=== PATIENT | male | born 1930 | race Caucasian/White ===

== ENCOUNTER → 2016-07-18 01:52 | Emergency (ER) | payer MEDICARE, BC ==
[~2016-07-18 01:52] MED LIST: Acetaminophen TAB* 325 MG PO ONE
[2016-07-18 02:01] VITALS: BP 165/89
--- NOTE | 2016-07-18 03:51 | ED ---
George Vera Rebecca, scribed for Yong Alcaraz MD on 07/18/16 at 0203 . HPI Chest Pain - HPI Summary HPI Summary: Pt is an 86 y/o M BIBA c/o L rib pain s/p rolling out of bed. Pt hit his left side on a bucket, resulting in L rib pain. Pain began immediately after impact, is discrete to the left lateral chest without radiaiton. Pain characterized as dull/aching, was mild at onset, is now completely resolved. Sx aggravated by deep breaths, alleviated by nothing. Denies any othe sx or pain, including abd pain. [employer] pt took 324 mg ASA. Is on Coumadin for A fib. Confirms rolling out of bed is not an irregular event. - History of Current Complaint Chief Complaint: EDChestWallPain Time Seen by Provider: 07/18/16 01:54 Hx Obtained From: Patient Onset/Duration: Traumatic - Rolled out of bed Time of Onset: 00:00 Timing: Constant Initial Severity: Mild Current Severity: None Pain Intensity: 0 Pain Scale Used: 0-10 Numeric Chest Pain Location: Left Lateral Chest Pain Radiates: No Character: Dull/Aching Aggravating Factor(s): Deep Breaths Alleviating Factor(s): Nothing Associated Signs and Symptoms: Positive: Negative - Additional Pertinent History Primary Care Physician: [id number] - Allergy/Home Medications Allergies/Adverse Reactions: Allergies Allergy/AdvReac Type Severity Reaction Status Date / Time No Known Allergies Allergy Verified 11/09/15 05:27 PMH/Surg Hx/FS Hx/Imm Hx Endocrine/Hematology History: Reports: Hx Diabetes Cardiovascular History: Reports: Hx Atrial Fibrillation, Hx Congestive Heart Failure, Hx Hypertension, Hx Pacemaker/ICD, Other Cardiovascular Problems/ Disorders - PACEMAKER Denies: Hx Peripheral Vascular Disease History: Reports: Other Problems/Disorders - CKD Musculoskeletal History: Denies: Hx Arthritis, Hx Osteoporosis Sensory History: Reports: Hx Contacts or Glasses Opthamlomology History: Reports: Hx Contacts or Glasses Neurological History: Denies: Hx Headaches, Hx Seizures, Hx Transient Ischemic Attacks (TIA) Psychiatric History: Denies: Hx Anxiety, Hx Depression - Surgical History Surgery Procedure, Year, and Place: PACEMAKER Infectious Disease History: No Infectious Disease History: Denies: Traveled Outside the [place] in Last 30 Days - Family History Known Family History: Positive: Cardiac Disease - Social History Alcohol Use: None Substance Use Type: Reports: None Hx Tobacco Use: No Smoking Status (MU): Former Smoker Review of Systems Negative: Abdominal Pain Positive: Arthralgia - Pain in the left lateral rib region All Other Systems Reviewed And Are Negative: Yes Physical Exam Triage Information Reviewed: Yes Vital Signs On Initial Exam: Initial Vitals Temp Pulse Resp BP Pulse Ox 100 F 106 16 165/89 92 07/18/16 01:59 07/18/16 01:59 07/18/16 01:59 07/18/16 01:59 07/18/16 01:59 Vital Signs Reviewed: Yes Appearance: Positive: Well-Appearing, No Pain Distress Skin: Positive: Warm, Skin Color Reflects Adequate Perfusion, Dry, Other - No ecchymosis Eyes: Positive: EOMI, RUDY Neck: Positive: Supple, Nontender Respiratory/Lung Sounds: Positive: Clear to Auscultation, Breath Sounds Present Cardiovascular: Positive: RRR Abdomen Description: Positive: Nontender, Soft Musculoskeletal: Positive: Strength/ROM Intact, Other - Tenderness over the left lateral lower ribs with no ecchymosis Neurological: Positive: Normal, Sensory/Motor Intact, Alert, Oriented to Person Place, Time Psychiatric: Positive: Affect/Mood Appropriate AVPU Assessment: Alert Diagnostics - Vital Signs Vital Signs Temp Pulse Resp BP Pulse Ox 07/18/16 01:59 100 F 106 16 165/89 92 - Laboratory Lab Statement: Any lab studies that have been ordered have been reviewed, and results considered in the medical decision making process. - Radiology Ribs XR Xray Interpretation: Positive (See Comments) - Fx of the left 9th rib, nondisplaced. No PTX Radiology Interpretation Completed By: ED Physician CXR Xray Interpretation: Positive (See Comments) - Fx of the left 9th rib, nondisplaced. No PTX Radiology Interpretation Completed By: ED Physician Re-Evaluation - Re-Evaluation First Eval Re-Evaluation Time: 03:46 Change: Improved Comment: Discussed XR results with pt. He is feeling significantly better. Chest Pain Course/Dx - Course Assessment/Plan: ON X-RAY, IT APPEARS THAT LEFT 9TH RIB IS FRACTURED WITHOUT DISPLACEMENT. RESULTS DISCUSSED WITH PATIENT. HOME WITH INCENTIVE SPIROMETER. F/ U WITH PMD. DISCHARGE HOME STABLE. - Diagnoses Provider Diagnoses: Rib fracture Discharge - Discharge Plan Condition: Stable Disposition: HOME Patient Education Materials: Rib Fracture (ED) Referrals: Hayder Sherman MD [Primary Care Provider] - Additional Instructions: FOLLOW UP WITH YOUR DOCTOR. USE THE INCENTIVE SPIROMETER 4 OR MORE TIMES A DAY TO DECREASE THE RISK OF A RESPIRATORY INFECTION. RETURN TO THE EMERGENCY DEPARTMENT FOR ANY WORSENING OF YOUR CONDITION; PAIN, SHORTNESS OF BREATH, YOU FEEL ILL OR QUESTIONS OR CONCERNS. The documentation as recorded by the George woo Rebecca accurately reflects the service I personally performed and the decisions made by me, Yong Alcaraz MD.
--- NOTE | 2016-07-18 07:56 | RAD ---
INDICATION: Left lateral rib pain after a fall COMPARISON: Chest x-ray dated February 24, 2016 TECHNIQUE: PA and lateral views of the chest and 3 views of the left ribs were obtained. FINDINGS: In the left upper chest cardiac pacemaker with 2 leads overlying the heart. The heart and mediastinum are normal in size and contour. The lungs are grossly clear. There is no evidence of large pleural effusion. No displaced rib fractures are seen. There is no radiographic evidence of free air beneath the diaphragm IMPRESSION: NO RADIOGRAPHIC EVIDENCE OF ACUTE CARDIOPULMONARY DISEASE OR DISPLACED RIB FRACTURES.
== END | disposition home or self-care (01) ==
LOC: ED 01:52
DX: S22.32XA Fracture of one rib, left side, initial encounter for closed fracture (principal); R07.81 Pleurodynia; Z87.891 Personal history of nicotine dependence; X58.XXXA Exposure to other specified factors, initial encounter; Y93.9 Activity, unspecified; Y92.9 Unspecified place or not applicable; Y99.9 Unspecified external cause status
CPT/HCPCS: 71020; 99282; A9270-GY

== ENCOUNTER 2016-08-07 10:15 | Emergency (ER) | payer MEDICARE, BC ==
[2016-08-07 11:18] LABS: Hematocrit 30 % (42-52); Hemoglobin 9.4 g/dl (14.0-18.0); Mean Corpuscular HGB Conc 32 g/dl (31-36); Mean Corpuscular Hemoglobin 28 pg (27-31); Mean Corpuscular Volume 87 fL (80-94); Mean Platelet Volume 7 um3 (7.4-10.4); Red Cell Distribution Width 18 % (10.5-15); White Blood Count 5.3 10^3/ul (3.5-10.8)
--- NOTE | 2016-08-07 11:27 | RAD ---
INDICATION: Cough. COMPARISON: Comparison is made with a prior study from July 18, 2016. TECHNIQUE: A portable view of the chest was obtained. FINDINGS: The heart is within normal limits in size. There is a dual-chamber transvenous pacemaker present. The lungs are slightly hyperinflated and clear. No pleural effusion is seen. IMPRESSION: NO EVIDENCE FOR ACUTE DISEASE.
[2016-08-07 11:34] LABS: Albumin 3.3 g/dL (3.2-5.2); BUN/Creatinine Ratio 18.1 (8-20); C Reactive Protein 27.81 mg/L (< 5.00); Calcium 9.3 mg/dL (8.6-10.3); EGFR African American 31.1 (>60); EGFR Non-African American 24.2 (>60); Globulin 3.4 g/dL (2-4); Magnesium 1.6 mg/dL (1.9-2.7); Potassium 3.8 mmol/L (3.5-5.0); Total Bilirubin 0.7 mg/dL (0.2-1.0); Total Protein 6.7 g/dL (6.4-8.9)
[2016-08-07 11:41] LABS: Troponin I 0.04 ng/mL (<0.04)
[2016-08-07 11:59] LABS: TSH (Thyroid Stimulating Horm) 2.72 mcIU/mL (0.34-5.60)
[2016-08-07 12:03] VITALS: BP 132/68
--- NOTE | 2016-08-07 14:48 | ED ---
I, Rubén,Annemarie, scribed for Lee Forman MD on 08/07/16 at 1043 . Complex/Multi-Sys Presentation - HPI Summary HPI Summary: This 86 y/o male presents to ED for general weakness since this morning. Pt attempted to ambulate to bathroom to urinate, but was unable to move out of bed. Pt is wheelchair dependent at home. He denies any dysuria, n/v, fever, chills, blurred vision, focal weakness, or change in speech, but reports mild cough last night. PMHx includes afib, CHF, DM, CHF. He is currently on blood thinner. Normal appetite per pt. Primary care involves Dr. Sherman. Pt is remote former smoker and nondrinker. - History Of Current Complaint Chief Complaint: EDGeneral Time Seen by Provider: 08/07/16 10:32 Hx Obtained From: Patient, Medical Records Onset/Duration: Sudden Onset, Still Present Timing: Constant Severity Currently: Moderate Severity Initially: Moderate Associated Signs And Symptoms: Positive: Weakness - generalized. Negative: Nausea, Vomiting, Dysuria, Fever - Allergies/Home Medications Allergies/Adverse Reactions: Allergies Allergy/AdvReac Type Severity Reaction Status Date / Time No Known Allergies Allergy Verified 11/09/15 05:27 PMH/Surg Hx/FS Hx/Imm Hx Endocrine/Hematology History: Reports: Hx Diabetes Cardiovascular History: Reports: Hx Atrial Fibrillation, Hx Congestive Heart Failure, Hx Hypertension, Hx Pacemaker/ICD, Other Cardiovascular Problems/ Disorders - PACEMAKER Denies: Hx Peripheral Vascular Disease History: Reports: Other Problems/Disorders - CKD Musculoskeletal History: Denies: Hx Arthritis, Hx Osteoporosis Sensory History: Reports: Hx Contacts or Glasses Opthamlomology History: Reports: Hx Contacts or Glasses Neurological History: Denies: Hx Headaches, Hx Seizures, Hx Transient Ischemic Attacks (TIA) Psychiatric History: Denies: Hx Anxiety, Hx Depression - Surgical History Surgery Procedure, Year, and Place: PACEMAKER Infectious Disease History: No Infectious Disease History: Denies: Traveled Outside the [place] in Last 30 Days - Family History Known Family History: Positive: Cardiac Disease - Social History Alcohol Use: None Substance Use Type: Reports: None Hx Tobacco Use: No Smoking Status (MU): Former Smoker Review of Systems Negative: Fever, Chills Negative: Blurred Vision Positive: Cough Negative: Vomiting, Nausea Negative: dysuria Positive: Weakness - generalized. Negative: Headache, Slurred Speech Negative: Anxious, Depressed All Other Systems Reviewed And Are Negative: Yes Physical Exam - Summary Physical Exam Summary: The patient is well-nourished in no acute distress and in no acute pain. The skin is warm and dry and skin color reflects adequate perfusion. Decreased skin turgor. HEENT: The head is normocephalic and atraumatic. The pupils are equal and reactive. The conjunctivae are clear and without drainage. Nares are patent and without drainage. The external ears are intact. The ear canals are patent and without drainage. The tympanic membranes are intact. Neck is supple with full range of motion and non-tender. There are no carotid bruits. There is no neck vein distension. Respiratory: Chest is non-tender. Lungs are noted with bibasilar rales and wheezing. Cardiovascular: Hear is regular rate and rhythm. There is no murmur or rub auscultated. There is no peripheral edema and pulses are symmetrical and equal. 3 seconds cap refills Abdomen: The abdomen is soft and non-tender. There are normal bowel sounds heard in all four quadrants and there is no organomegaly palpated. Musculoskeletal: There is no back pain noted. Extremities are non-tender with full range of motion. There is good capillary refill. There is no peripheral edema or calf tenderness elicited. Neurological: Patient is alert and oriented to person, place and time. The patient has symmetrical motor strength in all four extremities. Cranial nerves II-III are grossly intact. Deep tendon reflexes are symmetrical and equal in all four extremities. Psychiatric: The patient has an appropriate affect and does not exhibit any anxiety or depression. Triage Information Reviewed: Yes Vital Signs On Initial Exam: Initial Vitals Temp Pulse Resp BP Pulse Ox 97.4 F 74 20 132/67 93 08/07/16 10:19 08/07/16 10:19 08/07/16 10:19 08/07/16 10:19 08/07/16 10:19 Vital Signs Reviewed: Yes Diagnostics - Vital Signs Vital Signs Temp Pulse Resp BP Pulse Ox 08/07/16 10:19 97.4 F 74 20 132/67 93 - Laboratory Lab Results: Lab Results 08/07/16 08/07/16 08/07/16 Range/Units 11:05 11:05 11:05 WBC 5.3 (3.5-10.8) 10^3/ul RBC 3.40 L (4.0-5.4) 10^6/ul Hgb 9.4 L (14.0-18.0) g/dl Hct 30 L (42-52) % MCV 87 (80-94) fL MCH 28 (27-31) pg MCHC 32 (31-36) g/dl RDW 18 H (10.5-15) % Plt Count 216 (150-450) 10^3/ul MPV 7 L (7.4-10.4) um3 Neut % (Auto) 75.9 (38-83) % Lymph % (Auto) 10.4 L (25-47) % Norman % (Auto) 9.0 (1-9) % Eos % (Auto) 4.2 (0-6) % Baso % (Auto) 0.5 (0-2) % Absolute Neuts (auto) 4.0 (1.5-7.7) 10^3/ul Absolute Lymphs (auto) 0.6 L (1.0-4.8) 10^3/ul Absolute Monos (auto) 0.5 (0-0.8) 10^3/ul Absolute Eos (auto) 0.2 (0-0.6) 10^3/ul Absolute Basos (auto) 0 (0-0.2) 10^3/ul Absolute Nucleated RBC 0 10^3/ul Nucleated RBC % 0 INR (Anticoag Therapy) (0.89-1.11) APTT (26.0-36.3) seconds Sodium 141 (133-145) mmol/L Potassium 3.8 (3.5-5.0) mmol/L Chloride 102 (101-111) mmol/L Carbon Dioxide 30 (22-32) mmol/L Anion Gap 9 (2-11) mmol/L BUN 46 H (6-24) mg/dL Creatinine 2.54 H (0.67-1.17) mg/dL Est GFR ( Amer) 31.1 (>60) Est GFR (Non-Af Amer) 24.2 (>60) BUN/Creatinine Ratio 18.1 (8-20) Glucose 166 H (70-100) mg/dL Lactic Acid 0.9 (0.5-2.0) mmol/L Calcium 9.3 (8.6-10.3) mg/dL Magnesium 1.6 L (1.9-2.7) mg/dL Total Bilirubin 0.70 (0.2-1.0) mg/dL AST 11 L (13-39) U/L ALT 9 (7-52) U/L Alkaline Phosphatase 80 (34-104) U/L Troponin I 0.04 H* (<0.04) ng/mL C-Reactive Protein 27.81 H (< 5.00) mg/L B-Natriuretic Peptide ( - 100) pg/mL Total Protein 6.7 (6.4-8.9) g/dL Albumin 3.3 (3.2-5.2) g/dL Globulin 3.4 (2-4) g/dL Albumin/Globulin Ratio 1.0 (1-3) TSH 2.72 (0.34-5.60) mcIU/mL 08/07/16 08/07/16 Range/Units 11:05 11:05 WBC (3.5-10.8) 10^3/ul RBC (4.0-5.4) 10^6/ul Hgb (14.0-18.0) g/dl Hct (42-52) % MCV (80-94) fL MCH (27-31) pg MCHC (31-36) g/dl RDW (10.5-15) % Plt Count (150-450) 10^3/ul MPV (7.4-10.4) um3 Neut % (Auto) (38-83) % Lymph % (Auto) (25-47) % Norman % (Auto) (1-9) % Eos % (Auto) (0-6) % Baso % (Auto) (0-2) % Absolute Neuts (auto) (1.5-7.7) 10^3/ul Absolute Lymphs (auto) (1.0-4.8) 10^3/ul Absolute Monos (auto) (0-0.8) 10^3/ul Absolute Eos (auto) (0-0.6) 10^3/ul Absolute Basos (auto) (0-0.2) 10^3/ul Absolute Nucleated RBC 10^3/ul Nucleated RBC % INR (Anticoag Therapy) 3.14 H (0.89-1.11) APTT 49.4 H (26.0-36.3) seconds Sodium (133-145) mmol/L Potassium (3.5-5.0) mmol/L Chloride (101-111) mmol/L Carbon Dioxide (22-32) mmol/L Anion Gap (2-11) mmol/L BUN (6-24) mg/dL Creatinine (0.67-1.17) mg/dL Est GFR ( Amer) (>60) Est GFR (Non-Af Amer) (>60) BUN/Creatinine Ratio (8-20) Glucose (70-100) mg/dL Lactic Acid (0.5-2.0) mmol/L Calcium (8.6-10.3) mg/dL Magnesium (1.9-2.7) mg/dL Total Bilirubin (0.2-1.0) mg/dL AST (13-39) U/L ALT (7-52) U/L Alkaline Phosphatase (34-104) U/L Troponin I (<0.04) ng/mL C-Reactive Protein (< 5.00) mg/L B-Natriuretic Peptide 665 H ( - 100) pg/mL Total Protein (6.4-8.9) g/dL Albumin (3.2-5.2) g/dL Globulin (2-4) g/dL Albumin/Globulin Ratio (1-3) TSH (0.34-5.60) mcIU/mL Result Diagrams: 08/07/16 11:05 08/07/16 11:05 Lab Statement: Any lab studies that have been ordered have been reviewed, and results considered in the medical decision making process. - Radiology CXR Xray Interpretation: No Acute Changes - IMPRESSION: NO EVIDENCE FOR ACUTE DISEASE. Radiology Interpretation Completed By: Radiologist - EKG 1041 Cardiac Rate: Other Rate - paced EKG Rhythm: Atrial Fibrillation Ectopy: PVCs - Occasional Complex Multi-Symp Course/Dx Assessment/Plan: This 86 y/o male presents to ED for general weakness since this morning. He denies any dysuria, n/v, fever, chills, blurred vision, focal weakness, or change in speech, but reports mild cough last night. Labs were reviewed. CXR shows no acute cardiopulmonary disease. EKG shows AFib with paced rate and occasional PVCs. Upon reevaluation, the patient states that he feels better. The patient will be discharged home and follow-up with his PCP. - Diagnoses Differential Diagnoses/HQI/PQRI: Metabolic Abnormality, Sepsis, Urinary Tract Infection, Other - myocardial infarct, anemia, pneumonia, chf, myocardial infarct, renal insufficiency, knee pain Provider Diagnoses: Weakness Discharge - Discharge Plan Condition: Stable Disposition: HOME Patient Education Materials: Weakness (ED) Referrals: Hayder Sherman MD [Primary Care Provider] - 2 Days Additional Instructions: Please follow-up with your primary care physician in two days. The documentation as recorded by the Rubén woo Soohyun accurately reflects the service I personally performed and the decisions made by me, Lee Forman MD.
== END 2016-08-07 14:51 | disposition home or self-care (01) ==
LOC: ED 10:15
DX: R53.1 Weakness (principal); Z86.79 Personal history of other diseases of the circulatory system; R05 Cough; Z87.891 Personal history of nicotine dependence
CPT/HCPCS: 36415; 71010; 80053; 83605; 83735; 83880; 84443; 84484; 85025; 85610; 85730; 86140; 87040; 93005; 99283

== ENCOUNTER 2016-10-19 07:53 | Observation (INO) | payer MEDICARE, BC ==
[2016-10-19 08:39] LABS: Hematocrit 26 % (42-52); Hemoglobin 8.4 g/dl (14.0-18.0); Mean Corpuscular HGB Conc 32 g/dl (31-36); Mean Corpuscular Hemoglobin 30 pg (27-31); Mean Corpuscular Volume 94 fL (80-94); Mean Platelet Volume 7 um3 (7.4-10.4); Red Blood Count 2.79 10^6/ul (4.0-5.4); Red Cell Distribution Width 22 % (10.5-15)
[2016-10-19 08:40] LABS: Comments Flag Yes
[2016-10-19 08:41] LABS: Add Diff/Slide Review? Slide Review Added
[2016-10-19 08:56] LABS: Albumin 3.6 g/dL (3.2-5.2); BUN/Creatinine Ratio 16.8 (8-20); C Reactive Protein 5.28 mg/L (< 5.00); Calcium 8.9 mg/dL (8.6-10.3); EGFR African American 34.6 (>60); EGFR Non-African American 26.9 (>60); Globulin 2.8 g/dL (2-4); Total Bilirubin 0.8 mg/dL (0.2-1.0); Total Protein 6.4 g/dL (6.4-8.9)
[2016-10-19 09:00] LABS: Urine Bacteria Absent (Absent); Urine Bilirubin Negative (Negative); Urine Glucose Negative (Negative); Urine Nitrite Negative (Negative)
--- NOTE | 2016-10-19 09:04 | RAD ---
INDICATION: Short of breath COMPARISON: August 07, 2016 TECHNIQUE: PA and lateral dual-energy views were obtained. FINDINGS: Bones/Soft Tissues: There are no acute bony findings. There is left-sided cardiac pacemaker Cardiomediastinal: The cardiomediastinal silhouette is normal. Lungs: There are no focal consolidative changes. There is a mild increase interstitial markings suggesting mild interstitial edema Pleura: There are tiny bilateral pleural effusions. There is scant fluid in the minor fissure. Other: None IMPRESSION: MILD INTERSTITIAL EDEMA.
[2016-10-19] MEDS ORDERED: Furosemide IV* 10 MG/ML 2 ML VIAL (20 MG) IV SLOW PU ONE ×2 (10:01→13:41)
[2016-10-19 10:18] LABS: PCO2 Arterial 36 mmHg (35-45)
[2016-10-19 11:10] LABS: Troponin I 0.04 ng/mL (<0.04)
--- NOTE | 2016-10-19 12:25 | ED ---
Janes Vera Billy, scribed for Eric Andrea MD on 10/19/16 at 0814 . Shortness of Breath - HPI Summary HPI Summary: Patient is an 86 year-old male with a history of CHF coming to [facility] for evaluation of four days of shortness of breath. He says that his shortness of breath is unchanged with any exertion (ie, pushing his wheelchair). he also states that he took one dose of Lasix this morning which did not improve his symptoms. However, it is improved with upright position and worse at night, in recumbent positions. He also reports trace swelling in the bilateral lower extremities. He denies any cough, fever, or chest pain. - History of Current Complaint Chief Complaint: EDShortnessOfBreath Time Seen by Provider: 10/19/16 08:09 Hx Obtained From: Patient Onset/Duration: Gradual Onset, Lasting Days, Still Present Timing: Constant Current Severity: Moderate Dyspnea At: Rest Aggrevating Factors: Recumbent Position Alleviating Factors: Upright Position Associated Signs & Symptoms: Edema - Allergy/Home Medications Allergies/Adverse Reactions: Allergies Allergy/AdvReac Type Severity Reaction Status Date / Time No Known Allergies Allergy Verified 11/09/15 05:27 Home Medications: Home Medications Furosemide TAB* [Lasix TAB*] 40 mg PO DAILY 10/19/16 [History Confirmed 10/19/16 ] glipiZIDE TAB.XL* [Glucotrol XL*] 10 mg PO BID 10/19/16 [History Confirmed 10/19] PMH/Surg Hx/FS Hx/Imm Hx Endocrine/Hematology History: Reports: Hx Diabetes Cardiovascular History: Reports: Hx Atrial Fibrillation, Hx Congestive Heart Failure, Hx Hypertension, Hx Pacemaker/ICD, Other Cardiovascular Problems/ Disorders - PACEMAKER Denies: Hx Peripheral Vascular Disease History: Reports: Other Problems/Disorders - CKD Musculoskeletal History: Denies: Hx Arthritis, Hx Osteoporosis Sensory History: Reports: Hx Contacts or Glasses Opthamlomology History: Reports: Hx Contacts or Glasses Neurological History: Denies: Hx Headaches, Hx Seizures, Hx Transient Ischemic Attacks (TIA) Psychiatric History: Denies: Hx Anxiety, Hx Depression - Surgical History Surgery Procedure, Year, and Place: PACEMAKER Infectious Disease History: No Infectious Disease History: Denies: Traveled Outside the [place] in Last 30 Days - Family History Known Family History: Positive: Cardiac Disease - Social History Alcohol Use: None Substance Use Type: Reports: None Hx Tobacco Use: No Smoking Status (MU): Former Smoker Review of Systems Negative: Fever Negative: Chest Pain Positive: Shortness Of Breath. Negative: Cough Positive: Edema All Other Systems Reviewed And Are Negative: Yes Physical Exam - Summary Physical Exam Summary: VITAL SIGNS: Reviewed. GENERAL: Patient is an elderly, fragile male who is lying comfortable in the stretcher. Patient is not in any acute respiratory distress. He is speaking in full sentences. HEAD AND FACE: Normocephalic EYES: PERRLA, EOMI x 2. EARS: Hearing grossly intact. MOUTH: Oropharynx within normal limits. NECK: Supple, trachea is midline, no adenopathy, no JVD, no carotid bruit. CHEST: Symmetric, no tenderness at palpation LUNGS: There are decreased breath sounds bilaterally. Positive crackles in the left lower lung. No wheezing. There are intercostal muscle retractions visualized. CVS: Regular rate and rhythm, S1 and S2 present, no murmurs or gallops appreciated. ABDOMEN: Soft, non-tender. It is mildly distended at baseline. Bowel sounds are normal. No abdominal abnormal pulsations. EXTREMITIES: Full ROM in all major joints, no cyanosis or clubbing. There is 1 + edema in the bilateral lower extremities. NEURO: Alert and oriented x 3. No acute neurological deficits. Speech is normal and follows commands. SKIN: Dry and warm Triage Information Reviewed: Yes Vital Signs On Initial Exam: Initial Vitals Temp Pulse Resp BP Pulse Ox 98.6 F 73 16 156/82 93 10/19/16 08:04 10/19/16 08:04 10/19/16 08:04 10/19/16 08:04 10/19/16 08:04 Vital Signs Reviewed: Yes Diagnostics - Vital Signs Vital Signs Temp Pulse Resp BP Pulse Ox 10/19/16 08:04 98.6 F 73 16 156/82 93 - Laboratory Lab Results: Lab Results 10/19/16 10/19/16 10/19/16 Range/Units 07:44 08:30 08:30 WBC 3.0 L (3.5-10.8) 10^3/ul RBC 2.79 L (4.0-5.4) 10^6/ul Hgb 8.4 L (14.0-18.0) g/dl Hct 26 L (42-52) % MCV 94 (80-94) fL MCH 30 (27-31) pg MCHC 32 (31-36) g/dl RDW 22 H (10.5-15) % Plt Count 139 L (150-450) 10^3/ul MPV 7 L (7.4-10.4) um3 Neut % (Auto) 69.5 (38-83) % Lymph % (Auto) 16.0 L (25-47) % Gage % (Auto) 11.4 H (1-9) % Eos % (Auto) 2.1 (0-6) % Baso % (Auto) 1.0 (0-2) % Absolute Neuts (auto) 2.1 (1.5-7.7) 10^3/ul Absolute Lymphs (auto) 0.5 L (1.0-4.8) 10^3/ul Absolute Monos (auto) 0.3 (0-0.8) 10^3/ul Absolute Eos (auto) 0.1 (0-0.6) 10^3/ul Absolute Basos (auto) 0 (0-0.2) 10^3/ul Absolute Nucleated RBC 0 10^3/ul Nucleated RBC % 0.1 INR (Anticoag Therapy) (0.89-1.11) APTT (26.0-36.3) seconds ABG pH (7.35-7.45) ABG pCO2 (35-45) mmHg ABG pO2 (80-100) mmHg ABG HCO3 (19-31) mmol/L ABG O2 Saturation (95-98) % ABG Base Excess (-2.0-2.0) Sodium 144 (133-145) mmol/L Potassium 4.0 (3.5-5.0) mmol/L Chloride 110 (101-111) mmol/L Carbon Dioxide 28 (22-32) mmol/L Anion Gap 6 (2-11) mmol/L BUN 39 H (6-24) mg/dL Creatinine 2.32 H (0.67-1.17) mg/dL Est GFR ( Amer) 34.6 (>60) Est GFR (Non-Af Amer) 26.9 (>60) BUN/Creatinine Ratio 16.8 (8-20) Glucose 162 H (70-100) mg/dL Lactic Acid (0.5-2.0) mmol/L Calcium 8.9 (8.6-10.3) mg/dL Total Bilirubin 0.80 (0.2-1.0) mg/dL AST 13 (13-39) U/L ALT 10 (7-52) U/L Alkaline Phosphatase 79 (34-104) U/L Total Creatine Kinase 64 (10-223) U/L CK-MB (CK-2) 3.5 (0.6-6.3) ng/mL Troponin I 0.04 H* (<0.04) ng/mL C-Reactive Protein 5.28 H (< 5.00) mg/L B-Natriuretic Peptide ( - 100) pg/mL Total Protein 6.4 (6.4-8.9) g/dL Albumin 3.6 (3.2-5.2) g/dL Globulin 2.8 (2-4) g/dL Albumin/Globulin Ratio 1.3 (1-3) Urine Color Urine Appearance Urine pH (5-9) Ur Specific [place] (1.010-1.030) Urine Protein (Negative) Urine Ketones (Negative) Urine Blood (Negative) Urine Nitrate (Negative) Urine Bilirubin (Negative) Urine Urobilinogen (Negative) Ur Leukocyte Esterase (Negative) Urine WBC (Auto) (Absent) Urine RBC (Auto) (Absent) Urine Bacteria (Absent) Hyaline Casts (Absent) Urine Glucose (Negative) Influenza A (Rapid) Negative (Negative) Influenza B (Rapid) Negative (Negative) 10/19/16 10/19/16 10/19/16 Range/Units 08:30 08:30 08:30 WBC (3.5-10.8) 10^3/ul RBC (4.0-5.4) 10^6/ul Hgb (14.0-18.0) g/dl Hct (42-52) % MCV (80-94) fL MCH (27-31) pg MCHC (31-36) g/dl RDW (10.5-15) % Plt Count (150-450) 10^3/ul MPV (7.4-10.4) um3 Neut % (Auto) (38-83) % Lymph % (Auto) (25-47) % Gage % (Auto) (1-9) % Eos % (Auto) (0-6) % Baso % (Auto) (0-2) % Absolute Neuts (auto) (1.5-7.7) 10^3/ul Absolute Lymphs (auto) (1.0-4.8) 10^3/ul Absolute Monos (auto) (0-0.8) 10^3/ul Absolute Eos (auto) (0-0.6) 10^3/ul Absolute Basos (auto) (0-0.2) 10^3/ul Absolute Nucleated RBC 10^3/ul Nucleated RBC % INR (Anticoag Therapy) 1.95 H (0.89-1.11) APTT 39.5 H (26.0-36.3) seconds ABG pH (7.35-7.45) ABG pCO2 (35-45) mmHg ABG pO2 (80-100) mmHg ABG HCO3 (19-31) mmol/L ABG O2 Saturation (95-98) % ABG Base Excess (-2.0-2.0) Sodium (133-145) mmol/L Potassium (3.5-5.0) mmol/L Chloride (101-111) mmol/L Carbon Dioxide (22-32) mmol/L Anion Gap (2-11) mmol/L BUN (6-24) mg/dL Creatinine (0.67-1.17) mg/dL Est GFR ( Amer) (>60) Est GFR (Non-Af Amer) (>60) BUN/Creatinine Ratio (8-20) Glucose (70-100) mg/dL Lactic Acid 0.8 (0.5-2.0) mmol/L Calcium (8.6-10.3) mg/dL Total Bilirubin (0.2-1.0) mg/dL AST (13-39) U/L ALT (7-52) U/L Alkaline Phosphatase (34-104) U/L Total Creatine Kinase (10-223) U/L CK-MB (CK-2) (0.6-6.3) ng/mL Troponin I (<0.04) ng/mL C-Reactive Protein (< 5.00) mg/L B-Natriuretic Peptide 822 H ( - 100) pg/mL Total Protein (6.4-8.9) g/dL Albumin (3.2-5.2) g/dL Globulin (2-4) g/dL Albumin/Globulin Ratio (1-3) Urine Color Urine Appearance Urine pH (5-9) Ur Specific [place] (1.010-1.030) Urine Protein (Negative) Urine Ketones (Negative) Urine Blood (Negative) Urine Nitrate (Negative) Urine Bilirubin (Negative) Urine Urobilinogen (Negative) Ur Leukocyte Esterase (Negative) Urine WBC (Auto) (Absent) Urine RBC (Auto) (Absent) Urine Bacteria (Absent) Hyaline Casts (Absent) Urine Glucose (Negative) Influenza A (Rapid) (Negative) Influenza B (Rapid) (Negative) 10/19/16 10/19/16 Range/Units 08:47 10:05 WBC (3.5-10.8) 10^3/ul RBC (4.0-5.4) 10^6/ul Hgb (14.0-18.0) g/dl Hct (42-52) % MCV (80-94) fL MCH (27-31) pg MCHC (31-36) g/dl RDW (10.5-15) % Plt Count (150-450) 10^3/ul MPV (7.4-10.4) um3 Neut % (Auto) (38-83) % Lymph % (Auto) (25-47) % Gage % (Auto) (1-9) % Eos % (Auto) (0-6) % Baso % (Auto) (0-2) % Absolute Neuts (auto) (1.5-7.7) 10^3/ul Absolute Lymphs (auto) (1.0-4.8) 10^3/ul Absolute Monos (auto) (0-0.8) 10^3/ul Absolute Eos (auto) (0-0.6) 10^3/ul Absolute Basos (auto) (0-0.2) 10^3/ul Absolute Nucleated RBC 10^3/ul Nucleated RBC % INR (Anticoag Therapy) (0.89-1.11) APTT (26.0-36.3) seconds ABG pH 7.46 H (7.35-7.45) ABG pCO2 36 (35-45) mmHg ABG pO2 60 L (80-100) mmHg ABG HCO3 26.2 (19-31) mmol/L ABG O2 Saturation 92.1 L (95-98) % ABG Base Excess 1.7 (-2.0-2.0) Sodium (133-145) mmol/L Potassium (3.5-5.0) mmol/L Chloride (101-111) mmol/L Carbon Dioxide (22-32) mmol/L Anion Gap (2-11) mmol/L BUN (6-24) mg/dL Creatinine (0.67-1.17) mg/dL Est GFR ( Amer) (>60) Est GFR (Non-Af Amer) (>60) BUN/Creatinine Ratio (8-20) Glucose (70-100) mg/dL Lactic Acid (0.5-2.0) mmol/L Calcium (8.6-10.3) mg/dL Total Bilirubin (0.2-1.0) mg/dL AST (13-39) U/L ALT (7-52) U/L Alkaline Phosphatase (34-104) U/L Total Creatine Kinase (10-223) U/L CK-MB (CK-2) (0.6-6.3) ng/mL Troponin I (<0.04) ng/mL C-Reactive Protein (< 5.00) mg/L B-Natriuretic Peptide ( - 100) pg/mL Total Protein (6.4-8.9) g/dL Albumin (3.2-5.2) g/dL Globulin (2-4) g/dL Albumin/Globulin Ratio (1-3) Urine Color Yellow Urine Appearance Clear Urine pH 5.0 (5-9) Ur Specific [place] 1.012 (1.010-1.030) Urine Protein 2+(100 mg/dl) H (Negative) Urine Ketones Negative (Negative) Urine Blood 1+ H (Negative) Urine Nitrate Negative (Negative) Urine Bilirubin Negative (Negative) Urine Urobilinogen Negative (Negative) Ur Leukocyte Esterase Negative (Negative) Urine WBC (Auto) Absent (Absent) Urine RBC (Auto) Trace(0-2/hpf) (Absent) Urine Bacteria Absent (Absent) Hyaline Casts Present H (Absent) Urine Glucose Negative (Negative) Influenza A (Rapid) (Negative) Influenza B (Rapid) (Negative) Result Diagrams: 10/19/16 08:30 10/19/16 08:30 Lab Statement: Any lab studies that have been ordered have been reviewed, and results considered in the medical decision making process. - Radiology CXR Radiology Interpretation Completed By: Radiologist - MILD INTERSTITIAL EDEMA. - EKG 0916 EKG Interpretation: Ventricular paced 66 bpm EKG Comparison: No Significant Change - No changes from previous EKG on 08/07/16 Course/Dx - Course Assessment/Plan: Patient is an 86 year-old male with a history of CHF coming to [facility] for evaluation of four days of shortness of breath. He says that his shortness of breath is unchanged with any exertion (ie, pushing his wheelchair) . he also states that he took one dose of Lasix this morning which did not improve his symptoms. However, it is improved with upright position and worse at night, in recumbent positions. He also reports trace swelling in the bilateral lower extremities. He denies any cough, fever, or chest pain. Test results show WBC of 3.0, H&H of 8.4/26 without bandemia, INR is 1.95 and APTT is 3.95. ABG shows pH of 7.46, pCO2 36, pO2 60, and O2 sat of 92.1. BUN is 39, creatinine of 2.32 consistent with chronic renal failure. CRP is 5.2 and BNP is 822 which is consistent with CHF exacerbation. UA is negative for UTI. Influenza A and B are negative. CXR shows mild interstitial edema, again consistent with acute exacerbation of CHF. In the ED course, patient was treated with Lasix 20mg IV for CHF exacerbation. The troponin is negative, therefore I do not suspecit acute coronary syndrome. The patient has a chronic anemia, and H&H is similar to baseline. There is no history of GI bleeds. The patient declined a rectal examination. At this point, I discussed my physical exam findings with Dr. Cabrales who accepted the patient for admission. - Diagnoses Differential Diagnosis/HQI/PQRI: Positive: CHF, [place], Pneumonia, Pulmonary Edema, Unstable Angina Provider Diagnoses: CHF exacerbation, Chronic anemia, Chronic renal failure, Troponin level elevated - Physician Notifications Discussed Care of Patient With: Dr. Cabrales (hospitalist) @ 1015: accepts admission. Discharge - Discharge Plan Condition: Stable Disposition: ADMITTED TO [facility] The documentation as recorded by the scribe, Marrero,Gil accurately reflects the service I personally performed and the decisions made by me, Eric Andrea MD.
[2016-10-19] MEDS ORDERED: Ondansetron INJ* 2 MG/ML VIAL IV PRN (13:41)
[2016-10-19] MEDS ORDERED: Acetaminophen TAB* 325 MG PO PRN (13:41)
[2016-10-19] MEDS ORDERED: Dextrose 50% Syringe 50 ML* 25 GM/50 ML SYRINGE IV PUSH PRN (13:47)
[2016-10-19 16:43] LABS: Hematocrit 25 % (42-52); Hemoglobin 8.2 g/dl (14.0-18.0)
[2016-10-19 16:44] LABS: Comments Flag Yes
[2016-10-19] MEDS ORDERED: Warfarin TAB(*) 2.5 MG PO SCH (17:00)
[2016-10-19] MEDS: Insulin LISPRO* 1 UNITS UNIT SUBCUT SCH (17:37)
[2016-10-19] MEDS ORDERED: Metoprolol Tartrate TAB* 100 MG TAB PO SCH (18:00)
[2016-10-19] MEDS ORDERED: Potassium Chlor TAB* 10 MEQ TAB.ER PO SCH (18:00)
[2016-10-19] MEDS: Gabapentin CAP(*) 100 MG PO SCH ×2 (20:27→20:29)
[2016-10-19] MEDS ORDERED: Doxazosin TAB* 2 MG PO SCH (21:00)
--- NOTE | 2016-10-19 22:21 | HP ---
HISTORY AND PHYSICAL: DATE OF ADMISSION: 10/19/16 PRIMARY CARE PROVIDER: Dr. Sherman. ATTENDING PHYSICIAN WHILE IN THE HOSPITAL: Aniya Rios MD* (report dictated by Jah Perry NP). CHIEF COMPLAINT: Shortness of breath. HISTORY OF PRESENT ILLNESS: Mr. Davison is an 86-year-old male patient who has a pretty sensitive medical history. He has a history of diabetes, atrial fibrillation, and CHF. His last known EF was 40% to 45%, hypertension, CKD stage 3 and question of history of an [place] in the past which he denies, but it has been reported in previous records. The patient comes in today, he states he has been feeling progressively more short of breath over the last 4 days. He states he really noticed last night that he woke up in the middle of the night, could not catch of his breath. He states he was panting, he felt very short of breath. When he sat up, he felt better and went back to bed, but he still again this morning felt short of breath. He was concerned and decided to come to the ER. He states he has had this before when he has had fluid on his lungs in his own words. He states this has been going on off and on throughout the last 4 days. He has noticed that his ankles are more swollen than his baseline. He states he thinks he has gained about 10 pounds in the last month or so. He states he has been taking his medications as prescribed. He states he has been taking his Lasix which has not helped his symptoms. He also states that to his knowledge he has not been sick recently. He denies any fevers, chills, cough, chest pain. He states that his diet has been the same with the exception that he may be drinking more water than what he normally does, and he does state that again he has gained about 10 pounds. He came into the ER today, was ultimately evaluated. His BNP was elevated. He had a mildly elevated troponin. Chest x-ray was concerning for some CHF. Hospitalist service was asked to evaluate for admission. PAST MEDICAL HISTORY: Significant for: 1. Diabetes. 2. Atrial fibrillation. 3. CHF, last EF was 40% to 45%. 4. Hypertension. 5. CKD stage 3. 6. Question of an [place]. PAST SURGICAL HISTORY: 1. He has had a pacemaker placement. 2. Appendectomy. HOME MEDICATIONS: The home meds according to the list that we obtained include: 1. Glipizide 10 mg p.o. b.i.d. 2. Amlodipine 5 mg daily. 3. Warfarin 2.5 mg per Monday, Monday, Monday, Monday, Monday, Monday. 4. Spironolactone 25 mg daily. 5. Zocor 20 mg daily. 6. Potassium chloride 10 mEq daily. 7. Lopressor 100 mg p.o. b.i.d. 8. Neurontin 200 mg p.o. b.i.d. 9. Cardura 4 mg at bedtime. 10. Lasix 40 mg daily. 11. B12, 1000 mcg p.o. daily. 12. Vitamin D 1000 units daily. 13. Allopurinol 100 mg daily. ALLERGIES TO MEDICATIONS: No known drug allergies. FAMILY HISTORY: His mother's history is unknown. Father had a history of COPD. SOCIAL HISTORY: He is a former smoker, he quit about 60 years ago. He does not drink alcohol. He is . Surrogate decision makers are his and son. He does reside in [place]. REVIEW OF SYSTEMS: There is no documented fever. He does admit to having a 10- pound weight change. He denies having any double vision. No ear discharge. He denies having any rhinorrhea. No sore throat. No thyroid enlargement. He denies having any chest pain. He does admit to having some orthopnea and nocturnal dyspnea. He denies having any abdominal pain. No nausea. No vomiting. No dysuria. No frequency. No seizure. No loss of consciousness, no pruritus and no skin ulcerations. Review of 14 systems completed, all others negative. PHYSICAL EXAMINATION GENERAL: At this time, Mr. Davison is an 86-year-old male patient. He is sitting in the hospital bed, does not appear to be in any acute distress. He is awake and he is alert. He states he has been urinating quite a bit from the recent IV Lasix given in the ED. VITAL SIGNS: Blood pressure 146/75, pulse 69, respirations 20, O2 sat was 93%, his temperature was 98.7. HEENT: Head is atraumatic, and normocephalic. Eyes: EOMs are intact. Sclerae anicteric and not pale. NECK: Supple. Throat: Oral mucosa appears to be moist. No oropharyngeal erythema. HEART: Sounds S1, S2. Irregularly irregular rate. No murmurs, rubs or gallops. LUNGS: He had some fine crackles in the lower bases. ABDOMEN: Soft, flat and nontender. His bowel sounds were present. EXTREMITIES: He has +2 pedal edema. He is able to move all 4 extremities with 5/5 strength. NEUROLOGIC: The patient is awake. He is alert. He is oriented x3. His tongue is midline. His roping machine tender were equal. He had no gross focal deficits. SKIN: Intact. LABORATORY DATA: Labs today revealed WBC of 3.0, RBC 2.79, hemoglobin 8.4, hematocrit 26. His baseline hemoglobin appears to be right around 9. His platelets are 139. His INR 1.95. PTT 39.5. Blood gas revealed a pH of 7.46, pCO2 of 36, pO2 of 60, bicarb 26. Chemistry reveals sodium 144, potassium 4.0, chloride 110, bicarb 28, BUN 39, creatinine 2.32 which is near his baseline, glucose 152, lactic 0.8, calcium 8.9, total bilirubin 0.8, AST 13, ALT 10, alk phos 79. His CK was 64, CK-MB 3.5. His troponin was 0.04, is right near his baseline. His CRP was 5.28. His BNP was 822, up from the previous values, but not his highest. The albumin was 3.6. Urine obtained, it showed 2+ protein, 1 + blood. Serology was negative for flu. He did have a chest x-ray. Under my review, I did not appreciate any infiltrates or effusion. He did have some mild interstitial edema. Radiology was in agreement. Impression: Mild interstitial edema. EKG showed a paced rhythm, rate of 66, appears to be underlying atrial fibrillation with base complexes. It was reviewed with his previous EKG, it was similar. His last echo was in February 2016, which revealed an EF of 40% to 45 %. Old medical records were reviewed. ASSESSMENT AND PLAN: Mr. Davison is an 86-year-old male patient coming into the ER today with complaints of shortness of breath along with nocturnal dyspnea and orthopnea and increasing weight and pedal edema. We were asked to evaluate for admission. He will be admitted under observation status for: 1. Congestive heart failure exacerbation. Again, the etiology is unclear as to why this occurred, it could just be from dietary indiscretion. He states he has been drinking more fluids than his baseline. I will plan at this point to go ahead and give him some IV Lasix, he got 20 in the ED and I will give him another 20 mg now. He states he is improving. He feels a little bit better. I would like to continue this. We will give him IV diuretics as needed. We will reevaluate him tomorrow. He may be able to go on p.o. We will just need to follow his BNP, as we did give him 40 IV Lasix and he did take his p.o. Lasix this morning and we will continue to follow, place him on telemetry. His troponin was mildly elevated, it is probably related to the fact from demand ischemia secondary to congestive heart failure. We will just trend these. He is not having any chest pain. I will repeat the EKG in the morning. 2. Atrial fibrillation. His rate is controlled. His INR is 1.95. We will repeat this in the morning and give him his Coumadin tonight. 3. Hypertension. Continue medications as described. 4. Chronic kidney disease. We will follow his creatinine, it appears to be at his baseline. 5. Anemia. Again his H and H is slightly lower than the baseline, normally is around 9. I am going to repeat this later today. I do not think he is actively bleeding. There has been no reports of tarry or black stools per the patient. We will continue to monitor. 6. Code Status: He does have a Do Not Resuscitate in the folder that was brought over from [place]. 7. DVT prophylaxis. Again his INR is 1.95. I am not going to order heparin at this point. 8. Fluids, electrolytes and nutrition. He can have a heart healthy diet and will also get daily weights. TIME SPENT: Time spent on the admission was approximately 60 minutes, greater than half the time was spent [id number] with the patient obtaining my history and physical, the other half time is spent going over the plan of care with the patient and implementing plan of care. I did discuss the plan of care with my attending, Dr. Rios, she is in agreement. JAH PERRY NP CC: Dr. Sherman* [id number]/[facility] #: [id number] ALLEN
[2016-10-20 05:10] LABS: Hematocrit 24 % (42-52); Hemoglobin 7.6 g/dl (14.0-18.0); Mean Corpuscular HGB Conc 32 g/dl (31-36); Mean Corpuscular Hemoglobin 30 pg (27-31); Mean Corpuscular Volume 94 fL (80-94); Mean Platelet Volume 8 um3 (7.4-10.4); Red Blood Count 2.51 10^6/ul (4.0-5.4); Red Cell Distribution Width 22 % (10.5-15)
[2016-10-20 05:12] LABS: Comments Flag Yes
[2016-10-20 05:15] LABS: BUN/Creatinine Ratio 19.1 (8-20); Calcium 8.7 mg/dL (8.6-10.3); EGFR African American 34.9 (>60); EGFR Non-African American 27.2 (>60); Potassium 3.3 mmol/L (3.5-5.0)
[2016-10-20] MEDS: Gabapentin CAP(*) 100 MG PO SCH (07:35)
[2016-10-20] MEDS: Insulin LISPRO* 1 UNITS UNIT SUBCUT SCH ×2 (07:37→11:23)
[2016-10-20] MEDS ORDERED: Spironolactone TAB* 25 MG PO SCH (09:00)
[2016-10-20] MEDS ORDERED: amLODIPine TAB* 5 MG PO SCH (09:00)
[2016-10-20] MEDS ORDERED: Metoprolol Tartrate TAB* 100 MG TAB PO SCH (09:00)
[2016-10-20] MEDS ORDERED: Atorvastatin* 10 MG TAB PO SCH (09:00)
[2016-10-20 11:34] VITALS: BP 131/62
[2016-10-20 11:37] LABS: Ferritin 18.2 ng/mL (24-336)
[2016-10-20 11:40] LABS: Folate 15.35 ng/mL (>3.99)
--- NOTE | 2016-10-21 02:33 | DS ---
DATE OF ADMISSION: 10/19/16 DATE OF DISCHARGE: 10/20/16 PRIMARY CARE PROVIDER: Dr. Sherman. DISCHARGING PROVIDER: SYMONE Zuniga SUPERVISING PHYSICIAN: Dr. Gilberto Bolton.* (DICTATED BY SYMONE ZUNIGA) PRIMARY DISCHARGE DIAGNOSIS: Congestive heart failure exacerbation. SECONDARY DISCHARGE DIAGNOSES: 1. Iron deficiency anemia with heme-negative stool. 2. Chronic kidney disease, stage 4. 3. Atrial fibrillation, anticoagulated with Coumadin. 4. Hypertension. 5. Uoc-lvohtrw-mrmnwgbzb diabetes. 6. Coronary artery disease. DISCHARGE MEDICATIONS: 1. Allopurinol 100 mg p.o. daily. 2. Vitamin D 1000 units p.o. daily. 3. Vitamin B12 1000 mcg p.o. daily. 4. Doxazosin 4 mg p.o. at bedtime. 5. Ferrous sulfate 325 mg p.o. daily. 6. Lasix 40 mg p.o. daily. 7. Gabapentin 200 mg p.o. b.i.d. 8. Metoprolol tartrate 100 mg p.o. twice daily. 9. Potassium chloride 10 mEq. p.o. daily. 10. Simvastatin 20 mg p.o. daily. 11. Spironolactone 25 mg p.o. daily. 12. Coumadin 2.5 mg p.o. daily. 13. Amlodipine 5 mg p.o. daily. 14. Glipizide 10 mg p.o. twice daily. MEDICATION CHANGES: Start ferrous sulfate. HOSPITAL IMAGIN. Chest x-ray shows some mild interstitial edema. 2. EKG shows primarily paced rhythm. HOSPITAL COURSE: This is an 86-year-old gentleman with history of chronic systolic heart failure. Last EF measured between 40% and 45% as well as non- insulin- dependent diabetes, atrial fibrillation, hypertension, coronary artery disease, and chronic kidney disease who presented with complaints of shortness of breath. The patient's symptoms had been progressive over the last several days prior to admission. He noted some lower extremity edema and a weight gain of about 10 pounds he believed over the last several weeks. Initial chest x- ray showed some mild interstitial edema. Labs are significant for anemia, which appeared to be near his baseline. His INR was within therapeutic limits and his chemistry panel showed chronic kidney disease with a GFR of 26, creatinine of 2.3, which is near his baseline. Initial troponin was mildly elevated at 0.04 and BNP was elevated at 822. The patient was subsequently admitted for CHF exacerbation and diuresed with IV Lasix. The patient reports that he diureses significant amount overnight and his complaints of dyspnea had since resolved. At baseline, he is in his wheelchair the majority of the time, but able to ambulate short distances with a walker which he was able to do it at the time of discharge without complaints of shortness of breath. Also of note, the patient's hemoglobin at the time of admission was 8.4 g/dL. His baseline seems to be between 8 and 9. The following morning, hemoglobin was rechecked at 7.6 g/dL. The patient denied any melena. Rectal exam was performed, which showed soft brown stool, which was negative for heme. Iron studies, B12, and folate were completed. The patient did appear to be iron deficient with an iron of 32, normal total iron binding capacity, low saturations at 9%, and a low ferritin at 18. DISPOSITION: The patient is being discharged to home. I recommend resuming his home medications including his typical dose of furosemide with close followup with his primary care provider. He is instructed to monitor his weight daily and to notify his primary care provider with any changes of greater than 3 pounds in a day or 5 pounds in a week. I also recommend starting iron supplementation and repeating his CBC in approximately 1 week. SYMONE ZUNIGA CC: Dr. Sherman [id number]/[facility] #: [id number] [facility] CENTERJanae
== END 2016-10-20 13:15 | disposition home or self-care (01) ==
LOC: ED 07:53 → MEDTELE 10:17
PROVIDERS: ADMIT Internal Medicine; ATTEND Hospitalist
DX: I13.0 Hypertensive heart and chronic kidney disease with heart failure and stage 1 through stage 4 chronic kidney disease, or unspecified chronic kidney disease (principal); N18.4 Chronic kidney disease, stage 4 (severe); I50.9 Heart failure, unspecified; D50.9 Iron deficiency anemia, unspecified; E11.9 Type 2 diabetes mellitus without complications; I25.10 Atherosclerotic heart disease of native coronary artery without angina pectoris; I48.91 Unspecified atrial fibrillation; R74.8 Abnormal levels of other serum enzymes; Z95.0 Presence of cardiac pacemaker; Z79.01 Long term (current) use of anticoagulants; Z79.899 Other long term (current) drug therapy; Z79.4 Long term (current) use of insulin; Z87.891 Personal history of nicotine dependence
CPT/HCPCS: 36415; 36600; 71020; 80048; 80053; 81003; 81015; 82272; 82550; 82553; 82607; 82728; 82746; 82803; 83540; 83550; 83605; 83880; 84484; 85014; 85018; 85025; 85610; 85730; 86140; 87040; 87502; 87641; 93005; 94760; 96374; 96376; 99284; A9270-GY; G0378; J1940

== ENCOUNTER 2016-11-12 06:49 | Observation (INO) | payer MEDICARE, BC ==
[2016-11-12 07:10] LABS: Hematocrit 30 % (42-52); Hemoglobin 9.6 g/dl (14.0-18.0); Mean Corpuscular HGB Conc 32 g/dl (31-36); Mean Corpuscular Hemoglobin 32 pg (27-31); Mean Corpuscular Volume 99 fL (80-94); Mean Platelet Volume 8 um3 (7.4-10.4); Red Blood Count 3.04 10^6/ul (4.0-5.4); Red Cell Distribution Width 20 % (10.5-15)
[2016-11-12 07:20] LABS: Comments Flag Yes
[2016-11-12 07:21] LABS: White Blood Count 3.3 10^3/ul (3.5-10.8)
[2016-11-12 07:27] LABS: Albumin 3.6 g/dL (3.2-5.2); BUN/Creatinine Ratio 18.5 (8-20); EGFR African American 35.5 (>60); EGFR Non-African American 27.6 (>60); Globulin 2.8 g/dL (2-4); Potassium 3.7 mmol/L (3.5-5.0); Total Bilirubin 0.9 mg/dL (0.2-1.0); Total Protein 6.4 g/dL (6.4-8.9)
[2016-11-12 07:41] LABS: Troponin I 0.04 ng/mL (<0.04)
[2016-11-12] MEDS ORDERED: Aspirin Low Dose CHEW TAB* 81 MG PO ONE (08:00)
[2016-11-12] MEDS ORDERED: Furosemide IV* 10 MG/ML 10 ML VIAL (100 MG) IV ONE (08:01)
[2016-11-12 08:59] LABS: C Reactive Protein 9.33 mg/L (< 5.00)
--- NOTE | 2016-11-12 09:53 | ED ---
Darling Vera SooYoung, scribed for Lee Forman MD on 11/12/16 at 0719 . Shortness of Breath - HPI Summary HPI Summary: An 86 y/o M YAMILET presents to ED with c/o SOB, dyspnea onset midnight. He was unable to sleep last night, was sitting upright in a chair. Associated sx: rhinorrhea, bilateral pedal edema. Denies CP, cough, urination changes. Pt takes a water pill. PMHx: afib, enlarged heart, HTN, DM. Neg [place] and COPD. Pt sees Dr. Mcqueen. Former smoker, drinker. - History of Current Complaint Chief Complaint: EDShortnessOfBreath Hx Obtained From: Patient Onset/Duration: Lasting Hours - onset midnight, Still Present Timing: Constant Current Severity: Moderate Dyspnea At: Rest Associated Signs & Symptoms: Edema - Allergy/Home Medications Allergies/Adverse Reactions: Allergies Allergy/AdvReac Type Severity Reaction Status Date / Time No Known Allergies Allergy Verified 11/09/15 05:27 PMH/Surg Hx/FS Hx/Imm Hx Previously Healthy: No Endocrine/Hematology History: Reports: Hx Diabetes Cardiovascular History: Reports: Hx Atrial Fibrillation, Hx Congestive Heart Failure, Hx Hypertension, Hx Pacemaker/ICD, Other Cardiovascular Problems/ Disorders - PACEMAKER Denies: Hx Peripheral Vascular Disease History: Reports: Other Problems/Disorders - CKD Musculoskeletal History: Denies: Hx Arthritis, Hx Osteoporosis Sensory History: Reports: Hx Contacts or Glasses Denies: Hx Hearing Aid Opthamlomology History: Reports: Hx Contacts or Glasses Neurological History: Denies: Hx Headaches, Hx Seizures, Hx Transient Ischemic Attacks (TIA) Psychiatric History: Denies: Hx Anxiety, Hx Depression - Surgical History Surgery Procedure, Year, and Place: PACEMAKER Infectious Disease History: Denies: Traveled Outside the [place] in Last 30 Days - Family History Known Family History: Positive: Cardiac Disease Negative: Hypertension, Diabetes - Social History Occupation: Retired Lives: With Family Alcohol Use: None Hx Substance Use: No Substance Use Type: Reports: None Hx Tobacco Use: No Smoking Status (MU): Former Smoker Review of Systems Positive: Nasal Discharge - rhinorrhea Negative: Chest Pain Positive: Shortness Of Breath. Negative: Cough Gastrointestinal: Negative Positive: Edema - bilat LE All Other Systems Reviewed And Are Negative: Yes Physical Exam - Summary Physical Exam Summary: The patient is well-nourished in no acute distress and in no acute pain. The skin is warm and dry, DECREASED SKIN TURGOR. NO CYANOSIS. HEENT: The head is normocephalic and atraumatic. The pupils are equal and reactive. The conjunctivae are clear and without drainage. Throat is without erythema and exudate. The external ears are intact. The ear canals are patent and without drainage. The tympanic membranes are intact. RHINORRHEA. ORAL MUCOSA DRY. Neck is supple with full range of motion and non-tender. NO NECK VEIN DISTENSION, NO CAROTID BRUITS. Respiratory: Chest is non-tender. DECREASED BREATH SOUNDS IN THE BASES. MILD RALES. Cardiovascular: IRREGULAR, NO MURMUR. PITTING EDEMA TO KNEES. Abdomen: The abdomen is soft and non-tender. No organomegaly palpated. Musculoskeletal: There is no back pain noted. Extremities are non-tender with full range of motion. CAP REFILL 2 SECS. PITTING EDEMA TO KNEES. Neurological: Patient is alert and oriented to person, place and time. The patient has symmetrical motor strength in all four extremities. Cranial nerves are grossly intact. Deep tendon reflexes are symmetrical and equal in all four extremities. Psychiatric: The patient has an appropriate affect and does not exhibit any anxiety or depression. Triage Information Reviewed: Yes Vital Signs On Initial Exam: Initial Vitals Temp Pulse Resp BP Pulse Ox 98.4 F 82 26 154/86 96 11/12/16 06:51 11/12/16 06:51 11/12/16 06:51 11/12/16 06:51 11/12/16 06:51 Vital Signs Reviewed: Yes Diagnostics - Vital Signs Vital Signs Temp Pulse Resp BP Pulse Ox 11/12/16 06:51 98.4 F 82 26 154/86 96 - Laboratory Lab Results: Lab Results 11/12/16 11/12/16 11/12/16 Range/Units 06:50 06:50 06:50 WBC 3.3 L (3.5-10.8) 10^3/ul RBC 3.04 L (4.0-5.4) 10^6/ul Hgb 9.6 L (14.0-18.0) g/dl Hct 30 L (42-52) % MCV 99 H (80-94) fL MCH 32 H (27-31) pg MCHC 32 (31-36) g/dl RDW 20 H (10.5-15) % Plt Count 121 L (150-450) 10^3/ul MPV 8 (7.4-10.4) um3 Neut % (Auto) 72.0 (38-83) % Lymph % (Auto) 15.8 L (25-47) % Garden % (Auto) 9.0 (1-9) % Eos % (Auto) 2.0 (0-6) % Baso % (Auto) 1.2 (0-2) % Absolute Neuts (auto) 2.3 (1.5-7.7) 10^3/ul Absolute Lymphs (auto) 0.5 L (1.0-4.8) 10^3/ul Absolute Monos (auto) 0.3 (0-0.8) 10^3/ul Absolute Eos (auto) 0.1 (0-0.6) 10^3/ul Absolute Basos (auto) 0 (0-0.2) 10^3/ul Absolute Nucleated RBC 0.01 10^3/ul Nucleated RBC % 0.2 INR (Anticoag Therapy) (0.89-1.11) APTT (26.0-36.3) seconds Sodium 144 (133-145) mmol/L Potassium 3.7 (3.5-5.0) mmol/L Chloride 110 (101-111) mmol/L Carbon Dioxide 26 (22-32) mmol/L Anion Gap 8 (2-11) mmol/L BUN 42 H (6-24) mg/dL Creatinine 2.27 H (0.67-1.17) mg/dL Est GFR ( Amer) 35.5 (>60) Est GFR (Non-Af Amer) 27.6 (>60) BUN/Creatinine Ratio 18.5 (8-20) Glucose 175 H (70-100) mg/dL Lactic Acid 0.7 (0.5-2.0) mmol/L Calcium 9.0 (8.6-10.3) mg/dL Total Bilirubin 0.90 (0.2-1.0) mg/dL AST 11 L (13-39) U/L ALT 15 (7-52) U/L Alkaline Phosphatase 79 (34-104) U/L Troponin I 0.04 H* (<0.04) ng/mL C-Reactive Protein 9.33 H (< 5.00) mg/L B-Natriuretic Peptide ( - 100) pg/mL Total Protein 6.4 (6.4-8.9) g/dL Albumin 3.6 (3.2-5.2) g/dL Globulin 2.8 (2-4) g/dL Albumin/Globulin Ratio 1.3 (1-3) 11/12/16 11/12/16 Range/Units 07:04 07:04 WBC (3.5-10.8) 10^3/ul RBC (4.0-5.4) 10^6/ul Hgb (14.0-18.0) g/dl Hct (42-52) % MCV (80-94) fL MCH (27-31) pg MCHC (31-36) g/dl RDW (10.5-15) % Plt Count (150-450) 10^3/ul MPV (7.4-10.4) um3 Neut % (Auto) (38-83) % Lymph % (Auto) (25-47) % Garden % (Auto) (1-9) % Eos % (Auto) (0-6) % Baso % (Auto) (0-2) % Absolute Neuts (auto) (1.5-7.7) 10^3/ul Absolute Lymphs (auto) (1.0-4.8) 10^3/ul Absolute Monos (auto) (0-0.8) 10^3/ul Absolute Eos (auto) (0-0.6) 10^3/ul Absolute Basos (auto) (0-0.2) 10^3/ul Absolute Nucleated RBC 10^3/ul Nucleated RBC % INR (Anticoag Therapy) 2.04 H (0.89-1.11) APTT 40.6 H (26.0-36.3) seconds Sodium (133-145) mmol/L Potassium (3.5-5.0) mmol/L Chloride (101-111) mmol/L Carbon Dioxide (22-32) mmol/L Anion Gap (2-11) mmol/L BUN (6-24) mg/dL Creatinine (0.67-1.17) mg/dL Est GFR ( Amer) (>60) Est GFR (Non-Af Amer) (>60) BUN/Creatinine Ratio (8-20) Glucose (70-100) mg/dL Lactic Acid (0.5-2.0) mmol/L Calcium (8.6-10.3) mg/dL Total Bilirubin (0.2-1.0) mg/dL AST (13-39) U/L ALT (7-52) U/L Alkaline Phosphatase (34-104) U/L Troponin I (<0.04) ng/mL C-Reactive Protein (< 5.00) mg/L B-Natriuretic Peptide 922 H ( - 100) pg/mL Total Protein (6.4-8.9) g/dL Albumin (3.2-5.2) g/dL Globulin (2-4) g/dL Albumin/Globulin Ratio (1-3) Result Diagrams: 11/12/16 06:50 11/12/16 06:50 Lab Statement: Any lab studies that have been ordered have been reviewed, and results considered in the medical decision making process. - Radiology CXR Xray Interpretation: No Acute Changes - IMPRESSION: Increased vascular congestion consistent with CHF. Radiology Interpretation Completed By: ED Physician - EKG 1 EKG Rhythm: Atrial Fibrillation ST Segment: Non-Specific Ectopy: PVCs EKG Interpretation: Pacer spikes may be present. Course/Dx - Course Course Of Treatment: Pt is an 86 y/o M BIBA presenting with SOB, dyspnea, bilat LE edema, rhinorrhea onset midnight. Denies CP, cough, urination changes. Recent hospitalization less than 30 days ago wth dx: CHF. PMHx: afib, enlarged heart, HTN, DM. Neg PMHx: [place], COPD. Pt given aspirin, Lasix in ED. 1st trop at 0650: 0.04. Ejection fraction is 40-45%. C-reactive: 9.55. INR: 2.04. APTT: 40.6. - Diagnoses Differential Diagnosis/HQI/PQRI: Positive: Bronchitis, CHF, [place], Pneumonia, Pulmonary Edema Provider Diagnoses: Acute dyspnea, CHF (congestive heart failure) - Physician Notifications Discussed Care of Patient With: Dr. Almanzar, hospitalist: will see pt in ED. Time Discussed With Above Provider: 08:51 Instructed by Provider To: MD Will See In ED - Critical Care Time Critical Care Time: 30-74 min Discharge - Discharge Plan Condition: Stable Disposition: ADMITTED TO [facility] Referrals: Hayder Sherman MD [Primary Care Provider] - The documentation as recorded by the Darling woo SooYoung accurately reflects the service I personally performed and the decisions made by me, Lee Forman MD.
--- NOTE | 2016-11-12 10:03 | RAD ---
Indication: Shortness of breath began last night. History of CHF. Comparison: October 19, 2016 Technique: Sitting AP and lateral chest views. Report: RIGHT atrial and RIGHT ventricular level pacemaker leads without change. Unchanged cardiomegaly. Prominent ill-defined central pulmonary vasculature and mild prominence of the interstitial markings with visible thickened peripheral interlobular septa. Small pleural effusions. Negative for pneumothorax. IMPRESSION: Mild pulmonary vascular congestion and interstitial edema.
[2016-11-12] MEDS ORDERED: Dextrose 50% Syringe 50 ML* 25 GM/50 ML SYRINGE IV PUSH PRN (11:45)
--- NOTE | 2016-11-12 14:19 | HP ---
HOSPITAL MEDICINE HISTORY AND PHYSICAL: DATE OF ADMISSION: 11/12/16 PRIMARY CARE PHYSICIAN: Hayder Sherman MD ATTENDING PHYSICIAN: Zeyad Almanzar MD *(dictation provided by Lisa De NP ) CHIEF COMPLAINT: Shortness of breath. HISTORY OF PRESENT ILLNESS: Mr. Davison is an 86-year-old male with a past medical history of type 2 diabetes; atrial fibrillation; systolic CHF with last known ejection fraction of 40% to 45%; hypertension; and CKD, stage 3, who presents to the hospital today with complaint of shortness of breath. Mr. Davison states that he had been feeling well since his discharge from our hospital on 10/20/16, at which time he was treated for congestive heart failure exacerbation. He did not follow up with his primary care physician as he missed the appointment. He states he has been eating his normal foods while at [place] and taking his medications regularly. He does not feel that he has had any dietary indiscretions. He was feeling well yesterday and felt well when he went to bed; however, at midnight, he woke suddenly feeling very short of breath. He reports breathing rapidly and shallowly and feeling unable to catch his breath. He pulled the cord for nursing staff to come check on him and they encouraged him to come to the emergency room for evaluation. He also reports some lower extremity edema in his feet, which he seems to indicate is worse than usual, although this is not entirely clear. He denies chest pain, cough, nausea, abdominal pain, or any other new complaint. Mr. Davison states that he does not weigh himself regularly, but is interested in learning more about doing that as part of CHF management. In the emergency room, Mr. Davison had essentially unremarkable labs consistent with history of anemia and CKD, stage 3. His troponin was elevated to 0.04, but this is consistent with all previous troponins checked in the past couple of years. His CRP was only 9.33. His BNP is elevated at 922, this is the highest number reading we have seen for him. Chest x-ray was consistent with pulmonary edema. The patient was given Lasix x1 intravenously in the ED. PAST MEDICAL HISTORY: 1. Von-msczfje-hetcneuuw type 2 diabetes. 2. Atrial fibrillation, on Coumadin. 3. CHF with last known ejection fraction in February 2016 of 40% to 45%. 4. Hypertension. 5. CKD, stage 3. 6. History of [place]. 7. History of pacemaker placement. 8. History of appendectomy. MEDICATIONS: 1. Cholecalciferol 1000 units p.o. daily. 2. Ferrous sulfate 325 mg p.o. daily. 3. Furosemide 40 mg p.o. daily. 4. Potassium chloride 10 mEq p.o. q.p.m. 5. Allopurinol 100 mg p.o. daily. 6. Cyanocobalamin 1000 mcg p.o. daily. 7. Doxazosin 4 mg p.o. at bedtime. 8. Gabapentin 200 mg p.o. b.i.d. 9. Metoprolol tartrate 100 mg p.o. b.i.d. 10. Simvastatin 20 mg p.o. daily. 11. Spironolactone 25 mg p.o. daily. 12. Warfarin 2.5 mg p.o. daily. 13. Amlodipine 5 mg p.o. daily. 14. Glipizide 10 mg p.o. b.i.d. ALLERGIES: No known drug allergies. FAMILY HISTORY: Mother's history is unknown. Father had a history of COPD. SOCIAL HISTORY: The patient is a former smoker, he quit 60 years ago. No report of alcohol or drug use. He lives with his who has dementia. His surrogate decision maker is his son, Miguel Angel, he resides at [place]. REVIEW OF SYSTEMS: A 14-point review of systems was completed with Mr. Davison and all those not mentioned above were negative. PHYSICAL EXAMINATION GENERAL: Mr. Davison is sitting in the bed. He is in no acute distress. He is calm and cooperative with my examination. VITAL SIGNS: Temperature 98.0, pulse rate 67, respiratory rate 22, O2 saturation 99% on room air, and blood pressure 147/71. LUNGS: Clear to auscultation bilaterally. The patient is breathing very rapidly, but is able to speak easily in complete sentences. There is no accessory muscle use and good aeration. HEART: S1, S2. No murmur, rub, or gallop and regular. ABDOMEN: Soft, nontender. Bowel sounds present x4. EXTREMITIES: No cyanosis or edema. NEURO: He is alert. He is oriented x3. He moves all extremities equally. There is no facial asymmetry or focal weakness. Extraocular movements are intact. SKIN: Intact. DIAGNOSTIC STUDIES/LAB DATA: Sodium 144, potassium 3.7, chloride 110, serum bicarbonate 26, BUN 42, creatinine 2.27, glucose 175, and lactic acid 0.7. Troponin 0.04. CRP 9.33. BNP 922. WBC 3.3, hemoglobin 9.6, hematocrit 30, and platelet count 121. Chest x-ray shows concern for mild interstitial edema. EKG, atrial fibrillation with no evidence of ischemia. ASSESSMENT: Mr. Davison is an 86-year-old male with a past medical history of non- insulin-dependent diabetes; atrial fibrillation, on Coumadin; and diastolic congestive heart failure with an ejection fraction of 40% to 45%, who presents to the hospital with a plan for observation in the hospital for the followin. Shortness of breath: The patient's symptoms are consistent with congestive heart failure. He has had 2 previous admissions for the same concern and responded well to Lasix. He is feeling better after Lasix x1 in the emergency room. Plan to continue to monitor through the day and add additional Lasix intravenously as needed. Also plan to monitor I's and O's and daily weights. I have talked to the patient about using daily weights to help guide the treatment of his congestive heart failure. The patient is interested in doing so, but states he does not have a good reliable scale at home. Recommend that we ensure that he has a working scale and perhaps services from [facility] or other agencies that can help to manage his congestive heart failure and prevent future readmissions. I see no other etiology for his shortness of breath. His atrial fibrillation is rate controlled. He has no evidence of infection. Plan to check a transthoracic echocardiogram as this is the patient's third admission for congestive heart failure with no clear reason for his acute decompensation. 2. Atrial fibrillation: Rate controlled. Continue Coumadin with therapeutic INR. Continue metoprolol. 3. Type 2 diabetes: Hold glipizide and continue with lispro sliding scale insulin with consistent carbohydrate diet. 4. Hypertension: Continue amlodipine and metoprolol. 5. Anemia, iron deficiency: Chronic, stable. Continue ferrous sulfate. 6. DVT prophylaxis: With warfarin. 7. Code status: DNR. TIME SPENT: Approximately 60 minutes was spent in the admission of this patient , more than half of the time was spent with the patient at the bedside reviewing the events leading up to this hospitalization, performing the physical examination, and reviewing my plan of care. LISA DE NP CC: Dr. Sherman* [id number]/[facility] #: [id number] [facility]
[2016-11-12] MEDS ORDERED: Warfarin TAB(*) 2.5 MG PO SCH (17:00)
[2016-11-12] MEDS: Insulin LISPRO* 1 UNITS UNIT SUBCUT SCH (17:26)
[2016-11-12] MEDS ORDERED: Metoprolol Tartrate TAB* 50 mg PO SCH (18:00)
[2016-11-12] MEDS: Gabapentin CAP(*) 100 MG PO SCH (20:19)
[2016-11-12] MEDS ORDERED: Doxazosin TAB* 2 MG PO SCH (21:00)
[2016-11-12] MEDS ORDERED: glipiZIDE TAB.XL* 5 MG PO SCH (21:00)
[2016-11-13 08:09] LABS: BUN/Creatinine Ratio 19.2 (8-20); Calcium 8.7 mg/dL (8.6-10.3); EGFR African American 39.2 (>60); EGFR Non-African American 30.5 (>60); Potassium 3.3 mmol/L (3.5-5.0)
[2016-11-13] MEDS: Gabapentin CAP(*) 100 MG PO SCH (08:38)
[2016-11-13] MEDS: Insulin LISPRO* 1 UNITS UNIT SUBCUT SCH ×2 (08:40→12:49)
[2016-11-13] MEDS ORDERED: Warfarin TAB(*) 2.5 MG PO SCH (09:00)
[2016-11-13] MEDS ORDERED: Allopurinol TAB* 100 MG PO SCH (09:00)
[2016-11-13] MEDS ORDERED: Ferrous Sulfate TAB* 325 MG PO SCH (09:00)
[2016-11-13] MEDS ORDERED: Atorvastatin* 10 MG TAB PO SCH (09:00)
[2016-11-13] MEDS ORDERED: Cyanocobalamin TAB* 500 MCG PO SCH (09:00)
[2016-11-13] MEDS ORDERED: amLODIPine TAB* 5 MG PO SCH (09:00)
[2016-11-13] MEDS ORDERED: Metoprolol Tartrate TAB* 50 mg PO SCH (09:00)
[2016-11-13] MEDS ORDERED: Spironolactone TAB* 25 MG PO SCH (09:00)
--- NOTE | 2016-11-13 12:17 | DCNOTE ---
Subjective Date of Service: 11/13/16 Interval History: Less SOB today. No new c/o. He often has SOB in bed at night. Objective Active Medications: Allopurinol (Zyloprim Tab*) 100 mg PO DAILY [facility] Last Admin: 11/13/16 08:40 Dose: 100 mg Amlodipine Besylate (Norvasc Tab*) 5 mg PO DAILY [facility] Last Admin: 11/13/16 08:39 Dose: 5 mg Atorvastatin Calcium (Lipitor*) 10 mg PO DAILY [facility] Last Admin: 11/13/16 08:37 Dose: 10 mg Cyanocobalamin (Vitamin B12 Tab*) 1,000 mcg PO DAILY [facility] Last Admin: 11/13/16 08:38 Dose: 1,000 mcg Dextrose (D50w Syringe 50 Ml*) 12.5 gm IV PUSH .FOR FS < 60 - SS PRN PRN Reason: FS < 60 Doxazosin Mesylate (Cardura Tab*) 4 mg PO BEDTIME [facility] Last Admin: 11/12/16 20:18 Dose: 4 mg Ferrous Sulfate (Ferrous Sulfate Tab*) 325 mg PO DAILY [facility] Last Admin: 11/13/16 08:39 Dose: 325 mg Furosemide (Lasix Tab*) 60 mg PO DAILY [facility] Gabapentin (Neurontin Cap(*)) 200 mg PO BID [facility] Last Admin: 11/13/16 08:38 Dose: 200 mg Insulin Human Lispro (Humalog*) 0 units SUBCUT AC [facility] PRN Reason: Protocol Last Admin: 11/13/16 08:40 Dose: 1 units Metoprolol Tartrate (Lopressor Tab*) 100 mg PO QAM [facility] Last Admin: 11/13/16 08:36 Dose: 100 mg Metoprolol Tartrate (Lopressor Tab*) 100 mg PO QPM [facility] Last Admin: 11/12/16 17:24 Dose: 100 mg Pharmacy Profile Note (Coumadin Daily Reminder*) 1 note FOLLOW UP 1700 [facility] Last Admin: 11/12/16 17:27 Dose: 1 note Spironolactone (Aldactone Tab*) 25 mg PO DAILY [facility] Last Admin: 11/13/16 08:37 Dose: 25 mg Warfarin Sodium (Coumadin Tab(*)) 2.5 mg PO 1700 [facility] PRN Reason: Protocol Last Admin: 11/12/16 17:24 Dose: 2.5 mg Vital Signs 11/12/16 11/12/16 11/12/16 15:29 19:27 20:09 Temperature 97.5 F 98.4 F Pulse Rate 77 58 65 Respiratory 18 16 Rate Blood Pressure 150/72 144/58 (mmHg) O2 Sat by Pulse 100 99 Oximetry 11/12/16 11/12/16 11/12/16 20:19 22:19 23:34 Temperature 98.6 F Pulse Rate 63 Respiratory 16 16 17 Rate Blood Pressure 129/62 (mmHg) O2 Sat by Pulse 96 Oximetry 11/13/16 11/13/16 11/13/16 03:47 06:42 07:52 Temperature 99.0 F 98.4 F Pulse Rate 77 60 Respiratory 16 16 Rate Blood Pressure 156/63 149/73 (mmHg) O2 Sat by Pulse 97 97 Oximetry 11/13/16 08:38 Temperature Pulse Rate Respiratory 14 Rate Blood Pressure (mmHg) O2 Sat by Pulse Oximetry Appearance: Alert, partly up in bed. In fair spirits. looks comfortable. Neck: No Thyroid Enlargement, Masses, - - JVD at 30 degrees R neck Respiratory: Symmetrical Chest Expansion and Respiratory Effort, Clear to Auscultation, Clear to Percussion Cardiovascular: NL Sounds; No Murmurs; No JVD, RRR, No Edema, - Extremities: No Clubbing, Cyanosis, - - 1-2+ pitting edema BL Skin: No Rash or Ulcers, No Nodules or Sclerosis Neurological: Alert and Oriented x 3, NL Sensation Result Diagrams: 11/12/16 06:50 11/13/16 07:47 Additional Lab and Data: Lab Results 11/12/16 11/12/16 11/12/16 Range/Units 06:50 06:50 06:50 WBC 3.3 L (3.5-10.8) 10^3/ul RBC 3.04 L (4.0-5.4) 10^6/ul Hgb 9.6 L (14.0-18.0) g/dl Hct 30 L (42-52) % MCV 99 H (80-94) fL MCH 32 H (27-31) pg MCHC 32 (31-36) g/dl RDW 20 H (10.5-15) % Plt Count 121 L (150-450) 10^3/ul MPV 8 (7.4-10.4) um3 Neut % (Auto) 72.0 (38-83) % Lymph % (Auto) 15.8 L (25-47) % [place] % (Auto) 9.0 (1-9) % Eos % (Auto) 2.0 (0-6) % Baso % (Auto) 1.2 (0-2) % Absolute Neuts (auto) 2.3 (1.5-7.7) 10^3/ul Absolute Lymphs (auto) 0.5 L (1.0-4.8) 10^3/ul Absolute Monos (auto) 0.3 (0-0.8) 10^3/ul Absolute Eos (auto) 0.1 (0-0.6) 10^3/ul Absolute Basos (auto) 0 (0-0.2) 10^3/ul Absolute Nucleated RBC 0.01 10^3/ul Nucleated RBC % 0.2 INR (Anticoag Therapy) (0.89-1.11) APTT (26.0-36.3) seconds Sodium 144 (133-145) mmol/L Potassium 3.7 (3.5-5.0) mmol/L Chloride 110 (101-111) mmol/L Carbon Dioxide 26 (22-32) mmol/L Anion Gap 8 (2-11) mmol/L BUN 42 H (6-24) mg/dL Creatinine 2.27 H (0.67-1.17) mg/dL Est GFR ( Amer) 35.5 (>60) Est GFR (Non-Af Amer) 27.6 (>60) BUN/Creatinine Ratio 18.5 (8-20) Glucose 175 H (70-100) mg/dL Lactic Acid 0.7 (0.5-2.0) mmol/L Calcium 9.0 (8.6-10.3) mg/dL Total Bilirubin 0.90 (0.2-1.0) mg/dL AST 11 L (13-39) U/L ALT 15 (7-52) U/L Alkaline Phosphatase 79 (34-104) U/L Troponin I 0.04 H* (<0.04) ng/mL C-Reactive Protein 9.33 H (< 5.00) mg/L B-Natriuretic Peptide ( - 100) pg/mL Total Protein 6.4 (6.4-8.9) g/dL Albumin 3.6 (3.2-5.2) g/dL Globulin 2.8 (2-4) g/dL Albumin/Globulin Ratio 1.3 (1-3) 11/12/16 11/12/16 Range/Units 07:04 07:04 WBC (3.5-10.8) 10^3/ul RBC (4.0-5.4) 10^6/ul Hgb (14.0-18.0) g/dl Hct (42-52) % MCV (80-94) fL MCH (27-31) pg MCHC (31-36) g/dl RDW (10.5-15) % Plt Count (150-450) 10^3/ul MPV (7.4-10.4) um3 Neut % (Auto) (38-83) % Lymph % (Auto) (25-47) % [place] % (Auto) (1-9) % Eos % (Auto) (0-6) % Baso % (Auto) (0-2) % Absolute Neuts (auto) (1.5-7.7) 10^3/ul Absolute Lymphs (auto) (1.0-4.8) 10^3/ul Absolute Monos (auto) (0-0.8) 10^3/ul Absolute Eos (auto) (0-0.6) 10^3/ul Absolute Basos (auto) (0-0.2) 10^3/ul Absolute Nucleated RBC 10^3/ul Nucleated RBC % INR (Anticoag Therapy) 2.04 H (0.89-1.11) APTT 40.6 H (26.0-36.3) seconds Sodium (133-145) mmol/L Potassium (3.5-5.0) mmol/L Chloride (101-111) mmol/L Carbon Dioxide (22-32) mmol/L Anion Gap (2-11) mmol/L BUN (6-24) mg/dL Creatinine (0.67-1.17) mg/dL Est GFR ( Amer) (>60) Est GFR (Non-Af Amer) (>60) BUN/Creatinine Ratio (8-20) Glucose (70-100) mg/dL Lactic Acid (0.5-2.0) mmol/L Calcium (8.6-10.3) mg/dL Total Bilirubin (0.2-1.0) mg/dL AST (13-39) U/L ALT (7-52) U/L Alkaline Phosphatase (34-104) U/L Troponin I (<0.04) ng/mL C-Reactive Protein (< 5.00) mg/L B-Natriuretic Peptide 922 H ( - 100) pg/mL Total Protein (6.4-8.9) g/dL Albumin (3.2-5.2) g/dL Globulin (2-4) g/dL Albumin/Globulin Ratio (1-3) Assess/Plan/Problems-Billing Assessment: - Patient Problems (1) Acute on chronic diastolic (congestive) heart failure Current Visit: No Status: Acute Code(s): I50.33 - ACUTE ON CHRONIC DIASTOLIC (CONGESTIVE) HEART FAILURE SNOMED Code(s): 331564999 Comment: I spoke to [place] nurse. She will give pt furosemide 60 mg on arrival there. Rx for same daily sent to [facility]. Fup Dr. Sherman. VNS referral made. Pt to be weighed daily, parameters given. (2) CKD (chronic kidney disease) stage 3, GFR 30-59 ml/min Current Visit: Yes Status: Acute Code(s): N18.3 - CHRONIC KIDNEY DISEASE, STAGE 3 (MODERATE) SNOMED Code(s): 422593726 Comment: GFR 30.5 11/13/16. (3) Afib Current Visit: No Status: Chronic Code(s): I48.91 - UNSPECIFIED ATRIAL FIBRILLATION SNOMED Code(s): 58873162 Comment: Rate controll good. Continue home metoprolol. Continue warfarin. INR therapeutic. (4) Diabetes Current Visit: No Status: Chronic Code(s): E11.9 - TYPE 2 DIABETES MELLITUS WITHOUT COMPLICATIONS SNOMED Code(s): 99197563 Comment: BG fair control in hospital. Resume home diabetic meds. (5) Pancytopenia Current Visit: Yes Status: Acute Code(s): D61.818 - OTHER PANCYTOPENIA SNOMED Code(s): 513157088 Comment: All 3 celllines mildly diminshed, chronic. Needs outpt fup. Status and Disposition: Discharge now. fup Dr. Sherman.
--- NOTE | 2016-11-13 12:41 | ECHO ---
Patient: DEVEN SCHREIBER [facility] Rec#: [id number] : 1930 Date: 11/13/2016 Age: 86y Height: 170.18 cm / 67.0 in Weight: 83.46 kg / 183.9 lbs Sex: M BSA: 1.95 Room#: 452 Admit Date#: 11/12/2016 Type: Inpatient Referring: Lisa De NP Reading: Carmen Reyes MD Flat Sheet Maker: Tanya Rushing RDCS CC: Hayder Sherman MD CC: Christiano Mcqueen MD Transthoracic Echocardiogram Indication: CHF/SOB BP: 156/63 HR: 75 Rhythm: Paced Findings History: DM,a-fib,s/p pacer,CHF,HTN,CKD stage III,remote smoking history. Technical Comments: The study quality is good. Completed at 1225. Left Ventricle: The left ventricular chamber size is normal. Mild concentric left ventricular hypertrophy is observed. There is moderately decreased left ventricular systolic function. The estimated ejection fraction is 40-45%. Closer to 45% with paradoxical septal wall motion secondary to conduction abnormality. There is abnormal ventricular septal wall motion consistent with right ventricular pacemaker. The assessment of diastolic function is non-diagnostic. Left Atrium: The left atrium is moderately dilated. Right Ventricle: The right ventricular cavity size is normal. The right ventricular global systolic function is normal. The septum has abnormal paradoxical motion consistent with RV pacemaker. A pacemaker wire is visualized in the right ventricle. Right Atrium: The right atrium is mildly dilated. A pacemaker wire is visualized in the right atrium. Aortic Valve: The aortic valve is trileaflet. The aortic valve leaflets are mildly thickened. There is a trace of aortic regurgitation. There is no evidence of aortic stenosis. Mitral Valve: There is moderate to severe mitral regurgitation. The mitral regurgitant jet is laterally directed. There is no evidence of mitral stenosis. Tricuspid Valve: The tricuspid valve leaflets are normal. There is mild to moderate tricuspid regurgitation. There is evidence of moderate pulmonary hypertension. There is no tricuspid stenosis. Pulmonic Valve: The pulmonic valve appears normal. There is a trace pulmonic regurgitation. There is no pulmonic stenosis. Pericardium: A trivial pericardial effusion is visualized. There are no signs of significant hemodynamic compromise. A left pleural effusion is present. There is a small pleural effusion. Aorta: There is no dilatation of the ascending aorta. The aortic arch is not well visualized. There is no dilation of the aortic root. Pulmonary Artery: The main pulmonary artery appears normal. Venous: The inferior vena cava is dilated. There is an approximate 50% respiratory change in the inferior vena cava dimension. Summary: There are changes noted when compared to the previous study done on 02/21/2016, MR is now moderate-severe instead of at least modertae then. PHTN is now moderate instead of moderate-severe then. Conclusions The left ventricular chamber size is normal. There is moderately decreased left ventricular systolic function. The estimated ejection fraction is 40-45%. Closer to 45% with paradoxical septal wall motion secondary to conduction abnormality. There is abnormal ventricular septal wall motion consistent with right ventricular pacemaker. The left atrium is moderately dilated. There is a trace of aortic regurgitation. There is moderate to severe mitral regurgitation. There is mild to moderate tricuspid regurgitation. There is evidence of moderate pulmonary hypertension. There is a trace pulmonic regurgitation. There are changes noted when compared to the previous study done on 02/21/2016, MR is now moderate-severe instead of at least modertae then. PHTN is now moderate instead of moderate-severe then. Measurements Name Value Normal Range RVIDd (AP) 2D 2.9 cm (0.9 - 2.6) RVDdMajor (2D) 3.8 cm (2.2 - 4.4) RAd ISD 4CH 5.9 cm (3.4 - 4.9) RA (A4C)W 4.6 cm (2.9 - 4.6) IVSd (2D) 1.3 cm (0.6 - 1) LVPWd (2D) 1.2 cm (0.6 - 1) LVIDd (2D) 5.3 cm (3.6 - 5.4) LVIDs (2D) 3.8 cm - LV FS (2D) 29 % (25 - 45) Aortic Annulus 2 cm (1.4 - 2.6) Ao root diameter (2D) 3.2 cm (2.1 - 3.5) Ascending Ao 3.4 cm (2.1 - 3.4) LA dimension (AP) 2D 4.5 cm (2.3 - 3.8) LAd ISD 4CH 7 cm (2.9 - 5.3) LA ISD 4CH W 4.9 cm (2.5 - 4.5) Name Value Normal Range LA ESV SP 4CH (A/L) 89 ml - LA ESV SP 2CH (A/L) 80 ml - LA ESV BP (A/L) 94 ml - LA ESV BP (A/L) index 48.16 ml/m2 - LA ESV SP 4CH (MOD) 82 ml - LA ESV SP 2CH (MOD) 77 ml - Name Value Normal Range MV E-wave Vmax 1.2 m/sec - MV deceleration time 207 msec - LV septal e' Vmax 0.04 m/sec - LV lateral e' Vmax 0.08 m/sec - LV E:e' septal ratio 30 ratio - LV E:e' lateral ratio 15 ratio - Name Value Normal Range AV Vmax 1.5 m/sec - AV VTI 28.7 cm - AV peak gradient 9.52 mmHg - AV mean gradient 3.76 mmHg - LVOT Vmax 0.9 m/sec - LVOT VTI 16.1 cm - LVOT peak gradient 3.27 mmHg - LVOT mean gradient 1.43 mmHg - AR PHT 1051 msec - AR peak gradient 38.78 mmHg - Name Value Normal Range MR Vmax 5.5 m/sec - MR VTI 177 cm - Name Value Normal Range TR Vmax 3.4 m/sec - TR peak gradient 46 mmHg - RAP 8 mmHg - RVSP 54 mmHg - IVC diameter 2.6 cm - Name Value Normal Range PV Vmax 0.8 m/sec - PV peak gradient 2.65 mmHg -
[2016-11-13] MEDS ORDERED: Potassium Chlor TAB* 20 MEQ TAB.ER PO ONE (12:50)
[2016-11-13] MEDS: Furosemide TAB* 20 MG PO SCH ×2 (12:50→14:31)
[2016-11-13 14:10] VITALS: BP 148/82
--- NOTE | 2016-11-13 18:19 | DS ---
DISCHARGE SUMMARY: DATE OF ADMISSION: DATE OF DISCHARGE: 11/13/16 HISTORY OF PRESENT ILLNESS: This 86-year-old man presented with shortness of breath, it generally was nocturnal. By 6 in the morning, he had had a lot of trouble breathing. This happens rather often to him. I am not sure if this morning it was worse or he simply had more attention from the staff at [place]. He came to the emergency room. He was found to be in congestive heart failure. His BNP was over 900 and slightly higher than all his previous values. I note when I discharged him, he still has some pedal edema. The patient received intravenous furosemide 80 mg in the emergency room. He felt better after that. He is to get a dose of 60 mg of furosemide on return to [place] that same day and then start taking furosemide 20 mg 3 tablets daily to make a total of 60 mg daily every day thereafter. He was given instructions to weigh himself daily and if his weight increases by 3 pounds, immediately take an extra three furosemide 20 mg daily and then start taking four 20 mg tablets every day thereafter until his weight returns 3 pounds of starting weight. He is to get a BMP on November 17, as well as 4 days after any change in his furosemide dose. I note his INR was therapeutic. He had adequate glycemic control for a short period in the hospital. I note his echocardiogram done on 10/17/16 was very similar to previous one with an ejection fraction of 40% to 45% noted. FINAL DIAGNOSES: 1. Acute on chronic diastolic heart failure. 2. Chronic kidney disease with GFR 30.5. 3. Atrial fibrillation. 4. Diabetes. 5. Pancytopenia. DISCHARGE MEDICATIONS: 1. Furosemide 20 mg 3 tablets daily. 2. Potassium chloride 20 mEq daily. 3. Metoprolol tartrate 100 mg daily. 4. Simvastatin 20 mg daily. 5. Spironolactone 25 mg daily. 6. Amlodipine 5 mg daily. 7. Vitamin D 1000 units daily. 8. Doxazosin 4 mg at h.s. 9. Vitamin B12 1000 mcg p.o. daily. 10. Metoprolol tartrate 100 mg in the evening. 11. Allopurinol 100 mg daily. 12. Warfarin 2.5 mg as directed. 13. Gabapentin 200 mg b.i.d. 14. Glipizide XL 10 mg b.i.d. 15. Ferrous sulfate 325 mg daily. CC: Dr. Sherman * [id number]/CPS #: [id number] [facility] SYSTEMJanae
[2016-11-14] MEDS ORDERED: Potassium Chlor TAB* 20 MEQ TAB.ER PO SCH (09:00)
== END 2016-11-13 14:53 | disposition home or self-care (01) ==
LOC: ED 06:49 → MEDTELE 08:58
PROVIDERS: ADMIT Internal Medicine; ATTEND Internal Medicine
DX: I13.0 Hypertensive heart and chronic kidney disease with heart failure and stage 1 through stage 4 chronic kidney disease, or unspecified chronic kidney disease (principal); I50.33 Acute on chronic diastolic (congestive) heart failure; N18.3 Chronic kidney disease, stage 3 (moderate); E11.8 Type 2 diabetes mellitus with unspecified complications; Z79.84 Long term (current) use of oral hypoglycemic drugs; I48.91 Unspecified atrial fibrillation; D61.818 Other pancytopenia; I25.2 Old myocardial infarction; D50.9 Iron deficiency anemia, unspecified; Z95.0 Presence of cardiac pacemaker; Z79.01 Long term (current) use of anticoagulants; Z79.899 Other long term (current) drug therapy; Z87.891 Personal history of nicotine dependence
CPT/HCPCS: 36415; 71020; 80048; 80053; 83605; 83880; 84484; 85025; 85610; 85730; 86140; 93005; 93306; 96374; 99291; A9270-GY; G0378; J1940

== ENCOUNTER 2017-02-05 10:38 | Inpatient (IN) | payer MEDICARE, BC ==
[2017-02-05] MEDS ORDERED: NS 0.9% 1000 ML* 1,000 ML IV ONE (11:14)
[2017-02-05 12:11] LABS: Hematocrit 28 % (42-52); Hemoglobin 9.1 g/dl (14.0-18.0); Mean Corpuscular HGB Conc 32 g/dl (31-36); Mean Corpuscular Hemoglobin 32 pg (27-31); Mean Corpuscular Volume 100 fL (80-94); Mean Platelet Volume 8 um3 (7.4-10.4); Red Cell Distribution Width 17 % (10.5-15); White Blood Count 6.9 10^3/ul (3.5-10.8)
[2017-02-05 12:21] LABS: Ammonia 15 mol/L (16-53)
[2017-02-05 12:23] LABS: Albumin 2.8 g/dL (3.2-5.2); BUN/Creatinine Ratio 19.5 (8-20); C Reactive Protein 112.38 mg/L (< 5.00); Calcium 8.2 mg/dL (8.6-10.3); EGFR African American 35.6 (>60); EGFR Non-African American 27.7 (>60); Magnesium 1.4 mg/dL (1.9-2.7); Potassium 3.8 mmol/L (3.5-5.0); Total Bilirubin 0.8 mg/dL (0.2-1.0); Total Protein 5.8 g/dL (6.4-8.9)
[2017-02-05 12:27] LABS: B Type Natriuretic Peptide 576 pg/mL
[2017-02-05 12:30] LABS: Troponin I 0.04 ng/mL (<0.04)
--- NOTE | 2017-02-05 12:44 | RAD ---
INDICATION: Weakness. COMPARISON: Comparison is made with prior chest x-ray study from November 12, 2016. TECHNIQUE: AP and lateral views of the chest were obtained. FINDINGS: There is a dual-chamber transvenous cardiac pacemaker present. The heart appears upper limits of normal in size and is unchanged. The lungs are underinflated. There are small bibasilar infiltrates. No pleural effusion is seen. IMPRESSION: EXPIRATORY EXAM, SMALL BIBASILAR INFILTRATES.
--- NOTE | 2017-02-05 12:46 | RAD ---
INDICATION: Left knee pain. TECHNIQUE: 2 views of the left knee were obtained. FINDINGS: The bones are normal alignment. There is a large joint effusion present. No fracture is seen. There is chondrocalcinosis in the medial and lateral compartments and mild to moderate osteoarthritic change in the medial compartment and moderate osteoarthritic change in the patellofemoral compartment. IMPRESSION: 1. JOINT EFFUSION. 2. CHONDROCALCINOSIS. 3. MODERATE OSTEOARTHRITIC CHANGE.
[2017-02-05] MEDS ORDERED: cefTRIAXone(*) 1 GM in NS 0.9% 50 ML* 50 ML IVPB ONE (13:11)
[2017-02-05] MEDS ORDERED: Dextrose 50% Syringe 50 ML* 25 GM/50 ML SYRINGE IV PUSH PRN (14:02)
[2017-02-05] MEDS ORDERED: Insulin REGULAR(*) 1 UNITS UNIT SUBCUT ONE (14:13)
[2017-02-05] MEDS ORDERED: Magnesium Sulfate 2 GM IV* 2 GM/50 ML BAG IVPB ONE (14:22)
[2017-02-05] MEDS ORDERED: Azithromycin IV(*) 500 MG in NS 0.9% 250 ML* 250 ML IVPB SCH (15:00)
[2017-02-05 15:26] LABS: Urine Bacteria Absent (Absent); Urine Bilirubin Negative (Negative); Urine Glucose 2+(150 mg/dL) (Negative); Urine Nitrite Negative (Negative)
[2017-02-05] MEDS ORDERED: Insulin LISPRO* 1 UNITS UNIT SUBCUT SCH (16:30)
[2017-02-05] MEDS: Metoprolol Tartrate TAB* 50 mg PO SCH (16:49)
[2017-02-05] MEDS: Warfarin TAB(*) 2.5 MG PO SCH (16:49)
[2017-02-05] MEDS: Azithromycin IV(*) 500 MG in NS 0.9% 250 ML* 250 ML IVPB SCH (16:51)
--- NOTE | 2017-02-05 18:59 | ED ---
Brice Vera Thomas, scribed for Eric Andrea MD on 02/05/17 at 1113 . Dizziness - HPI Summary HPI Summary: The pt is a 85 y/o M who lives in assisted living BIBA c/o L knee pain s/p falling down 3 days ago. His pain is worse when bearing weight. Per EMS, his blood sugar was 422 en route to [facility] The pt reports that he has been unable to check his blood sugar recently. Pt additionally c/o dizziness and weakness. The pt denies CP, SOB, abd pain, cough, and fever. PMHx: A-Fib, Pacer, DM, HTN, CHF. He has not been eating or drinking well in the last few days. - History Of Current Complaint Chief Complaint: EDGeneral Stated Complaint: HIGH BLOOD SUGAR Time Seen by Provider: 02/05/17 11:05 Hx Obtained From: Patient Onset/Duration: Still Present, Gradually - after fall 3 days ago Timing: Constant Character: Weak, Dizzy Aggravating Factor(s): Nothing Alleviating Factor(s): Nothing Associated Signs And Symptoms: Positive: Other: - POS: dizziness, weakness; NEG : abd pain, cough. Negative: Chest Pain, SOB, Fever - Allergies/Home Medications Allergies/Adverse Reactions: Allergies Allergy/AdvReac Type Severity Reaction Status Date / Time No Known Allergies Allergy Verified 11/09/15 05:27 Home Medications: Home Medications Furosemide TAB* [Lasix TAB*] 40 mg PO DAILY 02/05/17 [History Confirmed 02/05/17 ] Gabapentin CAP(*) [Neurontin 100 mg CAP(*)] 200 mg PO DAILY 02/05/17 [History Confirmed 02/05/17] Potassium Chlor TAB* [Potassium Chlor TAB 20 MEQ*] 10 meq PO DAILY 02/05/17 [ History Confirmed 02/05/17] PMH/Surg Hx/FS Hx/Imm Hx Previously Healthy: No Endocrine/Hematology History: Reports: Hx Diabetes Cardiovascular History: Reports: Hx Atrial Fibrillation, Hx Congestive Heart Failure, Hx Hypertension, Hx Pacemaker/ICD, Other Cardiovascular Problems/ Disorders - PACEMAKER Denies: Hx Peripheral Vascular Disease History: Reports: Other Problems/Disorders - CKD Musculoskeletal History: Denies: Hx Arthritis, Hx Osteoporosis Sensory History: Reports: Hx Contacts or Glasses Denies: Hx Hearing Aid Opthamlomology History: Reports: Hx Contacts or Glasses Neurological History: Denies: Hx Headaches, Hx Seizures, Hx Transient Ischemic Attacks (TIA) Psychiatric History: Denies: Hx Anxiety, Hx Depression - Surgical History Surgery Procedure, Year, and Place: PACEMAKER Infectious Disease History: No Infectious Disease History: Denies: Traveled Outside the [place] in Last 30 Days - Family History Known Family History: Positive: Cardiac Disease Negative: Hypertension, Diabetes - Social History Alcohol Use: None Hx Substance Use: No Substance Use Type: Reports: None Hx Tobacco Use: No Smoking Status (MU): Former Smoker Review of Systems Constitutional: Negative Negative: Fever Eyes: Negative ENT: Negative Cardiovascular: Negative Negative: Chest Pain Respiratory: Negative Negative: Shortness Of Breath, Cough Gastrointestinal: Negative Negative: Abdominal Pain Genitourinary: Negative Positive: Other - POS: L knee pain (s/p fall 3 days ago) Skin: Negative Neurological: Other - POS: dizziness Positive: Weakness Psychological: Normal All Other Systems Reviewed And Are Negative: Yes Physical Exam - Summary Physical Exam Summary: VITAL SIGNS: Reviewed. GENERAL: ~Patient is a well-developed and nourished elderly man who is lying comfortable in the stretcher. Patient is not in any acute respiratory distress. HEAD AND FACE: No signs of trauma. ~No ecchymosis, hematomas or skull depressions. No sinus tenderness. EYES: PERRLA, EOMI x 2, No injected conjunctiva, no nystagmus. EARS: Hearing grossly intact. Ear canals and tympanic membranes are within normal limits. MOUTH: Oral mucosa dry. Oropharynx within normal limits. NECK: Supple, trachea is midline, no adenopathy, no JVD, no carotid bruit, no c- spine tenderness, neck with full ROM. CHEST: Symmetric, no tenderness at palpation LUNGS: Decreased breath sounds bilaterally. Clear to auscultation bilaterally. No wheezing or crackles. CVS: Regular rate and rhythm, S1 and S2 present, no murmurs or gallops appreciated. ABDOMEN: Soft, non-tender. No signs of distention. No rebound no guarding, and no masses palpated. Bowel sounds are normal. EXTREMITIES: L Knee abrasion and some swelling. Decreased ROM secondary to pain in the L knee. Some swelling on the L knee. In other extremities, FROM, no edema , no cyanosis or clubbing. NEURO: Alert and oriented x 3. No acute neurological deficits. Speech is normal and follows commands. SKIN: Dry and warm Triage Information Reviewed: Yes Vital Signs On Initial Exam: Initial Vitals Temp Pulse Resp BP Pulse Ox 98.6 F 77 13 126/64 97 02/05/17 10:40 02/05/17 10:40 02/05/17 10:40 02/05/17 10:40 02/05/17 10:40 Vital Signs Reviewed: Yes - Velma Coma Scale Coma Scale Total: 15 Diagnostics - Vital Signs Vital Signs Temp Pulse Resp BP Pulse Ox 02/05/17 10:40 98.6 F 77 13 126/64 97 - Laboratory Lab Results: Lab Results 02/05/17 02/05/17 02/05/17 Range/Units 11:50 11:50 11:50 WBC 6.9 (3.5-10.8) 10^3/ul RBC 2.80 L (4.0-5.4) 10^6/ul Hgb 9.1 L (14.0-18.0) g/dl Hct 28 L (42-52) % MCV 100 H (80-94) fL MCH 32 H (27-31) pg MCHC 32 (31-36) g/dl RDW 17 H (10.5-15) % Plt Count 154 (150-450) 10^3/ul MPV 8 (7.4-10.4) um3 Neut % (Auto) 84.4 H (38-83) % Lymph % (Auto) 4.1 L (25-47) % Wright % (Auto) 11.2 H (1-9) % Eos % (Auto) 0.1 (0-6) % Baso % (Auto) 0.2 (0-2) % Absolute Neuts (auto) 5.9 (1.5-7.7) 10^3/ul Absolute Lymphs (auto) 0.3 L (1.0-4.8) 10^3/ul Absolute Monos (auto) 0.8 (0-0.8) 10^3/ul Absolute Eos (auto) 0 (0-0.6) 10^3/ul Absolute Basos (auto) 0 (0-0.2) 10^3/ul Absolute Nucleated RBC 0 10^3/ul Nucleated RBC % 0 INR (Anticoag Therapy) (0.89-1.11) Sodium 136 (133-145) mmol/L Potassium 3.8 (3.5-5.0) mmol/L Chloride 104 (101-111) mmol/L Carbon Dioxide 25 (22-32) mmol/L Anion Gap 7 (2-11) mmol/L BUN 44 H (6-24) mg/dL Creatinine 2.26 H (0.67-1.17) mg/dL Est GFR ( Amer) 35.6 (>60) Est GFR (Non-Af Amer) 27.7 (>60) BUN/Creatinine Ratio 19.5 (8-20) Glucose 407 H (70-100) mg/dL Lactic Acid 1.1 (0.5-2.0) mmol/L Calcium 8.2 L (8.6-10.3) mg/dL Magnesium 1.4 L (1.9-2.7) mg/dL Total Bilirubin 0.80 (0.2-1.0) mg/dL AST 10 L (13-39) U/L ALT 14 (7-52) U/L Alkaline Phosphatase 69 (34-104) U/L Ammonia (16-53) mol/L Total Creatine Kinase 85 (10-223) U/L Troponin I 0.04 H* (<0.04) ng/mL C-Reactive Protein 112.38 H (< 5.00) mg/L B-Natriuretic Peptide ( - 100) pg/mL Total Protein 5.8 L (6.4-8.9) g/dL Albumin 2.8 L (3.2-5.2) g/dL Globulin 3.0 (2-4) g/dL Albumin/Globulin Ratio 0.9 L (1-3) Lipase 13 (11.0-82.0) U/L Procalcitonin (<0.6) ng/mL 02/05/17 02/05/17 02/05/17 Range/Units 11:50 11:50 11:50 WBC (3.5-10.8) 10^3/ul RBC (4.0-5.4) 10^6/ul Hgb (14.0-18.0) g/dl Hct (42-52) % MCV (80-94) fL MCH (27-31) pg MCHC (31-36) g/dl RDW (10.5-15) % Plt Count (150-450) 10^3/ul MPV (7.4-10.4) um3 Neut % (Auto) (38-83) % Lymph % (Auto) (25-47) % Wright % (Auto) (1-9) % Eos % (Auto) (0-6) % Baso % (Auto) (0-2) % Absolute Neuts (auto) (1.5-7.7) 10^3/ul Absolute Lymphs (auto) (1.0-4.8) 10^3/ul Absolute Monos (auto) (0-0.8) 10^3/ul Absolute Eos (auto) (0-0.6) 10^3/ul Absolute Basos (auto) (0-0.2) 10^3/ul Absolute Nucleated RBC 10^3/ul Nucleated RBC % INR (Anticoag Therapy) 2.87 H (0.89-1.11) Sodium (133-145) mmol/L Potassium (3.5-5.0) mmol/L Chloride (101-111) mmol/L Carbon Dioxide (22-32) mmol/L Anion Gap (2-11) mmol/L BUN (6-24) mg/dL Creatinine (0.67-1.17) mg/dL Est GFR ( Amer) (>60) Est GFR (Non-Af Amer) (>60) BUN/Creatinine Ratio (8-20) Glucose (70-100) mg/dL Lactic Acid (0.5-2.0) mmol/L Calcium (8.6-10.3) mg/dL Magnesium (1.9-2.7) mg/dL Total Bilirubin (0.2-1.0) mg/dL AST (13-39) U/L ALT (7-52) U/L Alkaline Phosphatase (34-104) U/L Ammonia 15 L (16-53) mol/L Total Creatine Kinase (10-223) U/L Troponin I (<0.04) ng/mL C-Reactive Protein (< 5.00) mg/L B-Natriuretic Peptide 576 H ( - 100) pg/mL Total Protein (6.4-8.9) g/dL Albumin (3.2-5.2) g/dL Globulin (2-4) g/dL Albumin/Globulin Ratio (1-3) Lipase (11.0-82.0) U/L Procalcitonin 0.1 (<0.6) ng/mL Result Diagrams: 02/05/17 11:50 02/05/17 11:50 Lab Statement: Any lab studies that have been ordered have been reviewed, and results considered in the medical decision making process. - Radiology CXR Xray Interpretation: Positive (See Comments) - EXPIRATORY EXAM, SMALL BIBASILAR INFILTRATES. Radiology Interpretation Completed By: Radiologist L Knee XR Xray Interpretation: Positive (See Comments) - 1. JOINT EFFUSION. 2. CHONDROCALCINOSIS. 3. MODERATE OSTEOARTHRITIC CHANGE. Radiology Interpretation Completed By: Radiologist Dizzy Course/Dx - Course Assessment/Plan: The pt is a 85 y/o M who lives in assisted living BIBA c/o L knee pain s/p falling down 3 days ago. His pain is worse when bearing weight. Per EMS, his blood sugar was 422 en route to [facility]. The pt reports that he has been unable to check his blood sugar recently. Pt additionally c/o dizziness and weakness. The pt denies CP, SOB, abd pain, cough, and fever. PMHx: A-Fib, Pacer, DM, HTN, CHF. He has not been eating or drinking well in the last few days. CXR reveals EXPIRATORY EXAM, SMALL BIBASILAR INFILTRATES. Tests results show chronic anemia, chronic renal failure, glucose 407, hyperglycemia to 407, troponin 0.04, and CRP 112. UA negative for a UTI. CXR shows bilateral small infiltrates. Knee XR reveals 1. JOINT EFFUSION. 2. CHONDROCALCINOSIS. 3. MODERATE OSTEOARTHRITIC CHANGE. IN the ED course the patient was given IV fluids for dehydration. He was started on Levaquin for the PNA. He is diagnosed with PNA, CRF, chronic anemia, and L knee pain with effusion. I discussed the findings and test results with Dr. Langston, who accepts the patient. - Diagnoses Provider Diagnoses: PNA (pneumonia), CRF (chronic renal failure), Chronic anemia, L knee pain with effusion Discharge - Discharge Plan Condition: Stable Disposition: ADMITTED TO [facility] The documentation as recorded by the Brice woo Thomas accurately reflects the service I personally performed and the decisions made by me, Eric Andrea MD.
--- NOTE | 2017-02-05 19:06 | HP ---
CC: Dr. Sherman * HISTORY AND PHYSICAL: DATE OF ADMISSION: 02/05/17 PRIMARY CARE PHYSICIAN: Dr. Sherman. CHIEF COMPLAINT: Feeling "blah for 3 days." HISTORY OF PRESENT ILLNESS: Mr. Davison is an 86-year-old male with the past medical history of hypertension; CAD status post IA, pacemaker placement; chronic systolic CHF; AFib, on Coumadin; diabetes; CKD, stage 3; moderate-to- severe mitral regurgitation; BPH; bladder cancer presents to the hospital with general fatigue and malaise x3 days. The patient states he has no "pep." He has been sleeping a lot, has had decreased p.o. intake, and states he had nothing to eat yesterday. He reports occasional chills. No cough. No chest pain, nausea, vomiting, diarrhea, or constipation. He denies any dysuria or hematuria. He is in assisted living at [facility]. He is wheelchair bound. He is unable to ambulate due to chronic left knee pain. He is usually able to transfer from the bed to his wheelchair on his own. However, the past 3 days, he has slid out of the bed and was unable to get up off the ground and needed to ring the celis for assistance. The staff there encouraged him to come in after the first time; however, he refused. It happened again this morning and he agreed to come in. He did not hit his head. Has not had any preceding chest pain, palpitations, or shortness of breath prior to sliding off the bed. In the emergency department, there was some concern over possible underlying infection, possibly a pneumonia. Hospitalists service was consulted to consider the patient for admission. PAST MEDICAL HISTORY: AFib; diabetes; CKD, stage 3; chronic systolic CHF; hypertension; CAD, pacemaker placement; [id number] mitral regurgitation ; BPH; bladder cancer. PAST SURGICAL HISTORY: Appendectomy, pacemaker placement. HOME MEDICATIONS: 1. Gabapentin 200 mg by mouth at noon, 100 mg by mouth 2 times daily. 2. Glipizide 10 mg by mouth 2 times daily. 3. Warfarin 2.5 mg by mouth every day except for Fridays, which he takes 5 mg. 4. Vitamin D 1000 units by mouth daily. 5. Spironolactone 25 mg by mouth daily. 6. Simvastatin 20 mg by mouth daily. 7. Potassium chloride 10 mEq by mouth daily. 8. Metoprolol tartrate 100 mg by mouth in the morning, 50 mg by mouth in the evening. 9. Vitamin B12 1000 mcg by mouth daily. 10. Amlodipine 5 mg by mouth daily. 11. Lasix 40 mg by mouth daily. 12. Ferrous sulfate 325 mg by mouth daily. 13. Doxazosin 4 mg by mouth at bedtime. 14. Allopurinol 100 mg by mouth daily. ALLERGIES: The patient reports no known drug allergies. FAMILY HISTORY: Significant for father with COPD. SOCIAL HISTORY: The patient was a former smoker over 60 years ago. He is at assisted living at [facility], where he lives with his who has dementia. He denies any alcohol or illicit drug use. PHYSICAL EXAMINATION GENERAL: This patient is an elderly man, lying in bed in no apparent distress. VITAL SIGNS: On admission, temperature 98.6, heart rate of 77, respiratory rate of 13, O2 saturation 97% on room air, blood pressure 126/64. HEENT: Head: Normocephalic, atraumatic. Eyes: Pupils equal, round, and reactive to light and accommodation. There is a small conjunctival hemorrhage that the patient states is a birthmark. ENT: Dry mucous membranes. No cervical adenopathy. LUNGS: Clear to auscultation bilaterally. No wheezes, rales, or rhonchi. CARDIOVASCULAR: Irregularly irregular, normal rate. No murmurs, gallops, or rubs. ABDOMEN: Soft, nontender, nondistended. Bowel sounds are positive. EXTREMITIES: No lower extremity edema. There is some left knee effusion, it is not warm, tender, or erythematous. The patient states it is chronic. NEURO: The patient is alert and oriented x3. No focal neurological deficits. DIAGNOSTIC STUDIES/LAB DATA: White blood cell count 6.9, hemoglobin of 9.1, hematocrit of 28, platelets are 154. Sodium of 136, potassium 3.8, chloride of 104, carbon dioxide 25, BUN of 44, creatinine 2.26, glucose of 407, lactic acid of 1.1, calcium 8.2, magnesium 1.4. LFTs within normal limits. Troponin 0.04. CRP of 112. B-natriuretic peptide of 576. Lipase 13. EKG: Personal review shows atrial fibrillation, normal rate, intraventricular conduction delay. Chest x-ray: Personally reviewed read as small bibasilar infiltrates. I am not able to appreciate much on imaging. X-ray of the knee shows joint effusion, chondrocalcinosis, moderate osteoarthritic changes. ASSESSMENT AND PLAN: Fatigue, malaise, weakness possibly due to underlying community-acquired pneumonia in an 86-year-old male with past medical history of atrial fibrillation, diabetes, hypertension, chronic systolic congestive heart failure, and chronic kidney disease, stage 3. 1. Weakness, malaise: Could be due to an underlying infection. The patient does have a significantly elevated CRP. White blood cell count is normal. No fever here in the hospital. I do not see anything jumping on to me on the chest x-ray. The patient did receive ceftriaxone in the emergency department for possible pneumonia. I will give him a dose of azithromycin as well. I will add procalcitonin to his labs. Also, pending is urinalysis with the patient of any evidence of urinary tract infection. He has received 1 L of IV fluids in the emergency department. We will not give any additional IV fluids for now with the patient's history of congestive heart failure. His B- natriuretic peptide while elevated was actually low since been in quite a while. 2. Diabetes: The patient's blood glucose is elevated at 407. We will give 8 units of regular insulin x1 now, start him on Humalog insulin sliding scale. For now, hold the patient's home glipizide. 3. Chronic systolic congestive heart failure: As noted above, the patient seems to be euvolemic to slightly dehydrated at this time. He has received 1 L of IV fluids. We will not give any more IV fluids. We will resume the patient' s home Lasix and spironolactone tomorrow. Continue beta ruth for now. 4. Chronic kidney disease, stage 3: The patient's creatinine is right around baseline for him. 5. Hypertension: Continue home medications. 6. Atrial fibrillation: INR was not drawn, is pending at this time. Continue metoprolol as above. Continue home Coumadin dosing. 7. History of coronary artery disease: Continue beta ruth and statin. The patient has a minimally elevated troponin, which seems to be his baseline. He is not complaining of any chest pain. We will not trend for now. I do not think the patient needs telemetry monitoring. 8. Benign prostatic hyperplasia: Continue home Cardura. 9. DVT prophylaxis: Awaiting INR, continue home Coumadin for now. If INR is low, can bridge with subcu heparin. 10. Code status: The patient is a do not resuscitate. TIME SPENT: Total time spent on this admission 45 minutes, with over half the time spent [id number] with the patient in counseling and coordinating care. [id number]/[facility] #: [id number] MTDD
[2017-02-05] MEDS: Doxazosin TAB* 2 MG PO SCH (20:03)
[2017-02-05] MEDS: Gabapentin CAP(*) 100 MG PO SCH (20:03)
[2017-02-05] MEDS: Insulin LISPRO* 1 UNITS UNIT SUBCUT SCH (22:59)
[2017-02-06 05:11] LABS: Hematocrit 26 % (42-52); Hemoglobin 8.4 g/dl (14.0-18.0); Mean Corpuscular HGB Conc 32 g/dl (31-36); Mean Corpuscular Hemoglobin 32 pg (27-31); Mean Corpuscular Volume 99 fL (80-94); Mean Platelet Volume 8 um3 (7.4-10.4); Red Blood Count 2.65 10^6/ul (4.0-5.4); Red Cell Distribution Width 17 % (10.5-15); White Blood Count 4.9 10^3/ul (3.5-10.8)
[2017-02-06 05:13] LABS: Add Diff/Slide Review? Slide Review Added; Comments Flag Yes
[2017-02-06 05:22] LABS: BUN/Creatinine Ratio 17.7 (8-20); Calcium 8.3 mg/dL (8.6-10.3); EGFR African American 32.8 (>60); EGFR Non-African American 25.5 (>60); Potassium 3.4 mmol/L (3.5-5.0)
[2017-02-06] MEDS: Acetaminophen TAB* 325 MG PO PRN ×3 (06:19→19:57)
[2017-02-06] MEDS: Insulin LISPRO* 1 UNITS UNIT SUBCUT SCH ×4 (08:39→21:15)
[2017-02-06] MEDS: amLODIPine TAB* 5 MG PO SCH (08:40)
[2017-02-06] MEDS: Ferrous Sulfate TAB* 325 MG PO SCH (08:40)
[2017-02-06] MEDS: Atorvastatin* 10 MG TAB PO SCH (08:40)
[2017-02-06] MEDS: Allopurinol TAB* 100 MG PO SCH (08:40)
[2017-02-06] MEDS: Potassium Chlor TAB* 10 MEQ TAB.ER PO SCH (08:40)
[2017-02-06] MEDS: Furosemide TAB* 20 MG PO SCH (08:40)
[2017-02-06] MEDS: Metoprolol Tartrate TAB* 100 MG TAB PO SCH (08:41)
[2017-02-06] MEDS: Gabapentin CAP(*) 100 MG PO SCH ×3 (08:41→21:23)
[2017-02-06] MEDS: Spironolactone TAB* 25 MG PO SCH (08:41)
[2017-02-06] MEDS: cefTRIAXone VIAL(*) 1,000 MG in NS 0.9% 50 ML* 50 ML IVPB SCH (13:52)
--- NOTE | 2017-02-06 14:45 | PN ---
Subjective Date of Service: 02/06/17 Interval History: Mr. Davison states that he is feeling better today. He suspects that he has been feeling poorly because his blood sugar has been high (above 400) recently. He denies any complaint today including chest pain, SOB, nausea, or abdominal pain. Objective Active Medications: Acetaminophen (Tylenol Tab*) 650 mg PO Q6H PRN Allopurinol (Zyloprim Tab*) 100 mg PO DAILY [facility] Amlodipine Besylate (Norvasc Tab*) 5 mg PO DAILY [facility] Dextrose (D50w Syringe 50 Ml*) 12.5 gm IV PUSH .FOR FS < 60 - SS PRN Doxazosin Mesylate (Cardura Tab*) 4 mg PO BEDTIME [facility] Ferrous Sulfate (Ferrous Sulfate Tab*) 325 mg PO DAILY [facility] Furosemide (Lasix Tab*) 40 mg PO DAILY [facility] Gabapentin (Neurontin Cap(*)) 100 mg PO BID [facility] Gabapentin (Neurontin Cap(*)) 200 mg PO DAILY [facility] Ceftriaxone Sodium 1,000 mg/ (Sodium Chloride) 50 mls @ 200 mls/hr IVPB Q24H [facility] Azithromycin 500 mg/ Sodium (Chloride) 250 mls @ 250 mls/hr IVPB 1700 [facility] Insulin Human Lispro (Humalog*) 0 - 10 units SUBCUT ACHS [facility] Metoprolol Tartrate (Lopressor Tab*) 50 mg PO QPM [facility] Metoprolol Tartrate (Lopressor Tab*) 100 mg PO QAM [facility] Potassium Chloride (Klor Con Er Tab*) 10 meq PO DAILY [facility] Spironolactone (Aldactone Tab*) 25 mg PO DAILY [facility] Warfarin Sodium (Coumadin Tab(*)) 2.5 mg PO 1700 [facility] Vital Signs 02/05/17 02/05/17 02/05/17 15:00 15:19 15:33 Temperature 97.8 F 98.6 F Pulse Rate 83 99 85 Respiratory 21 16 20 Rate Blood Pressure 131/65 126/79 (mmHg) O2 Sat by Pulse 95 94 Oximetry 02/05/17 02/05/17 02/05/17 19:19 20:00 20:03 Temperature 97.9 F Pulse Rate 70 Respiratory 16 16 20 Rate Blood Pressure 122/67 (mmHg) O2 Sat by Pulse 99 Oximetry 02/05/17 02/05/17 02/06/17 22:03 22:54 02:46 Temperature 100.4 F 99.2 F Pulse Rate 86 87 Respiratory 19 20 16 Rate Blood Pressure 125/48 124/51 (mmHg) O2 Sat by Pulse Oximetry 02/06/17 02/06/17 02/06/17 08:06 08:41 11:21 Temperature 98.2 F 97.9 F Pulse Rate 77 62 Respiratory 20 16 18 Rate Blood Pressure 121/51 116/60 (mmHg) O2 Sat by Pulse 95 97 Oximetry 02/06/17 13:51 Temperature Pulse Rate Respiratory 14 Rate Blood Pressure (mmHg) O2 Sat by Pulse Oximetry Oxygen Devices in Use Now: Nasal Cannula Appearance: Elderly male sitting up in bed in NAD Eyes: No Scleral Icterus Ears/Nose/Mouth/Throat: Mucous Membranes Moist Neck: Trachea Midline Respiratory: Symmetrical Chest Expansion and Respiratory Effort, Clear to Auscultation Cardiovascular: NL Sounds; No Murmurs; No JVD, No Edema Abdominal: NL Sounds; No Tenderness; No Distention Lymphatic: No Cervical Adenopathy Extremities: No Edema Skin: No Rash or Ulcers Neurological: Alert and Oriented x 3, NL Muscle Strength and Tone Nutrition: Taking PO's Result Diagrams: 02/06/17 04:55 02/06/17 04:55 Additional Lab and Data: Lab Results 02/05/17 02/05/17 02/05/17 Range/Units 11:50 11:50 11:50 WBC 6.9 (3.5-10.8) 10^3/ul RBC 2.80 L (4.0-5.4) 10^6/ul Hgb 9.1 L (14.0-18.0) g/dl Hct 28 L (42-52) % MCV 100 H (80-94) fL MCH 32 H (27-31) pg MCHC 32 (31-36) g/dl RDW 17 H (10.5-15) % Plt Count 154 (150-450) 10^3/ul MPV 8 (7.4-10.4) um3 Neut % (Auto) 84.4 H (38-83) % Lymph % (Auto) 4.1 L (25-47) % [place] % (Auto) 11.2 H (1-9) % Eos % (Auto) 0.1 (0-6) % Baso % (Auto) 0.2 (0-2) % Absolute Neuts (auto) 5.9 (1.5-7.7) 10^3/ul Absolute Lymphs (auto) 0.3 L (1.0-4.8) 10^3/ul Absolute Monos (auto) 0.8 (0-0.8) 10^3/ul Absolute Eos (auto) 0 (0-0.6) 10^3/ul Absolute Basos (auto) 0 (0-0.2) 10^3/ul Absolute Nucleated RBC 0 10^3/ul Nucleated RBC % 0 INR (Anticoag Therapy) (0.89-1.11) Sodium 136 (133-145) mmol/L Potassium 3.8 (3.5-5.0) mmol/L Chloride 104 (101-111) mmol/L Carbon Dioxide 25 (22-32) mmol/L Anion Gap 7 (2-11) mmol/L BUN 44 H (6-24) mg/dL Creatinine 2.26 H (0.67-1.17) mg/dL Est GFR ( Amer) 35.6 (>60) Est GFR (Non-Af Amer) 27.7 (>60) BUN/Creatinine Ratio 19.5 (8-20) Glucose 407 H (70-100) mg/dL Lactic Acid 1.1 (0.5-2.0) mmol/L Calcium 8.2 L (8.6-10.3) mg/dL Magnesium 1.4 L (1.9-2.7) mg/dL Total Bilirubin 0.80 (0.2-1.0) mg/dL AST 10 L (13-39) U/L ALT 14 (7-52) U/L Alkaline Phosphatase 69 (34-104) U/L Ammonia (16-53) mol/L Total Creatine Kinase 85 (10-223) U/L Troponin I 0.04 H* (<0.04) ng/mL C-Reactive Protein 112.38 H (< 5.00) mg/L B-Natriuretic Peptide ( - 100) pg/mL Total Protein 5.8 L (6.4-8.9) g/dL Albumin 2.8 L (3.2-5.2) g/dL Globulin 3.0 (2-4) g/dL Albumin/Globulin Ratio 0.9 L (1-3) Lipase 13 (11.0-82.0) U/L Procalcitonin (<0.6) ng/mL 02/05/17 02/05/17 02/05/17 Range/Units 11:50 11:50 11:50 WBC (3.5-10.8) 10^3/ul RBC (4.0-5.4) 10^6/ul Hgb (14.0-18.0) g/dl Hct (42-52) % MCV (80-94) fL MCH (27-31) pg MCHC (31-36) g/dl RDW (10.5-15) % Plt Count (150-450) 10^3/ul MPV (7.4-10.4) um3 Neut % (Auto) (38-83) % Lymph % (Auto) (25-47) % [place] % (Auto) (1-9) % Eos % (Auto) (0-6) % Baso % (Auto) (0-2) % Absolute Neuts (auto) (1.5-7.7) 10^3/ul Absolute Lymphs (auto) (1.0-4.8) 10^3/ul Absolute Monos (auto) (0-0.8) 10^3/ul Absolute Eos (auto) (0-0.6) 10^3/ul Absolute Basos (auto) (0-0.2) 10^3/ul Absolute Nucleated RBC 10^3/ul Nucleated RBC % INR (Anticoag Therapy) 2.87 H (0.89-1.11) Sodium (133-145) mmol/L Potassium (3.5-5.0) mmol/L Chloride (101-111) mmol/L Carbon Dioxide (22-32) mmol/L Anion Gap (2-11) mmol/L BUN (6-24) mg/dL Creatinine (0.67-1.17) mg/dL Est GFR ( Amer) (>60) Est GFR (Non-Af Amer) (>60) BUN/Creatinine Ratio (8-20) Glucose (70-100) mg/dL Lactic Acid (0.5-2.0) mmol/L Calcium (8.6-10.3) mg/dL Magnesium (1.9-2.7) mg/dL Total Bilirubin (0.2-1.0) mg/dL AST (13-39) U/L ALT (7-52) U/L Alkaline Phosphatase (34-104) U/L Ammonia 15 L (16-53) mol/L Total Creatine Kinase (10-223) U/L Troponin I (<0.04) ng/mL C-Reactive Protein (< 5.00) mg/L B-Natriuretic Peptide 576 H ( - 100) pg/mL Total Protein (6.4-8.9) g/dL Albumin (3.2-5.2) g/dL Globulin (2-4) g/dL Albumin/Globulin Ratio (1-3) Lipase (11.0-82.0) U/L Procalcitonin 0.1 (<0.6) ng/mL Assess/Plan/Problems-Billing Assessment: Mr. Davison is an 86 yo male with a PMH of DM, afib, CKD stage 3, chronic systolic CHF, pacemaker, and mod-sev mitral regurgitation who was admitted on with concern for generalized malaise with concern for early pneumonia and hyperglycemia. - Patient Problems (1) Pneumonia Comment: - Tmax 100.4, CRP 112. BGs have been elevated. - Chest xray with concern for minimal bibasilar infiltrates per radiology. - Continue ceftriaxone and azithromycin. (2) Diabetes Comment: - BGs 400s recently at [place] and on arrival. ? if related to acute infection. - AM BGs 140s thus far but does have spiked later in the day. Plan to increase SSI coverage with meals for now. (3) CKD (chronic kidney disease) stage 3, GFR 30-59 ml/min Comment: - Creatinine at baseline. (4) Afib Comment: - Rate controlled. - Continue home metoprolol. - Continue warfarin. INR therapeutic. (5) Hyperlipidemia Comment: - Continue atorvastatin. (6) DNR (do not resuscitate) (7) DVT prophylaxis Comment: - Continue Warfarin. Status and Disposition: Convert to inpatient with need for additional night in hospital for pneumonia and hyperglycemia. Patient will likely need insulin injection at discharge, protective services case worker checking with [place] about level of support they are able to provide in this regard.
[2017-02-06] MEDS ORDERED: NS 0.9% 250 ML* 500 ML ONE (17:14)
[2017-02-06] MEDS: Azithromycin IV(*) 500 MG in NS 0.9% 250 ML* 250 ML IVPB SCH (17:18)
[2017-02-06] MEDS: Warfarin TAB(*) 2.5 MG PO SCH (17:21)
[2017-02-06] MEDS: Metoprolol Tartrate TAB* 50 mg PO SCH (17:21)
[2017-02-06] MEDS: Doxazosin TAB* 2 MG PO SCH (21:18)
[2017-02-07] MEDS: Acetaminophen TAB* 325 MG PO PRN ×2 (05:44→20:32)
[2017-02-07] MEDS: Potassium Chlor TAB* 10 MEQ TAB.ER PO SCH (08:24)
[2017-02-07] MEDS: Spironolactone TAB* 25 MG PO SCH (08:24)
[2017-02-07] MEDS: Allopurinol TAB* 100 MG PO SCH (08:24)
[2017-02-07] MEDS: Gabapentin CAP(*) 100 MG PO SCH ×3 (08:24→20:32)
[2017-02-07] MEDS: Metoprolol Tartrate TAB* 100 MG TAB PO SCH (08:24)
[2017-02-07] MEDS: Atorvastatin* 10 MG TAB PO SCH (08:24)
[2017-02-07] MEDS: amLODIPine TAB* 5 MG PO SCH (08:24)
[2017-02-07] MEDS: Ferrous Sulfate TAB* 325 MG PO SCH (08:24)
[2017-02-07] MEDS: Furosemide TAB* 20 MG PO SCH (08:24)
[2017-02-07] MEDS: Insulin LISPRO* 1 UNITS UNIT SUBCUT SCH ×5 (08:25→21:19)
[2017-02-07] MEDS ORDERED: Insulin LISPRO* 1 UNITS UNIT SUBCUT SCH (11:35)
[2017-02-07] MEDS: cefTRIAXone VIAL(*) 1,000 MG in NS 0.9% 50 ML* 50 ML IVPB SCH (12:55)
--- NOTE | 2017-02-07 15:19 | PN ---
Subjective Date of Service: 02/07/17 Interval History: Patient seen and examined at bedside. Denies fever, chills, shortness of breath , chest discomfort, N/V/D. Pt states that he checks his glucose once a day and is comfortable with checking his own glucose. Pt states that he feels he will be able to give his own insulin injections. Family History: Unchanged from Admission Social History: Unchanged from Admission Past Medical History: Unchanged from Admission Objective Active Medications: Acetaminophen (Tylenol Tab*) 650 mg PO Q6H PRN Reason: FEVER/PAIN Allopurinol (Zyloprim Tab*) [address] [facility] Amlodipine Besylate (Norvasc Tab*) [address] [facility] Atorvastatin Calcium (Lipitor*) [address] [facility] Dextrose (D50w Syringe 50 Ml*) 12.5 gm IV PUSH .FOR FS < 60 - SS PRN Reason: FS < 60 Doxazosin Mesylate (Cardura Tab*) 4 mg PO BEDTIME [facility] Ferrous Sulfate (Ferrous Sulfate Tab*) [address] [facility] Furosemide (Lasix Tab*) [address] [facility] Gabapentin (Neurontin Cap(*)) 100 mg PO BID [facility] Gabapentin (Neurontin Cap(*)) [address] [facility] Ceftriaxone Sodium 1,000 mg/ (Sodium Chloride) 50 mls @ 200 mls/hr IVPB Q24H [facility] Azithromycin 500 mg/ Sodium (Chloride) 250 mls @ 250 mls/hr IVPB 1700 [facility] Insulin Human Lispro (Humalog*) 0 - 15 units SUBCUT 0730,1130,1630,2100 [facility] Reason: Protocol Metoprolol Tartrate (Lopressor Tab*) [address] [facility] Metoprolol Tartrate (Lopressor Tab*) [address] [facility] Potassium Chloride (Klor Con Er Tab*) [address] [facility] Spironolactone (Aldactone Tab*) [address] [facility] Warfarin Sodium (Coumadin Tab(*)) 2.[address] [facility] Vital Signs 02/06/17 02/06/17 02/06/17 15:32 15:51 19:45 Temperature 97.6 F 99.6 F Pulse Rate 73 77 Respiratory 20 14 20 Rate Blood Pressure 94/49 85/50 (mmHg) O2 Sat by Pulse 100 86 Oximetry 02/06/17 02/06/17 02/06/17 19:46 21:23 22:41 Temperature Pulse Rate 87 Respiratory 18 Rate Blood Pressure 128/58 (mmHg) O2 Sat by Pulse 100 Oximetry 02/06/17 02/06/17 02/07/17 23:23 23:28 04:22 Temperature 99.0 F 98.1 F Pulse Rate 86 27 Respiratory 16 20 16 Rate Blood Pressure 111/39 141/69 (mmHg) O2 Sat by Pulse 98 96 Oximetry 02/07/17 02/07/17 02/07/17 04:45 07:21 08:24 Temperature 97.9 F Pulse Rate 84 104 Respiratory 20 20 Rate Blood Pressure 131/50 (mmHg) O2 Sat by Pulse 93 97 Oximetry 02/07/17 02/07/17 10:24 11:36 Temperature 97.5 F Pulse Rate 54 Respiratory 18 16 Rate Blood Pressure 121/64 (mmHg) O2 Sat by Pulse 100 Oximetry Oxygen Devices in Use Now: Nasal Cannula Appearance: NAD, laying in bed Eyes: PERRLA Ears/Nose/Mouth/Throat: Mucous Membranes Moist Respiratory: Symmetrical Chest Expansion and Respiratory Effort, Clear to Auscultation Cardiovascular: NL Sounds; No Murmurs; No JVD, RRR Abdominal: NL Sounds; No Tenderness; No Distention Extremities: No Edema Skin: No Rash or Ulcers Neurological: Alert and Oriented x 3, NL Muscle Strength and Tone Lines/Tubes/Other Access: Clean, Dry and Intact Peripheral IV - site benign Nutrition: Taking PO's Result Diagrams: 02/06/17 04:55 02/06/17 04:55 Additional Lab and Data: Assess/Plan/Problems-Billing Assessment: Mr. Davison is an 86 yo male with a PMH of DM, afib, CKD stage 3, chronic systolic CHF, pacemaker, and mod-sev mitral regurgitation who was admitted on with concern for generalized malaise with concern for early pneumonia and hyperglycemia. - Patient Problems (1) Pneumonia Code(s): J18.9 - PNEUMONIA, UNSPECIFIED ORGANISM SNOMED Code(s): 519809585 Comment: - Temp max 100.4, afebrile for ~ 48 hours. - CRP 112. BGs have been elevated. - Chest xray with concern for minimal bibasilar infiltrates per radiology. - Continue ceftriaxone and azithromycin. (2) Diabetes Current Visit: No Status: Chronic Code(s): E11.9 - TYPE 2 DIABETES MELLITUS WITHOUT COMPLICATIONS SNOMED Code(s): 98778652 Comment: - BGs 400s recently at [place] and on arrival. ? if related to acute infection. - Glucose 110s-320s - Suspect Pt will need to be discharged home with Insulin, unable to take metformin due to his elevated creatinine - Continue Lispro SS (3) CKD (chronic kidney disease) stage 3, GFR 30-59 ml/min Code(s): N18.3 - CHRONIC KIDNEY DISEASE, STAGE 3 (MODERATE) SNOMED Code(s): 673856097 Comment: - Creatinine at baseline. (4) Afib Code(s): I48.91 - UNSPECIFIED ATRIAL FIBRILLATION SNOMED Code(s): 31016729 Comment: - Rate controlled. - Continue home metoprolol. - Continue warfarin. INR therapeutic. (5) Hyperlipidemia Code(s): E78.5 - HYPERLIPIDEMIA, UNSPECIFIED SNOMED Code(s): 40902723 Comment: - Continue atorvastatin. (6) DVT prophylaxis Code(s): [id number] - SNOMED Code(s): 957985119 Comment: - Continue Warfarin. (7) DNR (do not resuscitate) Status and Disposition: Inpatient with need for additional night in hospital for pneumonia and hyperglycemia. Patient will likely need insulin injection at discharge, nursing staff working on education regarding insulin injections.
[2017-02-07] MEDS: Metoprolol Tartrate TAB* 50 mg PO SCH (16:49)
[2017-02-07] MEDS: Warfarin TAB(*) 2.5 MG PO SCH (16:49)
[2017-02-07] MEDS: Azithromycin IV(*) 500 MG in NS 0.9% 250 ML* 250 ML IVPB SCH (16:50)
[2017-02-07] MEDS: Doxazosin TAB* 2 MG PO SCH (20:33)
[2017-02-08] MEDS: Acetaminophen TAB* 325 MG PO PRN ×2 (03:52→16:51)
[2017-02-08 05:33] LABS: Calcium 8.4 mg/dL (8.6-10.3); EGFR African American 33.4 (>60); Potassium 3.7 mmol/L (3.5-5.0)
[2017-02-08] MEDS: Metoprolol Tartrate TAB* 100 MG TAB PO SCH (08:10)
[2017-02-08] MEDS: Allopurinol TAB* 100 MG PO SCH (08:11)
[2017-02-08] MEDS: amLODIPine TAB* 5 MG PO SCH (08:11)
[2017-02-08] MEDS: Atorvastatin* 10 MG TAB PO SCH (08:11)
[2017-02-08] MEDS: Ferrous Sulfate TAB* 325 MG PO SCH (08:11)
[2017-02-08] MEDS: Spironolactone TAB* 25 MG PO SCH (08:11)
[2017-02-08] MEDS: Furosemide TAB* 20 MG PO SCH (08:12)
[2017-02-08] MEDS: Gabapentin CAP(*) 100 MG PO SCH ×2 (08:12→08:13)
[2017-02-08] MEDS: Potassium Chlor TAB* 10 MEQ TAB.ER PO SCH (08:12)
[2017-02-08] MEDS: Insulin LISPRO* 1 UNITS UNIT SUBCUT SCH ×3 (08:13→16:51)
[2017-02-08 11:11] VITALS: BP 132/58
[2017-02-08] MEDS: cefTRIAXone VIAL(*) 1,000 MG in NS 0.9% 50 ML* 50 ML IVPB SCH (12:02)
[2017-02-08 12:32] LABS: Hematocrit 26 % (42-52); Hemoglobin 8.2 g/dl (14.0-18.0)
--- NOTE | 2017-02-08 13:10 | PN ---
Subjective Date of Service: 02/08/17 Interval History: Patient seen and examined at bedside. Pt states that he is feeling well today. Denies fever, chills, shortness of breath, chest discomfort, N/V/D. Per NSG staff Pt has dark colored stool this AM with some areas of delfino blood. Stool for occult blood negative. Pt denies history of hemorrhoids, but states that he "pinched" his scrotum when he sat down on the commode today. Denies any other signs of bleeding. Pt feels that he is able to manage at home his own glucose checks and administer his own insulin. Family History: Unchanged from Admission Social History: Unchanged from Admission Past Medical History: Unchanged from Admission Objective Active Medications: Acetaminophen (Tylenol Tab*) 650 mg PO Q6H PRN Reason: FEVER/PAIN Allopurinol (Zyloprim Tab*) 100 mg PO DAILY [facility] Amlodipine Besylate (Norvasc Tab*) 5 mg PO DAILY [facility] Atorvastatin Calcium (Lipitor*) 10 mg PO DAILY [facility] Dextrose (D50w Syringe 50 Ml*) 12.5 gm IV PUSH .FOR FS < 60 - SS PRN Reason: FS < 60 Doxazosin Mesylate (Cardura Tab*) 4 mg PO BEDTIME [facility] Ferrous Sulfate (Ferrous Sulfate Tab*) 325 mg PO DAILY [facility] Furosemide (Lasix Tab*) 40 mg PO DAILY [facility] Gabapentin (Neurontin Cap(*)) 100 mg PO BID [facility] Gabapentin (Neurontin Cap(*)) 200 mg PO DAILY [facility] Ceftriaxone Sodium 1,000 mg/ (Sodium Chloride) 50 mls @ 200 mls/hr IVPB Q24H [facility] Azithromycin 500 mg/ Sodium (Chloride) 250 mls @ 250 mls/hr IVPB 1700 [facility] Insulin Human Lispro (Humalog*) 0 - 15 units SUBCUT 0730,1130,1630,2100 [facility] Reason: Protocol Metoprolol Tartrate (Lopressor Tab*) 50 mg PO QPM [facility] Metoprolol Tartrate (Lopressor Tab*) 100 mg PO QAM [facility] Potassium Chloride (Klor Con Er Tab*) 10 meq PO DAILY [facility] Spironolactone (Aldactone Tab*) 25 mg PO DAILY [facility] Warfarin Sodium (Coumadin Tab(*)) 2.5 mg PO 1700 [facility] Vital Signs 02/07/17 02/07/17 02/07/17 15:34 19:30 19:44 Temperature 98.6 F 98.8 F Pulse Rate 79 88 Respiratory 18 20 20 Rate Blood Pressure 120/57 131/58 (mmHg) O2 Sat by Pulse 99 96 Oximetry 02/07/17 02/07/17 02/07/17 20:32 22:32 22:56 Temperature 98.6 F Pulse Rate 36 Respiratory 22 18 20 Rate Blood Pressure 119/64 (mmHg) O2 Sat by Pulse 94 Oximetry 02/08/17 02/08/17 02/08/17 02:57 07:12 07:41 Temperature 99.1 F 98.5 F Pulse Rate 75 93 Respiratory 22 18 18 Rate Blood Pressure 111/50 117/30 (mmHg) O2 Sat by Pulse 95 94 Oximetry 02/08/17 02/08/17 02/08/17 07:44 07:45 08:12 Temperature Pulse Rate Respiratory 20 Rate Blood Pressure 118/55 142/60 (mmHg) O2 Sat by Pulse 94 Oximetry 02/08/17 02/08/17 02/08/17 08:13 09:40 10:12 Temperature Pulse Rate Respiratory 20 18 Rate Blood Pressure (mmHg) O2 Sat by Pulse 98 Oximetry 02/08/17 11:11 Temperature 97.9 F Pulse Rate 69 Respiratory 20 Rate Blood Pressure 132/58 (mmHg) O2 Sat by Pulse 91 Oximetry Oxygen Devices in Use Now: None Appearance: NAD, laying in bed Eyes: No Scleral Icterus Ears/Nose/Mouth/Throat: Mucous Membranes Moist Respiratory: Symmetrical Chest Expansion and Respiratory Effort, Clear to Auscultation Cardiovascular: NL Sounds; No Murmurs; No JVD, RRR Abdominal: NL Sounds; No Tenderness; No Distention Extremities: No Edema Skin: No Rash or Ulcers Neurological: Alert and Oriented x 3, NL Muscle Strength and Tone Lines/Tubes/Other Access: Clean, Dry and Intact Peripheral IV - site benign Nutrition: Taking PO's Result Diagrams: 02/08/17 12:26 02/08/17 04:48 Additional Lab and Data: Microbiology and Other Data: Microbiology 02/08/17 08:50 Stool Occult Blood (RUBY) - Final Stool Assess/Plan/Problems-Billing Assessment: Mr. Davison is an 86 yo male with a PMH of DM, afib, CKD stage 3, chronic systolic CHF, pacemaker, and mod-sev mitral regurgitation who was admitted on 7 /23/17 with concern for generalized malaise with concern for early pneumonia and hyperglycemia. - Patient Problems (1) Pneumonia Code(s): J18.9 - PNEUMONIA, UNSPECIFIED ORGANISM SNOMED Code(s): 488024661 Comment: - Temp max 100.4, afebrile for ~ > 48 hours. - CRP 112. BGs have been elevated. - Chest xray with concern for minimal bibasilar infiltrates per radiology. - Change to cefdinir and azithromycin PO. (2) Diabetes Current Visit: No Status: Chronic Code(s): E11.9 - TYPE 2 DIABETES MELLITUS WITHOUT COMPLICATIONS SNOMED Code(s): 94684556 Comment: - BGs 400s recently at [place] and on arrival. ? if related to acute infection. - Glucose 140s-260s - Pt will need to be discharged home with Insulin, unable to take metformin due to his elevated creatinine. He is comfortable with giving himself insulin - Resume glipizide and continue Lispro SS - Outpatient follow-up at [facility] (3) CKD (chronic kidney disease) stage 3, GFR 30-59 ml/min Code(s): N18.3 - CHRONIC KIDNEY DISEASE, STAGE 3 (MODERATE) SNOMED Code(s): 171222539 Comment: - Creatinine at baseline. (4) Afib Code(s): I48.91 - UNSPECIFIED ATRIAL FIBRILLATION SNOMED Code(s): 15672732 Comment: - Rate controlled. - Continue home metoprolol. - Continue warfarin. INR therapeutic. (5) Hyperlipidemia Code(s): E78.5 - HYPERLIPIDEMIA, UNSPECIFIED SNOMED Code(s): 13341609 Comment: - Continue atorvastatin. (6) DVT prophylaxis Code(s): [id number] - SNOMED Code(s): 387630984 Comment: - Continue Warfarin. (7) DNR (do not resuscitate) Status and Disposition: Inpatient. Stable for discharge to [place] today.
[2017-02-08] MEDS: Azithromycin IV(*) 500 MG in NS 0.9% 250 ML* 250 ML IVPB SCH (15:16)
[2017-02-08] MEDS: Warfarin TAB(*) 2.5 MG PO SCH (16:51)
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
== END 2017-02-08 17:06 | DRG 194 ==
LOC: ED 10:38 → MEDTELE 13:59 → OBSVTOIN 02-06 15:00 → UNDODISIN 02-08 17:06
PROVIDERS: ADMIT Hospitalist; ATTEND Internal Medicine
DX: J18.9 Pneumonia, unspecified organism (principal); I13.0 Hypertensive heart and chronic kidney disease with heart failure and stage 1 through stage 4 chronic kidney disease, or unspecified chronic kidney disease; E11.22 Type 2 diabetes mellitus with diabetic chronic kidney disease; I50.22 Chronic systolic (congestive) heart failure; E11.65 Type 2 diabetes mellitus with hyperglycemia; I48.91 Unspecified atrial fibrillation; E83.42 Hypomagnesemia; Z95.0 Presence of cardiac pacemaker; Z82.49 Family history of ischemic heart disease and other diseases of the circulatory system; Z87.891 Personal history of nicotine dependence; I25.10 Atherosclerotic heart disease of native coronary artery without angina pectoris; I25.2 Old myocardial infarction; N18.3 Chronic kidney disease, stage 3 (moderate); I34.0 Nonrheumatic mitral (valve) insufficiency; N40.0 Benign prostatic hyperplasia without lower urinary tract symptoms; Z85.51 Personal history of malignant neoplasm of bladder; G89.29 Other chronic pain; Z83.6 Family history of other diseases of the respiratory system; Z66 Do not resuscitate; E78.5 Hyperlipidemia, unspecified; Z79.4 Long term (current) use of insulin; Z79.01 Long term (current) use of anticoagulants; M25.462 Effusion, left knee; M11.262 Other chondrocalcinosis, left knee; M17.12 Unilateral primary osteoarthritis, left knee; D64.9 Anemia, unspecified; R50.9 Fever, unspecified; K64.8 Other hemorrhoids; E87.6 Hypokalemia
CPT/HCPCS: 36415; 71020; 80048; 80053; 81003; 81015; 82140; 82272; 82550; 82947; 83605; 83690; 83735; 83880; 84145; 84484; 85014; 85018; 85025; 85610; 86140; 87040; 93005; A9270-GY; G0378; G8978-GP-CL; G8979-GP-CL; J0456; J0696

== ENCOUNTER → 2017-03-07 11:50 | Emergency (ER) | payer MEDICARE, BC ==
[~2017-03-07 11:50] MED LIST changes: -Acetaminophen TAB* 325 MG PO ONE; +Phenylephrine 0.5% NASAL* BTL ONE; +Phenylephrine 0.5% NASAL* BTL RIGHT NARE ONE; +Phenylephrine 1% NASAL* 15 ML BOT RIGHT NARE ONE
[2017-03-07 13:10] LABS: Hematocrit 27 % (42-52); Hemoglobin 8.7 g/dl (14.0-18.0); Mean Corpuscular HGB Conc 33 g/dl (31-36); Mean Corpuscular Hemoglobin 32 pg (27-31); Mean Corpuscular Volume 97 fL (80-94); Mean Platelet Volume 7 um3 (7.4-10.4); Red Blood Count 2.74 10^6/ul (4.0-5.4); Red Cell Distribution Width 18 % (10.5-15)
--- NOTE | 2017-03-07 13:37 | ED ---
Throat Pain/Nasal Congestion - HPI Summary HPI Summary: Pt here w/ epistaxis this morning. He is unsure of why or how this started. Denies pain. Takes coumadin for a. fib. Was sent over from [facility]. He also has what appears to be a subconjunctival hemorrhage in Rt eye - when asked if he noticed this, he replies "I've had that since I was 5". Denies pain anywhere else other than Lt knee which he reports is chronic pain - no change in swelling. H/o gout here - took medicine yesterday. Admits to h/o arthritis here - uses wheelchair for past 3 years as he has pain w/ weight bearing. PCP aware. Doesn't believe he hit his head this morning. Denies GRANDA, change in vision , fatigue, N/V. He is unsure of his last INR level. - History of Current Complaint Hx Obtained From: Patient <Monique Hurley - Last Filed: 03/07/17 15:02> <Leatha Langston - Last Filed: 03/08/17 07:40> - History of Current Complaint Chief Complaint: EDEpistaxis Time Seen by Provider: 03/07/17 12:45 - Allergies/Home Medications Allergies/Adverse Reactions: Allergies Allergy/AdvReac Type Severity Reaction Status Date / Time No Known Allergies Allergy Verified 11/09/15 05:27 PMH/Surg Hx/FS Hx/Imm Hx Previously Healthy: Yes Endocrine/Hematology History: Reports: Hx Anticoagulant Therapy - coumadin, Hx Diabetes Cardiovascular History: Reports: Hx Atrial Fibrillation, Hx Congestive Heart Failure, Hx Hypertension, Hx Pacemaker/ICD, Other Cardiovascular Problems/ Disorders - PACEMAKER Denies: Hx Peripheral Vascular Disease History: Reports: Other Problems/Disorders - CKD Musculoskeletal History: Reports: Hx Arthritis - Lt knee - injections have helped temporarily in the past, Hx Gout Denies: Hx Osteoporosis Sensory History: Reports: Hx Contacts or Glasses Denies: Hx Hearing Aid Opthamlomology History: Reports: Hx Contacts or Glasses Neurological History: Denies: Hx Headaches, Hx Seizures, Hx Transient Ischemic Attacks (TIA) Psychiatric History: Denies: Hx Anxiety, Hx Depression - Surgical History Surgery Procedure, Year, and Place: PACEMAKER Infectious Disease History: No Infectious Disease History: Denies: Traveled Outside the [place] in Last 30 Days - Family History Known Family History: Positive: Cardiac Disease Negative: Hypertension, Diabetes - Social History Occupation: Retired Lives: [facility] Alcohol Use: None Hx Substance Use: No Substance Use Type: Reports: None Hx Tobacco Use: No Smoking Status (MU): Former Smoker <Monique Hurley - Last Filed: 03/07/17 15:02> Review of Systems Constitutional: Negative Negative: Fatigue Eyes: Other - see HPI Negative: Photophobia, Blurred Vision, Diplopia, Drainage, Erythema Positive: Epistaxis - see HPI. Negative: Ear Ache Cardiovascular: Negative Negative: Chest Pain Respiratory: Negative Negative: Shortness Of Breath Gastrointestinal: Negative Negative: Abdominal Pain, Vomiting, Diarrhea, Nausea Positive: no symptoms reported Musculoskeletal: Negative Skin: Negative Neurological: Negative Negative: Headache, Weakness, Paresthesia, Numbness Psychological: Normal All Other Systems Reviewed And Are Negative: Yes <Monique Hurley - Last Filed: 03/07/17 15:02> Physical Exam Triage Information Reviewed: Yes Vital Signs On Initial Exam: Initial Vitals Temp Pulse Resp BP Pulse Ox 97.8 F 63 17 133/67 98 03/07/17 11:54 03/07/17 11:54 03/07/17 11:54 03/07/17 11:54 03/07/17 11:54 Vital Signs Reviewed: Yes Appearance: Positive: Well-Appearing - sitting on bed, appears comfortable and in no distress; pleasant and answers questions well, No Pain Distress, Well- Nourished Skin: Positive: Warm, Dry Head/Face: Positive: Normal Head/Face Inspection - no signs of external trauma or deformity, no battlesign, no step off, no racoon eyes. Negative: TMJ Tenderness Eyes: Positive: EOMI, RUDY, Other: - Rt lateral sclera w/ what appears to be subconjunctival hemorrhage w/o hyphema, abrasion - could also be hemangioma ENT: Positive: Hearing grossly normal, Nasal drainage - Rt side nares w/ saturated gauze in place, Other - TM's occluded B/L with cerumen impaction - no bleeding observed; pharyngeal bleeding on Rt side Neck: Positive: Supple, Nontender Respiratory/Lung Sounds: Positive: Clear to Auscultation, Breath Sounds Present. Negative: Stridor Cardiovascular: Positive: Pulses are Symmetrical in both Upper and Lower Extremities Abdomen Description: Positive: Nontender, Soft Bowel Sounds: Positive: Present Musculoskeletal: Positive: Normal, Strength/ROM Intact, Pain @ - Lt knee w/ edema - no fever to touch, no erythema - pt reports this has mild TTP and is baseline for him. FROM. Neurological: Positive: Normal, Sensory/Motor Intact, Alert, Oriented to Person Place, Time, CN Intact II-III Psychiatric: Positive: Normal - Velma Coma Scale Best Eye Response: 4 - Spontaneous Best Motor Response: 6 - Obeys Commands Best Verbal Response: 5 - Oriented <Monique Hurley - Last Filed: 03/07/17 15:02> Vital Signs On Initial Exam: Initial Vitals Temp Pulse Resp BP Pulse Ox 97.8 F 63 17 133/67 98 03/07/17 11:54 03/07/17 11:54 03/07/17 11:54 03/07/17 11:54 03/07/17 11:54 <Leatha Langston - Last Filed: 03/08/17 07:40> Procedures - Procedure Summary Procedure Summary: Rt side gauze removed - clot removed with this - nares inspection does not reveal active bleeding and no obvious vessels observed - pharyngeal blood resolved upon recheck. Neosynephrine soaked gauze placed in Rt nares for further evaluation - small superficial laceration along Rt septal wall may be source of bleeding - cauterized with silver nitrate - pt tolerated well <Monique Hurley - Last Filed: 03/07/17 15:02> Diagnostics - Vital Signs Vital Signs Temp Pulse Resp BP Pulse Ox 03/07/17 12:03 97.8 F 63 17 133/67 97 03/07/17 11:54 97.8 F 63 17 133/67 98 - Laboratory Lab Results: Lab Results 03/07/17 03/07/17 Range/Units 12:50 12:50 WBC 4.0 (3.5-10.8) 10^3/ul RBC 2.74 L (4.0-5.4) 10^6/ul Hgb 8.7 L (14.0-18.0) g/dl Hct 27 L (42-52) % MCV 97 H (80-94) fL MCH 32 H (27-31) pg MCHC 33 (31-36) g/dl RDW 18 H (10.5-15) % Plt Count 209 (150-450) 10^3/ul MPV 7 L (7.4-10.4) um3 INR (Anticoag Therapy) 4.45 H (0.89-1.11) Result Diagrams: 03/07/17 12:50 Lab Statement: Any lab studies that have been ordered have been reviewed, and results considered in the medical decision making process. <Monique Hurley - Last Filed: 03/07/17 15:02> - Vital Signs Vital Signs Temp Pulse Resp BP Pulse Ox 03/07/17 14:09 98 F 64 17 129/66 96 03/07/17 12:03 97.8 F 63 17 133/67 97 03/07/17 11:54 97.8 F 63 17 133/67 98 - Laboratory Lab Results: Lab Results 03/07/17 03/07/17 Range/Units 12:50 12:50 WBC 4.0 (3.5-10.8) 10^3/ul RBC 2.74 L (4.0-5.4) 10^6/ul Hgb 8.7 L (14.0-18.0) g/dl Hct 27 L (42-52) % MCV 97 H (80-94) fL MCH 32 H (27-31) pg MCHC 33 (31-36) g/dl RDW 18 H (10.5-15) % Plt Count 209 (150-450) 10^3/ul MPV 7 L (7.4-10.4) um3 INR (Anticoag Therapy) 4.45 H (0.89-1.11) Result Diagrams: 03/07/17 12:50 Lab Statement: Any lab studies that have been ordered have been reviewed, and results considered in the medical decision making process. <Leatha Langston - Last Filed: 03/08/17 07:40> Re-Evaluation - Re-Evaluation First Eval Change: Improved <Monique Hurley - Last Filed: 03/07/17 15:02> EENT Course/Dx - Course Course Of Treatment: Pt here w/ epistaxis of unknown origin. Pt does not recall injury to area when this happened. He also has what appears to be a subconjunctival hemorrhage but could be hemangioma of his sclera. Head CT ordered as his INR is 4.45 (last draw was 2.7 2 weeks ago). Ct w/o acute findings. Advised to hold coumadin x 3 days and repeat labs then. Discussed w/ nurse, Megan, at [facility] who agrees w/ plan. She states she needs written orders for coumadin. Will type and sign d/c and send with pt as well as fax a copy to: . Discussed w/ pt and Megan that knee is a chronic issue and no testing is necessary today. Offered pt tylenol and KYLEE wrap - he declines but agrees to f/u w/ PCP. Reviewed danger s/sx of when to return to ED w/ pt and Megan. <Monique Hurley - Last Filed: 03/07/17 15:02> <Leatha Langston - Last Filed: 03/08/17 07:40> - Diagnoses Provider Diagnoses: Epistaxis, Elevated INR Discharge <Monique Hurley - Last Filed: 03/07/17 15:02> <Leatha Langston - Last Filed: 03/08/17 07:40> - Discharge Plan Condition: Stable Disposition: HOME Patient Education Materials: Nosebleed (ED), Elevated INR (ED) Referrals: Hayder Sherman MD [Primary Care Provider] - Additional Instructions: You had a nose bleed today which appears to have started from a small scratch in your Rt side of nose. This area was cauterized with silver nitrate. Avoid touching, rubbing, picking or blowing to reduce risk of removing clot/scab here. You may use saline spray for nasal congestion and gently pat nose for dripping, etc. If bleeding returns, try pinching base of nose with head forward for 20 minutes. If bleeding persist, return to ED. You INR (aka "coumadin level") is high today at 4.45. It is important that you hold your coumadin for 3 days and recheck level on morning of 03/10/2017. If WNL or low, may restart but please consult PCP for advise on how much to restart. If level is still above therapeutic range, you may be advised to hold longer - again, follow-up with PCP for advise. *If you develop bleeding from other area and/or new onset neurological deficits , return to ED NOTE: you Left knee swelling and pain have been reported as chronic. You have reported XR's in the past and h/o arthritis and gout here. It is important that you follow-up with your PCP regarding this issue but return to ED if you cannot straighten or bend. Attestation Statement User Type: Provider - I was available for consult. This patient was seen by the GAY. The patient was not presented to, seen by, or examined by me. -Winifred <Leatha Langston - Last Filed: 03/08/17 07:40>
[2017-03-07 14:10] VITALS: BP 129/66
--- NOTE | 2017-03-07 14:12 | RAD ---
HISTORY: Epistaxis, coagulopathy COMPARISONS: Head CT dated June 09, 2014 TECHNIQUE: Multiple contiguous axial CT scans were obtained of the head without intravenous contrast. FINDINGS: HEMORRHAGE/INFARCT: There is no hemorrhage or acute infarct. MASSES/SHIFT: There is no mass or shift. EXTRA-AXIAL SPACES: There are no extra-axial fluid collections. SULCI AND VENTRICLES: There is diffuse and proportional enlargement of the sulci and ventricles. CEREBRUM: There is hypoattenuation of the periventricular and subcortical white matter. BRAINSTEM: There are no focal parenchymal abnormalities. CEREBELLUM: There are no focal parenchymal abnormalities. VESSELS: The vessels are grossly normal. PARANASAL SINUSES: The paranasal sinuses are clear. ORBITS: The orbits are unremarkable. BONES AND SOFT TISSUE: No bone or soft tissue abnormalities are noted. OTHER: None IMPRESSION: NO ACUTE INTRACRANIAL PATHOLOGY. DIFFUSE INVOLUTIONAL CHANGE WITH CHRONIC SMALL VESSEL ISCHEMIC CHANGES.
== END | disposition home or self-care (01) ==
LOC: ED 11:50
DX: R04.0 Epistaxis (principal); R79.1 Abnormal coagulation profile
CPT/HCPCS: 36415; 70450; 85027; 85610; 99282; A9270-GY

== ENCOUNTER 2017-03-08 19:51 | Emergency (ER) | payer MEDICARE, BC ==
--- NOTE | 2017-03-08 21:42 | ED ---
Throat Pain/Nasal Congestion - HPI Summary HPI Summary: Pt here w/ return of nose bleed from yesterday. Had been doing well until he blew his nose quite hard and bleeding started again. Stopped with toilet paper application and pressure. Yesterday his INR was 4+ - he reports he did not take it last night nor does he plan to take it today as directed. No trouble breathing, swallowing. Denies nausea, vomiting, weakness, headache. No other complaints. - History of Current Complaint Chief Complaint: EDEpistaxis Time Seen by Provider: 03/08/17 19:54 Hx Obtained From: Patient - Allergies/Home Medications Allergies/Adverse Reactions: Allergies Allergy/AdvReac Type Severity Reaction Status Date / Time No Known Allergies Allergy Verified 11/09/15 05:27 PMH/Surg Hx/FS Hx/Imm Hx Previously Healthy: Yes Endocrine/Hematology History: Reports: Hx Anticoagulant Therapy - coumadin, Hx Diabetes Cardiovascular History: Reports: Hx Atrial Fibrillation, Hx Congestive Heart Failure, Hx Hypertension, Hx Pacemaker/ICD, Other Cardiovascular Problems/ Disorders - PACEMAKER Denies: Hx Peripheral Vascular Disease History: Reports: Other Problems/Disorders - CKD Musculoskeletal History: Reports: Hx Arthritis - Lt knee - injections have helped temporarily in the past, Hx Gout Denies: Hx Osteoporosis Sensory History: Reports: Hx Contacts or Glasses Denies: Hx Hearing Aid Opthamlomology History: Reports: Hx Contacts or Glasses Neurological History: Denies: Hx Headaches, Hx Seizures, Hx Transient Ischemic Attacks (TIA) Psychiatric History: Denies: Hx Anxiety, Hx Depression - Cancer History Cancer Type, Location and Year: bladder ca - Surgical History Surgery Procedure, Year, and Place: PACEMAKER Infectious Disease History: No Infectious Disease History: Denies: Traveled Outside the [place] in Last 30 Days - Family History Known Family History: Positive: Cardiac Disease Negative: Hypertension, Diabetes - Social History Occupation: Retired - other sports coach or instructor Lives: [facility] Alcohol Use: None Hx Substance Use: No Substance Use Type: Reports: None Hx Tobacco Use: No Smoking Status (MU): Former Smoker Review of Systems Constitutional: Negative Eyes: Negative Positive: Epistaxis - see HPI Cardiovascular: Negative Respiratory: Negative Gastrointestinal: Negative Positive: no symptoms reported Skin: Negative Neurological: Negative Psychological: Normal All Other Systems Reviewed And Are Negative: Yes Physical Exam Triage Information Reviewed: Yes Vital Signs On Initial Exam: Initial Vitals Temp Pulse Resp BP Pulse Ox 97.9 F 81 18 129/65 97 03/08/17 20:00 03/08/17 20:00 03/08/17 20:00 03/08/17 20:00 03/08/17 20:00 Vital Signs Reviewed: Yes Appearance: Positive: Well-Appearing, No Pain Distress, Well-Nourished Skin: Positive: Warm, Dry Head/Face: Positive: Normal Head/Face Inspection Eyes: Positive: Normal, EOMI, Conjunctiva Clear ENT: Positive: Hearing grossly normal, Other - streak of brown mucous down central pharynx - cleared with oral water rinse w/o return; previously cauterized area on Rt septal wall with new red blood - dried - no active bleeding from either nares and no other signs of vessels distention Dental: Positive: Other - partially edentulous Neck: Positive: Supple, Nontender Respiratory/Lung Sounds: Positive: Breath Sounds Present. Negative: Stridor Musculoskeletal: Positive: Normal, Strength/ROM Intact Neurological: Positive: Normal, Sensory/Motor Intact, Alert, Oriented to Person Place, Time, CN Intact II-III Psychiatric: Positive: Normal - pleasant, cooperative, in good spirits Diagnostics - Vital Signs Vital Signs Temp Pulse Resp BP Pulse Ox 03/08/17 20:00 97.9 F 81 18 129/65 97 - Laboratory Lab Statement: Any lab studies that have been ordered have been reviewed, and results considered in the medical decision making process. EENT Course/Dx - Diagnoses Provider Diagnoses: Recurrent epistaxis Discharge - Discharge Plan Condition: Stable Disposition: HOME Patient Education Materials: Nosebleed (ED) Referrals: Hayder Sherman MD [Primary Care Provider] - Additional Instructions: Avoid wiping, blowing, picking nose - try to avoid full sneezing. You may blot/ pat your nose for dripping until wound heals to prevent further bleeding. COntinue to hold coumadin as directed from yesterday. *If bleeding returns, lean head forward and pinch soft area for 20 minutes. If bleeding persists, return to ED
[2017-03-08 23:01] VITALS: BP 145/87
== END 2017-03-08 22:59 | disposition home or self-care (01) ==
LOC: ED 19:51
DX: R04.0 Epistaxis (principal); Z87.891 Personal history of nicotine dependence
CPT/HCPCS: 99282

== ENCOUNTER 2017-06-17 18:49 | Emergency (ER) | payer MEDICARE ==
[2017-06-17 19:57] LABS: Hematocrit 26 % (42-52); Hemoglobin 8.9 g/dl (14.0-18.0); Mean Corpuscular HGB Conc 34 g/dl (31-36); Mean Corpuscular Hemoglobin 34 pg (27-31); Mean Corpuscular Volume 100 fL (80-94); Mean Platelet Volume 7 um3 (7.4-10.4); Red Blood Count 2.64 10^6/ul (4.0-5.4); Red Cell Distribution Width 17 % (10.5-15); White Blood Count 6.3 10^3/ul (3.5-10.8)
[2017-06-17 20:01] LABS: Urine Bacteria Absent (Absent); Urine Bilirubin Negative (Negative); Urine Glucose 1+(50 mg/dL) (Negative); Urine Nitrite Negative (Negative)
[2017-06-17 20:11] LABS: Albumin 3.3 g/dL (3.2-5.2); BUN/Creatinine Ratio 23.3 (8-20); Calcium 9.1 mg/dL (8.6-10.3); EGFR African American 33.2 (>60); EGFR Non-African American 25.8 (>60); Potassium 3.4 mmol/L (3.5-5.0); Total Bilirubin 0.5 mg/dL (0.2-1.0); Total Protein 6.3 g/dL (6.4-8.9)
[2017-06-17] MEDS ORDERED: NS 0.9% 500 ML* 500 ML IV ONE (21:09)
[2017-06-17] MEDS ORDERED: cefTRIAXone(*) 1 GM in NS 0.9% 50 ML* 50 ML IVPB ONE (21:10)
[2017-06-17 22:26] VITALS: BP 154/64
--- NOTE | 2017-06-23 17:26 | ED ---
Brice Vera Thomas, scribed for Mirlande Gonzalez MD on 06/17/17 at 1940 . GI/ HPI - HPI Summary HPI Summary: The pt is an 87 y/o M brought in by ambulance from the [facility] with complaints of dysuria, lower abd pain, and frequency that began yesterday. Pt additionally c/o chills and leg swelling. Pt denies foul odor urine, dark urine , headache, fever, ear pain, neck pain, CP, SOB, vomiting, diarrhea, anxiety, and depression. - History of Current Complaint Chief Complaint: EDUrogenitalProblems Time Seen by Provider: 06/17/17 19:22 Stated Complaint: UNABLE TO URINATE Hx Obtained From: Patient Onset/Duration: Started Days Ago - 1, Still Present Timing: Constant Location of Pain: Other - Lower abd pain Associated Signs and Symptoms: Positive: Other: - Dysuria, lower abd pain, frequency, chills, leg swelling; NEGATIVE: foul odor urine, dark urine, headache , fever, ear pain, neck pain, CP, SOB, abd pain, vomiting, and diarrhea Aggravating Factor(s): Voiding Alleviating Factor(s): Nothing - Additional Pertinent History Primary Care Physician: [id number] - Allergy/Home Medications Allergies/Adverse Reactions: Allergies Allergy/AdvReac Type Severity Reaction Status Date / Time No Known Allergies Allergy Verified 11/09/15 05:27 PMH/Surg Hx/FS Hx/Imm Hx Previously Healthy: No Endocrine/Hematology History: Reports: Hx Anticoagulant Therapy - coumadin, Hx Diabetes Cardiovascular History: Reports: Hx Atrial Fibrillation, Hx Congestive Heart Failure, Hx Hypertension, Hx Pacemaker/ICD, Other Cardiovascular Problems/ Disorders - PACEMAKER Denies: Hx Peripheral Vascular Disease History: Reports: Other Problems/Disorders - CKD Musculoskeletal History: Reports: Hx Arthritis - Lt knee - injections have helped temporarily in the past, Hx Gout Denies: Hx Osteoporosis Sensory History: Reports: Hx Contacts or Glasses Denies: Hx Hearing Aid Opthamlomology History: Reports: Hx Contacts or Glasses Neurological History: Denies: Hx Headaches, Hx Seizures, Hx Transient Ischemic Attacks (TIA) Psychiatric History: Denies: Hx Anxiety, Hx Depression - Cancer History Cancer Type, Location and Year: bladder ca - Surgical History Surgery Procedure, Year, and Place: PACEMAKER Infectious Disease History: No Infectious Disease History: Denies: Traveled Outside the [place] in Last 30 Days - Family History Known Family History: Positive: Cardiac Disease Negative: Hypertension, Diabetes - Social History [facility]: [facility] Alcohol Use: None Hx Substance Use: No Substance Use Type: Reports: None Hx Tobacco Use: No Smoking Status (MU): Former Smoker Review of Systems Positive: Chills. Negative: Fever Negative: Blurred Vision, Diplopia Negative: Ear Ache Negative: Chest Pain Negative: Shortness Of Breath Positive: Abdominal Pain - lower. Negative: Vomiting, Diarrhea Positive: dysuria, frequency. Negative: other - foul odor urine, dark urine Positive: Edema. Negative: Other - neck pain Negative: Rash, Bruising Negative: Headache Negative: Anxious, Depressed All Other Systems Reviewed And Are Negative: No Physical Exam - Summary Physical Exam Summary: Appearance: Alert, conversive, nontoxic appearing Skin: Warm, dry, no mottling, no rashes, no contusions HEENT: EOMI, PERRL. He has slightly dry mucous membranes. Neck: No masses on the neck, supple Respiratory: Clear to auscultation, breath sounds present, no rales, no rhonchi , no wheezes Cardiovascular: Irregularly irregular rhythm. Pulses are symmetrical in both lower and upper extremities Abdomen: Soft, non-tender Bowel Sounds: Present Musculoskeletal: No CVA tenderness, no obvious deformity. Extremities: There is 2+ pitting edema. Neurological: A&Ox3, CN II-XII Intact. He is weak to his lower extremities, left more than right. He has equal strength bilaterally in his upper extremities , which he is able to raise to his ears. Psychiatric: Normal affect and mood Triage Information Reviewed: Yes Vital Signs On Initial Exam: Initial Vitals Temp Pulse Resp BP Pulse Ox 98.5 F 81 17 132/66 95 06/17/17 18:50 06/17/17 18:50 06/17/17 18:50 06/17/17 18:50 06/17/17 18:50 Vital Signs Reviewed: Yes - Velma Coma Scale Coma Scale Total: 15 Diagnostics - Vital Signs Vital Signs Temp Pulse Resp BP Pulse Ox 06/17/17 18:50 98.5 F 81 17 132/66 95 - Laboratory Result Diagrams: 06/17/17 19:50 06/17/17 19:50 Lab Statement: Any lab studies that have been ordered have been reviewed, and results considered in the medical decision making process. GIGU Course/Dx - Course Assessment/Plan: The pt is an 87 y/o M brought in by ambulance from the [facility] with complaints of dysuria, lower abd pain, chills, leg swelling and frequency that began yesterday. The patient has a UTI but he is not septic. Bloodwork was obtained that shows anemia and chronic renal insufficiency that is not new. The baseline for his creatinine is about 2.5. - Diagnoses Provider Diagnoses: UTI (urinary tract infection), Chronic renal insufficiency Discharge - Discharge Plan Condition: Stable Disposition: HOME Prescriptions: Cephalexin CAP* [Keflex CAP*] 500 mg PO TID #21 cap Patient Education Materials: Urinary Tract Infection in Men (ED) Referrals: Hayder Sherman MD [Primary Care Provider] - Additional Instructions: Take the antibiotic as instructed. You need your INR checked in 2-3 days. All antibiotics make your INR increase. Therefore,it is imperative that you get your INR checked in the next several days. Return if worse or any new symptoms. The documentation as recorded by the Brice woo Thomas accurately reflects the service I personally performed and the decisions made by , Mirlande Gonzalez MD.
== END 2017-06-17 22:31 | disposition home or self-care (01) ==
LOC: ED 18:49
DX: N39.0 Urinary tract infection, site not specified (principal); N28.9 Disorder of kidney and ureter, unspecified; Z87.891 Personal history of nicotine dependence; Z79.01 Long term (current) use of anticoagulants; I48.91 Unspecified atrial fibrillation; E11.9 Type 2 diabetes mellitus without complications; I50.9 Heart failure, unspecified; I10 Essential (primary) hypertension; Z95.810 Presence of automatic (implantable) cardiac defibrillator; Z85.51 Personal history of malignant neoplasm of bladder
CPT/HCPCS: 36415; 80053; 81003; 81015; 85025; 87086; 96360; 96374; 99282; J0696

== ENCOUNTER 2017-07-17 01:30 | Emergency (ER) | payer BC, MEDICARE ==
[2017-07-17] MEDS ORDERED: Albuterol/Ipratropium NEB.SOL* Albuterol 2.5 MG/Ipratropium 0.5 MG 3 ML INH ONE (01:41)
[2017-07-17 02:24] LABS: ABS Basophils 0 10^3/ul (0-0.2); ABS Eosinophils 0.1 10^3/ul (0-0.6); ABS Lymphocytes 0.4 10^3/ul (1.0-4.8); ABS Monocytes 0.3 10^3/ul (0-0.8); ABS Neutrophils 2.6 10^3/ul (1.5-7.7); ABS Nucleated RBC 0 10^3/ul; Hematocrit 26 % (42-52); Hemoglobin 8.5 g/dl (14.0-18.0); Lymphocyte % 12.3 % (25-47); Mean Corpuscular HGB Conc 33 g/dl (31-36); Mean Corpuscular Hemoglobin 34 pg (27-31); Mean Corpuscular Volume 102 fL (80-94); Mean Platelet Volume 8 um3 (7.4-10.4); Nucleated Red Blood Cells % 0; Platelet Count 106 10^3/ul (150-450); Red Blood Count 2.49 10^6/ul (4.0-5.4); Red Cell Distribution Width 18 % (10.5-15); White Blood Count 3.4 10^3/ul (3.5-10.8)
[2017-07-17 02:34] LABS: INR 4.36 (0.77-1.02)
[2017-07-17 02:40] LABS: EGFR Non-African American 22.3 (>60)
[2017-07-17] MEDS ORDERED: Azithromycin TAB* 250 MG PO ONE (03:11)
[2017-07-17] MEDS ORDERED: Amoxicillin/Clavulanate TAB* 500 MG PO ONE (03:11)
[2017-07-17] MEDS ORDERED: traMADol TAB* 50 MG PO ONE (03:16)
[2017-07-17 04:08] VITALS: BP 123/78
--- NOTE | 2017-07-17 08:55 | RAD ---
Indication: Hypoxemia. Cardiac disease. Comparison: February 05, 2017 Technique: Upright AP 0151 hours Report: Mild prominence of interstitial markings including subtle thickened peripheral interlobular septa. And trace fluid in the RIGHT minor fissure. Small dependent pleural effusions. Cardiomegaly. RIGHT atrial and RIGHT ventricular level pacemaker leads. Unremarkable central pulmonary vasculature and mediastinal contours. IMPRESSION: Mild interstitial edema with associated small effusions.
--- NOTE | 2017-07-20 11:04 | ED ---
Salas Vera Gabriel, scribed for Gus Oropeza MD on 07/17/17 at 0224 . Shortness of Breath - HPI Summary HPI Summary: This patient is a 87 year old M BIBA to [facility] with a chief complaint of SOB since 3 days ago. The patient rates the pain 3/10 in severity. Patient reports chest congestion and cough. Patient denies jaw pain and arm pain, and SOB. Patient is 88% O2 sat on room air while at rest. - History of Current Complaint Time Seen by Provider: 07/17/17 01:33 Hx Obtained From: Patient Onset/Duration: Lasting Days - 3, Still Present Timing: Constant Associated Signs & Symptoms: Cough (Productive) - Allergy/Home Medications Allergies/Adverse Reactions: Allergies Allergy/AdvReac Type Severity Reaction Status Date / Time No Known Allergies Allergy Verified 11/09/15 05:27 PMH/Surg Hx/FS Hx/Imm Hx Endocrine/Hematology History: Reports: Hx Anticoagulant Therapy - coumadin, Hx Diabetes Cardiovascular History: Reports: Hx Atrial Fibrillation, Hx Congestive Heart Failure, Hx Hypertension, Hx Pacemaker/ICD, Other Cardiovascular Problems/ Disorders - PACEMAKER Denies: Hx Peripheral Vascular Disease History: Reports: Other Problems/Disorders - CKD Musculoskeletal History: Reports: Hx Arthritis - Lt knee - injections have helped temporarily in the past, Hx Gout Denies: Hx Osteoporosis Sensory History: Reports: Hx Contacts or Glasses Denies: Hx Hearing Aid Opthamlomology History: Reports: Hx Contacts or Glasses Neurological History: Denies: Hx Headaches, Hx Seizures, Hx Transient Ischemic Attacks (TIA) Psychiatric History: Denies: Hx Anxiety, Hx Depression - Cancer History Cancer Type, Location and Year: bladder ca - Surgical History Surgery Procedure, Year, and Place: PACEMAKER - Family History Known Family History: Positive: Cardiac Disease Negative: Hypertension, Diabetes - Social History Alcohol Use: None Hx Substance Use: No Substance Use Type: Reports: None Hx Tobacco Use: No Smoking Status (MU): Former Smoker Review of Systems Negative: Fever, Chills Negative: Erythema Negative: Sore Throat Negative: Chest Pain Positive: Shortness Of Breath, Cough, Other - chest congestion Negative: Abdominal Pain, Vomiting, Nausea Negative: dysuria, hematuria Negative: Myalgia, Edema Negative: Rash Neurological: Negative - dizziness All Other Systems Reviewed And Are Negative: Yes Physical Exam - Summary Physical Exam Summary: Constitutional: Well-developed, Well-nourished, Alert. (-) Distressed Skin: Warm, Dry HENT: Normocephalic; Atraumatic Dry mucus membranes Eyes: Conjunctiva normal Neck: Musculoskeletal ROM normal neck. (-) JVD, (-) Stridor, (-) Tracheal deviation Cardio: Rhythm regular, rate normal, Heart sounds normal; Intact distal pulses; The pedal pulses are 2+ and symmetric. Radial pulses are 2+ and symmetric. (-) Murmur Pulmonary/Chest wall: (-) Wheezes, (-) Rales Right upper lobe rhonchi Abd: Soft, (-) Tenderness, (-) Distension, (-) Guarding, (-) Rebound Musculoskeletal: 1+ pitting edema in bilateral LE Lymph: (-) Cervical adenopathy Neuro: Alert, Oriented x3 Psych: Mood and affect Normal Triage Information Reviewed: Yes Vital Signs Reviewed: Yes Diagnostics - Laboratory Result Diagrams: 07/17/17 02:00 07/17/17 02:00 Lab Statement: Any lab studies that have been ordered have been reviewed, and results considered in the medical decision making process. - Radiology CXR Radiology Interpretation Completed By: ED Physician - patchy infiltrate in right upper lobe and right middle lobe - EKG 01:58 Cardiac Rate: Other Rate EKG Rhythm: Sinus Rhythm - at 66 BPM EKG Interpretation: PACED, No STEMI Re-Evaluation - Re-Evaluation First Eval Re-Evaluation Time: 03:10 Change: Improved - Patient is comfertable with no distress. Course/Dx - Course Assessment/Plan: This patient is a 87 year old M BIBA to [facility] with a chief complaint of SOB since 3 days ago. The patient rates the pain 3/10 in severity. Patient reports chest congestion and cough. Patient denies jaw pain and arm pain , and SOB. Patient is 88% O2 sat on room air while at rest. An EKG reveals paced rhythm. CXR reveals patchy infiltrate in right upper lobe and right middle lobe. The patients BNP is stable at 700. There was no PE edema on CXR and the interstitial markings in right upper lobe correspond to lung sounds. There is suspicion of PNA. D-dimer is negative. Will start a broad spectrum antibiotics and will return the patient to his nursing home facility with O2. He is advised to stop taking his Coumadin for 48 hours due to an INR of 4.2 and to get it rechecked at PCP in 48 hours. . In the ED course the patient was given Duoneb, augmentin, Zithromax, and ultram. Patient will be discharged with prescription for augmentin and zithromax and follow up from Dr. Sherman in 48 hours. The patient is agreeable with this plan. - Diagnoses Provider Diagnoses: Healthcare-associated pneumonia, Hypoxia, Excessive anticoagulation Discharge - Discharge Plan Condition: Stable Disposition: HOME Prescriptions: Amoxicillin/Clavulanate TAB* [Augmentin TAB 500 mg*] 2,000 mg PO BID #80 tab Azithromycin TAB* [Zithromax TAB (Z-SONIYA) 250 mg #6 tabs] 2 tab PO .TODAY, THEN 1 DAILY #1 soniya Patient Education Materials: Amoxicillin/Clavulanate Potassium (By mouth), Azithromycin (By mouth), Elevated INR (ED), Pneumonia (ED) Referrals: Hayder Sherman MD [Primary Care Provider] - 2 Days Additional Instructions: Do not take Coumadin for 48 hours due to your INR of 4.2. Once 48 hours has passed follow up with your primary care physician to have your INR checked. RETURN TO THE EMERGENCY DEPARTMENT FOR CHANGING OR WORSENING SYMPTOMS. The documentation as recorded by the Salas woo Gabriel accurately reflects the service I personally performed and the decisions made by , Gus Oropeza MD.
== END 2017-07-17 04:21 | disposition home or self-care (01) ==
LOC: ED 01:30
DX: J18.9 Pneumonia, unspecified organism (principal); Z87.891 Personal history of nicotine dependence; R06.02 Shortness of breath; R05 Cough; Z79.01 Long term (current) use of anticoagulants; R09.02 Hypoxemia
CPT/HCPCS: 36415; 71010; 80053; 83605; 83880; 84484; 85025; 85379; 85610; 85730; 87040; 87502; 93005; 94640; 99284; A9270-GY

== ENCOUNTER 2017-07-17 14:47 | Emergency (ER) | payer MEDICARE ==
--- NOTE | 2017-07-17 17:05 | PN ---
Progress Note - Progress Note Date of Service: 07/17/17 Note: Pt O2 sat 86% on RA at rest. He needs 2L O2 continuously. Will get this ordered through [facility] [place].
[2017-07-17] MEDS ORDERED: Azithromycin TAB* 250 MG PO ONE (18:22)
--- NOTE | 2017-07-17 18:58 | ED ---
Herrera Vera Tecjoon, scribed for Nj Ingram MD on 07/17/17 at 1638 . Shortness of Breath - HPI Summary HPI Summary: This patient is a 87 year old male BIBA to [facility] with a chief complaint of SOB since yesterday. Patient was discharged from the ED this morning at approx. 0300 with a diagnosis of pneumonia with an order for supplemental O2. His assisted living home did not have O2 and he was sent back to the ED. Patient is not happy to be back. At time of triage, patients SPO2 is 93%.Pt departed from ED this AM with dx pneumonia and sent back to [facility] with order for supplemental O2. Pt sent back to ED because they do not have supplemental O2 to provide pt. Pt not happy to be back. SPO2 93% on RA. Symptoms aggravated by nothing. Symptoms alleviated by nothing. Patient additionally reports mild pedal edema - History of Current Complaint Chief Complaint: EDShortnessOfBreath Time Seen by Provider: 07/17/17 16:07 - Allergy/Home Medications Allergies/Adverse Reactions: Allergies Allergy/AdvReac Type Severity Reaction Status Date / Time No Known Allergies Allergy Verified 11/09/15 05:27 PMH/Surg Hx/FS Hx/Imm Hx Previously Healthy: No Endocrine/Hematology History: Reports: Hx Anticoagulant Therapy - coumadin, Hx Diabetes Cardiovascular History: Reports: Hx Atrial Fibrillation, Hx Congestive Heart Failure, Hx Hypertension, Hx Pacemaker/ICD, Other Cardiovascular Problems/ Disorders - PACEMAKER Denies: Hx Peripheral Vascular Disease History: Reports: Other Problems/Disorders - CKD Musculoskeletal History: Reports: Hx Arthritis - Lt knee - injections have helped temporarily in the past, Hx Gout Denies: Hx Osteoporosis Sensory History: Reports: Hx Contacts or Glasses Denies: Hx Hearing Aid Opthamlomology History: Reports: Hx Contacts or Glasses Neurological History: Denies: Hx Headaches, Hx Seizures, Hx Transient Ischemic Attacks (TIA) Psychiatric History: Denies: Hx Anxiety, Hx Depression - Cancer History Cancer Type, Location and Year: bladder ca - Surgical History Surgery Procedure, Year, and Place: PACEMAKER Infectious Disease History: No Infectious Disease History: Denies: Traveled Outside the [place] in Last 30 Days - Family History Known Family History: Positive: Cardiac Disease Negative: Hypertension, Diabetes - Social History Alcohol Use: None Hx Substance Use: No Substance Use Type: Reports: None Hx Tobacco Use: No Smoking Status (MU): Former Smoker Review of Systems Negative: Fever Negative: Chest Pain Positive: Shortness Of Breath Positive: Other - mild pedal edema All Other Systems Reviewed And Are Negative: Yes Physical Exam - Summary Physical Exam Summary: Appearance: The patient is well-nourished in no acute distress and in no acute pain. Skin: The skin is warm and dry and skin color reflects adequate perfusion. HEENT: The head is normocephalic and atraumatic. The pupils are equal and reactive. The conjunctivae are clear and without drainage. Nares are patent and without drainage. Mouth reveals moist mucous membranes and the throat is without erythema and exudate. The external ears are intact. The ear canals are patent and without drainage. The tympanic membranes are intact. Neck: the neck is supple with full range of motion and non-tender. There are no carotid bruits. There is no neck vein distension. Respiratory: Chest is non-tender. Crackles in lungs bilaterally. 87-88% on room air Cardiovascular: Heart is regular rate and rhythm. There is no murmur or rub auscultated. There is no peripheral edema and pulses are symmetrical and equal. Abdomen: The abdomen is soft and non-tender. There are normal bowel sounds heard in all four quadrants and there is no organomegaly palpated. Musculoskeletal: There is no back tenderness noted. Extremities are non-tender with full range of motion. There is good capillary refill. Mild pedal edema. Neurological: Patient is alert and oriented to person, place and time. The patient has symmetrical motor strength in all four extremities. Cranial nerves are grossly intact. Deep tendon reflexes are symmetrical and equal in all four extremities. Psychiatric: The patient has an appropriate affect and does not exhibit any anxiety or depression. Triage Information Reviewed: Yes Vital Signs On Initial Exam: Initial Vitals Temp Pulse Resp BP Pulse Ox 97.6 F 64 18 128/65 93 07/17/17 14:50 07/17/17 14:50 07/17/17 14:50 07/17/17 14:50 07/17/17 14:50 Vital Signs Reviewed: Yes - [place]hton Coma Scale Coma Scale Total: 15 Diagnostics - Vital Signs Vital Signs Temp Pulse Resp BP Pulse Ox 07/17/17 14:50 97.6 F 64 18 128/65 93 - Laboratory Lab Statement: Any lab studies that have been ordered have been reviewed, and results considered in the medical decision making process. Course/Dx - Course Course Of Treatment: After a great deal of logistics, we have successfully arranged for Mr. Davison to get the oxygen that he needs. - Diagnoses Provider Diagnoses: Pneumonia, Respiratory insufficiency Discharge - Discharge Plan Condition: Stable Disposition: HOME Patient Education Materials: Pneumonia (ED) Referrals: Hayder Sherman MD [Primary Care Provider] - 3 Days Additional Instructions: Patient will be discharged with a diagnosis of pneumonia and will be sent back to the assisted living home with an order of O2. Patient is advised to follow up with Dr. Brooks in 3 days. The patient is agreeable with this plan. The documentation as recorded by the Herrera woo Tecjoon accurately reflects the service I personally performed and the decisions made by , Nj Ingram MD.
[2017-07-17 19:15] VITALS: BP 143/61
[2017-07-17] MEDS ORDERED: Amoxicillin/Clavulanate 600 600 MG/5 ML BTL PO SCH (21:00)
[2017-07-17] MEDS ORDERED: Amoxicillin/Clavulanate SUSP* 600 MG/5 ML ORAL.SUSP 75 ML (600/42.9) PO ONE (21:00)
== END 2017-07-17 19:17 | disposition home or self-care (01) ==
LOC: ED 14:47
DX: J18.9 Pneumonia, unspecified organism (principal); R06.89 Other abnormalities of breathing; Z87.891 Personal history of nicotine dependence
CPT/HCPCS: 99283; A9270-GY

== ENCOUNTER 2017-08-24 20:32 | Inpatient (IN) | payer MEDICARE ==
[2017-08-24] MEDS ORDERED: Acetaminophen TAB* 325 MG PO ONE (20:48)
--- NOTE | 2017-08-24 21:24 | RAD ---
HISTORY: Shortness of breath COMPARISONS: July 17, 2017 VIEWS: 1: frontal portable view of the chest at 9:10 PM FINDINGS: LINES AND TUBES: A left-sided pacemaker is noted. CARDIOMEDIASTINAL SILHOUETTE: The cardiomediastinal silhouette is normal for portable technique. PLEURA: The costophrenic angles are sharp. No pleural abnormalities are noted. LUNG PARENCHYMA: There is prominence of the central pulmonary vasculature. There is patchy alveolar opacification of the left lower lung. ABDOMEN: The upper abdomen is clear. There is no subphrenic gas. BONES AND SOFT TISSUES: No bone or soft tissue abnormalities are noted. IMPRESSION: 1. PULMONARY VASCULAR CONGESTION. 2. LEFT LOWER LUNG ATELECTASIS VERSUS EARLY CONSOLIDATION.
[2017-08-24] MEDS ORDERED: Levofloxacin 750 MG IVPREMIX(* 750 MG/150 ML BAG IVPB ONE (21:30)
[2017-08-24 21:32] LABS: INR 3.65 (0.77-1.02)
[2017-08-24 21:39] LABS: EGFR Non-African American 24.1 (>60)
[2017-08-24 22:06] LABS: ABS Basophils 0 10^3/ul (0-0.2); ABS Eosinophils 0 10^3/ul (0-0.6); ABS Lymphocytes 0.2 10^3/ul (1.0-4.8); ABS Monocytes 0.3 10^3/ul (0-0.8); ABS Neutrophils 1.6 10^3/ul (1.5-7.7); ABS Nucleated RBC 0 10^3/ul; Eosinophil % 1.3 % (0-6); Hematocrit 25 % (42-52); Hemoglobin 8.3 g/dl (14.0-18.0); Lymphocyte % 8.5 % (25-47); Mean Corpuscular HGB Conc 33 g/dl (31-36); Mean Corpuscular Hemoglobin 35 pg (27-31); Mean Corpuscular Volume 106 fL (80-94); Mean Platelet Volume 8 um3 (7.4-10.4); Nucleated Red Blood Cells % 0.1; Platelet Count 98 10^3/ul (150-450); Red Blood Count 2.38 10^6/ul (4.0-5.4); Red Cell Distribution Width 19 % (10.5-15); White Blood Count 2.1 10^3/ul (3.5-10.8)
--- NOTE | 2017-08-24 23:33 | ED ---
Raymon Vera Angela, scribed for Claudette Buchanan MD on 08/24/17 at 2050 . Influenza-Like Illness - HPI Summary HPI Summary: This pt is a 87 y/o male presenting to [facility] via EMS from [facility] c/o influenza like symptoms x2 days. Pt reports generalized weakness, nonproductive cough, and body aches for the last 2 days. He denies fever, chills. PMHx: diabetes, HTN. Pt takes diuretics. - History of Current Complaint Chief Complaint: EDFluSymptoms Time Seen by Provider: 08/24/17 20:34 Hx Obtained From: Patient Onset/Duration: Lasting Days, Still Present Severity: Moderate Associated Signs & Symptoms: Myalgia, Cough - Allergy/Home Medications Allergies/Adverse Reactions: Allergies Allergy/AdvReac Type Severity Reaction Status Date / Time No Known Allergies Allergy Verified 08/24/17 20:36 PMH/Surg Hx/FS Hx/Imm Hx Endocrine/Hematology History: Reports: Hx Anticoagulant Therapy - coumadin, Hx Diabetes Cardiovascular History: Reports: Hx Atrial Fibrillation, Hx Congestive Heart Failure, Hx Hypertension, Hx Pacemaker/ICD, Other Cardiovascular Problems/ Disorders - PACEMAKER Denies: Hx Peripheral Vascular Disease History: Reports: Other Problems/Disorders - CKD Musculoskeletal History: Reports: Hx Arthritis - Lt knee - injections have helped temporarily in the past, Hx Gout Denies: Hx Osteoporosis Sensory History: Reports: Hx Contacts or Glasses Denies: Hx Hearing Aid Opthamlomology History: Reports: Hx Contacts or Glasses Neurological History: Denies: Hx Headaches, Hx Seizures, Hx Transient Ischemic Attacks (TIA) Psychiatric History: Denies: Hx Anxiety, Hx Depression - Cancer History Cancer Type, Location and Year: bladder ca - Surgical History Surgery Procedure, Year, and Place: PACEMAKER - Immunization History Date of Tetanus Vaccine: unk Date of Influenza Vaccine: fall 2016 Infectious Disease History: No Infectious Disease History: Denies: Traveled Outside the [place] in Last 30 Days - Family History Known Family History: Positive: Cardiac Disease Negative: Hypertension, Diabetes - Social History Alcohol Use: None Hx Substance Use: No Substance Use Type: Reports: None Hx Tobacco Use: No Smoking Status (MU): Former Smoker Review of Systems Constitutional: Other - body aches Negative: Fever, Chills Positive: Cough Positive: Myalgia Positive: Weakness - generalized All Other Systems Reviewed And Are Negative: Yes Physical Exam - Summary Physical Exam Summary: VITAL SIGNS: Reviewed. GENERAL: Patient is a well-developed and nourished male who is lying comfortable in the stretcher. Patient is not in any acute respiratory distress. HEAD AND FACE: No signs of trauma. No ecchymosis, hematomas or skull depressions. No sinus tenderness. EYES: PERRLA, EOMI x 2, No injected conjunctiva, no nystagmus. EARS: Hearing grossly intact. Ear canals and tympanic membranes are within normal limits. MOUTH: Oropharynx within normal limits. NECK: Supple, trachea is midline, no adenopathy, no JVD, no carotid bruit, no c- spine tenderness, neck with full ROM. CHEST: Symmetric, no tenderness at palpation LUNGS: Pt has bilateral rales. CVS: Regular rate and rhythm, S1 and S2 present, no murmurs or gallops appreciated. ABDOMEN: Soft, non-tender. No signs of distention. No rebound no guarding, and no masses palpated. Bowel sounds are normal. EXTREMITIES: FROM in all major joints, no cyanosis or clubbing. Pt has bilateral 2+ pitting edema. NEURO: Alert and oriented x 3. No acute neurological deficits. Speech is normal and follows commands. Pt is somewhat lethargic. SKIN: Dry and warm Triage Information Reviewed: Yes Vital Signs On Initial Exam: Initial Vitals Temp Pulse Resp BP Pulse Ox 99.6 F 76 26 150/87 86 08/24/17 20:35 08/24/17 20:35 08/24/17 20:35 08/24/17 20:35 08/24/17 20:35 Vital Signs Reviewed: Yes Diagnostics - Vital Signs Vital Signs Temp Pulse Resp BP Pulse Ox 08/24/17 20:35 99.6 F 76 26 150/87 86 - Laboratory Result Diagrams: 08/24/17 21:09 08/24/17 21:09 Lab Statement: Any lab studies that have been ordered have been reviewed, and results considered in the medical decision making process. - Radiology Chest XR Xray Interpretation: Positive (See Comments) - IMPRESSION: 1. Pulmonary vascular congestion. 2. Left lower lung atelectasis versus early consolidation. Dr. Buchanan has reviewed this radiology report. Radiology Interpretation Completed By: Radiologist - EKG 20:50 Cardiac Rate: NL EKG Rhythm: Atrial Fibrillation - at 68 bpm EKG Interpretation: Intraventricular conduction delay. Nonspecific T waves. Flu Symptom Course/Dx - Course Assessment/Plan: This pt is a 87 y/o male presenting to [facility] via EMS from [facility] c/o influenza like symptoms x2 days. Pt reports generalized weakness, nonproductive cough, and body aches for the last 2 days. He denies fever, chills. PMHx: diabetes, HTN. Pt takes diuretics. Test results show WBC of 2.1, hemoglobin of 8.3, hematocrit of 25, creatinine of 2.55 , and glucose of 170. Influenza A and B is negative. Chest XR: 1. Pulmonary vascular congestion. 2. Left lower lung atelectasis versus early consolidation. In the ED course, the pt was given Levaquin and Tylenol. I discussed pt care with Dr. Navarro, hospitalist, who has agreed to admit the pt. Dx: pneumonia and weakness. - Diagnoses Provider Diagnoses: Pneumonia, Weakness - Physician Notifications Discussed Care Of Patient With: Sisi Navarro Time Discussed With Above Provider: 22:40 Instructed by Provider To: Other - I discussed pt care with Dr. Navarro, hospitalist, who has agreed to admit the pt. Discharge - Discharge Plan Condition: Stable Disposition: ADMITTED TO [facility] Referrals: Hayder Sherman MD [Primary Care Provider] - The documentation as recorded by the Raymon woo Angela accurately reflects the service I personally performed and the decisions made by me, Claudette Buchanan MD.
[2017-08-24] MEDS ORDERED: NS 0.9% 1000 ML* 1,000 ML IV SCH (23:45)
[2017-08-24] MEDS ORDERED: Acetaminophen TAB* 325 MG PO PRN (23:47)
[2017-08-25] MEDS ORDERED: Acetaminophen TAB* 325 MG PO PRN (00:02)
[2017-08-25] MEDS ORDERED: Dextrose 50% Syringe 50 ML* 25 GM/50 ML SYRINGE IV PUSH PRN (00:07)
[2017-08-25] MEDS ORDERED: Warfarin TAB(*) 5 MG PO SCH (01:00)
[2017-08-25] MEDS: Oseltamivir CAP* 30 MG CAP PO SCH ×2 (01:39→08:46)
[2017-08-25 03:29] LABS: Urine Appearance Clear; Urine Blood 1+ (Negative); Urine Color Yellow; Urine Ketones Negative (Negative); Urine Protein 2+(100 mg/dL) (Negative); Urine Urobilinogen Negative (Negative)
--- NOTE | 2017-08-25 05:36 | HP ---
CC: Dr. Sherman * HISTORY AND PHYSICAL: DATE OF ADMISSION: 08/24/17 PRIMARY CARE PROVIDER: Dr. Sherman. CHIEF COMPLAINT: Flu-like illness. HISTORY OF PRESENT ILLNESS: Mr. Davison is an 87-year-old male resident of [place], who states that beginning on the day prior to admission he began to feel very weak. He states he does not ambulate and he gets around in a wheelchair, so when asked to clarify what he means by weak, he states he feels run down. The patient denies any fevers or chills. He has had a new cough, but no sputum production. He has no sick contacts. He has had no falls related to the weakness. The patient also admits to feeling achy all over. PAST MEDICAL HISTORY: 1. AFib. 2. Type 2 diabetes. 3. CKD, stage 3. 4. Chronic systolic congestive heart failure. 5. Hypertension. 6. Coronary artery disease. 7. BPH. 8. History of bladder cancer. PAST SURGICAL HISTORY: 1. Pacemaker. 2. Appendectomy. MEDICATIONS: 1. Glipizide XL 10 mg p.o. b.i.d. 2. Coumadin 5 mg p.o. Monday, Monday, and 2.5 mg all other days of the week. 3. Tylenol 650 mg p.o. q.6 hours p.r.n. pain/fever. 4. Vitamin B12 1000 mcg p.o. daily. 5. Vitamin D3 1000 units p.o. daily. 6. Spironolactone 25 mg p.o. daily. 7. Simvastatin 20 mg p.o. q.h.s. 8. Potassium chloride 10 mEq p.o. daily. 9. Tamiflu 75 mg p.o. daily. 10. Metoprolol tartrate 100 mg p.o. q.a.m. and 50 mg p.o. q.p.m. 11. Gabapentin 100 mg p.o. q.a.m. and 300 mg p.o. q.p.m. 12. Lasix 40 mg p.o. daily. 13. Ferrous sulfate 325 mg p.o. daily. 14. Doxazosin 4 mg p.o. q.h.s. 15. Amlodipine 5 mg p.o. daily. 16. Pioglitazone 15 mg p.o. daily. 17. Allopurinol 100 mg p.o. daily. ALLERGIES: No known drug allergies. FAMILY HISTORY: Positive for COPD in his father. SOCIAL HISTORY: The patient is a former smoker, he quit greater than 60 years ago. He lives at [place]. His is currently at [facility] attempting to rehab following a fall. He has 3 children. His son, Miguel Angel, is his healthcare proxy. REVIEW OF SYSTEMS: A complete 11-system review of systems was obtained. Pertinent positives and negatives are as per HPI and otherwise negative except the patient does admit to very poor appetite over the last couple of days. PHYSICAL EXAMINATION GENERAL: The patient is a well-developed, elderly male, seen sitting up in the stretcher in no acute distress. VITAL SIGNS: Blood pressure 150/87, pulse 76, respirations 26, temp 99.6, and O2 sat 98% on room air. HEENT: Pupils are equal and round. There is what appears to be an area of hemorrhage on the right sclera though the patient states this is a chema. Extraocular muscles are intact. Oropharynx is clear. Oral mucosa is moist. There is no submandibular, cervical, or supraclavicular adenopathy. Thyroid is not enlarged. No thyroid nodules are noted. PULMONARY: Lungs are clear to auscultation bilaterally. CARDIAC: Normal S1 and S2. Regular rate, and rhythm. I do not appreciate any murmurs. There is 2+ pitting edema to the bilateral lower extremities. ABDOMEN: Bowel sounds present. Abdomen is soft, nontender, and nondistended. MUSCULOSKELETAL: There is no cyanosis or clubbing of the digits. There is full active range of motion of all 4 extremities. NEURO: Cranial nerves II through XII are grossly intact. Sensation is intact to light touch throughout. Strength is 5/5 and symmetric in both upper and lower extremities bilaterally. PSYCH: The patient is alert, he is oriented x3. Affect appears appropriate. SKIN: Warm and dry, there are no rashes. DIAGNOSTIC STUDIES/LAB DATA: WBC 2.1, hemoglobin 8.3, hematocrit 25, platelets 98. INR 3.65. Sodium 138, potassium 3.9, chloride 106, CO2 25, BUN 54 , creatinine 2.55, glucose 170, lactic acid 0.7, calcium 8.8. Bilirubin 0.8, AST 11, ALT 8, alk phos . CRP 13.33. BNP 944. Albumin 3.6. Influenza A and B negative. EKG reveals atrial fibrillation with controlled rate. No acute ST or T-wave abnormalities. Chest x-ray shows possible left lower lung atelectasis versus early consolidation and possible pulmonary vascular congestion. ASSESSMENT AND PLAN: Mr. Davison is an 87-year-old male with a history of atrial fibrillation; diabetes; stage 3 chronic kidney disease; chronic systolic congestive heart failure, who presents to the emergency room with complaints of feeling weak, achy all over, and with cough, and is admitted for possible left lower lobe pneumonia. 1. Possible pneumonia. The patient's chest x-ray shows a possible infiltrate. He admits to cough and feeling run down. Infection is a possibility. He will be maintained on levofloxacin 500 mg IV daily. A procalcitonin has been added to the labs from the emergency room. Additionally, the patient's symptoms do sound quite viral; therefore, I will treat with Tamiflu 30 mg p.o. daily, which is renally dosed. 2. Pancytopenia. The patient has been pancytopenic at least since July of this year. His counts are stable to where they have been relatively recently except for his platelet count, which is now lower than it has been. We will continue to follow this. It is unclear if the patient has ever had an outpatient evaluation with Oncology. If the patient has not seen Oncology as an outpatient, this can be arranged by his primary care provider for evaluation of the pancytopenia. 3. Atrial fibrillation. The patient is in controlled atrial fibrillation. His INR is supratherapeutic today; therefore, I will hold his Coumadin dose. He will be maintained on his usual dose of metoprolol. 4. Type 2 diabetes. The patient's blood sugar on his basic metabolic panel was moderately elevated at 170. He will be maintained on his usual home- medication regimen and in addition, he will have a lispro sliding scale added. 5. Stage 3 chronic kidney disease. The patient's creatinine is essentially at baseline. We will continue to follow this. I am going to give the patient 1 L of normal saline. We will need to monitor for worsening respiratory status. 6. Chronic systolic congestive heart failure. While the patient has significant lower extremity edema, the patient's lung sounds clear. He will be receiving 1 L of normal saline given his probable infection. I am going to hold his Lasix and potassium for now. 7. Hypertension. The patient's blood pressure appears to be moderately elevated. For now, I will continue him on his home medication regimen and we will adjust his meds as needed. 8. Benign prostatic hyperplasia. Monitor for symptoms. 9. Gout. Continue allopurinol. 10. DVT prophylaxis. According to the Adult Thrombosis Prophylaxis Risk Factor Assessment Guide, the patient has a total risk factor score of 4 making him high risk. He is already on Coumadin and this will act as a DVT prophylaxis. 11. Code status is DNR. [id number]/[facility] #: [id number] MTDD
[2017-08-25 06:54] LABS: Hematocrit 23 % (42-52); Hemoglobin 7.7 g/dl (14.0-18.0); Mean Corpuscular HGB Conc 34 g/dl (31-36); Mean Corpuscular Hemoglobin 35 pg (27-31); Mean Corpuscular Volume 106 fL (80-94); Mean Platelet Volume 8 um3 (7.4-10.4); Platelet Count 87 10^3/ul (150-450); Red Blood Count 2.18 10^6/ul (4.0-5.4); Red Cell Distribution Width 18 % (10.5-15); White Blood Count 1.1 10^3/ul (3.5-10.8)
[2017-08-25 07:36] LABS: ABS Basophils 0 10^3/ul (0-0.2); ABS Eosinophils 0 10^3/ul (0-0.6); ABS Lymphocytes 0.3 10^3/ul (1.0-4.8); ABS Monocytes 0.3 10^3/ul (0-0.8); ABS Neutrophils 0.4 10^3/ul (1.5-7.7); ABS Nucleated RBC 0 10^3/ul; Eosinophil % 3.4 % (0-6); Lymphocyte % 28.3 % (25-47); Nucleated Red Blood Cells % 0.6
[2017-08-25] MEDS: Gabapentin CAP(*) 100 MG PO SCH (08:44)
[2017-08-25] MEDS: amLODIPine TAB* 5 MG PO SCH (08:45)
[2017-08-25] MEDS: glipiZIDE TAB.XL* 5 MG PO SCH ×2 (08:45→20:54)
[2017-08-25] MEDS: Allopurinol TAB* 100 MG PO SCH (08:46)
[2017-08-25] MEDS: Metoprolol Tartrate TAB* 50 mg PO SCH ×2 (08:46→17:08)
[2017-08-25] MEDS: Insulin LISPRO* 1 UNITS UNIT SUBCUT SCH ×3 (08:47→17:08)
[2017-08-25] MEDS: Pioglitazone TAB* 15 MG PO SCH (08:47)
[2017-08-25] MEDS ORDERED: Magnesium CITRATE* 300 ML BTL PO ONE (12:34)
--- NOTE | 2017-08-25 17:45 | PN ---
Hospitalist Progress Note Date of Service: 08/25/17 I have seen and examined Mr. Davison today and assumed his care. Continuing CAP/ influenza treatment. I'm adding back lasix as he's been hemodynamically stable without sepsis criteria.
[2017-08-25] MEDS ORDERED: Levofloxacin 500 MG IVPREMIX(* 500 MG/100 ML BAG IVPB SCH (20:00)
[2017-08-25] MEDS: Gabapentin CAP(*) 300 MG PO SCH (20:53)
[2017-08-25] MEDS: Atorvastatin* 10 MG TAB PO SCH (20:53)
[2017-08-25] MEDS: Levofloxacin 250 MG IVPREMX(*) 250 MG/50 ML BAG IVPB SCH (20:54)
[2017-08-25] MEDS: Doxazosin TAB* 2 MG PO SCH (20:54)
[2017-08-26] MEDS ORDERED: Warfarin TAB(*) 2.5 MG PO SCH (00:02)
[2017-08-26] MEDS: Insulin LISPRO* 1 UNITS UNIT SUBCUT SCH ×3 (07:39→17:47)
[2017-08-26] MEDS: Furosemide TAB* 20 MG PO SCH (09:10)
[2017-08-26] MEDS: glipiZIDE TAB.XL* 5 MG PO SCH ×2 (09:10→20:49)
[2017-08-26] MEDS: Pioglitazone TAB* 15 MG PO SCH (09:10)
[2017-08-26] MEDS: Metoprolol Tartrate TAB* 50 mg PO SCH ×2 (09:11→18:19)
[2017-08-26] MEDS: amLODIPine TAB* 5 MG PO SCH (09:11)
[2017-08-26] MEDS: Allopurinol TAB* 100 MG PO SCH (09:11)
[2017-08-26] MEDS: Gabapentin CAP(*) 100 MG PO SCH (09:11)
[2017-08-26] MEDS: Oseltamivir CAP* 30 MG CAP PO SCH (09:12)
--- NOTE | 2017-08-26 16:57 | PN ---
Subjective Date of Service: 08/26/17 Interval History: feeling better, still has a cough with minimal sputum Family History: Unchanged from Admission Social History: Unchanged from Admission Past Medical History: Unchanged from Admission Objective Active Medications: Acetaminophen (Tylenol Tab*) 650 mg PO Q6H PRN PRN Reason: FEVER/PAIN Allopurinol (Zyloprim Tab*) 100 mg PO DAILY [facility] Last Admin: 08/26/17 09:11 Dose: 100 mg Amlodipine Besylate (Norvasc Tab*) 5 mg PO DAILY [facility] Last Admin: 08/26/17 09:11 Dose: 5 mg Atorvastatin Calcium (Lipitor*) 10 mg PO BEDTIME [facility] Last Admin: 08/25/17 20:53 Dose: 10 mg Dextrose (D50w Syringe 50 Ml*) 12.5 gm IV PUSH .FOR FS < 60 - SS PRN PRN Reason: FS < 60 Doxazosin Mesylate (Cardura Tab*) 4 mg PO BEDTIME [facility] Last Admin: 08/25/17 20:54 Dose: 4 mg Furosemide (Lasix Tab*) 40 mg PO DAILY [facility] Last Admin: 08/26/17 09:10 Dose: 40 mg Gabapentin (Neurontin Cap(*)) 100 mg PO DAILY [facility] Last Admin: 08/26/17 09:11 Dose: 100 mg Gabapentin (Neurontin Cap(*)) 300 mg PO BEDTIME [facility] Last Admin: 08/25/17 20:53 Dose: 300 mg Glipizide (Glucotrol Xl*) 10 mg PO BID [facility] Last Admin: 08/26/17 09:10 Dose: 10 mg Levofloxacin/Dextrose (Levaquin 250 Mg Ivpremx(*)) 250 mg in 50 mls @ 50 mls/ hr IVPB Q24H [facility] Last Admin: 08/25/17 20:54 Dose: 50 mls/hr Insulin Human Lispro (Humalog*) 0 units SUBCUT AC [facility] PRN Reason: Protocol Last Admin: 08/26/17 12:52 Dose: 4 units Metoprolol Tartrate (Lopressor Tab*) 50 mg PO QPM [facility] Last Admin: 08/25/17 17:08 Dose: 50 mg Metoprolol Tartrate (Lopressor Tab*) 100 mg PO QAM [facility] Last Admin: 08/26/17 09:11 Dose: 100 mg Oseltamivir Phosphate (Tamiflu Cap*) 30 mg PO DAILY [facility] Last Admin: 08/26/17 09:12 Dose: 30 mg Pioglitazone HCl (Actos Tab*) 15 mg PO DAILY [facility] Last Admin: 08/26/17 09:10 Dose: 15 mg Vital Signs - 8 hr 08/26/17 08/26/17 09:11 11:00 Temperature 97.8 F Pulse Rate 65 Respiratory 16 16 Rate Blood Pressure 109/53 (mmHg) O2 Sat by Pulse 98 Oximetry Oxygen Devices in Use Now: Nasal Cannula Appearance: flat affect, comfortable eating lunch Eyes: No Scleral Icterus Ears/Nose/Mouth/Throat: NL Teeth, Lips, Gums Neck: NL Appearance and Movements; NL JVP Respiratory: Symmetrical Chest Expansion and Respiratory Effort, Clear to Auscultation Cardiovascular: NL Sounds; No Murmurs; No JVD, - - irregular rhythm Abdominal: NL Sounds; No Tenderness; No Distention Lymphatic: No Cervical Adenopathy Extremities: No Edema Skin: No Rash or Ulcers Neurological: Alert and Oriented x 3 Result Diagrams: 08/25/17 06:13 08/25/17 06:13 Assess/Plan/Problems-Billing Assessment: - Patient Problems (1) Pneumonia Current Visit: No Status: Acute Code(s): J18.9 - PNEUMONIA, UNSPECIFIED ORGANISM SNOMED Code(s): 208070038 Comment: continue levaquin renally dosed no sputum cultures improving treating empirically for flu given symptoms and high pretest probability (2) Acute on chronic diastolic (congestive) heart failure Current Visit: No Status: Acute Code(s): I50.33 - ACUTE ON CHRONIC DIASTOLIC (CONGESTIVE) HEART FAILURE SNOMED Code(s): 824881956 Comment: mild; I think pneumonia/flu are more responsible for his symptoms. continue lasix po (3) Afib Current Visit: No Status: Chronic Code(s): I48.91 - UNSPECIFIED ATRIAL FIBRILLATION SNOMED Code(s): 55527331 Comment: - Rate controlled. - Continue home metoprolol. - holding warfarin for supratherapeutic INR (4) CKD (chronic kidney disease) stage 3, GFR 30-59 ml/min Current Visit: No Status: Chronic Code(s): N18.3 - CHRONIC KIDNEY DISEASE, STAGE 3 (MODERATE) SNOMED Code(s): 329183583 Comment: - Creatinine at baseline.
[2017-08-26] MEDS: Gabapentin CAP(*) 300 MG PO SCH (20:49)
[2017-08-26] MEDS: Atorvastatin* 10 MG TAB PO SCH (20:50)
[2017-08-26] MEDS: Levofloxacin 250 MG IVPREMX(*) 250 MG/50 ML BAG IVPB SCH (20:50)
[2017-08-26] MEDS: Doxazosin TAB* 2 MG PO SCH (20:50)
[2017-08-27 08:23] LABS: INR 1.88 (0.77-1.02)
[2017-08-27 08:29] LABS: EGFR Non-African American 23.2 (>60)
[2017-08-27 08:57] LABS: ABS Basophils 0 10^3/ul (0-0.2); ABS Eosinophils 0.1 10^3/ul (0-0.6); ABS Lymphocytes 0.3 10^3/ul (1.0-4.8); ABS Monocytes 0.2 10^3/ul (0-0.8); ABS Neutrophils 1.2 10^3/ul (1.5-7.7); ABS Nucleated RBC 0 10^3/ul; Eosinophil % 4.9 % (0-6); Hematocrit 22 % (42-52); Hemoglobin 7.3 g/dl (14.0-18.0); Lymphocyte % 17.7 % (25-47); Mean Corpuscular HGB Conc 33 g/dl (31-36); Mean Corpuscular Hemoglobin 35 pg (27-31); Mean Corpuscular Volume 107 fL (80-94); Mean Platelet Volume 8 um3 (7.4-10.4); Nucleated Red Blood Cells % 0.1; Platelet Count 94 10^3/ul (150-450); Red Blood Count 2.08 10^6/ul (4.0-5.4); Red Cell Distribution Width 18 % (10.5-15); White Blood Count 1.9 10^3/ul (3.5-10.8)
[2017-08-27] MEDS: Allopurinol TAB* 100 MG PO SCH (10:59)
[2017-08-27] MEDS: Furosemide TAB* 20 MG PO SCH (11:00)
[2017-08-27] MEDS: Gabapentin CAP(*) 100 MG PO SCH (11:00)
[2017-08-27] MEDS: glipiZIDE TAB.XL* 5 MG PO SCH ×2 (11:01→21:04)
[2017-08-27] MEDS: Pioglitazone TAB* 15 MG PO SCH (11:01)
[2017-08-27] MEDS: Metoprolol Tartrate TAB* 50 mg PO SCH ×2 (11:02→17:47)
[2017-08-27] MEDS: amLODIPine TAB* 5 MG PO SCH (11:02)
[2017-08-27] MEDS: Oseltamivir CAP* 30 MG CAP PO SCH (11:02)
[2017-08-27] MEDS: Insulin LISPRO* 1 UNITS UNIT SUBCUT SCH ×3 (11:04→17:47)
--- NOTE | 2017-08-27 18:03 | PN ---
Subjective Date of Service: 08/27/17 Interval History: feels better today. up eating his breakfast. cough is improving. Family History: Unchanged from Admission Social History: Unchanged from Admission Past Medical History: Unchanged from Admission Objective Active Medications: Acetaminophen (Tylenol Tab*) 650 mg PO Q6H PRN PRN Reason: FEVER/PAIN Allopurinol (Zyloprim Tab*) 100 mg PO DAILY [facility] Last Admin: 08/27/17 10:59 Dose: 100 mg Amlodipine Besylate (Norvasc Tab*) 5 mg PO DAILY [facility] Last Admin: 08/27/17 11:02 Dose: 5 mg Atorvastatin Calcium (Lipitor*) 10 mg PO BEDTIME [facility] Last Admin: 08/26/17 20:50 Dose: 10 mg Dextrose (D50w Syringe 50 Ml*) 12.5 gm IV PUSH .FOR FS < 60 - SS PRN PRN Reason: FS < 60 Doxazosin Mesylate (Cardura Tab*) 4 mg PO BEDTIME [facility] Last Admin: 08/26/17 20:50 Dose: 4 mg Furosemide (Lasix Tab*) 40 mg PO DAILY [facility] Last Admin: 08/27/17 11:00 Dose: 40 mg Gabapentin (Neurontin Cap(*)) 100 mg PO DAILY [facility] Last Admin: 08/27/17 11:00 Dose: 100 mg Gabapentin (Neurontin Cap(*)) 300 mg PO BEDTIME [facility] Last Admin: 08/26/17 20:49 Dose: 300 mg Glipizide (Glucotrol Xl*) 10 mg PO BID [facility] Last Admin: 08/27/17 11:01 Dose: 10 mg Levofloxacin/Dextrose (Levaquin 250 Mg Ivpremx(*)) 250 mg in 50 mls @ 50 mls/ hr IVPB Q24H [facility] Last Admin: 08/26/17 20:50 Dose: 50 mls/hr Insulin Human Lispro (Humalog*) 0 units SUBCUT AC [facility] PRN Reason: Protocol Last Admin: 08/27/17 17:47 Dose: 1 units Metoprolol Tartrate (Lopressor Tab*) 50 mg PO QPM [facility] Last Admin: 08/27/17 17:47 Dose: 50 mg Metoprolol Tartrate (Lopressor Tab*) 100 mg PO QAM [facility] Last Admin: 08/27/17 11:02 Dose: 100 mg Oseltamivir Phosphate (Tamiflu Cap*) 30 mg PO DAILY [facility] Last Admin: 08/27/17 11:02 Dose: 30 mg Pioglitazone HCl (Actos Tab*) 15 mg PO DAILY [facility] Last Admin: 08/27/17 11:01 Dose: 15 mg Vital Signs - 8 hr 08/27/17 08/27/17 08/27/17 11:00 13:26 15:35 Temperature 97.3 F 97.7 F Pulse Rate 79 62 Respiratory 20 20 20 Rate Blood Pressure 154/49 114/54 (mmHg) O2 Sat by Pulse 99 97 Oximetry Oxygen Devices in Use Now: Nasal Cannula Appearance: alert, nontoxic, no distress Eyes: No Scleral Icterus Ears/Nose/Mouth/Throat: NL Teeth, Lips, Gums Neck: NL Appearance and Movements; NL JVP Respiratory: Symmetrical Chest Expansion and Respiratory Effort, Clear to Auscultation Cardiovascular: NL Sounds; No Murmurs; No JVD, - - irregularly irregular Abdominal: NL Sounds; No Tenderness; No Distention, No Hepatosplenomegaly Lymphatic: No Cervical Adenopathy Extremities: No Edema Skin: No Rash or Ulcers Neurological: Alert and Oriented x 3 Result Diagrams: 08/27/17 07:55 08/27/17 07:55 Assess/Plan/Problems-Billing Assessment: - Patient Problems (1) Pneumonia Current Visit: No Status: Acute Code(s): J18.9 - PNEUMONIA, UNSPECIFIED ORGANISM SNOMED Code(s): 794884530 Comment: continue levaquin renally dosed no sputum cultures improving treating empirically for flu given symptoms and high pretest probability (2) Acute on chronic diastolic (congestive) heart failure Current Visit: No Status: Acute Code(s): I50.33 - ACUTE ON CHRONIC DIASTOLIC (CONGESTIVE) HEART FAILURE SNOMED Code(s): 403232859 Comment: mild; I think pneumonia/flu are more responsible for his symptoms. continue lasix po (3) Afib Current Visit: No Status: Chronic Code(s): I48.91 - UNSPECIFIED ATRIAL FIBRILLATION SNOMED Code(s): 10038469 Comment: Resume warfarin. Rate controlled. Continue home metoprolol. (4) CKD (chronic kidney disease) stage 3, GFR 30-59 ml/min Current Visit: No Status: Chronic Code(s): N18.3 - CHRONIC KIDNEY DISEASE, STAGE 3 (MODERATE) SNOMED Code(s): 022743741 Comment: at baseline
[2017-08-27] MEDS: Warfarin TAB(*) 2.5 MG PO SCH (21:04)
[2017-08-27] MEDS: Gabapentin CAP(*) 300 MG PO SCH (21:04)
[2017-08-27] MEDS: Doxazosin TAB* 2 MG PO SCH (21:04)
[2017-08-27] MEDS: Atorvastatin* 10 MG TAB PO SCH (21:04)
[2017-08-27] MEDS: Levofloxacin 250 MG IVPREMX(*) 250 MG/50 ML BAG IVPB SCH (21:15)
[2017-08-28 06:30] LABS: INR 1.43 (0.77-1.02)
[2017-08-28 06:34] LABS: ABS Basophils 0 10^3/ul (0-0.2); ABS Eosinophils 0.1 10^3/ul (0-0.6); ABS Lymphocytes 0.6 10^3/ul (1.0-4.8); ABS Monocytes 0.2 10^3/ul (0-0.8); ABS Neutrophils 1.8 10^3/ul (1.5-7.7); ABS Nucleated RBC 0 10^3/ul; Eosinophil % 3.7 % (0-6); Hematocrit 25 % (42-52); Hemoglobin 8.2 g/dl (14.0-18.0); Lymphocyte % 20.8 % (25-47); Mean Corpuscular HGB Conc 33 g/dl (31-36); Mean Corpuscular Hemoglobin 35 pg (27-31); Mean Corpuscular Volume 107 fL (80-94); Mean Platelet Volume 8 um3 (7.4-10.4); Nucleated Red Blood Cells % 0; Platelet Count 102 10^3/ul (150-450); Red Blood Count 2.36 10^6/ul (4.0-5.4); Red Cell Distribution Width 18 % (10.5-15); White Blood Count 2.7 10^3/ul (3.5-10.8)
[2017-08-28] MEDS: amLODIPine TAB* 5 MG PO SCH (08:33)
[2017-08-28] MEDS: Furosemide TAB* 20 MG PO SCH (08:33)
[2017-08-28] MEDS: glipiZIDE TAB.XL* 5 MG PO SCH ×2 (08:33→20:20)
[2017-08-28] MEDS: Pioglitazone TAB* 15 MG PO SCH (08:33)
[2017-08-28] MEDS: Oseltamivir CAP* 30 MG CAP PO SCH (08:34)
[2017-08-28] MEDS: Metoprolol Tartrate TAB* 50 mg PO SCH ×2 (08:34→18:00)
[2017-08-28] MEDS: Gabapentin CAP(*) 100 MG PO SCH (08:34)
[2017-08-28] MEDS: Allopurinol TAB* 100 MG PO SCH (08:35)
[2017-08-28] MEDS: Insulin LISPRO* 1 UNITS UNIT SUBCUT SCH ×3 (08:35→18:04)
[2017-08-28] MEDS ORDERED: Furosemide IV* 10 MG/ML VIAL (40 MG) IV ONE (08:51)
[2017-08-28] MEDS: Furosemide IV* 10 MG/ML 2 ML VIAL (20 MG) IV SCH ×2 (10:19→20:22)
--- NOTE | 2017-08-28 15:49 | PN ---
Subjective Date of Service: 08/28/17 Interval History: Feels more short of breath this morning. Woke up in the middle of the night unable to breath. Otherwise, the body aches have improved. Cough has improved also. Family History: Unchanged from Admission Social History: Unchanged from Admission Past Medical History: Unchanged from Admission Objective Active Medications: Acetaminophen (Tylenol Tab*) 650 mg PO Q6H PRN PRN Reason: FEVER/PAIN Allopurinol (Zyloprim Tab*) 100 mg PO DAILY [facility] Last Admin: 08/28/17 08:35 Dose: 100 mg Amlodipine Besylate (Norvasc Tab*) 5 mg PO DAILY [facility] Last Admin: 08/28/17 08:33 Dose: 5 mg Atorvastatin Calcium (Lipitor*) 10 mg PO BEDTIME [facility] Last Admin: 08/27/17 21:04 Dose: 10 mg Dextrose (D50w Syringe 50 Ml*) 12.5 gm IV PUSH .FOR FS < 60 - SS PRN PRN Reason: FS < 60 Doxazosin Mesylate (Cardura Tab*) 4 mg PO BEDTIME [facility] Last Admin: 08/27/17 21:04 Dose: 4 mg Furosemide (Lasix Iv*) 20 mg IV BID [facility] Last Admin: 08/28/17 10:19 Dose: 20 mg Gabapentin (Neurontin Cap(*)) 100 mg PO DAILY [facility] Last Admin: 08/28/17 08:34 Dose: 100 mg Gabapentin (Neurontin Cap(*)) 300 mg PO BEDTIME [facility] Last Admin: 08/27/17 21:04 Dose: 300 mg Glipizide (Glucotrol Xl*) 10 mg PO BID [facility] Last Admin: 08/28/17 08:33 Dose: 10 mg Levofloxacin/Dextrose (Levaquin 250 Mg Ivpremx(*)) 250 mg in 50 mls @ 50 mls/ hr IVPB Q24H [facility] Last Admin: 08/27/17 21:15 Dose: 50 mls/hr Insulin Human Lispro (Humalog*) 0 units SUBCUT AC [facility] PRN Reason: Protocol Last Admin: 08/28/17 12:57 Dose: 6 units Metoprolol Tartrate (Lopressor Tab*) 50 mg PO QPM [facility] Last Admin: 08/27/17 17:47 Dose: 50 mg Metoprolol Tartrate (Lopressor Tab*) 100 mg PO QAM [facility] Last Admin: 08/28/17 08:34 Dose: 100 mg Oseltamivir Phosphate (Tamiflu Cap*) 30 mg PO DAILY [facility] Last Admin: 08/28/17 08:34 Dose: 30 mg Pioglitazone HCl (Actos Tab*) 15 mg PO DAILY [facility] Last Admin: 08/28/17 08:33 Dose: 15 mg Warfarin Sodium (Coumadin Tab(*)) 2.5 mg PO SuMoWeThSa@1700 [facility] PRN Reason: Protocol Last Admin: 08/27/17 21:04 Dose: 2.5 mg Warfarin Sodium (Coumadin Tab(*)) 5 mg PO TuFr@1700 [facility] PRN Reason: Protocol Vital Signs - 8 hr 08/28/17 02 08:34 10:48 Respiratory 22 12 Rate Oxygen Devices in Use Now: Nasal Cannula Appearance: alert, nontoxic Eyes: No Scleral Icterus Ears/Nose/Mouth/Throat: NL Teeth, Lips, Gums Neck: - - JVP to angle of the mandible. Respiratory: - - crackles b/l bases Cardiovascular: No Edema, - - irregularly irregular Abdominal: NL Sounds; No Tenderness; No Distention Lymphatic: No Cervical Adenopathy Skin: No Rash or Ulcers Neurological: Alert and Oriented x 3 Result Diagrams: 08/28/17 06:10 08/28/17 06:10 Assess/Plan/Problems-Billing Assessment: - Patient Problems (1) Acute on chronic diastolic (congestive) heart failure Current Visit: No Status: Acute Code(s): I50.33 - ACUTE ON CHRONIC DIASTOLIC (CONGESTIVE) HEART FAILURE SNOMED Code(s): 945846689 Comment: I had resumed his PO lasix a few days ago, but I think he became volume overloaded from admission, when he received IVF for sepsis. He had an episode of PND overnight, now has some orthopnea and elevated JVP (mod TR clouds the picture, but clinically he is volume overloaded), so I am switching him to IV lasix today. (2) Pneumonia Current Visit: No Status: Acute Code(s): J18.9 - PNEUMONIA, UNSPECIFIED ORGANISM SNOMED Code(s): 501311924 Comment: continue levaquin renally dosed x 5 days no sputum cultures improving treating empirically for flu given symptoms and high pretest probability (3) Afib Current Visit: No Status: Chronic Code(s): I48.91 - UNSPECIFIED ATRIAL FIBRILLATION SNOMED Code(s): 25951360 Comment: Warfarin resumed yesterday (held for supratherapeutic INR). Rate controlled. Continue home metoprolol. (4) CKD (chronic kidney disease) stage 3, GFR 30-59 ml/min Current Visit: No Status: Chronic Code(s): N18.3 - CHRONIC KIDNEY DISEASE, STAGE 3 (MODERATE) SNOMED Code(s): 247815327 Comment: at baseline Status and Disposition: inpatient, plan for return to [facility] tomorrow (seen by PT already) if he diureses well today.
[2017-08-28] MEDS: Warfarin TAB(*) 2.5 MG PO SCH (18:00)
[2017-08-28] MEDS: Atorvastatin* 10 MG TAB PO SCH (20:20)
[2017-08-28] MEDS: Doxazosin TAB* 2 MG PO SCH (20:20)
[2017-08-28] MEDS: Gabapentin CAP(*) 300 MG PO SCH (20:21)
[2017-08-28] MEDS: Levofloxacin 250 MG IVPREMX(*) 250 MG/50 ML BAG IVPB SCH (20:22)
[2017-08-29 06:18] LABS: ABS Basophils 0 10^3/ul (0-0.2); ABS Eosinophils 0.1 10^3/ul (0-0.6); ABS Lymphocytes 0.4 10^3/ul (1.0-4.8); ABS Monocytes 0.2 10^3/ul (0-0.8); ABS Neutrophils 1.6 10^3/ul (1.5-7.7); ABS Nucleated RBC 0 10^3/ul; Eosinophil % 3.5 % (0-6); Hematocrit 23 % (42-52); Hemoglobin 7.7 g/dl (14.0-18.0); Lymphocyte % 16.8 % (25-47); Mean Corpuscular HGB Conc 34 g/dl (31-36); Mean Corpuscular Hemoglobin 35 pg (27-31); Mean Corpuscular Volume 106 fL (80-94); Mean Platelet Volume 8 um3 (7.4-10.4); Nucleated Red Blood Cells % 0; Platelet Count 95 10^3/ul (150-450); Red Blood Count 2.18 10^6/ul (4.0-5.4); Red Cell Distribution Width 18 % (10.5-15); White Blood Count 2.3 10^3/ul (3.5-10.8)
[2017-08-29 06:23] LABS: INR 1.43 (0.77-1.02)
[2017-08-29 06:27] LABS: EGFR Non-African American 21.2 (>60)
[2017-08-29] MEDS: Insulin LISPRO* 1 UNITS UNIT SUBCUT SCH ×2 (08:28→11:54)
[2017-08-29] MEDS: Allopurinol TAB* 100 MG PO SCH (09:37)
[2017-08-29] MEDS: amLODIPine TAB* 5 MG PO SCH (09:37)
[2017-08-29] MEDS: Pioglitazone TAB* 15 MG PO SCH (09:37)
[2017-08-29] MEDS: Metoprolol Tartrate TAB* 50 mg PO SCH (09:37)
[2017-08-29] MEDS: glipiZIDE TAB.XL* 5 MG PO SCH (09:37)
[2017-08-29] MEDS: Oseltamivir CAP* 30 MG CAP PO SCH (09:37)
[2017-08-29] MEDS: Gabapentin CAP(*) 100 MG PO SCH (09:37)
[2017-08-29] MEDS: Furosemide IV* 10 MG/ML 2 ML VIAL (20 MG) IV SCH (09:45)
[2017-08-29 11:58] VITALS: BP 130/56
--- NOTE | 2017-08-29 13:17 | DS ---
DATE OF ADMISSION: 08/24/2017. DATE OF DISCHARGE: 08/29/2017. ADMITTING PROVIDER: Dr. Sisi Navarro. PRIMARY CARE PHYSICIAN: Dr. Hayder Sherman. ATTENDING PHYSICIAN: Dr. Desi Fernandez and Dr. Aureliano Zamora (on discharge). CHIEF COMPLAINT: Flu-like illness. PRINCIPAL DIAGNOSIS: Swab negative influenza versus pneumonia. HISTORY OF PRESENT ILLNESS AND HOSPITAL COURSE: Mr. Davison is an 87-year-old male, resident of [place] with a past medical history of A-fib, noninsulin dependent type 2 diabetes mellitus, chronic kidney disease stage 3, chronic systolic congestive heart failure, hypertension, CAD, BPH, and history of bladder cancer who presented with weakness, whose baseline is using a wheelchair and normally does not ambulate. He denied any fever or chills. He did have a dry cough. No sick contacts. He felt muscle aches all over. His initial flu swab was negative, but was started empirically on Tamiflu renally dosed. There is a possible area of atelectasis versus early consolidation in his left lower lung. He was started on IV Levaquin 250 mg daily, again renally dosed. He was not unable to present any sputum cultures until actually the day of discharge and these should be followed up as an outpatient. Otherwise he has been afebrile. He did have pancytopenia which has been present since at least July. He should have follow-up with Oncology as an outpatient. His lowest ANC was 400 on August 25. That was the only time he was neutropenic. ANC is 1600 on the day of discharge. He had a urinalysis showing 1+ blood, 1 + RBC's, 2+ protein. He had a procalcitonin which was within normal limits at less than 0.10. His BNP on admission was 944. Her H and P, he did have some lower extremity edema, but in the setting of suspected infection he received 1 liter of fluid. He was on Lasix 40 mg daily to get intermittently 20 mg IV b.i.d. times three doses the days prior to discharge and is being increased 40 mg p.o. twice a day. He should have daily weights at [place]. He is not able to say what his baseline weight is, but reports it has increased over the last months from 160 to 180 in terms of his weight. His weight on presentation was 83.4 kg and on discharge 85.3 kg. He is chronically on 2 liters. He should have repeat BMP within five days of discharge. He was supratherapeutic on his INR at 3.65 and his Coumadin was initially held. It has fallen down to 1.88 and then 1.43. His last Coumadin 2.5 mg on the and , he has been restarting on his home dose. He should have an INR within five days as well. DISCHARGE MEDICATIONS: 1. Tylenol 650 mg p.o. q.6 hours prn. 2. Allopurinol 100 mg p.o. daily. 3. Amlodipine 5 mg p.o. daily. 4. Doxazosin (Cardura) 4 mg p.o. at bedtime. 5. Gabapentin 300 mg p.o. at bedtime and 100 mg p.o. daily. 6. Glipizide 10 mg p.o. b.i.d. 7. Metoprolol Tartrate 100 mg p.o. q.a.m. and 50 mg p.o. q.p.m. 8. Pioglitazone (Actos) 15 mg p.o. daily. 9. Simvastatin 20 mg p.o. at bedtime. 10. Cholecalciferol 1,000 units p.o. daily. 11. Cyanocobalamin 1,000 mcg p.o. daily. 12. Ferrous Sulfate 325 mg p.o. daily. 13. Lasix 40 mg p.o. b.i.d. (increased from admission, please re-evaluate within 7 days). 14. Potassium Chloride 10 mEq p.o. daily. 15. Spironolactone 25 mg p.o. daily. 16. Warfarin 2.5 mg p.o. Monday, Monday, Monday, , Monday; and 5 mg Monday and Monday. DISCHARGE DIET: Carbohydrate consistent heart healthy. ACTIVITY LEVEL: No restrictions, using a wheelchair at baseline. FOLLOW-UP: Please follow-up with Dr. Sherman within five days of discharge and consideration for outpatient Hematology/Oncology work-up given his presumptive pancytopenia since July. He should have a follow-up BMP and INR within five days of discharge. His Lasix had been increased, doubled from 40 daily to 40 twice a day and his weights should be tracked daily. He was requiring three liters on discharge, up from 2 liters chronically. Time spent on this discharge was 40 minutes. [id number]/[facility] #: [id number] ALLEN
[2017-08-29] MEDS ORDERED: Warfarin TAB(*) 5 MG PO SCH (17:00)
== END 2017-08-29 13:35 | DRG 291 ==
LOC: ED 20:32 → INTOOBSV 23:45 → OBSVTOIN 23:45 → MED 23:45 → OBSVTOIN 08-25 13:00 → MED 08-26 22:46
PROVIDERS: ADMIT Hospitalist; ATTEND Internal Medicine
DX: I13.0 Hypertensive heart and chronic kidney disease with heart failure and stage 1 through stage 4 chronic kidney disease, or unspecified chronic kidney disease (principal); J11.00 Influenza due to unidentified influenza virus with unspecified type of pneumonia; D61.818 Other pancytopenia; I48.91 Unspecified atrial fibrillation; E11.22 Type 2 diabetes mellitus with diabetic chronic kidney disease; Z99.81 Dependence on supplemental oxygen; I50.33 Acute on chronic diastolic (congestive) heart failure; I50.22 Chronic systolic (congestive) heart failure; N18.3 Chronic kidney disease, stage 3 (moderate); I25.10 Atherosclerotic heart disease of native coronary artery without angina pectoris; N40.0 Benign prostatic hyperplasia without lower urinary tract symptoms; M10.9 Gout, unspecified; Z66 Do not resuscitate; M17.12 Unilateral primary osteoarthritis, left knee; R79.1 Abnormal coagulation profile; T45.515A Adverse effect of anticoagulants, initial encounter; Y92.9 Unspecified place or not applicable; Z79.84 Long term (current) use of oral hypoglycemic drugs; Z85.51 Personal history of malignant neoplasm of bladder; Z95.0 Presence of cardiac pacemaker; Z82.5 Family history of asthma and other chronic lower respiratory diseases; Z87.891 Personal history of nicotine dependence; Z82.49 Family history of ischemic heart disease and other diseases of the circulatory system; Z79.01 Long term (current) use of anticoagulants
CPT/HCPCS: 36415; 71045; 80048; 80053; 81003; 81015; 83605; 83880; 84145; 85025; 85060; 85610; 85730; 86140; 87040; 87070; 87205; 87502; 93005; 99284; A9270-GY; J1940; J1956

== ENCOUNTER 2017-09-27 01:18 | Emergency (ER) | payer MEDICARE ==
[2017-09-27] MEDS ORDERED: Pantoprazole IV* 40 MG ONE (01:53)
[2017-09-27] MEDS ORDERED: Pantoprazole IV* 40 MG IV ONE (01:53)
[2017-09-27] MEDS ORDERED: NS 0.9% 1000 ML* 1,000 ML IV ONE (01:54)
[2017-09-27 02:32] LABS: ABS Basophils 0 10^3/ul (0-0.2); ABS Eosinophils 0 10^3/ul (0-0.6); ABS Lymphocytes 0.4 10^3/ul (1.0-4.8); ABS Monocytes 0.3 10^3/ul (0-0.8); ABS Neutrophils 2.8 10^3/ul (1.5-7.7); ABS Nucleated RBC 0 10^3/ul; Eosinophil % 1.1 % (0-6); Hematocrit 33 % (42-52); Lymphocyte % 11.9 % (25-47); Mean Corpuscular HGB Conc 34 g/dl (31-36); Mean Corpuscular Hemoglobin 35 pg (27-31); Mean Corpuscular Volume 104 fL (80-94); Mean Platelet Volume 8 um3 (7.4-10.4); Nucleated Red Blood Cells % 0.1; Platelet Count 130 10^3/ul (150-450); Red Blood Count 3.17 10^6/ul (4.0-5.4); Red Cell Distribution Width 16 % (10.5-15); White Blood Count 3.6 10^3/ul (3.5-10.8)
[2017-09-27 02:39] LABS: Urine Appearance Clear; Urine Blood 2+ (Negative); Urine Color Yellow; Urine Ketones Negative (Negative); Urine Protein 2+(100 mg/dL) (Negative); Urine Specific Gravity 1.014 (1.010-1.030); Urine Urobilinogen Negative (Negative)
[2017-09-27 02:41] LABS: EGFR Non-African American 24.4 (>60)
[2017-09-27 02:44] LABS: INR 2.23 (0.77-1.02)
--- NOTE | 2017-09-27 04:00 | ED ---
George Vera Rebecca, scribed for Claudette Buchanan MD on 09/27/17 at 0138 . Abdominal Pain/Male - HPI Summary HPI Summary: Pt is an 87 y/o M BIBA who presents to ED accompanied by his healthcare proxy c/ o abdominal pain. Sx have been intermittent for 3 days, currently mild, ranked 2 /10. Pain is in the epigastic region without radiation to the back. Denies vomiting. States that his last BM was this afternoon, but it was small and suspects that he may be constipated with his proxy reporting that his diet has changed recently. He has previously been at an assisted living facility, though he is now eating what is cooked by his proxy. Is on a blood thinner. PSHx appy. - History of Current Complaint Chief Complaint: EDAbdPain Stated Complaint: ABD PAIN Time Seen by Provider: 09/27/17 01:23 Hx Obtained From: Patient Onset/Duration: Lasting Days - 3 days, Still Present Timing: Intermittent Severity Currently: Mild Pain Intensity: 2 Pain Scale Used: 0-10 Numeric Location: Epigastric Radiates: No Associated Signs And Symptoms: Negative: Vomiting - Allergies/Home Medications Allergies/Adverse Reactions: Allergies Allergy/AdvReac Type Severity Reaction Status Date / Time No Known Allergies Allergy Verified 08/24/17 20:36 PMH/Surg Hx/FS Hx/Imm Hx Endocrine/Hematology History: Reports: Hx Anticoagulant Therapy - coumadin, Hx Diabetes - type II Cardiovascular History: Reports: Hx Atrial Fibrillation, Hx Congestive Heart Failure, Hx Hypertension, Hx Pacemaker/ICD, Other Cardiovascular Problems/ Disorders - PACEMAKER Denies: Hx Peripheral Vascular Disease History: Reports: Other Problems/Disorders - CKD Musculoskeletal History: Reports: Hx Arthritis - Lt knee - injections have helped temporarily in the past, Hx Gout Denies: Hx Osteoporosis Sensory History: Reports: Hx Contacts or Glasses Denies: Hx Hearing Aid Opthamlomology History: Reports: Hx Contacts or Glasses Neurological History: Denies: Hx Headaches, Hx Seizures, Hx Transient Ischemic Attacks (TIA) Psychiatric History: Denies: Hx Anxiety, Hx Depression - Cancer History Cancer Type, Location and Year: bladder ca - Surgical History Surgery Procedure, Year, and Place: PACEMAKER - Immunization History Date of Tetanus Vaccine: unk Date of Influenza Vaccine: fall 2016 Infectious Disease History: No Infectious Disease History: Denies: Traveled Outside the [place] in Last 30 Days - Family History Known Family History: Positive: Cardiac Disease Negative: Hypertension, Diabetes - Social History Alcohol Use: None Hx Substance Use: No Substance Use Type: Reports: None Hx Tobacco Use: No Smoking Status (MU): Former Smoker Review of Systems Negative: Fever Positive: Abdominal Pain. Negative: Vomiting All Other Systems Reviewed And Are Negative: Yes Physical Exam - Summary Physical Exam Summary: VITAL SIGNS: Reviewed. GENERAL: ~Patient is a well-developed and nourished male who is lying comfortable in the stretcher. Patient is not in any acute respiratory distress. HEAD AND FACE: No signs of trauma. No ecchymosis, hematomas or skull depressions. No sinus tenderness. EYES: PERRLA, EOMI x 2, No injected conjunctiva, no nystagmus. EARS: Hearing grossly intact. Ear canals and tympanic membranes are within normal limits. MOUTH: Oropharynx within normal limits. NECK: Supple, trachea is midline, no adenopathy, no JVD, no carotid bruit, no c- spine tenderness, neck with full ROM. CHEST: Symmetric, no tenderness at palpation LUNGS: Clear to auscultation bilaterally. No wheezing or crackles. CVS: Regular rate and rhythm, S1 and S2 present, no murmurs or gallops appreciated. ABDOMEN: Soft, mild mid-abdominal tenderness. No signs of distention. No rebound no guarding, and no masses palpated. Hyperactive bowel sounds. EXTREMITIES: FROM in all major joints, no edema, no cyanosis or clubbing. NEURO: Alert and oriented x 3. No acute neurological deficits. Speech is normal and follows commands. SKIN: Dry and warm Rectal: No rectal masses. Triage Information Reviewed: Yes Vital Signs On Initial Exam: Initial Vitals Temp Pulse Resp BP Pulse Ox 98.4 F 76 20 140/100 95 09/27/17 01:22 09/27/17 01:22 09/27/17 01:22 09/27/17 01:22 09/27/17 01:22 Vital Signs Reviewed: Yes Diagnostics - Vital Signs Vital Signs Temp Pulse Resp BP Pulse Ox 09/27/17 01:22 98.4 F 76 20 140/100 95 - Laboratory Result Diagrams: 09/27/17 02:07 09/27/17 02:07 Lab Statement: Any lab studies that have been ordered have been reviewed, and results considered in the medical decision making process. - CT CT Abd/Pel CT Interpretation Completed By: Radiologist - Small right pleural effusion. Trace pericardial effusion. Mild prostate enlargement and questionable mild cystitis can be correlated with urinalysis. ED physician reviewed this radiology report, pending official radiology report. Re-Evaluation - Re-Evaluation First Eval Re-Evaluation Time: 03:43 Comment: Discussed CT, blood and UA results with the pt and his son. Explained plan to D/C. They understand and agree. Abdominal Pain Fem Course/Dx - Course Assessment/Plan: Pt is an 87 y/o M BIBA who presents to ED accompanied by his healthcare proxy c/o intermittent epigastric abdominal pain for 3 days. Pain is currently mild, ranked 2/10. Denies vomiting. States that his last BM was this afternoon, but it was small and suspects that he may be constipated with his proxy reporting that his diet has changed recently. He has previously been at an assisted living facility, though he is now eating what is cooked by his proxy. Is on a blood thinner. PSHx appy. Bloodwork and UA were done in the ED course. CT Abd/Pel findings above. In the ED course, pt received fluids and Protonix. He will be D/C to home with Dx of GERD and chronic renal insufficiency with a followup with his PCP and Rx for Zofran and Protonix. He and his son understand and agree. - Diagnoses Provider Diagnoses: Chronic renal insufficiency, Gastroesophageal reflux Discharge - Discharge Plan Condition: Stable Disposition: HOME Prescriptions: Ondansetron TAB* [Zofran 4 MG Tab*] 8 mg PO Q6H PRN #20 tab PRN Reason: Nausea/Vomiting Pantoprazole TAB (NF) [Protonix TAB (NF)] 40 mg PO DAILY #30 tab Patient Education Materials: Gastroesophageal Reflux Disease (ED) Referrals: Hayder Sherman MD [Primary Care Provider] - 3 Days Additional Instructions: RETURN TO EMERGENCY DEPARTMENT FOR ANY NEW OR WORSENING SYMPTOMS The documentation as recorded by the George woo Rebecca accurately reflects the service I personally performed and the decisions made by me, Claudette Buchanan MD.
[2017-09-27 04:10] VITALS: BP 156/88
--- NOTE | 2017-09-27 08:21 | RAD ---
INDICATION: 2 days epigastric pain. History of bladder cancer. COMPARISON: February 21, 2016 abdomen radiographs. TECHNIQUE: Multidetector CT images were obtained from the lung bases to the ischial tuberosities. Evaluation of the viscera is limited without IV contrast. Multiplanar reformation. REPORT: Images through the inferior thorax remarkable for cardiomegaly, dual chamber cardiac pacemaker leads, small dependent RIGHT pleural effusion, and evidence for mild interstitial pulmonary edema. Unremarkable unenhanced liver. Cholelithiasis without additional CT abnormality of the gallbladder. Moderately atrophic pancreas without suspicious CT finding. Heterogeneous density of the normal sized spleen with suggestion of a 1.4 cm hypodense lesion at the posterior aspect. Small hiatal hernia. No significant CT abnormality of the unopacified upper GI or small bowel. While the appendix is not discretely visualized, there is no inflammatory change in the right lower quadrant or region of the tip of the cecum to suggest presence of an acute inflammatory process. Mild colonic diverticulosis without findings of acute diverticulitis. Negative for ascites, free air, or significant hernias. Normal adrenal glands. Moderately severe bilateral renal cortical atrophy. Few small renal cortical cysts at the LEFT kidney. No suspicious focal renal lesions, urolithiasis, or hydronephrosis. Incompletely distended urinary bladder with mild diffuse prominence of the wall likely reflecting trabeculation. Symmetric seminal vesicles. Negative for thoracic lymphadenopathy. Severe atherosclerotic calcification of normal diameter abdominal aorta and iliac arteries. Diffuse advanced lumbar sacral spine degenerative spondylosis and facet joint osteoarthritis. Multiple Schmorl node endplate herniations. Negative for suspicious focal osseous lesions. IMPRESSION: 1. Cholelithiasis without additional CT abnormality of the gallbladder. Correlate with clinical assessment and consider RIGHT upper quadrant ultrasound if deemed appropriate. 2. While the appendix is not discretely visualized, there is no inflammatory change in the right lower quadrant or region of the tip of the cecum to suggest presence of an acute inflammatory process. 3. Moderately severe renal cortical atrophy. Negative for obstructive uropathy. 4. Indeterminate hypodense lesion at the posterior aspect of the spleen. Consider splenic ultrasound for further assessment. 5. Evidence for interstitial pulmonary edema at the visualized inferior thorax. Small dependent RIGHT pleural effusion.
== END 2017-09-27 04:10 | disposition home or self-care (01) ==
LOC: ED 01:18
DX: K21.9 Gastro-esophageal reflux disease without esophagitis (principal); Z95.0 Presence of cardiac pacemaker; Z85.51 Personal history of malignant neoplasm of bladder; Z87.891 Personal history of nicotine dependence; I48.91 Unspecified atrial fibrillation; Z79.01 Long term (current) use of anticoagulants; I12.9 Hypertensive chronic kidney disease with stage 1 through stage 4 chronic kidney disease, or unspecified chronic kidney disease; E11.22 Type 2 diabetes mellitus with diabetic chronic kidney disease; K80.20 Calculus of gallbladder without cholecystitis without obstruction
CPT/HCPCS: 36415; 74176; 80053; 81003; 81015; 82150; 83605; 83690; 83735; 85025; 85610; 85730; 86140; 87086; 96360; 96374; 99284

== ENCOUNTER 2017-12-02 01:09 | Inpatient (IN) | payer MEDICARE, OTHER ==
[2017-12-02] MEDS ORDERED: NS 0.9% 1000 ML*IV.FLUID IV ONE (01:41)
[2017-12-02 02:18] LABS: ABS Basophils 0 10^3/ul (0-0.2); ABS Eosinophils 0 10^3/ul (0-0.6); ABS Lymphocytes 0.2 10^3/ul (1.0-4.8); ABS Monocytes 0.4 10^3/ul (0-0.8); ABS Neutrophils 2.4 10^3/ul (1.5-7.7); ABS Nucleated RBC 0 10^3/ul; Eosinophil % 0.5 % (0-6); Hematocrit 31 % (42-52); Hemoglobin 10.4 g/dl (14.0-18.0); Lymphocyte % 6.8 % (25-47); Mean Corpuscular HGB Conc 33 g/dl (31-36); Mean Corpuscular Hemoglobin 35 pg (27-31); Mean Corpuscular Volume 104 fL (80-94); Mean Platelet Volume 8.1 um3 (7.4-10.4); Nucleated Red Blood Cells % 0; Platelet Count 102 10^3/ul (150-450); Red Blood Count 3.01 10^6/ul (4.0-5.4); Red Cell Distribution Width 16 % (10.5-15); White Blood Count 3.1 10^3/ul (3.5-10.8)
[2017-12-02 02:22] LABS: INR 1.59 (0.77-1.02)
[2017-12-02 02:33] LABS: EGFR Non-African American 17.3 (>60)
[2017-12-02 04:56] LABS: Urine Appearance Clear; Urine Blood 2+ (Negative); Urine Color Straw; Urine Ketones Negative (Negative); Urine Protein 2+(100 mg/dL) (Negative); Urine Specific Gravity 1.011 (1.010-1.030); Urine Urobilinogen Negative (Negative)
--- NOTE | 2017-12-02 05:56 | ED ---
Felipa Vera Emily, scribed for Nj Clement MD on 12/02/17 at 0142 . Throat Pain/Nasal Congestion - HPI Summary HPI Summary: This patient is an 87 year old M BIBA to [facility] with a chief complaint of sore throat that began two days ago. The patient rates the pain 9/10 in severity. Symptoms aggravated by nothing. Symptoms alleviated by nothing. Patient reports nonproductive cough, fever, myalgia, chills, and decreased appetite. Patient denies SOB and abd pain. - History of Current Complaint Chief Complaint: EDGeneral Time Seen by Provider: 12/02/17 01:35 Hx Obtained From: Patient Onset/Duration: Sudden Onset, Lasting Days, Still Present Severity: Severe Cough: Nonproductive - Allergies/Home Medications Allergies/Adverse Reactions: Allergies Allergy/AdvReac Type Severity Reaction Status Date / Time No Known Allergies Allergy Verified 08/24/17 20:36 PMH/Surg Hx/FS Hx/Imm Hx Previously Healthy: No Endocrine/Hematology History: Reports: Hx Anticoagulant Therapy - coumadin, Hx Diabetes - type II Cardiovascular History: Reports: Hx Atrial Fibrillation, Hx Congestive Heart Failure, Hx Hypertension, Hx Pacemaker/ICD, Other Cardiovascular Problems/ Disorders - PACEMAKER Denies: Hx Peripheral Vascular Disease History: Reports: Other Problems/Disorders - CKD Musculoskeletal History: Reports: Hx Arthritis - Lt knee - injections have helped temporarily in the past, Hx Gout Denies: Hx Osteoporosis Sensory History: Reports: Hx Contacts or Glasses Denies: Hx Hearing Aid Opthamlomology History: Reports: Hx Contacts or Glasses Neurological History: Denies: Hx Headaches, Hx Seizures, Hx Transient Ischemic Attacks (TIA) Psychiatric History: Denies: Hx Anxiety, Hx Depression - Cancer History Cancer Type, Location and Year: bladder ca - Surgical History Surgery Procedure, Year, and Place: PACEMAKER - Immunization History Date of Tetanus Vaccine: unk Date of Influenza Vaccine: fall 2016 Infectious Disease History: No Infectious Disease History: Denies: Traveled Outside the [place] in Last 30 Days - Family History Known Family History: Positive: Cardiac Disease Negative: Hypertension, Diabetes - Social History Occupation: Retired Lives: With Family Alcohol Use: None Hx Substance Use: No Substance Use Type: Reports: None Hx Tobacco Use: No Smoking Status (MU): Former Smoker Review of Systems Positive: Fever, Chills Positive: Sore Throat Positive: Cough. Negative: Shortness Of Breath Positive: Other - Positive decreased appetite. Negative: Abdominal Pain Positive: Myalgia All Other Systems Reviewed And Are Negative: Yes Physical Exam - Summary Physical Exam Summary: Appearance: Well-appearing, Well-nourished, lying in bed comfortably Skin: Warm, dry, no obvious rash Eyes: sclera anicteric, no conjunctiva pallor ENT: mucous membranes moist, pharynx appears normal Neck: Supple, nontender Respiratory: No sign of effusion in the lungs. Good aeration. Diffuse coarse rhonchi. Bronchial breath sounds on the right Cardiovascular: Normal S1, S2. No murmurs. Normal distal pulses in tibial and radial bilaterally. Irregularly irregular rhythm Abdomen: Soft, nontender, normal active bowel sounds present Musculoskeletal: Normal, Strength/ROM Intact Neurological: A&Ox3, awake and alert, mentation is normal, speech is fluent and appropriate Psychiatric: affect is normal, does not appear anxious or depressed Triage Information Reviewed: Yes Vital Signs On Initial Exam: Initial Vitals Temp Pulse Resp BP Pulse Ox 100.6 F 87 18 152/82 90 12/02/17 01:23 12/02/17 01:23 12/02/17 01:23 12/02/17 01:23 12/02/17 01:23 Vital Signs Reviewed: Yes Diagnostics - Vital Signs Vital Signs Temp Pulse Resp BP Pulse Ox 12/02/17 01:23 100.6 F 87 18 152/82 90 - Laboratory Lab Results: Lab Results 12/02/17 12/02/17 12/02/17 Range/Units 01:50 01:50 01:50 WBC 3.1 L (3.5-10.8) 10^3/ul RBC 3.01 L (4.0-5.4) 10^6/ul Hgb 10.4 L (14.0-18.0) g/dl Hct 31 L (42-52) % MCV 104 H (80-94) fL MCH 35 H (27-31) pg MCHC 33 (31-36) g/dl RDW 16 H (10.5-15) % Plt Count 102 L (150-450) 10^3/ul MPV 8.1 (7.4-10.4) um3 Neut % (Auto) 78.5 (38-83) % Lymph % (Auto) 6.8 L (25-47) % [place] % (Auto) 13.5 H (0-7) % Eos % (Auto) 0.5 (0-6) % Baso % (Auto) 0.7 (0-2) % Absolute Neuts (auto) 2.4 (1.5-7.7) 10^3/ul Absolute Lymphs (auto) 0.2 L (1.0-4.8) 10^3/ul Absolute Monos (auto) 0.4 (0-0.8) 10^3/ul Absolute Eos (auto) 0 (0-0.6) 10^3/ul Absolute Basos (auto) 0 (0-0.2) 10^3/ul Absolute Nucleated RBC 0 10^3/ul Nucleated RBC % 0 INR (Anticoag Therapy) 1.59 H (0.77-1.02) Sodium 143 (139-145) mmol/L Potassium 3.6 (3.5-5.0) mmol/L Chloride 103 (101-111) mmol/L Carbon Dioxide 30 (22-32) mmol/L Anion Gap 10 (2-11) mmol/L BUN 87 H (6-24) mg/dL Creatinine 3.40 H (0.67-1.17) mg/dL Est GFR ( Amer) 22.2 (>60) Est GFR (Non-Af Amer) 17.3 (>60) BUN/Creatinine Ratio 25.6 H (8-20) Glucose 182 H (70-100) mg/dL Lactic Acid (0.5-2.0) mmol/L Calcium 9.1 (8.6-10.3) mg/dL Total Bilirubin 0.60 (0.2-1.0) mg/dL AST 20 (13-39) U/L ALT 21 (7-52) U/L Alkaline Phosphatase 63 (34-104) U/L Troponin I 0.06 H* (<0.04) ng/mL C-Reactive Protein 12.72 H (< 5.00) mg/L Total Protein 6.6 (6.4-8.9) g/dL Albumin 3.7 (3.2-5.2) g/dL Globulin 2.9 (2-4) g/dL Albumin/Globulin Ratio 1.3 (1-3) Urine Color Urine Appearance Urine pH (5-9) Ur Specific [place] (1.010-1.030) Urine Protein (Negative) Urine Ketones (Negative) Urine Blood (Negative) Urine Nitrate (Negative) Urine Bilirubin (Negative) Urine Urobilinogen (Negative) Ur Leukocyte Esterase (Negative) Urine WBC (Auto) (Absent) Urine RBC (Auto) (Absent) Urine Bacteria (Absent) Urine Glucose (Negative) 12/02/17 12/02/17 Range/Units 01:50 04:35 WBC (3.5-10.8) 10^3/ul RBC (4.0-5.4) 10^6/ul Hgb (14.0-18.0) g/dl Hct (42-52) % MCV (80-94) fL MCH (27-31) pg MCHC (31-36) g/dl RDW (10.5-15) % Plt Count (150-450) 10^3/ul MPV (7.4-10.4) um3 Neut % (Auto) (38-83) % Lymph % (Auto) (25-47) % [place] % (Auto) (0-7) % Eos % (Auto) (0-6) % Baso % (Auto) (0-2) % Absolute Neuts (auto) (1.5-7.7) 10^3/ul Absolute Lymphs (auto) (1.0-4.8) 10^3/ul Absolute Monos (auto) (0-0.8) 10^3/ul Absolute Eos (auto) (0-0.6) 10^3/ul Absolute Basos (auto) (0-0.2) 10^3/ul Absolute Nucleated RBC 10^3/ul Nucleated RBC % INR (Anticoag Therapy) (0.77-1.02) Sodium (139-145) mmol/L Potassium (3.5-5.0) mmol/L Chloride (101-111) mmol/L Carbon Dioxide (22-32) mmol/L Anion Gap (2-11) mmol/L BUN (6-24) mg/dL Creatinine (0.67-1.17) mg/dL Est GFR ( Amer) (>60) Est GFR (Non-Af Amer) (>60) BUN/Creatinine Ratio (8-20) Glucose (70-100) mg/dL Lactic Acid 0.7 (0.5-2.0) mmol/L Calcium (8.6-10.3) mg/dL Total Bilirubin (0.2-1.0) mg/dL AST (13-39) U/L ALT (7-52) U/L Alkaline Phosphatase (34-104) U/L Troponin I (<0.04) ng/mL C-Reactive Protein (< 5.00) mg/L Total Protein (6.4-8.9) g/dL Albumin (3.2-5.2) g/dL Globulin (2-4) g/dL Albumin/Globulin Ratio (1-3) Urine Color Straw Urine Appearance Clear Urine pH 6.0 (5-9) Ur Specific [place] 1.011 (1.010-1.030) Urine Protein 2+(100 mg/dl) A (Negative) Urine Ketones Negative (Negative) Urine Blood 2+ A (Negative) Urine Nitrate Negative (Negative) Urine Bilirubin Negative (Negative) Urine Urobilinogen Negative (Negative) Ur Leukocyte Esterase Negative (Negative) Urine WBC (Auto) Trace(0-5/hpf) (Absent) Urine RBC (Auto) 2+(6-10/hpf) A (Absent) Urine Bacteria Absent (Absent) Urine Glucose Negative (Negative) Result Diagrams: 12/02/17 01:50 12/02/17 01:50 Lab Statement: Any lab studies that have been ordered have been reviewed, and results considered in the medical decision making process. - Radiology CXR Radiology Interpretation Completed By: ED Physician - CXR reveals, per ED physician, no acute disease - EKG 0153 Cardiac Rate: NL EKG Rhythm: Sinus Rhythm - 79 BPM EKG Interpretation: LVH with secondary repolarization abnormality Re-Evaluation - Re-Evaluation First Eval Re-Evaluation Time: 05:03 Change: Unchanged Comment: Pt reports that his symptoms have not improved EENT Course/Dx - Diagnoses Provider Diagnoses: Fever, Cough - Provider Notifications Discussed Care Of Patient With: Yemi Perea Time Discussed With Above Provider: 05:20 Instructed by Provider To: Other - Consult with Dr. Perea (hospitalist) at 0520. He agrees to admit pt for further evaluation Discharge - Sign-Out/Discharge Documenting (check all that apply): Discharge/Admit/Transfer - Discharge Plan Condition: Guarded Disposition: ADMITTED TO [facility] Referrals: Hayder Sherman MD [Primary Care Provider] - - Billing Disposition and Condition Condition: GUARDED Disposition: [facility] [place] The documentation as recorded by the Felipa woo Emily accurately reflects the service I personally performed and the decisions made by me, Nj Clement MD.
--- NOTE | 2017-12-02 08:03 | RAD ---
HISTORY: Fever cough COMPARISONS: August 24, 2017 VIEWS: 3: Frontal and lateral views of the chest. FINDINGS: CARDIOMEDIASTINAL SILHOUETTE: The cardiomediastinal silhouette is normal. NIKOLAI: The nikolai are normal. PLEURA: The costophrenic angles are sharp. There is mild eventration of the right hemidiaphragm.. LUNG PARENCHYMA: The lungs are clear. ABDOMEN: The upper abdomen is clear. There is no subphrenic gas. BONES AND SOFT TISSUES: Degenerative changes are noted along the spine. OTHER: A left-sided pacemaker is noted IMPRESSION: NO ACTIVE CARDIOPULMONARY DISEASE.
[2017-12-02] MEDS ORDERED: Benzocaine/Menthol LOZ* 1 LOZENGE PO PRN (08:09)
[2017-12-02] MEDS ORDERED: Acetaminophen TAB* 325 MG ONE (08:19)
[2017-12-02] MEDS: Acetaminophen TAB* 325 MG PO PRN ×3 (08:20→20:25)
[2017-12-02] MEDS: NS 0.9% 1000 ML* 1,000 ML IV SCH (11:09)
[2017-12-02] MEDS: Ferrous Sulfate TAB* 325 MG PO SCH (11:13)
[2017-12-02] MEDS: Metoprolol Tartrate TAB* 50 mg PO SCH ×2 (11:13→17:53)
[2017-12-02] MEDS: Gabapentin CAP(*) 100 MG PO SCH ×2 (11:13→20:24)
[2017-12-02] MEDS: Allopurinol TAB* 100 MG PO SCH (11:13)
[2017-12-02] MEDS: Cholecalciferol TAB* 1000 UNITS PO SCH (11:13)
[2017-12-02] MEDS: Omeprazole CAP* 20 MG PO SCH (11:14)
[2017-12-02] MEDS: amLODIPine TAB* 5 MG PO SCH (11:14)
[2017-12-02] MEDS: Cyanocobalamin TAB* 500 MCG PO SCH (11:14)
[2017-12-02] MEDS ORDERED: Dextrose 50% Syringe 50 ML* 25 GM/50 ML SYRINGE IV PUSH PRN (11:35)
[2017-12-02] MEDS: Insulin LISPRO* 1 UNITS UNIT SUBCUT SCH ×3 (11:45→21:39)
[2017-12-02] MEDS: Heparin VIAL(*) 5000 UNITS/ML VIAL (FIVE THOUSAND) SUBCUT SCH ×2 (13:44→21:39)
--- NOTE | 2017-12-02 19:50 | HP ---
CC: Dr. Sherman HISTORY AND PHYSICAL: DATE OF ADMISSION: 12/02/17 TIME OF EVALUATION: 07:50 a.m. PRIMARY CARE PROVIDER: Dr. Sherman. CHIEF COMPLAINT: Sore throat. HISTORY OF PRESENT ILLNESS: Mr. Davison is an 87-year-old male with a past medical history of atrial fibrillation, type 2 diabetes, CKD stage 3, systolic congestive heart failure, hypertension, CAD, BPH , bladder cancer, status post pacemaker, who presented to the emergency room with complaints of sore throat. The patient states that 3 days ago, he started to have progressive pain on his throat to the point th at he was having difficulty ingesting food and liquids. He also complained of malaise, fatigue, and body aches. He is not aware of having a fever, but his temperature on the arrival was 100.6. He denies chest pain, palpitations, or shortness of breath. He does have a sporadic dry cough. He d enies any urinary or bowel complaints. He denies dysuria, but he did notice that his urine was darker and smaller amount than usual. In the emergency room, his workup showed elevation of his creatinine to 3.4 from baseline of 2.5, and the hospitalist service was called for further evaluation. PAST MEDICAL HISTORY: 1. Atrial fibrillation. 2. Type 2 diabetes. 3. CKD stage 3. 4. Systolic congestive heart failure. 5. Hypertension. 6. CAD. 7. BPH. 8. History of bladder CA. PAST SURGICAL HISTORY: 1. Status post pacemaker. 2. Status post appendectomy. MEDICATION LIST: 1. Acetaminophen 650 mg p.o. q.6 hours p.r.n. pain or fever. 2. Allopurinol 100 mg p.o. daily. 3. Amlodipine 5 mg p.o. daily. 4. Cholecalciferol 1000 units p.o. daily. 5. Cyanocobalamin 1000 mcg p.o. daily. 6. Doxazosin 4 mg p.o. at bedtime. 7. Ferrous sulfate 325 mg p.o. daily. 8. Furosemide 40 mg p.o. b.i.d. 9. Gabapentin 100 mg p.o. in the morning and 300 mg p.o. at bedtime. 10. Glipizide 10 mg p.o. b.i.d. 11. Metoprolol tartrate 100 mg p.o. q.a.m. and 50 mg p.o. q.p.m. 12. Ondansetron ODT 8 mg p.o. q.6 hours p.r.n. nausea. 13. Pantoprazole 40 mg p.o. daily. 14. Pioglitazone 15 mg p.o. daily. 15. Potassium chloride 10 mEq p.o. daily. 16. Simvastatin 20 mg p.o. at bedtime. 17. Spironolactone 25 mg p.o. daily. 18. Warfarin 2.5 mg p.o. on Sundays, Mondays, Wednesdays, , and Saturdays and 5 mg p.o. on Tuesdays and Fridays. ALLERGIES: No known drug allergies. FAMILY HISTORY: His father had a history of COPD. SOCIAL HISTORY: The patient is a former smoker. He quit 60 years ago. He denies any alcohol or walter g use. The patient now resides with his son, Miguel Angel Davison, who is also his surrogate decision maker . Phone number is [phone] or [phone]. REVIEW OF SYSTEMS: A 14-point review of systems was performed and all the pertinent negative and pos itive findings are in the HPI. PHYSICAL EXAMINATION GENERAL: The patient is a pleasant elderly male, lying in the ED stretcher, in no acute distress. VITAL SIGNS: Temperature 100.6, heart rate 78, respiratory rate 20, oxygen saturation 97% on 2 L octavio al cannula, blood pressure is 147/82. HEENT: Pupils are equal. Dry mucous membranes. There is some erythema of the oropharynx, but no ex udates. CHEST: Breath sounds present bilaterally with no added sounds. CVS: Normal S1, S2. Regular rate and rhythm. ABDOMEN: Obese, soft, nontender, and nondistended. Bowel sounds are present. EXTREMITIES: No edema. NEUROLOGIC: He is alert and oriented x3. Able to move all 4 extremities. LABORATORY AND IMAGING DATA: The patient had a CBC that showed a WBC of 3.1, hemoglobin of 10.4, he matocrit of 31 with 78% neutrophils, platelets of 102. INR was 1.59. Chemistry showed sodium 143, p otassium 3.6, chloride of 103, bicarb of 30, BUN of 87, creatinine of 3.4, glucose of 182, lactic aci d of 0.7, calcium of 9.1. LFTs are normal. First troponin was 0.06 and followup was 0.05. CRP is 1 2. Urinalysis showed 2+ protein, 2+ blood, 2+ rbc's. Rapid influenza test was negative. Chest x-ray showed no active cardiopulmonary disease. EKG done on 12/02/17 at 01:53 a.m. showed sinu s rhythm at 79 beats per minute with signs of LVH. No significant change when compared to his prior from August 2017. ASSESSMENT AND PLAN: Mr. Davison is an 87-year-old male with a past medical history of atrial fibrill ation, type 2 diabetes, chronic kidney disease stage 3, systolic congestive heart failure, hypertensi on, coronary artery disease, benign prostatic hyperplasia, bladder carcinoma, status post pacemaker, who presents to the emergency room with complaints of sore throat, found to be dehydrated due to poor oral intake secondary to pharyngitis. 1. Pharyngitis. I suspect this is likely viral in nature. Throat culture was sent in the emergency room, but I do not think antibiotics are indicated at this time. The patient will be received sympt omatic treatment with throat lozenges and pain medication. 2. Dehydration. Secondary to poor oral intake due to his sore throat. The patient will receive gen tle IV hydration and supportive care. 3. Acute kidney injury. Acute kidney injury on top of chronic kidney disease due to dehydration (pr erenal). The patient will receive IV hydration and we are going to monitor his renal function. 4. Pancytopenia. This appears to be chronic. The patient has had leukopenia going back to 2017. Adriana landry has been anemic since 2016, but his hemoglobin is better at this point and he has also had thromboc ytopenia going back to 2013. He does have MCV and MCH elevation. I am going to check a B12 and hadley te levels, but he will need to follow up as outpatient as this may be a sign of myelodysplastic syndr ome. 5. Type 2 diabetes. The patient's last A1c in July was 6.6. Since his p.o. intake has been poor , we are going to hold his oral hypoglycemiants and he will have fingersticks with a lispro sliding s danii. 6. Hypertension. We will continue his amlodipine, metoprolol with holding parameters. 7. Atrial fibrillation. The patient is in sinus rhythm at this time and his INR is subtherapeutic. We are going to increase his warfarin to 5 mg today and the dose should be adjusted accordingly. 9. DVT prophylaxis. The patient has a score of 5 on the DVT Prophylaxis Risk Assessment Guide and h e will be started on subcutaneous heparin until his INR is therapeutic again. 10. Code status was discussed with the patient and he wishes to be a do not resuscitate. A MOLST fo rm was filled up. TIME SPENT: Approximately 50 minutes was spent with the patient interview, medical records review, p hysical examination to complete this admission; more than half of this time was spent [id number] wi th the patient and coordination of care. [id number]/[facility] #: [id number]
[2017-12-02] MEDS: Atorvastatin* 10 MG TAB PO SCH (20:25)
[2017-12-02] MEDS: PROCHLORPERAZINE INJ 5 MG/ML 2 ML VIAL IV PRN (20:36)
[2017-12-02] MEDS: Doxazosin TAB* 2 MG PO SCH (21:39)
--- NOTE | 2017-12-03 01:29 | PN ---
Progress Note - Progress Note Date of Service: 12/03/17 Note: Called by nursing re: hypoxia & tachypnea. Mr Davison is an 87YO male admitted for JENNIE & pharyngitis who has developed tachypnea in the 40s, hypoxia to an saO2 88% on 5L NC. Converting to 5L oxymask increased his saO2 to the low 90s. He meets SIRS criteria for tachypnea, fever (present on admission), & leukopenia (chronic/stable). Admitting CXR was negative for acute process. He has a net positive fluid balance of 3+L, but lung sounds are clear to tubular B w/o basilar cellophane crackles . HR is low 100s & systolic is 160s. He is quite lethargic, will open eyes to voice and make incoherent/incomprehensible attempts at answering. He appears in no physical discomfort beyond the tachypnea. He moves all 4 extremities. ABG: ph 7.49 pO2 55 pCO2 30 HCO3 25 repeat CXR: no acute process assessment: plan sepsis 2nd ?source : start piperacillin/tazobactam IV : blood CXs pending from earlier : continue close monitoring
[2017-12-03] MEDS ORDERED: Zosyn per Pharmacy* NOTE FOLLOW UP PRN (01:52)
[2017-12-03] MEDS ORDERED: ZOSYN 3.375 GM x ONE DOSE over 30 miuntes IVPB ×2 (02:00)
[2017-12-03] MEDS ORDERED: Piperacillin/Tazobac ADVAN(*) 3.375 GM in NS 0.9% 100 ML* 100 ML IVPB SCH (02:00)
[2017-12-03] MEDS: PROCHLORPERAZINE INJ 5 MG/ML 2 ML VIAL IV PRN (02:29)
[2017-12-03] MEDS: NS 0.9% 1000 ML* 1,000 ML IV SCH (02:34)
[2017-12-03 03:05] LABS: INR 1.26 (0.77-1.02)
[2017-12-03 03:18] LABS: EGFR Non-African American 20.4 (>60)
[2017-12-03] MEDS ORDERED: Acetaminophen SUPP* 650 MG SUPP PR PRN (04:05)
[2017-12-03 04:59] LABS: ABS Basophils 0 10^3/ul (0-0.2); ABS Eosinophils 0 10^3/ul (0-0.6); ABS Lymphocytes 0.2 10^3/ul (1.0-4.8); ABS Monocytes 0.4 10^3/ul (0-0.8); ABS Neutrophils 3.4 10^3/ul (1.5-7.7); ABS Nucleated RBC 0 10^3/ul; Eosinophil % 0 % (0-6); Hematocrit 31 % (42-52); Hemoglobin 10.4 g/dl (14.0-18.0); Lymphocyte % 5.4 % (25-47); Mean Corpuscular HGB Conc 33 g/dl (31-36); Mean Corpuscular Hemoglobin 35 pg (27-31); Mean Corpuscular Volume 104 fL (80-94); Mean Platelet Volume 8.6 um3 (7.4-10.4); Nucleated Red Blood Cells % 0; Platelet Count 91 10^3/ul (150-450); Red Cell Distribution Width 16 % (10.5-15)
[2017-12-03] MEDS ORDERED: hydrALAZINE IV* 20 MG/ML VIAL IV PRN (05:20)
[2017-12-03] MEDS ORDERED: ZOSYN 3.375 GM Q12H per EXTENDED INFUSION IVPB SCH ×2 (06:00)
[2017-12-03] MEDS: Heparin VIAL(*) 5000 UNITS/ML VIAL (FIVE THOUSAND) SUBCUT SCH ×3 (06:15→22:45)
--- NOTE | 2017-12-03 07:55 | RAD ---
HISTORY: Tachypnea COMPARISONS: December 02, 2017 VIEWS: 1: frontal portable view of the chest at 1:54 AM FINDINGS: LINES AND TUBES: There is left-sided pacemaker. CARDIOMEDIASTINAL SILHOUETTE: The cardiomediastinal silhouette is normal for portable technique. PLEURA: There is eventration of the right hemidiaphragm. LUNG PARENCHYMA: There has been interval development of confluent alveolar opacification of the left lower lung. ABDOMEN: The upper abdomen is clear. There is no subphrenic gas. BONES AND SOFT TISSUES: No bone or soft tissue abnormalities are noted. IMPRESSION: LEFT LOWER LUNG CONSOLIDATION. RECOMMEND FOLLOW-UP UNTIL RESOLUTION TO EXCLUDE UNDERLYING PULMONARY PARENCHYMAL PATHOLOGY.
--- NOTE | 2017-12-03 08:02 | RAD ---
HISTORY: NG tube placement COMPARISONS: December 03, 2017 at 1:48 AM VIEWS: 1: frontal portable view of the chest at 6:05 AM FINDINGS: LINES AND TUBES: A gastric tube is noted, with the tip in the left upper quadrant in a prepyloric position.. A left-sided pacemaker is noted. CARDIOMEDIASTINAL SILHOUETTE: The cardiomediastinal silhouette is normal for portable technique. PLEURA: The costophrenic angles are sharp. No pleural abnormalities are noted. LUNG PARENCHYMA: There is persistent confluent alveolar opacification of the retrocardiac left lower lung ABDOMEN: The upper abdomen is clear. There is no subphrenic gas. BONES AND SOFT TISSUES: No bone or soft tissue abnormalities are noted. IMPRESSION: LINES AND TUBES ABOVE. LEFT LOWER LUNG CONSOLIDATION.
[2017-12-03] MEDS: Insulin LISPRO* 1 UNITS UNIT SUBCUT SCH ×4 (08:38→20:41)
[2017-12-03] MEDS: Cyanocobalamin TAB* 500 MCG PO SCH (08:39)
[2017-12-03] MEDS: Metoprolol Tartrate TAB* 50 mg PO SCH ×2 (08:39→17:41)
[2017-12-03] MEDS: Gabapentin CAP(*) 100 MG PO SCH ×2 (08:39→20:29)
[2017-12-03] MEDS: Omeprazole CAP* 20 MG PO SCH (08:39)
[2017-12-03] MEDS: amLODIPine TAB* 5 MG PO SCH (08:39)
[2017-12-03] MEDS: Allopurinol TAB* 100 MG PO SCH (08:39)
[2017-12-03] MEDS: Ferrous Sulfate TAB* 325 MG PO SCH (08:39)
[2017-12-03] MEDS: Cholecalciferol TAB* 1000 UNITS PO SCH (08:39)
[2017-12-03] MEDS ORDERED: cefTRIAXone(*) 1 GM in NS 0.9% 50 ML* 50 ML IVPB SCH (09:00)
[2017-12-03] MEDS ORDERED: Azithromycin IV(*) 500 MG in NS 0.9% 250 ML* 250 ML IVPB SCH (09:30)
[2017-12-03] MEDS ORDERED: Morphine VIAL* 4 MG/ML VIAL (1 ml vial) IV PRN (11:23)
[2017-12-03] MEDS: Acetaminophen TAB* 325 MG PO PRN (11:35)
[2017-12-03] MEDS ORDERED: Zosyn per Pharmacy* NOTE FOLLOW UP SCH (12:00)
--- NOTE | 2017-12-03 15:31 | PN ---
Subjective Date of Service: 12/03/17 Interval History: Pt developed SOB last night likely due to CHF and was placed on BIPAP, vomited and possibly aspirated. now in ICU on Vapotherm. Stated that he feels better. Had an NG tube in and he pulled it out this aM. c/o sore throat afterwards Objective Active Medications: Acetaminophen (Tylenol Supp*) 650 mg HI Q6H PRN PRN Reason: FEVER/PAIN Last Admin: 12/03/17 04:50 Dose: 650 mg Acetaminophen (Tylenol Tab*) 650 mg PO Q4H PRN PRN Reason: FEVER/PAIN Last Admin: 12/03/17 11:35 Dose: 650 mg Allopurinol (Zyloprim Tab*) 100 mg PO DAILY [facility] Last Admin: 12/03/17 08:39 Dose: Not Given Amlodipine Besylate (Norvasc Tab*) 5 mg PO DAILY [facility] Last Admin: 12/03/17 08:39 Dose: Not Given Atorvastatin Calcium (Lipitor*) 10 mg PO BEDTIME [facility] Last Admin: 12/02/17 20:25 Dose: 10 mg Cholecalciferol (Vitamin D Tab*) 1,000 units PO DAILY [facility] Last Admin: 12/03/17 08:39 Dose: Not Given Cyanocobalamin (Vitamin B12 Tab*) 1,000 mcg PO DAILY [facility] Last Admin: 12/03/17 08:39 Dose: Not Given Dextrose (D50w Syringe 50 Ml*) 12.5 gm IV PUSH .FOR FS < 60 - SS PRN PRN Reason: FS < 60 Doxazosin Mesylate (Cardura Tab*) 4 mg PO BEDTIME [facility] Last Admin: 12/02/17 21:39 Dose: 4 mg Ferrous Sulfate (Ferrous Sulfate Tab*) 325 mg PO DAILY [facility] Last Admin: 12/03/17 08:39 Dose: Not Given Gabapentin (Neurontin Cap(*)) 300 mg PO BEDTIME [facility] Last Admin: 12/02/17 20:24 Dose: 300 mg Gabapentin (Neurontin Cap(*)) 100 mg PO DAILY [facility] Last Admin: 12/03/17 08:39 Dose: Not Given Heparin Sodium (Porcine) (Heparin Vial(*)) 5,000 units SUBCUT Q8HR [facility] Last Admin: 12/03/17 14:16 Dose: 5,000 units Hydralazine HCl (Apresoline Iv*) 10 mg IV Q4H PRN PRN Reason: Systolic >170 Piperacillin Sod/Tazobactam (Sod 3.375 gm/ Sodium Chloride) 100 mls @ 25 mls/ hr IVPB Q12H [facility] Insulin Human Lispro (Humalog*) 0 units SUBCUT ACHS [facility] PRN Reason: Protocol Last Admin: 12/03/17 11:42 Dose: 4 unit Metoprolol Tartrate (Lopressor Tab*) 100 mg PO QAM [facility] Last Admin: 12/03/17 08:39 Dose: Not Given Metoprolol Tartrate (Lopressor Tab*) 50 mg PO QPM [facility] Last Admin: 12/02/17 17:53 Dose: 50 mg Morphine Sulfate (Morphine Vial*) 1 mg IV Q4H PRN PRN Reason: PAIN Omeprazole (Prilosec Cap*) 20 mg PO DAILY [facility] Last Admin: 12/03/17 08:39 Dose: Not Given Pharmacy Consult (Zosyn Per Pharmacy*) 1 note FOLLOW UP .ZOSYN PER PHARMACY [facility] Prochlorperazine Edisylate (Compazine Inj*) 5 mg IV Q6H PRN PRN Reason: NAUSEA/VOMITING Last Admin: 12/03/17 02:29 Dose: 5 mg Throat Lozenges (Chloraseptic Darrion*) 1 darrion PO Q4H PRN PRN Reason: SORE THROAT Last Admin: 12/02/17 20:25 Dose: 1 darrion Warfarin Sodium (Coumadin Tab(*)) 5 mg PO DAILY@1700 [facility] PRN Reason: Protocol Vital Signs - 8 hr 12/03/17 12/03/17 12/03/17 07:31 07:45 08:00 Temperature Pulse Rate 91 86 88 Respiratory 20 22 20 Rate Blood Pressure 151/63 145/69 133/65 (mmHg) O2 Sat by Pulse 100 100 100 Oximetry 12/03/17 12/03/17 12/03/17 08:15 08:30 08:45 Temperature Pulse Rate 85 73 90 Respiratory 19 20 21 Rate Blood Pressure 147/68 145/67 139/74 (mmHg) O2 Sat by Pulse 100 100 100 Oximetry 12/03/17 12/03/17 12/03/17 09:00 09:16 09:30 Temperature 98.8 F 98.8 F Pulse Rate 74 94 77 Respiratory 20 20 17 Rate Blood Pressure 143/65 163/78 156/80 (mmHg) O2 Sat by Pulse 100 100 100 Oximetry 12/03/17 12/03/17 12/03/17 10:00 10:16 10:30 Temperature 98.8 F 98.6 F 98.6 F Pulse Rate 78 79 72 Respiratory 20 23 22 Rate Blood Pressure 130/72 153/81 148/92 (mmHg) O2 Sat by Pulse 100 100 100 Oximetry 12/03/17 12/03/17 12/03/17 10:46 11:00 11:15 Temperature 98.6 F 98.8 F 99.0 F Pulse Rate 96 68 78 Respiratory 20 18 23 Rate Blood Pressure 142/103 154/84 147/71 (mmHg) O2 Sat by Pulse 100 100 100 Oximetry 12/03/17 12/03/17 12/03/17 11:30 11:41 11:45 Temperature 99.0 F 98.3 F 99.1 F Pulse Rate 65 85 Respiratory 20 20 Rate Blood Pressure 144/71 145/83 (mmHg) O2 Sat by Pulse 100 100 Oximetry 12/03/17 12/03/17 12/03/17 12:00 12:15 12:30 Temperature 99.1 F 99.1 F 99.0 F Pulse Rate 66 70 73 Respiratory 20 17 16 Rate Blood Pressure 138/63 131/68 144/80 (mmHg) O2 Sat by Pulse 100 100 100 Oximetry 12/03/17 12/03/17 12/03/17 12:45 13:00 13:15 Temperature 99.0 F 98.8 F 98.8 F Pulse Rate 68 62 63 Respiratory 19 20 21 Rate Blood Pressure 135/70 130/57 139/69 (mmHg) O2 Sat by Pulse 100 100 100 Oximetry 12/03/17 12/03/17 12/03/17 13:30 13:45 14:00 Temperature 98.8 F 98.6 F 98.4 F Pulse Rate 61 61 66 Respiratory 19 19 16 Rate Blood Pressure 124/68 131/64 131/65 (mmHg) O2 Sat by Pulse 100 100 100 Oximetry Oxygen Devices in Use Now: High Flow Heated Nasal Cannula Appearance: 87 yo M appears very fatigued, falls asleep easlily during the interview Eyes: No Scleral Icterus, PERRLA Ears/Nose/Mouth/Throat: NL Teeth, Lips, Gums, Mucous Membranes Moist Neck: NL Appearance and Movements; NL JVP Respiratory: Symmetrical Chest Expansion and Respiratory Effort, - - crackles at b/l bases Cardiovascular: - - irregular Abdominal: NL Sounds; No Tenderness; No Distention, No Hepatosplenomegaly Lymphatic: No Cervical Adenopathy Extremities: No Clubbing, Cyanosis, - - trace pedal edema b/l Skin: No Nodules or Sclerosis Neurological: Alert and Oriented x 3, NL Muscle Strength and Tone Result Diagrams: 12/03/17 02:45 12/03/17 04:09 Additional Lab and Data: Lab Results 12/02/17 12/02/17 12/02/17 Range/Units 01:50 01:50 01:50 WBC 3.1 L (3.5-10.8) 10^3/ul RBC 3.01 L (4.0-5.4) 10^6/ul Hgb 10.4 L (14.0-18.0) g/dl Hct 31 L (42-52) % MCV 104 H (80-94) fL MCH 35 H (27-31) pg MCHC 33 (31-36) g/dl RDW 16 H (10.5-15) % Plt Count 102 L (150-450) 10^3/ul MPV 8.1 (7.4-10.4) um3 Neut % (Auto) 78.5 (38-83) % Lymph % (Auto) 6.8 L (25-47) % [place] % (Auto) 13.5 H (0-7) % Eos % (Auto) 0.5 (0-6) % Baso % (Auto) 0.7 (0-2) % Absolute Neuts (auto) 2.4 (1.5-7.7) 10^3/ul Absolute Lymphs (auto) 0.2 L (1.0-4.8) 10^3/ul Absolute Monos (auto) 0.4 (0-0.8) 10^3/ul Absolute Eos (auto) 0 (0-0.6) 10^3/ul Absolute Basos (auto) 0 (0-0.2) 10^3/ul Absolute Nucleated RBC 0 10^3/ul Nucleated RBC % 0 INR (Anticoag Therapy) 1.59 H (0.77-1.02) Sodium 143 (139-145) mmol/L Potassium 3.6 (3.5-5.0) mmol/L Chloride 103 (101-111) mmol/L Carbon Dioxide 30 (22-32) mmol/L Anion Gap 10 (2-11) mmol/L BUN 87 H (6-24) mg/dL Creatinine 3.40 H (0.67-1.17) mg/dL Est GFR ( Amer) 22.2 (>60) Est GFR (Non-Af Amer) 17.3 (>60) BUN/Creatinine Ratio 25.6 H (8-20) Glucose 182 H (70-100) mg/dL Lactic Acid (0.5-2.0) mmol/L Calcium 9.1 (8.6-10.3) mg/dL Total Bilirubin 0.60 (0.2-1.0) mg/dL AST 20 (13-39) U/L ALT 21 (7-52) U/L Alkaline Phosphatase 63 (34-104) U/L Troponin I 0.06 H* (<0.04) ng/mL C-Reactive Protein 12.72 H (< 5.00) mg/L Total Protein 6.6 (6.4-8.9) g/dL Albumin 3.7 (3.2-5.2) g/dL Globulin 2.9 (2-4) g/dL Albumin/Globulin Ratio 1.3 (1-3) Urine Color Urine Appearance Urine pH (5-9) Ur Specific [place] (1.010-1.030) Urine Protein (Negative) Urine Ketones (Negative) Urine Blood (Negative) Urine Nitrate (Negative) Urine Bilirubin (Negative) Urine Urobilinogen (Negative) Ur Leukocyte Esterase (Negative) Urine WBC (Auto) (Absent) Urine RBC (Auto) (Absent) Urine Bacteria (Absent) Urine Glucose (Negative) 12/02/17 12/02/17 Range/Units 01:50 04:35 WBC (3.5-10.8) 10^3/ul RBC (4.0-5.4) 10^6/ul Hgb (14.0-18.0) g/dl Hct (42-52) % MCV (80-94) fL MCH (27-31) pg MCHC (31-36) g/dl RDW (10.5-15) % Plt Count (150-450) 10^3/ul MPV (7.4-10.4) um3 Neut % (Auto) (38-83) % Lymph % (Auto) (25-47) % [place] % (Auto) (0-7) % Eos % (Auto) (0-6) % Baso % (Auto) (0-2) % Absolute Neuts (auto) (1.5-7.7) 10^3/ul Absolute Lymphs (auto) (1.0-4.8) 10^3/ul Absolute Monos (auto) (0-0.8) 10^3/ul Absolute Eos (auto) (0-0.6) 10^3/ul Absolute Basos (auto) (0-0.2) 10^3/ul Absolute Nucleated RBC 10^3/ul Nucleated RBC % INR (Anticoag Therapy) (0.77-1.02) Sodium (139-145) mmol/L Potassium (3.5-5.0) mmol/L Chloride (101-111) mmol/L Carbon Dioxide (22-32) mmol/L Anion Gap (2-11) mmol/L BUN (6-24) mg/dL Creatinine (0.67-1.17) mg/dL Est GFR ( Amer) (>60) Est GFR (Non-Af Amer) (>60) BUN/Creatinine Ratio (8-20) Glucose (70-100) mg/dL Lactic Acid 0.7 (0.5-2.0) mmol/L Calcium (8.6-10.3) mg/dL Total Bilirubin (0.2-1.0) mg/dL AST (13-39) U/L ALT (7-52) U/L Alkaline Phosphatase (34-104) U/L Troponin I (<0.04) ng/mL C-Reactive Protein (< 5.00) mg/L Total Protein (6.4-8.9) g/dL Albumin (3.2-5.2) g/dL Globulin (2-4) g/dL Albumin/Globulin Ratio (1-3) Urine Color Straw Urine Appearance Clear Urine pH 6.0 (5-9) Ur Specific [place] 1.011 (1.010-1.030) Urine Protein 2+(100 mg/dl) A (Negative) Urine Ketones Negative (Negative) Urine Blood 2+ A (Negative) Urine Nitrate Negative (Negative) Urine Bilirubin Negative (Negative) Urine Urobilinogen Negative (Negative) Ur Leukocyte Esterase Negative (Negative) Urine WBC (Auto) Trace(0-5/hpf) (Absent) Urine RBC (Auto) 2+(6-10/hpf) A (Absent) Urine Bacteria Absent (Absent) Urine Glucose Negative (Negative) Microbiology and Other Data: Microbiology 12/03/17 11:07 Group A Streptococcus Rapid Screen - Final Throat Specimen received for Rapid Strep A Molecular testing Assess/Plan/Problems-Billing Assessment: 87 yo M with h/o a. fib (on coumadin), DM2, CKD 3, diastolic CHF, pacer presented with pharyngitis and JENNIE - Patient Problems (1) Aspiration pneumonitis Comment: cont Zosyn (2) Pneumonia Comment: continue zosyn . CXR after rehydration shows LLL infitrate. I suspect it was present at admission , but due to dehydration was not visualized. In re:pharyngitis:throat cx pending, rapid strep neg (3) Acute renal failure Comment: due to dehydration, resolving (4) Acute on chronic diastolic (congestive) heart failure Comment: Suspect that last night's developement of acute hydoxemic respiratory failure was due to a combination of diastolic CHF and pneumonia due to pt's ongoing infection and low PO intake will not institute diuresis, will hold home Lasix. But will also stop IVF and monitor on Vapotherm (5) CKD (chronic kidney disease) stage 3, GFR 30-59 ml/min Comment: at baselinecreat 2.5. Pt had JENNIE at admission due to dehydration, resolving (6) Afib Comment: Rate controlled. Continue home metoprolol. (7) Diabetes Comment: Cont ISS. Glipizide , Actos held (8) DVT prophylaxis Comment: - Continue Warfarin.INR subtherapeutic. will cont HSQ for now Status and Disposition: inpatient
[2017-12-03] MEDS: Warfarin TAB(*) 5 MG PO SCH (17:40)
[2017-12-03] MEDS: ZOSYN 3.375 GM Q12H per EXTENDED INFUSION IVPB SCH ×2 (18:42)
[2017-12-03] MEDS: Atorvastatin* 10 MG TAB PO SCH (20:28)
[2017-12-03] MEDS: Doxazosin TAB* 2 MG PO SCH (20:29)
[2017-12-04] MEDS: ZOSYN 3.375 GM Q12H per EXTENDED INFUSION IVPB SCH ×4 (05:55→18:15)
[2017-12-04] MEDS: Heparin VIAL(*) 5000 UNITS/ML VIAL (FIVE THOUSAND) SUBCUT SCH ×3 (05:55→21:24)
[2017-12-04 06:16] LABS: Hematocrit 25 % (42-52); Hemoglobin 8.4 g/dl (14.0-18.0); Mean Corpuscular HGB Conc 34 g/dl (31-36); Mean Corpuscular Hemoglobin 35 pg (27-31); Mean Corpuscular Volume 103 fL (80-94); Platelet Count 78 10^3/ul (150-450); Red Cell Distribution Width 17 % (10.5-15); White Blood Count 4.9 10^3/ul (3.5-10.8)
[2017-12-04 06:20] LABS: EGFR Non-African American 17.3 (>60)
[2017-12-04 06:31] LABS: INR 1.53 (0.77-1.02)
[2017-12-04] MEDS: Cholecalciferol TAB* 1000 UNITS PO SCH (08:05)
[2017-12-04] MEDS: Cyanocobalamin TAB* 500 MCG PO SCH (08:05)
[2017-12-04] MEDS: Gabapentin CAP(*) 100 MG PO SCH ×2 (08:05→21:25)
[2017-12-04] MEDS: Metoprolol Tartrate TAB* 50 mg PO SCH ×2 (08:05→18:15)
[2017-12-04] MEDS: Allopurinol TAB* 100 MG PO SCH (08:05)
[2017-12-04] MEDS: Omeprazole CAP* 20 MG PO SCH (08:05)
[2017-12-04] MEDS: Ferrous Sulfate TAB* 325 MG PO SCH (08:06)
[2017-12-04] MEDS: amLODIPine TAB* 5 MG PO SCH (08:06)
[2017-12-04] MEDS: Insulin LISPRO* 1 UNITS UNIT SUBCUT SCH ×4 (08:08→21:24)
--- NOTE | 2017-12-04 10:56 | PN ---
Subjective Date of Service: 12/04/17 Interval History: Pt feels much better and feels that he in "on the mend". throat feels "better" Objective Active Medications: Acetaminophen (Tylenol Supp*) 650 mg [place] Q6H PRN PRN Reason: FEVER/PAIN Last Admin: 12/03/17 04:50 Dose: 650 mg Acetaminophen (Tylenol Tab*) 650 mg PO Q4H PRN PRN Reason: FEVER/PAIN Last Admin: 12/03/17 11:35 Dose: 650 mg Allopurinol (Zyloprim Tab*) 100 mg PO DAILY [facility] Last Admin: 12/04/17 08:05 Dose: 100 mg Amlodipine Besylate (Norvasc Tab*) 5 mg PO DAILY [facility] Last Admin: 12/04/17 08:06 Dose: 5 mg Atorvastatin Calcium (Lipitor*) 10 mg PO BEDTIME [facility] Last Admin: 12/03/17 20:28 Dose: 10 mg Cholecalciferol (Vitamin D Tab*) 1,000 units PO DAILY [facility] Last Admin: 12/04/17 08:05 Dose: 1,000 units Cyanocobalamin (Vitamin B12 Tab*) 1,000 mcg PO DAILY [facility] Last Admin: 12/04/17 08:05 Dose: 1,000 mcg Dextrose (D50w Syringe 50 Ml*) 12.5 gm IV PUSH .FOR FS < 60 - SS PRN PRN Reason: FS < 60 Doxazosin Mesylate (Cardura Tab*) 4 mg PO BEDTIME [facility] Last Admin: 12/03/17 20:29 Dose: 4 mg Ferrous Sulfate (Ferrous Sulfate Tab*) 325 mg PO DAILY [facility] Last Admin: 12/04/17 08:06 Dose: 325 mg Gabapentin (Neurontin Cap(*)) 300 mg PO BEDTIME [facility] Last Admin: 12/03/17 20:29 Dose: 300 mg Gabapentin (Neurontin Cap(*)) 100 mg PO DAILY [facility] Last Admin: 12/04/17 08:05 Dose: 100 mg Heparin Sodium (Porcine) (Heparin Vial(*)) 5,000 units SUBCUT Q8HR [facility] Last Admin: 12/04/17 05:55 Dose: 5,000 units Hydralazine HCl (Apresoline Iv*) 10 mg IV Q4H PRN PRN Reason: Systolic >170 Piperacillin Sod/Tazobactam (Sod 3.375 gm/ Sodium Chloride) 100 mls @ 25 mls/ hr IVPB Q12H [facility] Last Admin: 12/04/17 05:55 Dose: 25 mls/hr Potassium Chloride (Potassium Chloride 10 Meq/50 Ml Ivpremix*) 10 meq in 50 mls @ 50 mls/hr IV Q1H [facility] Stop: 12/04/17 12:59 Sodium Chloride (Ns 0.9% 1000 Ml*) 1,000 mls @ 75 mls/hr IV PER RATE [facility] Insulin Human Lispro (Humalog*) 0 units SUBCUT ACHS [facility] PRN Reason: Protocol Last Admin: 12/04/17 08:08 Dose: 2 unit Metoprolol Tartrate (Lopressor Tab*) 100 mg PO QAM [facility] Last Admin: 12/04/17 08:05 Dose: 100 mg Metoprolol Tartrate (Lopressor Tab*) 50 mg PO QPM [facility] Last Admin: 12/03/17 17:41 Dose: 50 mg Morphine Sulfate (Morphine Vial*) 1 mg IV Q4H PRN PRN Reason: PAIN Omeprazole (Prilosec Cap*) 20 mg PO DAILY [facility] Last Admin: 12/04/17 08:05 Dose: 20 mg Pharmacy Consult (Zosyn Per Pharmacy*) 1 note FOLLOW UP .ZOSYN PER PHARMACY [facility] Prochlorperazine Edisylate (Compazine Inj*) 5 mg IV Q6H PRN PRN Reason: NAUSEA/VOMITING Last Admin: 12/03/17 02:29 Dose: 5 mg Throat Lozenges (Chloraseptic Darrion*) 1 darrion PO Q4H PRN PRN Reason: SORE THROAT Last Admin: 12/02/17 20:25 Dose: 1 darrion Warfarin Sodium (Coumadin Tab(*)) 5 mg PO DAILY@1700 [facility] PRN Reason: Protocol Last Admin: 12/03/17 17:40 Dose: 5 mg Vital Signs - 8 hr 12/04/17 12/04/17 12/04/17 03:00 03:01 03:04 Temperature 99.1 F 99.1 F Pulse Rate 74 88 Respiratory 3 18 10 Rate Blood Pressure 113/55 (mmHg) O2 Sat by Pulse 100 100 Oximetry 12/04/17 12/04/17 12/04/17 03:42 04:00 04:57 Temperature 99.3 F Pulse Rate 70 Respiratory 20 21 20 Rate Blood Pressure 117/52 (mmHg) O2 Sat by Pulse 100 Oximetry 12/04/17 12/04/17 12/04/17 05:00 06:00 06:14 Temperature 99.0 F 98.8 F Pulse Rate 69 87 Respiratory 21 22 19 Rate Blood Pressure 127/64 147/88 (mmHg) O2 Sat by Pulse 100 100 Oximetry 12/04/17 12/04/17 12/04/17 07:00 07:01 07:37 Temperature 98.6 F 97.5 F Pulse Rate 86 102 Respiratory 26 17 19 Rate Blood Pressure 128/74 (mmHg) O2 Sat by Pulse 100 100 Oximetry 12/04/17 08:00 Temperature 99.0 F Pulse Rate 70 Respiratory 22 Rate Blood Pressure 156/70 (mmHg) O2 Sat by Pulse 100 Oximetry Oxygen Devices in Use Now: Nasal Cannula - high flow at 10 L Appearance: 87 yo M in nAD, aAOx3 Eyes: No Scleral Icterus, PERRLA Ears/Nose/Mouth/Throat: NL Teeth, Lips, Gums, Clear Oropharnyx, Mucous Membranes Moist Neck: NL Appearance and Movements; NL JVP, Trachea Midline Respiratory: Symmetrical Chest Expansion and Respiratory Effort, - - bibasiliar rhonchi Cardiovascular: NL Sounds; No Murmurs; No JVD, - - irregular, frequent PVC's on telem Abdominal: NL Sounds; No Tenderness; No Distention Lymphatic: No Cervical Adenopathy Extremities: No Clubbing, Cyanosis, - - trace pedal edema b/l Skin: No Rash or Ulcers, No Nodules or Sclerosis Neurological: Alert and Oriented x 3, NL Muscle Strength and Tone Result Diagrams: 12/04/17 05:40 12/04/17 05:40 Additional Lab and Data: Lab Results 12/02/17 12/02/17 12/02/17 Range/Units 01:50 01:50 01:50 WBC 3.1 L (3.5-10.8) 10^3/ul RBC 3.01 L (4.0-5.4) 10^6/ul Hgb 10.4 L (14.0-18.0) g/dl Hct 31 L (42-52) % MCV 104 H (80-94) fL MCH 35 H (27-31) pg MCHC 33 (31-36) g/dl RDW 16 H (10.5-15) % Plt Count 102 L (150-450) 10^3/ul MPV 8.1 (7.4-10.4) um3 Neut % (Auto) 78.5 (38-83) % Lymph % (Auto) 6.8 L (25-47) % [place] % (Auto) 13.5 H (0-7) % Eos % (Auto) 0.5 (0-6) % Baso % (Auto) 0.7 (0-2) % Absolute Neuts (auto) 2.4 (1.5-7.7) 10^3/ul Absolute Lymphs (auto) 0.2 L (1.0-4.8) 10^3/ul Absolute Monos (auto) 0.4 (0-0.8) 10^3/ul Absolute Eos (auto) 0 (0-0.6) 10^3/ul Absolute Basos (auto) 0 (0-0.2) 10^3/ul Absolute Nucleated RBC 0 10^3/ul Nucleated RBC % 0 INR (Anticoag Therapy) 1.59 H (0.77-1.02) Sodium 143 (139-145) mmol/L Potassium 3.6 (3.5-5.0) mmol/L Chloride 103 (101-111) mmol/L Carbon Dioxide 30 (22-32) mmol/L Anion Gap 10 (2-11) mmol/L BUN 87 H (6-24) mg/dL Creatinine 3.40 H (0.67-1.17) mg/dL Est GFR ( Amer) 22.2 (>60) Est GFR (Non-Af Amer) 17.3 (>60) BUN/Creatinine Ratio 25.6 H (8-20) Glucose 182 H (70-100) mg/dL Lactic Acid (0.5-2.0) mmol/L Calcium 9.1 (8.6-10.3) mg/dL Total Bilirubin 0.60 (0.2-1.0) mg/dL AST 20 (13-39) U/L ALT 21 (7-52) U/L Alkaline Phosphatase 63 (34-104) U/L Troponin I 0.06 H* (<0.04) ng/mL C-Reactive Protein 12.72 H (< 5.00) mg/L Total Protein 6.6 (6.4-8.9) g/dL Albumin 3.7 (3.2-5.2) g/dL Globulin 2.9 (2-4) g/dL Albumin/Globulin Ratio 1.3 (1-3) Urine Color Urine Appearance Urine pH (5-9) Ur Specific [place] (1.010-1.030) Urine Protein (Negative) Urine Ketones (Negative) Urine Blood (Negative) Urine Nitrate (Negative) Urine Bilirubin (Negative) Urine Urobilinogen (Negative) Ur Leukocyte Esterase (Negative) Urine WBC (Auto) (Absent) Urine RBC (Auto) (Absent) Urine Bacteria (Absent) Urine Glucose (Negative) 12/02/17 12/02/17 Range/Units 01:50 04:35 WBC (3.5-10.8) 10^3/ul RBC (4.0-5.4) 10^6/ul Hgb (14.0-18.0) g/dl Hct (42-52) % MCV (80-94) fL MCH (27-31) pg MCHC (31-36) g/dl RDW (10.5-15) % Plt Count (150-450) 10^3/ul MPV (7.4-10.4) um3 Neut % (Auto) (38-83) % Lymph % (Auto) (25-47) % [place] % (Auto) (0-7) % Eos % (Auto) (0-6) % Baso % (Auto) (0-2) % Absolute Neuts (auto) (1.5-7.7) 10^3/ul Absolute Lymphs (auto) (1.0-4.8) 10^3/ul Absolute Monos (auto) (0-0.8) 10^3/ul Absolute Eos (auto) (0-0.6) 10^3/ul Absolute Basos (auto) (0-0.2) 10^3/ul Absolute Nucleated RBC 10^3/ul Nucleated RBC % INR (Anticoag Therapy) (0.77-1.02) Sodium (139-145) mmol/L Potassium (3.5-5.0) mmol/L Chloride (101-111) mmol/L Carbon Dioxide (22-32) mmol/L Anion Gap (2-11) mmol/L BUN (6-24) mg/dL Creatinine (0.67-1.17) mg/dL Est GFR ( Amer) (>60) Est GFR (Non-Af Amer) (>60) BUN/Creatinine Ratio (8-20) Glucose (70-100) mg/dL Lactic Acid 0.7 (0.5-2.0) mmol/L Calcium (8.6-10.3) mg/dL Total Bilirubin (0.2-1.0) mg/dL AST (13-39) U/L ALT (7-52) U/L Alkaline Phosphatase (34-104) U/L Troponin I (<0.04) ng/mL C-Reactive Protein (< 5.00) mg/L Total Protein (6.4-8.9) g/dL Albumin (3.2-5.2) g/dL Globulin (2-4) g/dL Albumin/Globulin Ratio (1-3) Urine Color Straw Urine Appearance Clear Urine pH 6.0 (5-9) Ur Specific [place] 1.011 (1.010-1.030) Urine Protein 2+(100 mg/dl) A (Negative) Urine Ketones Negative (Negative) Urine Blood 2+ A (Negative) Urine Nitrate Negative (Negative) Urine Bilirubin Negative (Negative) Urine Urobilinogen Negative (Negative) Ur Leukocyte Esterase Negative (Negative) Urine WBC (Auto) Trace(0-5/hpf) (Absent) Urine RBC (Auto) 2+(6-10/hpf) A (Absent) Urine Bacteria Absent (Absent) Urine Glucose Negative (Negative) Microbiology and Other Data: Microbiology 12/03/17 11:07 Group A Streptococcus Rapid Screen - Final Throat Specimen received for Rapid Strep A Molecular testing Assess/Plan/Problems-Billing Assessment: 87 yo M with h/o a. fib (on coumadin), DM2, CKD 3, diastolic CHF, pacer presented with pharyngitis and JENNIE - Patient Problems (1) Aspiration pneumonitis Comment: cont Zosyn, 02 requirements improving (2) Pneumonia Comment: continue zosyn . CXR after rehydration showed LLL infitrate. I suspect it was present at admission, but due to dehydration was not visualized. In re:pharyngitis:throat cx pending, rapid strep neg (3) Acute renal failure Comment: due to dehydration,today creat is up again. will start gentle IVF (4) Acute on chronic diastolic (congestive) heart failure Comment: Suspect that lastdevelopement of acute hydoxemic respiratory failure on 12/02/17 was due to a combination of diastolic CHF and pneumonia due to pt's ongoing infection and low PO intake will not institute diuresis, will hold home Lasix. But will also start gentle IVF and monitor in ICU repeat Echo ordered. In 2017 pt had severe MR and EF 45% (5) CKD (chronic kidney disease) stage 3, GFR 30-59 ml/min Comment: at baseline creat 2.5. Pt had JENNIE at admission due to dehydration (6) Afib Comment: Rate controlled. Continue home metoprolol. (7) Diabetes Comment: Cont ISS. Glipizide , Actos held (8) DVT prophylaxis Comment: - Continue Warfarin.INR subtherapeutic. will cont HSQ for now Status and Disposition: inpatient
[2017-12-04] MEDS: NS 0.9% 1000 ML* 1,000 ML IV SCH (11:55)
[2017-12-04] MEDS: KCL 10 MEQ/50 ML IVPREMIX* 10 MEQ/50 ML BAG IV SCH ×4 (11:56→16:02)
[2017-12-04] MEDS ORDERED: KCL premix 10MEQ/50 ML x 1 TIME IV ONE (16:00)
--- NOTE | 2017-12-04 16:41 | ECHO ---
Patient: DEVEN SCHREIBER [facility] Rec#: [id number] : 1930 Date: 12/04/2017 Age: 87y Height: 170.18 cm / 67.0 in Weight: 81.65 kg / 180.0 lbs Sex: M BSA: 1.93 Room#: [facility] Admit Date#: 12/03/2017 Type: Inpatient Referring: Betsy Mota MD Reading: Elvis Walden DO Truck Body Builder: Tanya Rushing RDCS CC: Hayder Sherman MD Transthoracic Echocardiogram Indication: SOB BP: 156/70 HR: 81 Rhythm: Paced Findings History: A-fib,CHF,HTN,s/p pacer insert,DM,CKD. Technical Comments: The study quality is good. Completed at 1450. Left Ventricle: The left ventricular chamber size is normal. Mild to moderate concentric left ventricular hypertrophy is observed. There is global hypokinesis of the left ventricle with minor regional variation. There is mildly decreased left ventricular systolic function.with an LVEF of approximately 45% The assessment of diastolic function is non-diagnostic. Left Atrium: The left atrium is moderate to severely dilated. Right Ventricle: The right ventricular chamber size and systolic function are within normal limits. A pacemaker wire is visualized in the right ventricle. Right Atrium: The right atrium is mildly dilated. A pacemaker wire is visualized in the right atrium. Aortic Valve: The aortic valve is trileaflet. The aortic valve leaflets are mildly thickened. Mild aortic leaflet calcification is visualized. There is trace to mild aortic regurgitation. There is no evidence of aortic stenosis. Mitral Valve: The mitral valve leaflets are mildly thickened. There is mild to moderate mitral regurgitation. There is no evidence of mitral stenosis. Tricuspid Valve: The tricuspid valve leaflets are normal. There is mild tricuspid regurgitation. There is evidence of mild to moderate pulmonary hypertension. Pulmonic Valve: The pulmonic valve appears normal. There is a trace pulmonic regurgitation. There is no pulmonic stenosis. Pericardium: There is no significant pericardial effusion. Aorta: There is no dilatation of the ascending aorta. The aortic arch is not well visualized. There is no dilation of the aortic root. Pulmonary Artery: The main pulmonary artery is not well visualized. Venous: The venous system is not well visualized. Conclusions The left ventricular chamber size is normal. Mild to moderate concentric left ventricular hypertrophy is observed. There is global hypokinesis of the left ventricle with minor regional variation. There is mildly decreased left ventricular systolic function. The estimated ejection fraction is 45% The left atrium is moderate to severely dilated. The right ventricular chamber size and systolic function are within normal limits. A pacemaker wire is visualized in the right ventricle. There is mild to moderate mitral regurgitation. There is mild tricuspid regurgitation. There is evidence of mild to moderate pulmonary hypertension. Patient is in atrial fibrillation at time of study Compared to prior study from 10/2016, degree of MR appears less severe Measurements Name Value Normal Range RVIDd (AP) 2D 3.3 cm (0.9 - 2.6) RVDdMajor (2D) 4.2 cm (2.2 - 4.4) RAd ISD 4CH 6.7 cm (3.4 - 4.9) RA (A4C)W 4.4 cm (2.9 - 4.6) IVSd (2D) 1.3 cm (0.6 - 1) LVPWd (2D) 1.4 cm (0.6 - 1) LVIDd (2D) 4.8 cm (3.6 - 5.4) LVIDs (2D) 3 cm - LV FS (2D) 37 % (25 - 45) Aortic Annulus 2.2 cm (1.4 - 2.6) Ao root diameter (2D) 3 cm (2.1 - 3.5) Ascending Ao 3 cm (2.1 - 3.4) LA dimension (AP) 2D 5.2 cm (2.3 - 3.8) LAd ISD 4CH 5.9 cm (2.9 - 5.3) LA ISD 4CH W 4.7 cm (2.5 - 4.5) Name Value Normal Range LA ESV SP 4CH (A/L) 93 ml - LA ESV SP 2CH (A/L) 73 ml - LA ESV BP (A/L) 84 ml - LA ESV BP (A/L) index 43.08 ml/m2 - LA ESV SP 4CH (MOD) 81 ml - LA ESV SP 2CH (MOD) 71 ml - Name Value Normal Range MV E-wave Vmax 1 m/sec - MV deceleration time 163 msec - LV septal e' Vmax 0.06 m/sec - LV lateral e' Vmax 0.09 m/sec - LV E:e' septal ratio 16.67 ratio - LV E:e' lateral ratio 11.11 ratio - Name Value Normal Range AV Vmax 1.3 m/sec - AV VTI 26.8 cm - AV peak gradient 6.37 mmHg - AV mean gradient 3.11 mmHg - LVOT Vmax 0.8 m/sec - LVOT VTI 15.6 cm - LVOT peak gradient 2.44 mmHg - LVOT mean gradient 1.19 mmHg - AR PHT 822 msec - AR peak gradient 24.11 mmHg - Name Value Normal Range MR Vmax 3.7 m/sec - MR VTI 121 cm - Name Value Normal Range TR Vmax 3.1 m/sec - TR peak gradient 35 mmHg - RAP 8 mmHg - RVSP 46.4 mmHg - Name Value Normal Range PV Vmax 0.7 m/sec - PV peak gradient 1.87 mmHg -
[2017-12-04] MEDS: Warfarin TAB(*) 5 MG PO SCH (17:48)
[2017-12-04] MEDS: Acetaminophen TAB* 325 MG PO PRN (19:50)
[2017-12-04] MEDS: Doxazosin TAB* 2 MG PO SCH (21:24)
[2017-12-04] MEDS: Atorvastatin* 10 MG TAB PO SCH (21:25)
[2017-12-05] MEDS: NS 0.9% 1000 ML* 1,000 ML IV SCH (00:14)
[2017-12-05] MEDS: Heparin VIAL(*) 5000 UNITS/ML VIAL (FIVE THOUSAND) SUBCUT SCH ×3 (05:34→20:46)
[2017-12-05] MEDS: ZOSYN 3.375 GM Q12H per EXTENDED INFUSION IVPB SCH ×4 (05:35→17:28)
[2017-12-05 05:48] LABS: ABS Basophils 0 10^3/ul (0-0.2); ABS Eosinophils 0 10^3/ul (0-0.6); ABS Lymphocytes 0.4 10^3/ul (1.0-4.8); ABS Monocytes 0.2 10^3/ul (0-0.8); ABS Neutrophils 1.8 10^3/ul (1.5-7.7); ABS Nucleated RBC 0 10^3/ul; Eosinophil % 1.8 % (0-6); Hematocrit 20 % (42-52); Hemoglobin 6.6 g/dl (14.0-18.0); Lymphocyte % 16.9 % (25-47); Mean Corpuscular HGB Conc 33 g/dl (31-36); Mean Corpuscular Hemoglobin 35 pg (27-31); Mean Corpuscular Volume 104 fL (80-94); Mean Platelet Volume 8.1 um3 (7.4-10.4); Nucleated Red Blood Cells % 0; Platelet Count 69 10^3/ul (150-450); Red Cell Distribution Width 17 % (10.5-15); White Blood Count 2.4 10^3/ul (3.5-10.8)
[2017-12-05 05:52] LABS: INR 1.8 (0.77-1.02)
[2017-12-05 06:05] LABS: EGFR Non-African American 20.7 (>60)
[2017-12-05] MEDS: Insulin LISPRO* 1 UNITS UNIT SUBCUT SCH ×4 (07:20→20:46)
[2017-12-05] MEDS: amLODIPine TAB* 5 MG PO SCH (08:40)
[2017-12-05] MEDS: Allopurinol TAB* 100 MG PO SCH (08:40)
[2017-12-05] MEDS: Cyanocobalamin TAB* 500 MCG PO SCH (08:40)
[2017-12-05] MEDS: Ferrous Sulfate TAB* 325 MG PO SCH (08:40)
[2017-12-05] MEDS: Acetaminophen TAB* 325 MG PO PRN ×2 (08:40→17:28)
[2017-12-05] MEDS: Omeprazole CAP* 20 MG PO SCH (08:41)
[2017-12-05] MEDS: Cholecalciferol TAB* 1000 UNITS PO SCH (08:41)
[2017-12-05] MEDS: Gabapentin CAP(*) 100 MG PO SCH ×2 (08:41→20:46)
[2017-12-05] MEDS: Metoprolol Tartrate TAB* 50 mg PO SCH ×2 (08:41→17:29)
[2017-12-05] MEDS ORDERED: Potassium Chloride LIQUID* 20 MEQ PACKET PO ONE (09:09)
--- NOTE | 2017-12-05 09:22 | PN ---
Subjective Date of Service: 12/05/17 Interval History: Sore throat greatest on right. Has been tender to touch but better now. Coughing during interview. Able to tolerate breakfast. Feels fatigued. Objective Active Medications: Acetaminophen (Tylenol Supp*) 650 mg NC Q6H PRN PRN Reason: FEVER/PAIN Last Admin: 12/03/17 04:50 Dose: 650 mg Acetaminophen (Tylenol Tab*) 650 mg PO Q4H PRN PRN Reason: FEVER/PAIN Last Admin: 12/05/17 08:40 Dose: 650 mg Allopurinol (Zyloprim Tab*) 100 mg PO DAILY [facility] Last Admin: 12/05/17 08:40 Dose: 100 mg Amlodipine Besylate (Norvasc Tab*) 5 mg PO DAILY [facility] Last Admin: 12/05/17 08:40 Dose: 5 mg Atorvastatin Calcium (Lipitor*) 10 mg PO BEDTIME [facility] Last Admin: 12/04/17 21:25 Dose: 10 mg Cholecalciferol (Vitamin D Tab*) 1,000 units PO DAILY [facility] Last Admin: 12/05/17 08:41 Dose: 1,000 units Cyanocobalamin (Vitamin B12 Tab*) 1,000 mcg PO DAILY [facility] Last Admin: 12/05/17 08:40 Dose: 1,000 mcg Dextrose (D50w Syringe 50 Ml*) 12.5 gm IV PUSH .FOR FS < 60 - SS PRN PRN Reason: FS < 60 Doxazosin Mesylate (Cardura Tab*) 4 mg PO BEDTIME [facility] Last Admin: 12/04/17 21:24 Dose: 4 mg Ferrous Sulfate (Ferrous Sulfate Tab*) 325 mg PO DAILY [facility] Last Admin: 12/05/17 08:40 Dose: 325 mg Gabapentin (Neurontin Cap(*)) 300 mg PO BEDTIME [facility] Last Admin: 12/04/17 21:25 Dose: 300 mg Gabapentin (Neurontin Cap(*)) 100 mg PO DAILY [facility] Last Admin: 12/05/17 08:41 Dose: 100 mg Heparin Sodium (Porcine) (Heparin Vial(*)) 5,000 units SUBCUT Q8HR [facility] Last Admin: 12/05/17 05:34 Dose: 5,000 units Hydralazine HCl (Apresoline Iv*) 10 mg IV Q4H PRN PRN Reason: Systolic >170 Piperacillin Sod/Tazobactam (Sod 3.375 gm/ Sodium Chloride) 100 mls @ 25 mls/ hr IVPB Q12H [facility] Last Admin: 12/05/17 05:35 Dose: 25 mls/hr Insulin Human Lispro (Humalog*) 0 units SUBCUT ACHS [facility] PRN Reason: Protocol Last Admin: 12/05/17 07:20 Dose: Not Given Metoprolol Tartrate (Lopressor Tab*) 100 mg PO QAM [facility] Last Admin: 12/05/17 08:41 Dose: 100 mg Metoprolol Tartrate (Lopressor Tab*) 50 mg PO QPM [facility] Last Admin: 12/04/17 18:15 Dose: 50 mg Morphine Sulfate (Morphine Vial*) 1 mg IV Q4H PRN PRN Reason: PAIN Omeprazole (Prilosec Cap*) 20 mg PO DAILY [facility] Last Admin: 12/05/17 08:41 Dose: 20 mg Pharmacy Consult (Zosyn Per Pharmacy*) 1 note FOLLOW UP .ZOSYN PER PHARMACY [facility] Potassium Chloride (Klor-Con Liquid*) 40 meq PO ONCE ONE Stop: 12/05/17 09:10 Prochlorperazine Edisylate (Compazine Inj*) 5 mg IV Q6H PRN PRN Reason: NAUSEA/VOMITING Last Admin: 12/03/17 02:29 Dose: 5 mg Throat Lozenges (Chloraseptic Darrion*) 1 darrion PO Q4H PRN PRN Reason: SORE THROAT Last Admin: 12/02/17 20:25 Dose: 1 darrion Vital Signs - 8 hr 12/05/17 12/05/17 12/05/17 02:00 03:00 03:01 Temperature 98.1 F 98.2 F 98.2 F Pulse Rate 69 83 81 Respiratory 20 20 20 Rate Blood Pressure 118/57 116/60 (mmHg) O2 Sat by Pulse 100 100 99 Oximetry 12/05/17 12/05/17 12/05/17 04:00 05:00 06:00 Temperature 98.6 F 98.6 F 98.8 F Pulse Rate 76 68 71 Respiratory 21 20 21 Rate Blood Pressure 122/57 117/56 122/55 (mmHg) O2 Sat by Pulse 98 97 94 Oximetry 12/05/17 12/05/17 12/05/17 07:00 07:09 08:00 Temperature 98.8 F 98.6 F 98.6 F Pulse Rate 73 72 76 Respiratory 17 23 19 Rate Blood Pressure 139/68 127/69 (mmHg) O2 Sat by Pulse 98 100 99 Oximetry 12/05/17 08:13 Temperature 97.9 F Pulse Rate Respiratory Rate Blood Pressure (mmHg) O2 Sat by Pulse Oximetry Oxygen Devices in Use Now: High Flow Nasal Cannula Appearance: stated age, interactive, NAD Eyes: - - right eye erythema (pt notes since childhood) Ears/Nose/Mouth/Throat: NL Teeth, Lips, Gums, Clear Oropharnyx, Mucous Membranes Moist Neck: NL Appearance and Movements; NL JVP, Trachea Midline Respiratory: Symmetrical Chest Expansion and Respiratory Effort, - - rhonchi in b/l bases Cardiovascular: - - irir Lymphatic: No Cervical Adenopathy Extremities: No Edema, No Clubbing, Cyanosis Neurological: Alert and Oriented x 3 Result Diagrams: 12/05/17 05:30 12/05/17 05:30 Additional Lab and Data: Lab Results 12/02/17 12/02/17 12/02/17 Range/Units 01:50 01:50 01:50 WBC 3.1 L (3.5-10.8) 10^3/ul RBC 3.01 L (4.0-5.4) 10^6/ul Hgb 10.4 L (14.0-18.0) g/dl Hct 31 L (42-52) % MCV 104 H (80-94) fL MCH 35 H (27-31) pg MCHC 33 (31-36) g/dl RDW 16 H (10.5-15) % Plt Count 102 L (150-450) 10^3/ul MPV 8.1 (7.4-10.4) um3 Neut % (Auto) 78.5 (38-83) % Lymph % (Auto) 6.8 L (25-47) % [place] % (Auto) 13.5 H (0-7) % Eos % (Auto) 0.5 (0-6) % Baso % (Auto) 0.7 (0-2) % Absolute Neuts (auto) 2.4 (1.5-7.7) 10^3/ul Absolute Lymphs (auto) 0.2 L (1.0-4.8) 10^3/ul Absolute Monos (auto) 0.4 (0-0.8) 10^3/ul Absolute Eos (auto) 0 (0-0.6) 10^3/ul Absolute Basos (auto) 0 (0-0.2) 10^3/ul Absolute Nucleated RBC 0 10^3/ul Nucleated RBC % 0 INR (Anticoag Therapy) 1.59 H (0.77-1.02) Sodium 143 (139-145) mmol/L Potassium 3.6 (3.5-5.0) mmol/L Chloride 103 (101-111) mmol/L Carbon Dioxide 30 (22-32) mmol/L Anion Gap 10 (2-11) mmol/L BUN 87 H (6-24) mg/dL Creatinine 3.40 H (0.67-1.17) mg/dL Est GFR ( Amer) 22.2 (>60) Est GFR (Non-Af Amer) 17.3 (>60) BUN/Creatinine Ratio 25.6 H (8-20) Glucose 182 H (70-100) mg/dL Lactic Acid (0.5-2.0) mmol/L Calcium 9.1 (8.6-10.3) mg/dL Total Bilirubin 0.60 (0.2-1.0) mg/dL AST 20 (13-39) U/L ALT 21 (7-52) U/L Alkaline Phosphatase 63 (34-104) U/L Troponin I 0.06 H* (<0.04) ng/mL C-Reactive Protein 12.72 H (< 5.00) mg/L Total Protein 6.6 (6.4-8.9) g/dL Albumin 3.7 (3.2-5.2) g/dL Globulin 2.9 (2-4) g/dL Albumin/Globulin Ratio 1.3 (1-3) Urine Color Urine Appearance Urine pH (5-9) Ur Specific [place] (1.010-1.030) Urine Protein (Negative) Urine Ketones (Negative) Urine Blood (Negative) Urine Nitrate (Negative) Urine Bilirubin (Negative) Urine Urobilinogen (Negative) Ur Leukocyte Esterase (Negative) Urine WBC (Auto) (Absent) Urine RBC (Auto) (Absent) Urine Bacteria (Absent) Urine Glucose (Negative) 12/02/17 12/02/17 Range/Units 01:50 04:35 WBC (3.5-10.8) 10^3/ul RBC (4.0-5.4) 10^6/ul Hgb (14.0-18.0) g/dl Hct (42-52) % MCV (80-94) fL MCH (27-31) pg MCHC (31-36) g/dl RDW (10.5-15) % Plt Count (150-450) 10^3/ul MPV (7.4-10.4) um3 Neut % (Auto) (38-83) % Lymph % (Auto) (25-47) % [place] % (Auto) (0-7) % Eos % (Auto) (0-6) % Baso % (Auto) (0-2) % Absolute Neuts (auto) (1.5-7.7) 10^3/ul Absolute Lymphs (auto) (1.0-4.8) 10^3/ul Absolute Monos (auto) (0-0.8) 10^3/ul Absolute Eos (auto) (0-0.6) 10^3/ul Absolute Basos (auto) (0-0.2) 10^3/ul Absolute Nucleated RBC 10^3/ul Nucleated RBC % INR (Anticoag Therapy) (0.77-1.02) Sodium (139-145) mmol/L Potassium (3.5-5.0) mmol/L Chloride (101-111) mmol/L Carbon Dioxide (22-32) mmol/L Anion Gap (2-11) mmol/L BUN (6-24) mg/dL Creatinine (0.67-1.17) mg/dL Est GFR ( Amer) (>60) Est GFR (Non-Af Amer) (>60) BUN/Creatinine Ratio (8-20) Glucose (70-100) mg/dL Lactic Acid 0.7 (0.5-2.0) mmol/L Calcium (8.6-10.3) mg/dL Total Bilirubin (0.2-1.0) mg/dL AST (13-39) U/L ALT (7-52) U/L Alkaline Phosphatase (34-104) U/L Troponin I (<0.04) ng/mL C-Reactive Protein (< 5.00) mg/L Total Protein (6.4-8.9) g/dL Albumin (3.2-5.2) g/dL Globulin (2-4) g/dL Albumin/Globulin Ratio (1-3) Urine Color Straw Urine Appearance Clear Urine pH 6.0 (5-9) Ur Specific [place] 1.011 (1.010-1.030) Urine Protein 2+(100 mg/dl) A (Negative) Urine Ketones Negative (Negative) Urine Blood 2+ A (Negative) Urine Nitrate Negative (Negative) Urine Bilirubin Negative (Negative) Urine Urobilinogen Negative (Negative) Ur Leukocyte Esterase Negative (Negative) Urine WBC (Auto) Trace(0-5/hpf) (Absent) Urine RBC (Auto) 2+(6-10/hpf) A (Absent) Urine Bacteria Absent (Absent) Urine Glucose Negative (Negative) Microbiology and Other Data: Microbiology 12/03/17 11:07 Group A Streptococcus Rapid Screen - Final Throat Specimen received for Rapid Strep A Molecular testing Assess/Plan/Problems-Billing Assessment: 87 yo M with h/o a. fib (on coumadin), DM2, CKD 3, diastolic CHF, pacer presented with pharyngitis and JENNIE with hospital stay notable for development of pancytopenia - Patient Problems (1) Pancytopenia Comment: Decreased with previous hospital stays in setting of infections Suspect marrow suppression in with infection. Viral possible with preceding phayngitis Pt notes dog at home has frequent ticks. Presenting GRANDA, fever and developing pancytopenia could include tick born illnesses however fever improving on zosyn and development seems late. Leptospirosis also possible with fever, GRANDA and JENNIE. Is right eye actually suffusion? Pt notes long duration of erythema (age 5). -Transfuse 1 unit PRBC today and trend. -Check tick born illness (erhlichia, anaplasma, lyme, babesia) -hold coumadin with low Hb -Check stool occult blood (2) Acute renal failure Comment: due to dehydration Improving with IVF Hold IVRF with b/l rhonchi trend (3) Afib Comment: Rate controlled. Continue home metoprolol. hold coumadin (12/05) with anemia (4) Aspiration pneumonitis Comment: cont Zosyn, 02 requirements improving (5) CKD (chronic kidney disease) stage 3, GFR 30-59 ml/min Comment: at baseline creat 2.5. Pt had JENNIE at admission due to dehydration (6) Diabetes Comment: Cont ISS. Glipizide & Actos held (7) DVT prophylaxis Comment: HSQ coumadin on hold Status and Disposition: inpatient
[2017-12-05 13:57] LABS: Hematocrit 28 % (42-52); Hemoglobin 9.5 g/dl (14.0-18.0)
[2017-12-05] MEDS: Atorvastatin* 10 MG TAB PO SCH (20:46)
[2017-12-05] MEDS: Doxazosin TAB* 2 MG PO SCH (20:46)
[2017-12-06] MEDS: Acetaminophen TAB* 325 MG PO PRN ×3 (01:20→19:15)
[2017-12-06] MEDS: ZOSYN 3.375 GM Q12H per EXTENDED INFUSION IVPB SCH ×4 (05:19→16:57)
[2017-12-06] MEDS: Heparin VIAL(*) 5000 UNITS/ML VIAL (FIVE THOUSAND) SUBCUT SCH ×3 (05:19→21:16)
[2017-12-06 06:26] LABS: ABS Basophils 0 10^3/ul (0-0.2); ABS Eosinophils 0.1 10^3/ul (0-0.6); ABS Lymphocytes 0.4 10^3/ul (1.0-4.8); ABS Monocytes 0.2 10^3/ul (0-0.8); ABS Neutrophils 2.3 10^3/ul (1.5-7.7); ABS Nucleated RBC 0 10^3/ul; Eosinophil % 1.7 % (0-6); Hematocrit 26 % (42-52); Hemoglobin 8.6 g/dl (14.0-18.0); Lymphocyte % 14.9 % (25-47); Mean Corpuscular HGB Conc 34 g/dl (31-36); Mean Corpuscular Hemoglobin 34 pg (27-31); Mean Corpuscular Volume 101 fL (80-94); Mean Platelet Volume 7.9 um3 (7.4-10.4); Nucleated Red Blood Cells % 0; Platelet Count 79 10^3/ul (150-450); Red Blood Count 2.55 10^6/ul (4.0-5.4); Red Cell Distribution Width 18 % (10.5-15)
[2017-12-06 06:38] LABS: EGFR Non-African American 16.7 (>60)
[2017-12-06 07:35] LABS: INR 1.77 (0.77-1.02)
[2017-12-06] MEDS: Gabapentin CAP(*) 100 MG PO SCH ×2 (09:54→21:16)
[2017-12-06] MEDS: Ferrous Sulfate TAB* 325 MG PO SCH (09:54)
[2017-12-06] MEDS: Omeprazole CAP* 20 MG PO SCH (09:56)
[2017-12-06] MEDS: Cholecalciferol TAB* 1000 UNITS PO SCH (09:56)
[2017-12-06] MEDS: amLODIPine TAB* 5 MG PO SCH (09:56)
[2017-12-06] MEDS: Allopurinol TAB* 100 MG PO SCH (09:56)
[2017-12-06] MEDS: Metoprolol Tartrate TAB* 50 mg PO SCH ×2 (09:56→16:57)
[2017-12-06] MEDS: Cyanocobalamin TAB* 500 MCG PO SCH (09:56)
[2017-12-06] MEDS: Insulin LISPRO* 1 UNITS UNIT SUBCUT SCH ×4 (09:57→21:16)
[2017-12-06] MEDS ORDERED: NS 0.9% 1000 ML* 1,000 ML IV SCH (15:00)
--- NOTE | 2017-12-06 15:16 | PN ---
Subjective Date of Service: 12/06/17 Interval History: Feels breathing improved but still on 5 L O2 Sore throat has resolved OOB to chair today no cough Objective Active Medications: Acetaminophen (Tylenol Supp*) 650 mg NC Q6H PRN PRN Reason: FEVER/PAIN Last Admin: 12/03/17 04:50 Dose: 650 mg Acetaminophen (Tylenol Tab*) 650 mg PO Q4H PRN PRN Reason: FEVER/PAIN Last Admin: 12/06/17 12:40 Dose: 650 mg Allopurinol (Zyloprim Tab*) 100 mg PO DAILY [facility] Last Admin: 12/06/17 09:56 Dose: 100 mg Amlodipine Besylate (Norvasc Tab*) 5 mg PO DAILY [facility] Last Admin: 12/06/17 09:56 Dose: 5 mg Atorvastatin Calcium (Lipitor*) 10 mg PO BEDTIME [facility] Last Admin: 12/05/17 20:46 Dose: 10 mg Cholecalciferol (Vitamin D Tab*) 1,000 units PO DAILY [facility] Last Admin: 12/06/17 09:56 Dose: 1,000 units Cyanocobalamin (Vitamin B12 Tab*) 1,000 mcg PO DAILY [facility] Last Admin: 12/06/17 09:56 Dose: 1,000 mcg Dextrose (D50w Syringe 50 Ml*) 12.5 gm IV PUSH .FOR FS < 60 - SS PRN PRN Reason: FS < 60 Doxazosin Mesylate (Cardura Tab*) 4 mg PO BEDTIME [facility] Last Admin: 12/05/17 20:46 Dose: 4 mg Ferrous Sulfate (Ferrous Sulfate Tab*) 325 mg PO DAILY [facility] Last Admin: 12/06/17 09:54 Dose: 325 mg Gabapentin (Neurontin Cap(*)) 300 mg PO BEDTIME [facility] Last Admin: 12/05/17 20:46 Dose: 300 mg Gabapentin (Neurontin Cap(*)) 100 mg PO DAILY [facility] Last Admin: 12/06/17 09:54 Dose: 100 mg Heparin Sodium (Porcine) (Heparin Vial(*)) 5,000 units SUBCUT Q8HR [facility] Last Admin: 12/06/17 12:27 Dose: 5,000 units Hydralazine HCl (Apresoline Iv*) 10 mg IV Q4H PRN PRN Reason: Systolic >170 Piperacillin Sod/Tazobactam (Sod 3.375 gm/ Sodium Chloride) 100 mls @ 25 mls/ hr IVPB Q12H [facility] Last Admin: 12/06/17 05:19 Dose: 25 mls/hr Sodium Chloride (Ns 0.9% 1000 Ml*) 1,000 mls @ 100 mls/hr IV PER RATE [facility] Stop: 12/07/17 00:59 Insulin Human Lispro (Humalog*) 0 units SUBCUT ACHS [facility] PRN Reason: Protocol Last Admin: 12/06/17 12:28 Dose: 4 unit Metoprolol Tartrate (Lopressor Tab*) 100 mg PO QAM [facility] Last Admin: 12/06/17 09:56 Dose: 100 mg Metoprolol Tartrate (Lopressor Tab*) 50 mg PO QPM [facility] Last Admin: 12/05/17 17:29 Dose: 50 mg Morphine Sulfate (Morphine Vial*) 1 mg IV Q4H PRN PRN Reason: PAIN Omeprazole (Prilosec Cap*) 20 mg PO DAILY [facility] Last Admin: 12/06/17 09:56 Dose: 20 mg Pharmacy Consult (Zosyn Per Pharmacy*) 1 note FOLLOW UP .ZOSYN PER PHARMACY [facility] Prochlorperazine Edisylate (Compazine Inj*) 5 mg IV Q6H PRN PRN Reason: NAUSEA/VOMITING Last Admin: 12/03/17 02:29 Dose: 5 mg Throat Lozenges (Chloraseptic Darrion*) 1 darrion PO Q4H PRN PRN Reason: SORE THROAT Last Admin: 12/02/17 20:25 Dose: 1 darrion Vital Signs - 8 hr 12/06/17 09:54 Respiratory 20 Rate Oxygen Devices in Use Now: Nasal Cannula - 5L Appearance: NAD Eyes: No Scleral Icterus, PERRLA Ears/Nose/Mouth/Throat: - - dry MM Neck: NL Appearance and Movements; NL JVP, Trachea Midline Respiratory: Symmetrical Chest Expansion and Respiratory Effort, - - rhocni right base Cardiovascular: RRR Abdominal: NL Sounds; No Tenderness; No Distention, No Hepatosplenomegaly Lymphatic: No Cervical Adenopathy Extremities: No Edema Skin: No Rash or Ulcers Neurological: Alert and Oriented x 3 Result Diagrams: 12/06/17 06:08 12/06/17 06:08 Additional Lab and Data: Lab Results 05/19/18 05/19/18 05/19/18 Range/Units 01:50 01:50 01:50 WBC 3.1 L (3.5-10.8) 10^3/ul RBC 3.01 L (4.0-5.4) 10^6/ul Hgb 10.4 L (14.0-18.0) g/dl Hct 31 L (42-52) % MCV 104 H (80-94) fL MCH 35 H (27-31) pg MCHC 33 (31-36) g/dl RDW 16 H (10.5-15) % Plt Count 102 L (150-450) 10^3/ul MPV 8.1 (7.4-10.4) um3 Neut % (Auto) 78.5 (38-83) % Lymph % (Auto) 6.8 L (25-47) % [place] % (Auto) 13.5 H (0-7) % Eos % (Auto) 0.5 (0-6) % Baso % (Auto) 0.7 (0-2) % Absolute Neuts (auto) 2.4 (1.5-7.7) 10^3/ul Absolute Lymphs (auto) 0.2 L (1.0-4.8) 10^3/ul Absolute Monos (auto) 0.4 (0-0.8) 10^3/ul Absolute Eos (auto) 0 (0-0.6) 10^3/ul Absolute Basos (auto) 0 (0-0.2) 10^3/ul Absolute Nucleated RBC 0 10^3/ul Nucleated RBC % 0 INR (Anticoag Therapy) 1.59 H (0.77-1.02) Sodium 143 (139-145) mmol/L Potassium 3.6 (3.5-5.0) mmol/L Chloride 103 (101-111) mmol/L Carbon Dioxide 30 (22-32) mmol/L Anion Gap 10 (2-11) mmol/L BUN 87 H (6-24) mg/dL Creatinine 3.40 H (0.67-1.17) mg/dL Est GFR ( Amer) 22.2 (>60) Est GFR (Non-Af Amer) 17.3 (>60) BUN/Creatinine Ratio 25.6 H (8-20) Glucose 182 H (70-100) mg/dL Lactic Acid (0.5-2.0) mmol/L Calcium 9.1 (8.6-10.3) mg/dL Total Bilirubin 0.60 (0.2-1.0) mg/dL AST 20 (13-39) U/L ALT 21 (7-52) U/L Alkaline Phosphatase 63 (34-104) U/L Troponin I 0.06 H* (<0.04) ng/mL C-Reactive Protein 12.72 H (< 5.00) mg/L Total Protein 6.6 (6.4-8.9) g/dL Albumin 3.7 (3.2-5.2) g/dL Globulin 2.9 (2-4) g/dL Albumin/Globulin Ratio 1.3 (1-3) Urine Color Urine Appearance Urine pH (5-9) Ur Specific [place] (1.010-1.030) Urine Protein (Negative) Urine Ketones (Negative) Urine Blood (Negative) Urine Nitrate (Negative) Urine Bilirubin (Negative) Urine Urobilinogen (Negative) Ur Leukocyte Esterase (Negative) Urine WBC (Auto) (Absent) Urine RBC (Auto) (Absent) Urine Bacteria (Absent) Urine Glucose (Negative) 12/02/17 12/02/17 Range/Units 01:50 04:35 WBC (3.5-10.8) 10^3/ul RBC (4.0-5.4) 10^6/ul Hgb (14.0-18.0) g/dl Hct (42-52) % MCV (80-94) fL MCH (27-31) pg MCHC (31-36) g/dl RDW (10.5-15) % Plt Count (150-450) 10^3/ul MPV (7.4-10.4) um3 Neut % (Auto) (38-83) % Lymph % (Auto) (25-47) % [place] % (Auto) (0-7) % Eos % (Auto) (0-6) % Baso % (Auto) (0-2) % Absolute Neuts (auto) (1.5-7.7) 10^3/ul Absolute Lymphs (auto) (1.0-4.8) 10^3/ul Absolute Monos (auto) (0-0.8) 10^3/ul Absolute Eos (auto) (0-0.6) 10^3/ul Absolute Basos (auto) (0-0.2) 10^3/ul Absolute Nucleated RBC 10^3/ul Nucleated RBC % INR (Anticoag Therapy) (0.77-1.02) Sodium (139-145) mmol/L Potassium (3.5-5.0) mmol/L Chloride (101-111) mmol/L Carbon Dioxide (22-32) mmol/L Anion Gap (2-11) mmol/L BUN (6-24) mg/dL Creatinine (0.67-1.17) mg/dL Est GFR ( Amer) (>60) Est GFR (Non-Af Amer) (>60) BUN/Creatinine Ratio (8-20) Glucose (70-100) mg/dL Lactic Acid 0.7 (0.5-2.0) mmol/L Calcium (8.6-10.3) mg/dL Total Bilirubin (0.2-1.0) mg/dL AST (13-39) U/L ALT (7-52) U/L Alkaline Phosphatase (34-104) U/L Troponin I (<0.04) ng/mL C-Reactive Protein (< 5.00) mg/L Total Protein (6.4-8.9) g/dL Albumin (3.2-5.2) g/dL Globulin (2-4) g/dL Albumin/Globulin Ratio (1-3) Urine Color Straw Urine Appearance Clear Urine pH 6.0 (5-9) Ur Specific [place] 1.011 (1.010-1.030) Urine Protein 2+(100 mg/dl) A (Negative) Urine Ketones Negative (Negative) Urine Blood 2+ A (Negative) Urine Nitrate Negative (Negative) Urine Bilirubin Negative (Negative) Urine Urobilinogen Negative (Negative) Ur Leukocyte Esterase Negative (Negative) Urine WBC (Auto) Trace(0-5/hpf) (Absent) Urine RBC (Auto) 2+(6-10/hpf) A (Absent) Urine Bacteria Absent (Absent) Urine Glucose Negative (Negative) Microbiology and Other Data: Microbiology 12/03/17 11:07 Group A Streptococcus Rapid Screen - Final Throat Specimen received for Rapid Strep A Molecular testing Assess/Plan/Problems-Billing Assessment: 87 yo M with h/o a. fib (on coumadin), DM2, CKD 3, diastolic CHF, pacer presented with pharyngitis and JENNIE with hospital stay notable for development of pancytopenia - Patient Problems (1) Pancytopenia Comment: Decreased with previous hospital stays in setting of infections Suspect marrow suppression in with infection. Imrpoving today Virus possible with preceding phayngitis Pt notes dog at home has frequent ticks. Presenting GRANDA, fever and developing pancytopenia could include tick born illnesses however fever improving on zosyn and development seems late. Leptospirosis also possible with fever, GRANDA and JENNIE. Is right eye actually suffusion? Pt notes long duration of erythema (age 5). -Transfuse 1 unit PRBC 12/06 and trend. -Check tick born illness (erhlichia, anaplasma, lyme, babesia) -hold coumadin with low Hb (2) Acute renal failure Comment: due to dehydration 1 liter NS overnight and recheck (3) Afib Comment: Rate controlled. Continue home metoprolol. hold coumadin (12/05) with anemia (4) Aspiration pneumonitis Comment: cont Zosyn, 02 requirements improving (5) CKD (chronic kidney disease) stage 3, GFR 30-59 ml/min Comment: at baseline creat 2.5. Pt had JENNIE at admission due to dehydration (6) Diabetes Comment: Cont ISS. restart Actos 12/06 Glipizide held (7) DVT prophylaxis Comment: HSQ coumadin on hold Status and Disposition: inpatient
[2017-12-06] MEDS: Pioglitazone TAB* 15 MG PO SCH (16:09)
[2017-12-06] MEDS: Doxazosin TAB* 2 MG PO SCH (21:15)
[2017-12-06] MEDS: Atorvastatin* 10 MG TAB PO SCH (21:16)
[2017-12-07] MEDS: Heparin VIAL(*) 5000 UNITS/ML VIAL (FIVE THOUSAND) SUBCUT SCH ×3 (06:05→21:12)
[2017-12-07] MEDS: ZOSYN 3.375 GM Q12H per EXTENDED INFUSION IVPB SCH ×4 (06:05→17:05)
[2017-12-07 07:06] LABS: ABS Basophils 0 10^3/ul (0-0.2); ABS Eosinophils 0.1 10^3/ul (0-0.6); ABS Lymphocytes 0.4 10^3/ul (1.0-4.8); ABS Monocytes 0.2 10^3/ul (0-0.8); ABS Neutrophils 2.7 10^3/ul (1.5-7.7); ABS Nucleated RBC 0 10^3/ul; Eosinophil % 1.8 % (0-6); Hematocrit 26 % (42-52); Hemoglobin 8.7 g/dl (14.0-18.0); Lymphocyte % 12.7 % (25-47); Mean Corpuscular HGB Conc 34 g/dl (31-36); Mean Corpuscular Hemoglobin 34 pg (27-31); Mean Corpuscular Volume 101 fL (80-94); Mean Platelet Volume 7.7 um3 (7.4-10.4); Nucleated Red Blood Cells % 0.1; Platelet Count 95 10^3/ul (150-450); Red Blood Count 2.54 10^6/ul (4.0-5.4); Red Cell Distribution Width 18 % (10.5-15); White Blood Count 3.4 10^3/ul (3.5-10.8)
[2017-12-07 07:21] LABS: EGFR Non-African American 19.4 (>60)
[2017-12-07 07:22] LABS: INR 1.63 (0.77-1.02)
[2017-12-07] MEDS: Allopurinol TAB* 100 MG PO SCH (08:06)
[2017-12-07] MEDS: Ferrous Sulfate TAB* 325 MG PO SCH (08:06)
[2017-12-07] MEDS: Omeprazole CAP* 20 MG PO SCH (08:06)
[2017-12-07] MEDS: Cyanocobalamin TAB* 500 MCG PO SCH (08:06)
[2017-12-07] MEDS: Metoprolol Tartrate TAB* 50 mg PO SCH ×2 (08:07→17:04)
[2017-12-07] MEDS: Gabapentin CAP(*) 100 MG PO SCH ×2 (08:07→19:59)
[2017-12-07] MEDS: Cholecalciferol TAB* 1000 UNITS PO SCH (08:07)
[2017-12-07] MEDS: amLODIPine TAB* 5 MG PO SCH (08:07)
[2017-12-07] MEDS: Pioglitazone TAB* 15 MG PO SCH (08:07)
[2017-12-07] MEDS: Acetaminophen TAB* 325 MG PO PRN ×2 (08:19→20:00)
[2017-12-07] MEDS: Insulin LISPRO* 1 UNITS UNIT SUBCUT SCH ×4 (09:09→21:12)
[2017-12-07] MEDS ORDERED: NS 0.9% 1000 ML* 1,000 ML IV SCH (14:45)
--- NOTE | 2017-12-07 15:03 | PN ---
Subjective Date of Service: 12/07/17 Interval History: Feels almost his usual strength Still requiring 4L oxygen Still coughing Notes some "joint pain" near bilateral groins Objective Active Medications: Acetaminophen (Tylenol Supp*) 650 mg NM Q6H PRN PRN Reason: FEVER/PAIN Last Admin: 12/03/17 04:50 Dose: 650 mg Acetaminophen (Tylenol Tab*) 650 mg PO Q4H PRN PRN Reason: FEVER/PAIN Last Admin: 12/07/17 08:19 Dose: 650 mg Allopurinol (Zyloprim Tab*) 100 mg PO DAILY [facility] Last Admin: 12/07/17 08:06 Dose: 100 mg Amlodipine Besylate (Norvasc Tab*) 5 mg PO DAILY [facility] Last Admin: 12/07/17 08:07 Dose: 5 mg Atorvastatin Calcium (Lipitor*) 10 mg PO BEDTIME [facility] Last Admin: 12/06/17 21:16 Dose: 10 mg Cholecalciferol (Vitamin D Tab*) 1,000 units PO DAILY [facility] Last Admin: 12/07/17 08:07 Dose: 1,000 units Cyanocobalamin (Vitamin B12 Tab*) 1,000 mcg PO DAILY [facility] Last Admin: 12/07/17 08:06 Dose: 1,000 mcg Dextrose (D50w Syringe 50 Ml*) 12.5 gm IV PUSH .FOR FS < 60 - SS PRN PRN Reason: FS < 60 Doxazosin Mesylate (Cardura Tab*) 4 mg PO BEDTIME [facility] Last Admin: 12/06/17 21:15 Dose: 4 mg Ferrous Sulfate (Ferrous Sulfate Tab*) 325 mg PO DAILY [facility] Last Admin: 12/07/17 08:06 Dose: 325 mg Gabapentin (Neurontin Cap(*)) 300 mg PO BEDTIME [facility] Last Admin: 12/06/17 21:16 Dose: 300 mg Gabapentin (Neurontin Cap(*)) 100 mg PO DAILY [facility] Last Admin: 12/07/17 08:07 Dose: 100 mg Heparin Sodium (Porcine) (Heparin Vial(*)) 5,000 units SUBCUT Q8HR [facility] Last Admin: 12/07/17 13:47 Dose: 5,000 units Hydralazine HCl (Apresoline Iv*) 10 mg IV Q4H PRN PRN Reason: Systolic >170 Piperacillin Sod/Tazobactam (Sod 3.375 gm/ Sodium Chloride) 100 mls @ 25 mls/ hr IVPB Q12H [facility] Last Admin: 12/07/17 06:05 Dose: 25 mls/hr Sodium Chloride (Ns 0.9% 1000 Ml*) 1,000 mls @ 100 mls/hr IV PER RATE [facility] Stop: 12/08/17 00:44 Last Admin: 12/07/17 14:51 Dose: 100 mls/hr Insulin Human Lispro (Humalog*) 0 units SUBCUT ACHS [facility] PRN Reason: Protocol Last Admin: 12/07/17 12:21 Dose: 4 unit Metoprolol Tartrate (Lopressor Tab*) 100 mg PO QAM [facility] Last Admin: 12/07/17 08:07 Dose: 100 mg Metoprolol Tartrate (Lopressor Tab*) 50 mg PO QPM [facility] Last Admin: 12/06/17 16:57 Dose: 50 mg Morphine Sulfate (Morphine Vial*) 1 mg IV Q4H PRN PRN Reason: PAIN Omeprazole (Prilosec Cap*) 20 mg PO DAILY [facility] Last Admin: 12/07/17 08:06 Dose: 20 mg Pharmacy Consult (Zosyn Per Pharmacy*) 1 note FOLLOW UP .ZOSYN PER PHARMACY [facility] Pioglitazone HCl (Actos Tab*) 15 mg PO DAILY [facility] Last Admin: 12/07/17 08:07 Dose: 15 mg Prochlorperazine Edisylate (Compazine Inj*) 5 mg IV Q6H PRN PRN Reason: NAUSEA/VOMITING Last Admin: 12/03/17 02:29 Dose: 5 mg Throat Lozenges (Chloraseptic Darrion*) 1 darrion PO Q4H PRN PRN Reason: SORE THROAT Last Admin: 12/02/17 20:25 Dose: 1 darrion Vital Signs - 8 hr 12/07/17 12/07/17 12/07/17 07:44 08:07 08:20 Temperature 98.1 F Pulse Rate 80 Respiratory 24 22 20 Rate Blood Pressure 120/66 (mmHg) O2 Sat by Pulse 98 Oximetry 12/07/17 12/07/17 09:52 11:13 Temperature 97.4 F Pulse Rate 63 Respiratory 20 23 Rate Blood Pressure 115/62 (mmHg) O2 Sat by Pulse 100 Oximetry Oxygen Devices in Use Now: Nasal Cannula - 4L Appearance: lying flat, NAD Eyes: No Scleral Icterus, PERRLA Ears/Nose/Mouth/Throat: - - dry MM Neck: NL Appearance and Movements; NL JVP, Trachea Midline Respiratory: Symmetrical Chest Expansion and Respiratory Effort, - - rhonchi in right base Cardiovascular: RRR Abdominal: NL Sounds; No Tenderness; No Distention, No Hepatosplenomegaly Lymphatic: No Cervical Adenopathy Extremities: No Edema, No Clubbing, Cyanosis Skin: No Rash or Ulcers Neurological: Alert and Oriented x 3 Result Diagrams: 12/07/17 06:47 12/07/17 06:47 Additional Lab and Data: Lab Results 12/02/17 12/02/17 12/02/17 Range/Units 01:50 01:50 01:50 WBC 3.1 L (3.5-10.8) 10^3/ul RBC 3.01 L (4.0-5.4) 10^6/ul Hgb 10.4 L (14.0-18.0) g/dl Hct 31 L (42-52) % MCV 104 H (80-94) fL MCH 35 H (27-31) pg MCHC 33 (31-36) g/dl RDW 16 H (10.5-15) % Plt Count 102 L (150-450) 10^3/ul MPV 8.1 (7.4-10.4) um3 Neut % (Auto) 78.5 (38-83) % Lymph % (Auto) 6.8 L (25-47) % [place] % (Auto) 13.5 H (0-7) % Eos % (Auto) 0.5 (0-6) % Baso % (Auto) 0.7 (0-2) % Absolute Neuts (auto) 2.4 (1.5-7.7) 10^3/ul Absolute Lymphs (auto) 0.2 L (1.0-4.8) 10^3/ul Absolute Monos (auto) 0.4 (0-0.8) 10^3/ul Absolute Eos (auto) 0 (0-0.6) 10^3/ul Absolute Basos (auto) 0 (0-0.2) 10^3/ul Absolute Nucleated RBC 0 10^3/ul Nucleated RBC % 0 INR (Anticoag Therapy) 1.59 H (0.77-1.02) Sodium 143 (139-145) mmol/L Potassium 3.6 (3.5-5.0) mmol/L Chloride 103 (101-111) mmol/L Carbon Dioxide 30 (22-32) mmol/L Anion Gap 10 (2-11) mmol/L BUN 87 H (6-24) mg/dL Creatinine 3.40 H (0.67-1.17) mg/dL Est GFR ( Amer) 22.2 (>60) Est GFR (Non-Af Amer) 17.3 (>60) BUN/Creatinine Ratio 25.6 H (8-20) Glucose 182 H (70-100) mg/dL Lactic Acid (0.5-2.0) mmol/L Calcium 9.1 (8.6-10.3) mg/dL Total Bilirubin 0.60 (0.2-1.0) mg/dL AST 20 (13-39) U/L ALT 21 (7-52) U/L Alkaline Phosphatase 63 (34-104) U/L Troponin I 0.06 H* (<0.04) ng/mL C-Reactive Protein 12.72 H (< 5.00) mg/L Total Protein 6.6 (6.4-8.9) g/dL Albumin 3.7 (3.2-5.2) g/dL Globulin 2.9 (2-4) g/dL Albumin/Globulin Ratio 1.3 (1-3) Urine Color Urine Appearance Urine pH (5-9) Ur Specific [place] (1.010-1.030) Urine Protein (Negative) Urine Ketones (Negative) Urine Blood (Negative) Urine Nitrate (Negative) Urine Bilirubin (Negative) Urine Urobilinogen (Negative) Ur Leukocyte Esterase (Negative) Urine WBC (Auto) (Absent) Urine RBC (Auto) (Absent) Urine Bacteria (Absent) Urine Glucose (Negative) 12/02/17 12/02/17 Range/Units 01:50 04:35 WBC (3.5-10.8) 10^3/ul RBC (4.0-5.4) 10^6/ul Hgb (14.0-18.0) g/dl Hct (42-52) % MCV (80-94) fL MCH (27-31) pg MCHC (31-36) g/dl RDW (10.5-15) % Plt Count (150-450) 10^3/ul MPV (7.4-10.4) um3 Neut % (Auto) (38-83) % Lymph % (Auto) (25-47) % [place] % (Auto) (0-7) % Eos % (Auto) (0-6) % Baso % (Auto) (0-2) % Absolute Neuts (auto) (1.5-7.7) 10^3/ul Absolute Lymphs (auto) (1.0-4.8) 10^3/ul Absolute Monos (auto) (0-0.8) 10^3/ul Absolute Eos (auto) (0-0.6) 10^3/ul Absolute Basos (auto) (0-0.2) 10^3/ul Absolute Nucleated RBC 10^3/ul Nucleated RBC % INR (Anticoag Therapy) (0.77-1.02) Sodium (139-145) mmol/L Potassium (3.5-5.0) mmol/L Chloride (101-111) mmol/L Carbon Dioxide (22-32) mmol/L Anion Gap (2-11) mmol/L BUN (6-24) mg/dL Creatinine (0.67-1.17) mg/dL Est GFR ( Amer) (>60) Est GFR (Non-Af Amer) (>60) BUN/Creatinine Ratio (8-20) Glucose (70-100) mg/dL Lactic Acid 0.7 (0.5-2.0) mmol/L Calcium (8.6-10.3) mg/dL Total Bilirubin (0.2-1.0) mg/dL AST (13-39) U/L ALT (7-52) U/L Alkaline Phosphatase (34-104) U/L Troponin I (<0.04) ng/mL C-Reactive Protein (< 5.00) mg/L Total Protein (6.4-8.9) g/dL Albumin (3.2-5.2) g/dL Globulin (2-4) g/dL Albumin/Globulin Ratio (1-3) Urine Color Straw Urine Appearance Clear Urine pH 6.0 (5-9) Ur Specific [place] 1.011 (1.010-1.030) Urine Protein 2+(100 mg/dl) A (Negative) Urine Ketones Negative (Negative) Urine Blood 2+ A (Negative) Urine Nitrate Negative (Negative) Urine Bilirubin Negative (Negative) Urine Urobilinogen Negative (Negative) Ur Leukocyte Esterase Negative (Negative) Urine WBC (Auto) Trace(0-5/hpf) (Absent) Urine RBC (Auto) 2+(6-10/hpf) A (Absent) Urine Bacteria Absent (Absent) Urine Glucose Negative (Negative) Microbiology and Other Data: Microbiology 12/03/17 11:07 Group A Streptococcus Rapid Screen - Final Throat Specimen received for Rapid Strep A Molecular testing Assess/Plan/Problems-Billing Assessment: 87 yo M with h/o a. fib (on coumadin), DM2, CKD 3, diastolic CHF, pacer presented with pharyngitis and JENNIE with hospital stay notable for development of pancytopenia - Patient Problems (1) Pancytopenia Comment: Decreased with previous hospital stays in setting of infections Suspect marrow suppression in with infection. Continues to improve received 1 U PRBC this stay Tick borne illnesses panel pending (2) Acute renal failure Comment: suspect due to dehydration better in last 24 hrs with 1 liter NS Additional 1 L NS 12/07 and recheck Monday (3) Afib Comment: Rate controlled. Continue home metoprolol. held coumadin with anemia restart 12/07 Check INR tomorrow (4) Aspiration pneumonitis Comment: cont Zosyn, 02 requirements improving (5) CKD (chronic kidney disease) stage 3, GFR 30-59 ml/min Comment: at baseline his creat is about 2.5. Pt had JENNIE at admission due to dehydration fluid as above overnight (6) Diabetes Comment: Cont ISS. restart Actos 12/06 Glipizide held (7) DVT prophylaxis Comment: HSQ coumadin restarted 12/07 Status and Disposition: inpatient
[2017-12-07] MEDS ORDERED: NS 0.9% 100 ML* 100 ML ONE (17:00)
[2017-12-07] MEDS ORDERED: Warfarin TAB(*) 5 MG PO ONE (17:00)
[2017-12-07] MEDS: Atorvastatin* 10 MG TAB PO SCH (20:00)
[2017-12-07] MEDS: Doxazosin TAB* 2 MG PO SCH (20:01)
[2017-12-08] MEDS: ZOSYN 3.375 GM Q12H per EXTENDED INFUSION IVPB SCH ×2 (05:44)
[2017-12-08] MEDS: Heparin VIAL(*) 5000 UNITS/ML VIAL (FIVE THOUSAND) SUBCUT SCH ×3 (05:44→20:35)
[2017-12-08 06:03] LABS: INR 1.64 (0.77-1.02)
[2017-12-08 06:22] LABS: EGFR Non-African American 20.9 (>60)
[2017-12-08] MEDS: Pioglitazone TAB* 15 MG PO SCH (09:12)
[2017-12-08] MEDS: Metoprolol Tartrate TAB* 50 mg PO SCH ×2 (09:12→17:17)
[2017-12-08] MEDS: Cyanocobalamin TAB* 500 MCG PO SCH (09:12)
[2017-12-08] MEDS: Ferrous Sulfate TAB* 325 MG PO SCH (09:12)
[2017-12-08] MEDS: Omeprazole CAP* 20 MG PO SCH (09:12)
[2017-12-08] MEDS: amLODIPine TAB* 5 MG PO SCH (09:13)
[2017-12-08] MEDS: Gabapentin CAP(*) 100 MG PO SCH ×2 (09:13→20:34)
[2017-12-08] MEDS: Cholecalciferol TAB* 1000 UNITS PO SCH (09:13)
[2017-12-08] MEDS: Allopurinol TAB* 100 MG PO SCH (09:13)
[2017-12-08] MEDS: Insulin LISPRO* 1 UNITS UNIT SUBCUT SCH ×4 (09:13→20:43)
--- NOTE | 2017-12-08 15:22 | PN ---
Subjective Date of Service: 12/08/17 Interval History: Feels better. Some coughing this AM but none for the past few hours. He gets around in a WC at home, has O2 at night. Objective Active Medications: Acetaminophen (Tylenol Supp*) 650 mg [place] Q6H PRN PRN Reason: FEVER/PAIN Last Admin: 12/03/17 04:50 Dose: 650 mg Acetaminophen (Tylenol Tab*) 650 mg PO Q4H PRN PRN Reason: FEVER/PAIN Last Admin: 12/07/17 20:00 Dose: 650 mg Allopurinol (Zyloprim Tab*) 100 mg PO DAILY [facility] Last Admin: 12/08/17 09:13 Dose: 100 mg Amlodipine Besylate (Norvasc Tab*) 5 mg PO DAILY [facility] Last Admin: 12/08/17 09:13 Dose: 5 mg Amoxicillin/Clavulanate Potassium (Augmentin Tab*) 500 mg PO BID [facility] Atorvastatin Calcium (Lipitor*) 10 mg PO BEDTIME [facility] Last Admin: 12/07/17 20:00 Dose: 10 mg Cholecalciferol (Vitamin D Tab*) 1,000 units PO DAILY [facility] Last Admin: 12/08/17 09:13 Dose: 1,000 units Cyanocobalamin (Vitamin B12 Tab*) 1,000 mcg PO DAILY [facility] Last Admin: 12/08/17 09:12 Dose: 1,000 mcg Dextrose (D50w Syringe 50 Ml*) 12.5 gm IV PUSH .FOR FS < 60 - SS PRN PRN Reason: FS < 60 Doxazosin Mesylate (Cardura Tab*) 4 mg PO BEDTIME [facility] Last Admin: 12/07/17 20:01 Dose: 4 mg Ferrous Sulfate (Ferrous Sulfate Tab*) 325 mg PO DAILY [facility] Last Admin: 12/08/17 09:12 Dose: 325 mg Gabapentin (Neurontin Cap(*)) 300 mg PO BEDTIME [facility] Last Admin: 12/07/17 19:59 Dose: 300 mg Gabapentin (Neurontin Cap(*)) 100 mg PO DAILY [facility] Last Admin: 12/08/17 09:13 Dose: 100 mg Heparin Sodium (Porcine) (Heparin Vial(*)) 5,000 units SUBCUT Q8HR [facility] Last Admin: 12/08/17 12:49 Dose: 5,000 units Hydralazine HCl (Apresoline Iv*) 10 mg IV Q4H PRN PRN Reason: Systolic >170 Insulin Human Lispro (Humalog*) 0 units SUBCUT ACHS [facility] PRN Reason: Protocol Last Admin: 12/08/17 12:49 Dose: 6 unit Metoprolol Tartrate (Lopressor Tab*) 100 mg PO QAM [facility] Last Admin: 12/08/17 09:12 Dose: 100 mg Metoprolol Tartrate (Lopressor Tab*) 50 mg PO QPM [facility] Last Admin: 12/07/17 17:04 Dose: 50 mg Morphine Sulfate (Morphine Vial*) 1 mg IV Q4H PRN PRN Reason: PAIN Omeprazole (Prilosec Cap*) 20 mg PO DAILY [facility] Last Admin: 12/08/17 09:12 Dose: 20 mg Pharmacy Profile Note (Coumadin Daily Reminder*) 1 note FOLLOW UP 1700 [facility] Last Admin: 12/07/17 16:58 Dose: 1 note Pioglitazone HCl (Actos Tab*) 15 mg PO DAILY [facility] Last Admin: 12/08/17 09:12 Dose: 15 mg Prochlorperazine Edisylate (Compazine Inj*) 5 mg IV Q6H PRN PRN Reason: NAUSEA/VOMITING Last Admin: 12/03/17 02:29 Dose: 5 mg Throat Lozenges (Chloraseptic Darrion*) 1 darrion PO Q4H PRN PRN Reason: SORE THROAT Last Admin: 12/02/17 20:25 Dose: 1 darrion Vital Signs - 8 hr 12/08/17 12/08/17 12/08/17 07:31 07:34 09:13 Temperature 98.1 F Pulse Rate 97 Respiratory 18 18 20 Rate Blood Pressure 143/62 (mmHg) O2 Sat by Pulse 99 98 Oximetry 12/08/17 12/08/17 11:40 11:50 Temperature 97.8 F Pulse Rate 67 Respiratory 22 18 Rate Blood Pressure 118/58 (mmHg) O2 Sat by Pulse 97 Oximetry Oxygen Devices in Use Now: Nasal Cannula Appearance: Alert, partly up in bed. Neutral affect. Looks comfortable. No cough during my visit. Eyes: No Scleral Icterus Neck: NL Appearance and Movements; NL JVP, No Thyroid Enlargement, Masses Respiratory: Symmetrical Chest Expansion and Respiratory Effort, Clear to Auscultation, Clear to Percussion Cardiovascular: NL Sounds; No Murmurs; No JVD, RRR, No Edema Extremities: No Edema, No Clubbing, Cyanosis, - Skin: No Rash or Ulcers, No Nodules or Sclerosis, - Neurological: Alert and Oriented x 3, NL Sensation Result Diagrams: 12/07/17 06:47 12/08/17 05:40 Additional Lab and Data: Lab Results 12/02/17 12/02/17 12/02/17 Range/Units 01:50 01:50 01:50 WBC 3.1 L (3.5-10.8) 10^3/ul RBC 3.01 L (4.0-5.4) 10^6/ul Hgb 10.4 L (14.0-18.0) g/dl Hct 31 L (42-52) % MCV 104 H (80-94) fL MCH 35 H (27-31) pg MCHC 33 (31-36) g/dl RDW 16 H (10.5-15) % Plt Count 102 L (150-450) 10^3/ul MPV 8.1 (7.4-10.4) um3 Neut % (Auto) 78.5 (38-83) % Lymph % (Auto) 6.8 L (25-47) % [place] % (Auto) 13.5 H (0-7) % Eos % (Auto) 0.5 (0-6) % Baso % (Auto) 0.7 (0-2) % Absolute Neuts (auto) 2.4 (1.5-7.7) 10^3/ul Absolute Lymphs (auto) 0.2 L (1.0-4.8) 10^3/ul Absolute Monos (auto) 0.4 (0-0.8) 10^3/ul Absolute Eos (auto) 0 (0-0.6) 10^3/ul Absolute Basos (auto) 0 (0-0.2) 10^3/ul Absolute Nucleated RBC 0 10^3/ul Nucleated RBC % 0 INR (Anticoag Therapy) 1.59 H (0.77-1.02) Sodium 143 (139-145) mmol/L Potassium 3.6 (3.5-5.0) mmol/L Chloride 103 (101-111) mmol/L Carbon Dioxide 30 (22-32) mmol/L Anion Gap 10 (2-11) mmol/L BUN 87 H (6-24) mg/dL Creatinine 3.40 H (0.67-1.17) mg/dL Est GFR ( Amer) 22.2 (>60) Est GFR (Non-Af Amer) 17.3 (>60) BUN/Creatinine Ratio 25.6 H (8-20) Glucose 182 H (70-100) mg/dL Lactic Acid (0.5-2.0) mmol/L Calcium 9.1 (8.6-10.3) mg/dL Total Bilirubin 0.60 (0.2-1.0) mg/dL AST 20 (13-39) U/L ALT 21 (7-52) U/L Alkaline Phosphatase 63 (34-104) U/L Troponin I 0.06 H* (<0.04) ng/mL C-Reactive Protein 12.72 H (< 5.00) mg/L Total Protein 6.6 (6.4-8.9) g/dL Albumin 3.7 (3.2-5.2) g/dL Globulin 2.9 (2-4) g/dL Albumin/Globulin Ratio 1.3 (1-3) Urine Color Urine Appearance Urine pH (5-9) Ur Specific [place] (1.010-1.030) Urine Protein (Negative) Urine Ketones (Negative) Urine Blood (Negative) Urine Nitrate (Negative) Urine Bilirubin (Negative) Urine Urobilinogen (Negative) Ur Leukocyte Esterase (Negative) Urine WBC (Auto) (Absent) Urine RBC (Auto) (Absent) Urine Bacteria (Absent) Urine Glucose (Negative) 12/02/17 12/02/17 Range/Units 01:50 04:35 WBC (3.5-10.8) 10^3/ul RBC (4.0-5.4) 10^6/ul Hgb (14.0-18.0) g/dl Hct (42-52) % MCV (80-94) fL MCH (27-31) pg MCHC (31-36) g/dl RDW (10.5-15) % Plt Count (150-450) 10^3/ul MPV (7.4-10.4) um3 Neut % (Auto) (38-83) % Lymph % (Auto) (25-47) % [place] % (Auto) (0-7) % Eos % (Auto) (0-6) % Baso % (Auto) (0-2) % Absolute Neuts (auto) (1.5-7.7) 10^3/ul Absolute Lymphs (auto) (1.0-4.8) 10^3/ul Absolute Monos (auto) (0-0.8) 10^3/ul Absolute Eos (auto) (0-0.6) 10^3/ul Absolute Basos (auto) (0-0.2) 10^3/ul Absolute Nucleated RBC 10^3/ul Nucleated RBC % INR (Anticoag Therapy) (0.77-1.02) Sodium (139-145) mmol/L Potassium (3.5-5.0) mmol/L Chloride (101-111) mmol/L Carbon Dioxide (22-32) mmol/L Anion Gap (2-11) mmol/L BUN (6-24) mg/dL Creatinine (0.67-1.17) mg/dL Est GFR ( Amer) (>60) Est GFR (Non-Af Amer) (>60) BUN/Creatinine Ratio (8-20) Glucose (70-100) mg/dL Lactic Acid 0.7 (0.5-2.0) mmol/L Calcium (8.6-10.3) mg/dL Total Bilirubin (0.2-1.0) mg/dL AST (13-39) U/L ALT (7-52) U/L Alkaline Phosphatase (34-104) U/L Troponin I (<0.04) ng/mL C-Reactive Protein (< 5.00) mg/L Total Protein (6.4-8.9) g/dL Albumin (3.2-5.2) g/dL Globulin (2-4) g/dL Albumin/Globulin Ratio (1-3) Urine Color Straw Urine Appearance Clear Urine pH 6.0 (5-9) Ur Specific [place] 1.011 (1.010-1.030) Urine Protein 2+(100 mg/dl) A (Negative) Urine Ketones Negative (Negative) Urine Blood 2+ A (Negative) Urine Nitrate Negative (Negative) Urine Bilirubin Negative (Negative) Urine Urobilinogen Negative (Negative) Ur Leukocyte Esterase Negative (Negative) Urine WBC (Auto) Trace(0-5/hpf) (Absent) Urine RBC (Auto) 2+(6-10/hpf) A (Absent) Urine Bacteria Absent (Absent) Urine Glucose Negative (Negative) Microbiology and Other Data: Microbiology 12/03/17 11:07 Group A Streptococcus Rapid Screen - Final Throat Specimen received for Rapid Strep A Molecular testing Assess/Plan/Problems-Billing Assessment: 87 yo M with h/o a. fib (on coumadin), DM2, CKD 3, diastolic CHF, pacer presented with pharyngitis and JENNIE with hospital stay notable for development of pancytopenia - Patient Problems (1) CKD (chronic kidney disease) stage 4, GFR 15-29 ml/min Current Visit: Yes Status: Acute Code(s): N18.4 - CHRONIC KIDNEY DISEASE, STAGE 4 (SEVERE) SNOMED Code(s): 852814545 Comment: Est GFR improved to 26.9 12/08. (2) Pancytopenia Current Visit: Yes Status: Acute Code(s): D61.818 - OTHER PANCYTOPENIA SNOMED Code(s): 309017303 Comment: Decreased with previous hospital stays in setting of infections Suspect marrow suppression related to infection. Continues to improve received 1 U PRBC 12/05/17 Tick borne illnesses panel all neg. (3) Aspiration pneumonitis Current Visit: Yes Status: Acute Code(s): J69.0 - PNEUMONITIS DUE TO INHALATION OF FOOD AND VOMIT SNOMED Code(s): 672337134 Comment: Complete tx with po amox/clav. (4) Afib Current Visit: Yes Status: Chronic Code(s): I48.91 - UNSPECIFIED ATRIAL FIBRILLATION SNOMED Code(s): 58758940 Comment: Rate controlled. Continue home metoprolol. held coumadin with anemia received 5 mg 12/07, start 2.5 mg daily 12/08. Check INR tomorrow (5) Diabetes Current Visit: Yes Status: Chronic Code(s): E11.9 - TYPE 2 DIABETES MELLITUS WITHOUT COMPLICATIONS SNOMED Code(s): 69794999 Comment: Cont ISS. restart Actos 12/06 Restart glipizide 12/08 PM. Status and Disposition: inpatient
[2017-12-08] MEDS ORDERED: Warfarin TAB(*) 2.5 MG PO SCH (17:00)
[2017-12-08] MEDS: glipiZIDE TAB.XL* 5 MG PO SCH (17:18)
[2017-12-08] MEDS: Amoxicillin/Clavulanate TAB* 500 MG PO SCH (20:35)
[2017-12-08] MEDS: Doxazosin TAB* 2 MG PO SCH (20:35)
[2017-12-08] MEDS: Atorvastatin* 10 MG TAB PO SCH (20:35)
[2017-12-08] MEDS ORDERED: Amoxicillin/Clavulanate TAB* 875 MG PO SCH (21:00)
[2017-12-09] MEDS: Heparin VIAL(*) 5000 UNITS/ML VIAL (FIVE THOUSAND) SUBCUT SCH (05:33)
[2017-12-09] MEDS: glipiZIDE TAB.XL* 5 MG PO SCH (08:01)
[2017-12-09] MEDS: Ferrous Sulfate TAB* 325 MG PO SCH (08:01)
[2017-12-09] MEDS: Cyanocobalamin TAB* 500 MCG PO SCH (08:01)
[2017-12-09] MEDS: Metoprolol Tartrate TAB* 50 mg PO SCH (08:02)
[2017-12-09] MEDS: Amoxicillin/Clavulanate TAB* 500 MG PO SCH (08:02)
[2017-12-09] MEDS: Omeprazole CAP* 20 MG PO SCH (08:02)
[2017-12-09] MEDS: Pioglitazone TAB* 15 MG PO SCH (08:02)
[2017-12-09] MEDS: amLODIPine TAB* 5 MG PO SCH (08:02)
[2017-12-09] MEDS: Cholecalciferol TAB* 1000 UNITS PO SCH (08:03)
[2017-12-09] MEDS: Gabapentin CAP(*) 100 MG PO SCH (08:03)
[2017-12-09] MEDS: Allopurinol TAB* 100 MG PO SCH (08:03)
[2017-12-09] MEDS: Insulin LISPRO* 1 UNITS UNIT SUBCUT SCH ×2 (09:26→12:36)
--- NOTE | 2017-12-09 11:53 | PN ---
Subjective Date of Service: 12/09/17 Interval History: Little cough. No new c/o. Pt not sure if he is ready to go home. Objective Active Medications: Acetaminophen (Tylenol Supp*) 650 mg OH Q6H PRN PRN Reason: FEVER/PAIN Last Admin: 12/03/17 04:50 Dose: 650 mg Acetaminophen (Tylenol Tab*) 650 mg PO Q4H PRN PRN Reason: FEVER/PAIN Last Admin: 12/07/17 20:00 Dose: 650 mg Allopurinol (Zyloprim Tab*) 100 mg PO DAILY [facility] Last Admin: 12/09/17 08:03 Dose: 100 mg Amlodipine Besylate (Norvasc Tab*) 5 mg PO DAILY [facility] Last Admin: 12/09/17 08:02 Dose: 5 mg Amoxicillin/Clavulanate Potassium (Augmentin Tab*) 500 mg PO BID [facility] Last Admin: 12/09/17 08:02 Dose: 500 mg Atorvastatin Calcium (Lipitor*) 10 mg PO BEDTIME [facility] Last Admin: 12/08/17 20:35 Dose: 10 mg Cholecalciferol (Vitamin D Tab*) 1,000 units PO DAILY [facility] Last Admin: 12/09/17 08:03 Dose: 1,000 units Cyanocobalamin (Vitamin B12 Tab*) 1,000 mcg PO DAILY [facility] Last Admin: 12/09/17 08:01 Dose: 1,000 mcg Dextrose (D50w Syringe 50 Ml*) 12.5 gm IV PUSH .FOR FS < 60 - SS PRN PRN Reason: FS < 60 Doxazosin Mesylate (Cardura Tab*) 4 mg PO BEDTIME [facility] Last Admin: 12/08/17 20:35 Dose: 4 mg Ferrous Sulfate (Ferrous Sulfate Tab*) 325 mg PO DAILY [facility] Last Admin: 12/09/17 08:01 Dose: 325 mg Gabapentin (Neurontin Cap(*)) 300 mg PO BEDTIME [facility] Last Admin: 12/08/17 20:34 Dose: 300 mg Gabapentin (Neurontin Cap(*)) 100 mg PO DAILY [facility] Last Admin: 12/09/17 08:03 Dose: 100 mg Glipizide (Glucotrol Xl*) 10 mg PO 0800,1700 [facility] Last Admin: 12/09/17 08:01 Dose: 10 mg Heparin Sodium (Porcine) (Heparin Vial(*)) 5,000 units SUBCUT Q8HR [facility] Last Admin: 12/09/17 05:33 Dose: 5,000 units Hydralazine HCl (Apresoline Iv*) 10 mg IV Q4H PRN PRN Reason: Systolic >170 Insulin Human Lispro (Humalog*) 0 units SUBCUT ACHS [facility] PRN Reason: Protocol Last Admin: 12/09/17 09:26 Dose: Not Given Metoprolol Tartrate (Lopressor Tab*) 100 mg PO QAM [facility] Last Admin: 12/09/17 08:02 Dose: 100 mg Metoprolol Tartrate (Lopressor Tab*) 50 mg PO QPM [facility] Last Admin: 12/08/17 17:17 Dose: 50 mg Morphine Sulfate (Morphine Vial*) 1 mg IV Q4H PRN PRN Reason: PAIN Omeprazole (Prilosec Cap*) 20 mg PO DAILY [facility] Last Admin: 12/09/17 08:02 Dose: 20 mg Pharmacy Profile Note (Coumadin Daily Reminder*) 1 note FOLLOW UP 1700 [facility] Last Admin: 12/08/17 17:18 Dose: 1 note Pioglitazone HCl (Actos Tab*) 15 mg PO DAILY [facility] Last Admin: 12/09/17 08:02 Dose: 15 mg Prochlorperazine Edisylate (Compazine Inj*) 5 mg IV Q6H PRN PRN Reason: NAUSEA/VOMITING Last Admin: 12/03/17 02:29 Dose: 5 mg Throat Lozenges (Chloraseptic Darrion*) 1 darrion PO Q4H PRN PRN Reason: SORE THROAT Last Admin: 12/02/17 20:25 Dose: 1 darrion Warfarin Sodium (Coumadin Tab(*)) 2.5 mg PO DAILY@1700 [facility] PRN Reason: Protocol Last Admin: 12/08/17 17:17 Dose: 2.5 mg Vital Signs - 8 hr 12/09/17 12/09/17 12/09/17 04:15 08:03 08:12 Temperature 98.1 F Pulse Rate 60 Respiratory 18 22 22 Rate Blood Pressure 142/67 (mmHg) O2 Sat by Pulse 95 Oximetry Oxygen Devices in Use Now: Nasal Cannula Appearance: Alert, partly up in bed. Neutral affect. Looks comfortable. No cough during my visit. Eyes: No Scleral Icterus Respiratory: Symmetrical Chest Expansion and Respiratory Effort, Clear to Auscultation, Clear to Percussion Cardiovascular: NL Sounds; No Murmurs; No JVD, RRR, No Edema, - Extremities: No Edema, No Clubbing, Cyanosis, - Skin: No Rash or Ulcers, No Nodules or Sclerosis, - Neurological: Alert and Oriented x 3, NL Sensation Result Diagrams: 12/07/17 06:47 12/08/17 05:40 Additional Lab and Data: Lab Results 12/02/17 12/02/17 12/02/17 Range/Units 01:50 01:50 01:50 WBC 3.1 L (3.5-10.8) 10^3/ul RBC 3.01 L (4.0-5.4) 10^6/ul Hgb 10.4 L (14.0-18.0) g/dl Hct 31 L (42-52) % MCV 104 H (80-94) fL MCH 35 H (27-31) pg MCHC 33 (31-36) g/dl RDW 16 H (10.5-15) % Plt Count 102 L (150-450) 10^3/ul MPV 8.1 (7.4-10.4) um3 Neut % (Auto) 78.5 (38-83) % Lymph % (Auto) 6.8 L (25-47) % [place] % (Auto) 13.5 H (0-7) % Eos % (Auto) 0.5 (0-6) % Baso % (Auto) 0.7 (0-2) % Absolute Neuts (auto) 2.4 (1.5-7.7) 10^3/ul Absolute Lymphs (auto) 0.2 L (1.0-4.8) 10^3/ul Absolute Monos (auto) 0.4 (0-0.8) 10^3/ul Absolute Eos (auto) 0 (0-0.6) 10^3/ul Absolute Basos (auto) 0 (0-0.2) 10^3/ul Absolute Nucleated RBC 0 10^3/ul Nucleated RBC % 0 INR (Anticoag Therapy) 1.59 H (0.77-1.02) Sodium 143 (139-145) mmol/L Potassium 3.6 (3.5-5.0) mmol/L Chloride 103 (101-111) mmol/L Carbon Dioxide 30 (22-32) mmol/L Anion Gap 10 (2-11) mmol/L BUN 87 H (6-24) mg/dL Creatinine 3.40 H (0.67-1.17) mg/dL Est GFR ( Amer) 22.2 (>60) Est GFR (Non-Af Amer) 17.3 (>60) BUN/Creatinine Ratio 25.6 H (8-20) Glucose 182 H (70-100) mg/dL Lactic Acid (0.5-2.0) mmol/L Calcium 9.1 (8.6-10.3) mg/dL Total Bilirubin 0.60 (0.2-1.0) mg/dL AST 20 (13-39) U/L ALT 21 (7-52) U/L Alkaline Phosphatase 63 (34-104) U/L Troponin I 0.06 H* (<0.04) ng/mL C-Reactive Protein 12.72 H (< 5.00) mg/L Total Protein 6.6 (6.4-8.9) g/dL Albumin 3.7 (3.2-5.2) g/dL Globulin 2.9 (2-4) g/dL Albumin/Globulin Ratio 1.3 (1-3) Urine Color Urine Appearance Urine pH (5-9) Ur Specific [place] (1.010-1.030) Urine Protein (Negative) Urine Ketones (Negative) Urine Blood (Negative) Urine Nitrate (Negative) Urine Bilirubin (Negative) Urine Urobilinogen (Negative) Ur Leukocyte Esterase (Negative) Urine WBC (Auto) (Absent) Urine RBC (Auto) (Absent) Urine Bacteria (Absent) Urine Glucose (Negative) 12/02/17 12/02/17 Range/Units 01:50 04:35 WBC (3.5-10.8) 10^3/ul RBC (4.0-5.4) 10^6/ul Hgb (14.0-18.0) g/dl Hct (42-52) % MCV (80-94) fL MCH (27-31) pg MCHC (31-36) g/dl RDW (10.5-15) % Plt Count (150-450) 10^3/ul MPV (7.4-10.4) um3 Neut % (Auto) (38-83) % Lymph % (Auto) (25-47) % [place] % (Auto) (0-7) % Eos % (Auto) (0-6) % Baso % (Auto) (0-2) % Absolute Neuts (auto) (1.5-7.7) 10^3/ul Absolute Lymphs (auto) (1.0-4.8) 10^3/ul Absolute Monos (auto) (0-0.8) 10^3/ul Absolute Eos (auto) (0-0.6) 10^3/ul Absolute Basos (auto) (0-0.2) 10^3/ul Absolute Nucleated RBC 10^3/ul Nucleated RBC % INR (Anticoag Therapy) (0.77-1.02) Sodium (139-145) mmol/L Potassium (3.5-5.0) mmol/L Chloride (101-111) mmol/L Carbon Dioxide (22-32) mmol/L Anion Gap (2-11) mmol/L BUN (6-24) mg/dL Creatinine (0.67-1.17) mg/dL Est GFR ( Amer) (>60) Est GFR (Non-Af Amer) (>60) BUN/Creatinine Ratio (8-20) Glucose (70-100) mg/dL Lactic Acid 0.7 (0.5-2.0) mmol/L Calcium (8.6-10.3) mg/dL Total Bilirubin (0.2-1.0) mg/dL AST (13-39) U/L ALT (7-52) U/L Alkaline Phosphatase (34-104) U/L Troponin I (<0.04) ng/mL C-Reactive Protein (< 5.00) mg/L Total Protein (6.4-8.9) g/dL Albumin (3.2-5.2) g/dL Globulin (2-4) g/dL Albumin/Globulin Ratio (1-3) Urine Color Straw Urine Appearance Clear Urine pH 6.0 (5-9) Ur Specific [place] 1.011 (1.010-1.030) Urine Protein 2+(100 mg/dl) A (Negative) Urine Ketones Negative (Negative) Urine Blood 2+ A (Negative) Urine Nitrate Negative (Negative) Urine Bilirubin Negative (Negative) Urine Urobilinogen Negative (Negative) Ur Leukocyte Esterase Negative (Negative) Urine WBC (Auto) Trace(0-5/hpf) (Absent) Urine RBC (Auto) 2+(6-10/hpf) A (Absent) Urine Bacteria Absent (Absent) Urine Glucose Negative (Negative) Microbiology and Other Data: Microbiology 12/03/17 11:07 Group A Streptococcus Rapid Screen - Final Throat Specimen received for Rapid Strep A Molecular testing Assess/Plan/Problems-Billing Assessment: 87 yo M with h/o a. fib (on coumadin), DM2, CKD 3, diastolic CHF, pacer presented with pharyngitis and JENNIE with hospital stay notable for development of pancytopenia - Patient Problems (1) CKD (chronic kidney disease) stage 4, GFR 15-29 ml/min Current Visit: Yes Status: Acute Code(s): N18.4 - CHRONIC KIDNEY DISEASE, STAGE 4 (SEVERE) SNOMED Code(s): 661228023 Comment: Est GFR improved to 26.9 12/08. (2) Pancytopenia Current Visit: Yes Status: Acute Code(s): D61.818 - OTHER PANCYTOPENIA SNOMED Code(s): 475136747 Comment: Decreased with previous hospital stays in setting of infections Suspect marrow suppression related to infection. Continues to improve received 1 U PRBC 12/05/17 Tick borne illnesses panel all neg. CBC 12/12. (3) Aspiration pneumonitis Current Visit: Yes Status: Acute Code(s): J69.0 - PNEUMONITIS DUE TO INHALATION OF FOOD AND VOMIT SNOMED Code(s): 614567987 Comment: Complete tx with po amox/clav. Remaining 8 doses transmitted to [facility] outpt pharmacy. (4) Afib Current Visit: Yes Status: Chronic Code(s): I48.91 - UNSPECIFIED ATRIAL FIBRILLATION SNOMED Code(s): 95786705 Comment: Rate controlled. Continue home metoprolol. held coumadin with anemia received 5 mg 12/07, start 2.5 mg daily 12/08. INR 12/12. Check INR tomorrow (5) Diabetes Current Visit: Yes Status: Chronic Code(s): E11.9 - TYPE 2 DIABETES MELLITUS WITHOUT COMPLICATIONS SNOMED Code(s): 77142145 Comment: Cont ISS. restarted Actos 12/06 Restarted glipizide 12/08 PM. (6) HTN (hypertension) Current Visit: Yes Status: Acute Code(s): I10 - ESSENTIAL (PRIMARY) HYPERTENSION SNOMED Code(s): 34759600 Comment: Continue amlodipine, doxazosin, metoprolol, spironolactone at home. Status and Disposition: Discharge now. Fup Dr. Sherman.
--- NOTE | 2017-12-09 12:50 | PN ---
Progress Note - Progress Note Date of Service: 12/09/17 Note: Time spent on discharge 55 minutes.
[2017-12-09] MEDS ORDERED: guaiFENesin LIQ* 100 MG/5 ML UDC PO SCH (13:00)
[2017-12-09 13:33] VITALS: BP 124/68
--- NOTE | 2017-12-09 21:22 | DS ---
CC: Dr. Sherman DISCHARGE SUMMARY: DATE OF ADMISSION: 12/03/17 DATE OF DISCHARGE: 12/09/17 HOSPITAL COURSE: This 87-year-old man presented with a sore throat. This began about 3 days before admission. He had difficulty ingesting foods and liquids. He also complained of malaise, fatigue, a nd body aches. In the emergency room, his temperature was 100.6. He and the family were not aware t hat he had a fever. He had a sporadic dry cough. Initially, it was felt he had pharyngitis and dehydration with acute kidney injury. He had chronic pa ncytopenia which may have been a little worse because of his acute illness. Within the first hospital day, he deteriorated and was transferred to the intensive care unit. He di d not require intubation. He gradually recovered. He had left lung consolidation and it was felt th at probably he has pneumonia. On 12/08/17, his O2 saturation on room air was 89%. He was seen by Physical Therapy and he is not am bulatory. He gets around in wheelchair and usually can transfer. He was able to transfer adequately probably at his baseline with physical therapy. Warfarin was withheld because of his acute illness. His INR on 12/08/17 was 1.64. Because of his con current antibiotic use, I am reducing his warfarin to 2.5 mg daily. He received a loading dose of 5 mg on 12/07/17 and 2.5 mg on 12/08/17. He will have an INR on 12/12/17. He will also have CBC on . His creatinine was fairly stable and on 12/08/17, was actually the lowest value of this hosp ital stay and within his range in the past at 2.88. This will also be repeated on 12/12/17. FINAL DIAGNOSES: 1. Acute on chronic kidney disease. 2. Chronic pancytopenia. 3. Pneumonia. 4. Atrial fibrillation. 5. Diabetes. 6. Hypertension. DISCHARGE MEDICATIONS: 1. Amoxicillin/clavulanate 500 mg b.i.d. for 8 more doses. 2. Warfarin 2.5 mg daily at 5 p.m. 3. Metoprolol tartrate 100 mg every morning and 50 mg at bedtime. 4. Simvastatin 20 mg h.s. 5. Spironolactone 25 mg daily. 6. Amlodipine 5 mg daily. 7. Vitamin D3, 1000 units daily. 8. Doxazosin 4 mg at bedtime. 9. Vitamin B12,1000 mcg daily. 10. Allopurinol 100 mg daily. 11. Gabapentin 300 mg at bedtime. 12. Glipizide XL 10 mg b.i.d. 13. Ferrous sulfate 325 mg daily. 14. Gabapentin 100 mg every morning. 15. Potassium chloride 10 mEq daily. 16. Acetaminophen 650 mg every 6 hours p.r.n. 17. Pioglitazone 15 mg daily. 18. Furosemide 40 mg b.i.d. 19. Ondansetron 8 mg every 6 hours p.r.n. 20. Pantoprazole 40 mg daily. [id number]/[facility] #: [id number]
== END 2017-12-09 14:45 | disposition home health service (06) | DRG 682 ==
LOC: ED 01:09 → MED 08:04 → ICU 12-03 02:27 → OBSVTOIN 12-03 05:21 → MED 12-05 19:00
PROVIDERS: ADMIT Internal Medicine; ATTEND Internal Medicine
PROC: 5A09357 Assistance with Respiratory Ventilation, Less than 24 Consecutive Hours, Continuous Positive Airway Pressure (ICD-10-PCS; principal; 2017-12-03)
PROC: 0DH67UZ Insertion of Feeding Device into Stomach, Via Natural or Artificial Opening (ICD-10-PCS; 2017-12-03)
PROC: 30233N1 Transfusion of Nonautologous Red Blood Cells into Peripheral Vein, Percutaneous Approach (ICD-10-PCS; 2017-12-05)
DX: N17.9 Acute kidney failure, unspecified (principal); J18.9 Pneumonia, unspecified organism; I50.43 Acute on chronic combined systolic (congestive) and diastolic (congestive) heart failure; J69.0 Pneumonitis due to inhalation of food and vomit; I13.0 Hypertensive heart and chronic kidney disease with heart failure and stage 1 through stage 4 chronic kidney disease, or unspecified chronic kidney disease; D61.818 Other pancytopenia; J02.9 Acute pharyngitis, unspecified; E86.0 Dehydration; I48.91 Unspecified atrial fibrillation; M10.9 Gout, unspecified; R09.02 Hypoxemia; E11.22 Type 2 diabetes mellitus with diabetic chronic kidney disease; D64.9 Anemia, unspecified; M17.12 Unilateral primary osteoarthritis, left knee; N18.3 Chronic kidney disease, stage 3 (moderate); N40.0 Benign prostatic hyperplasia without lower urinary tract symptoms; I25.10 Atherosclerotic heart disease of native coronary artery without angina pectoris; Z82.5 Family history of asthma and other chronic lower respiratory diseases; Z95.810 Presence of automatic (implantable) cardiac defibrillator; Z85.51 Personal history of malignant neoplasm of bladder; Z82.49 Family history of ischemic heart disease and other diseases of the circulatory system; Z87.891 Personal history of nicotine dependence; Z79.84 Long term (current) use of oral hypoglycemic drugs; Z79.01 Long term (current) use of anticoagulants
CPT/HCPCS: 36415; 36600; 71045; 71046; 80048; 80053; 81003; 81015; 82272; 82607; 82728; 82746; 82803; 83540; 83550; 83605; 83735; 83880; 84484; 85014; 85018; 85025; 85027; 85610; 86140; 86618; 86666; 86753; 86850; 86900; 86901; 86922; 87040; 87070; 87086; 87502; 87651; 87798; 93005; 93306; 94660; 99285; A9270-GY; G0378; G8978-GP-CI; G8978-GP-CJ; G8979-GP-CH; G8979-GP-CI; G8987-GO-CK; G8988-GO-CI; G8989-GO-CI; G8996-GN-CH; G8997-GN-CH; G8998-GN-CH; J0456; J0696; J0780; J1644; J2543; J3480; P9040

== ENCOUNTER 2017-12-10 13:32 | Inpatient (IN) | payer MEDICARE, OTHER ==
--- NOTE | 2017-12-10 14:46 | RAD ---
INDICATION: Atraumatic left hip pain COMPARISON: CT September 27, 2016 TECHNIQUE: An AP view of the pelvis and AP views of the hip in neutral and abducted position were obtained FINDINGS: Bones: There are no acute bony findings. The left hip is internally rotated limiting evaluation of femoral neck. Similar positioning is observed when the earlier CT is reviewed. No plain radiographic abnormalities are seen Joint spaces: The hips articulate normally given the patient's stated age. The joint spaces are preserved. SI joints/symphysis: The SI joints and symphysis are intact. Other: There are extensive vascular calcifications. IMPRESSION: MILDLY LIMITED EXAMINATION DUE TO POSITIONING. NO PLAIN RADIOGRAPHIC EVIDENCE OF HIP FRACTURE (SEE ABOVE).
--- NOTE | 2017-12-10 15:41 | RAD ---
INDICATION: 87-year-old with left hip pain COMPARISON: Left hip December 10, 2017; CT abdomen and pelvis September 27, 2017 TECHNIQUE: Noncontrast axial imaging of the pelvis was obtained to evaluate for hip fracture. Coronal and sagittal reconstructions were obtained. FINDINGS: There is no evidence of acute hip fracture. The osseous structures appear unchanged. 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 The SI joints and symphysis are intact. The left psoas muscle appears enlarged relative to the right and there is adjacent stranding and there is a small amount of free fluid in left paracolic gutter. The findings most consistent with a psoas hematoma. This is new since September 2017. There is advanced sclerotic change involving the visualized aorta and iliac vessels. The bladder appears normal. There is moderate prostatic enlargement. There is subcutaneous edema. The noncontrast CT appearance the bowel is unremarkable IMPRESSION: 1. No evidence of acute pelvic fracture. 2. Interval development of left psoas enlargement and adjacent stranding with free fluid. The findings are most consistent with a psoas hematoma. 3. Prostatic hypertrophy
--- NOTE | 2017-12-10 17:38 | ED ---
Helder Vera Stephanie, scribed for Eric Andrea MD on 12/10/17 at 1345 . Lower Extremity - HPI Summary HPI Summary: The pt is an 87 y/o M BIBA to the ED with c/o L hip pain. The pt was d/c yesterday from [facility] with PNA. The pt is able to stand and pivot at baseline however, he travels in a wheel chair. He is on home O2. - History of Current Complaint Chief Complaint: EDHipPelvisInjury Stated Complaint: HIP PAIN Time Seen by Provider: 12/10/17 13:37 Hx Obtained From: Patient Mechanism Of Injury: Unknown Onset of Pain: Hours Onset/Duration: Hours Severity Currently: Mild Pain Intensity: 0 Pain Scale Used: 0-10 Numeric Timing: Constant Location: Is Discrete @ - L hip Alleviating Factor(s): Nothing Able to Bear Weight: No - Allergies/Home Medications Allergies/Adverse Reactions: Allergies Allergy/AdvReac Type Severity Reaction Status Date / Time No Known Allergies Allergy Verified 08/24/17 20:36 PMH/Surg Hx/FS Hx/Imm Hx Endocrine/Hematology History: Reports: Hx Anticoagulant Therapy - coumadin, Hx Diabetes - type II Cardiovascular History: Reports: Hx Atrial Fibrillation, Hx Congestive Heart Failure, Hx Hypertension, Hx Pacemaker/ICD, Other Cardiovascular Problems/ Disorders - PACEMAKER Denies: Hx Peripheral Vascular Disease History: Reports: Other Problems/Disorders - CKD Musculoskeletal History: Reports: Hx Arthritis - Lt knee - injections have helped temporarily in the past, Hx Gout Denies: Hx Osteoporosis Sensory History: Reports: Hx Contacts or Glasses Denies: Hx Hearing Aid Opthamlomology History: Reports: Hx Contacts or Glasses Neurological History: Denies: Hx Headaches, Hx Seizures, Hx Transient Ischemic Attacks (TIA) Psychiatric History: Denies: Hx Anxiety, Hx Depression - Cancer History Cancer Type, Location and Year: bladder ca - Surgical History Surgery Procedure, Year, and Place: PACEMAKER - Immunization History Date of Tetanus Vaccine: unk Date of Influenza Vaccine: fall 2016 Infectious Disease History: No Infectious Disease History: Denies: Traveled Outside the [place] in Last 30 Days - Family History Known Family History: Positive: Cardiac Disease Negative: Hypertension, Diabetes - Social History Occupation: Retired Lives: With Family Alcohol Use: None Hx Substance Use: No Substance Use Type: Reports: None Hx Tobacco Use: Yes Smoking Status (MU): Former Smoker Review of Systems Negative: Fever Positive: Other - L hip pain Negative: Slurred Speech All Other Systems Reviewed And Are Negative: Yes Physical Exam - Summary Physical Exam Summary: VITAL SIGNS: Reviewed. GENERAL: Patient is a well-developed and nourished MALE who is lying comfortable in the stretcher. Patient is not in any acute respiratory distress. HEAD AND FACE: No signs of trauma. No ecchymosis, hematomas or skull depressions. No sinus tenderness. EYES: PERRLA, EOMI x 2, No injected conjunctiva, no nystagmus. EARS: Hearing grossly intact. Ear canals and tympanic membranes are within normal limits. MOUTH: Oropharynx within normal limits. NECK: Supple, trachea is midline, no adenopathy, no JVD, no carotid bruit, no c- spine tenderness, neck with full ROM. CHEST: Symmetric, no tenderness at palpation LUNGS: Clear to auscultation bilaterally. No wheezing or crackles. CVS: Regular rate and rhythm, S1 and S2 present, no murmurs or gallops appreciated. ABDOMEN: Soft, non-tender. No signs of distention. No rebound no guarding, and no masses palpated. Bowel sounds are normal. EXTREMITIES: FROM in all major joints, no edema, no cyanosis or clubbing. There is decreased ROM on L hip secondary to pain, no ecchymosis or deformity of L hip NEURO: Alert and oriented x 3. No acute neurological deficits. Speech is normal and follows commands. SKIN: Dry and warm Triage Information Reviewed: Yes Vital Signs On Initial Exam: Initial Vitals Temp Pulse Resp BP Pulse Ox 98 F 85 18 149/67 99 12/10/17 13:34 12/10/17 13:34 12/10/17 13:34 12/10/17 13:34 12/10/17 13:34 Vital Signs Reviewed: Yes Diagnostics - Vital Signs Vital Signs Temp Pulse Resp BP Pulse Ox 12/10/17 13:34 98 F 85 18 149/67 99 - Laboratory Lab Statement: Any lab studies that have been ordered have been reviewed, and results considered in the medical decision making process. - Radiology Hip/Pelvis XRay Xray Interpretation: No Acute Changes Radiology Interpretation Completed By: Radiologist - MILDLY LIMITED EXAMINATION DUE TO POSITIONING. NO PLAIN RADIOGRAPHIC EVIDENCE OF HIP FRACTURE ( SEE ABOVE). ED physician has reviewed this report. - CT Pelvis CT Interpretation: No Acute Changes CT Interpretation Completed By: Radiologist - 1. No evidence of acute pelvic fracture. 2. Interval development of left psoas enlargement and adjacent stranding with free fluid. The findings are most consistent with a psoas hematoma. 3. Prostatic hypertrophy ED physician has reviewed this report. Lower Extremity Course/Dx - Course Assessment/Plan: This patient is a 87-year-old male who presents to the emergency department with a chief complaint: Left hip pain. He was discharged from the hospital yesterday after he was admitted for pneumonia. Now he is coming back because his son requested for evaluation of the left hip. Since the patient is having pain. Patient reports that the pain is only 2 out 10 and he usually uses a wheelchair to move. Left hip x-ray impression, and a limited examination due to positioning. No plain radiographic evidence of hip fracture. Abdominopelvic CT impression: No evidence of acute pelvic fracture. Therefore this time and discussed the findings are consistent with the patient he will be discharged back to his home. Patient understands and agrees. Before the patient was discharged home the patients son call to the emergency department stating that he doesnt want the patient to be discharged because he is unable to care for himself. He wants the patient to be admitted and possibly transfer him to a rehabilitation center. I discussed the case with Dr. Almanzar who accepted the patient to his services for further workup and management. He agrees not to order any blood work or any other testing. - Diagnoses Provider Diagnoses: Hip pain, Hospital admission due to social situation Discharge - Sign-Out/Discharge Documenting (check all that apply): Discharge/Admit/Transfer - Discharge - Discharge Plan Condition: Stable Disposition: HOME Patient Education Materials: Hip Pain (ED) Referrals: Hayder Sherman MD [Primary Care Provider] - 3 Days Additional Instructions: RETURN TO THE ER FOR ANY NEW OR WORSENING SYMPTOMS - Billing Disposition and Condition Condition: STABLE Disposition: HOME The documentation as recorded by the Helder woo Stephanie accurately reflects the service I personally performed and the decisions made by me, Eric Andrea MD.
[2017-12-10] MEDS ORDERED: Ondansetron ODT TAB* 4 MG PO PRN (17:49)
[2017-12-10] MEDS ORDERED: Warfarin TAB(*) 2.5 MG PO ONE (18:00)
[2017-12-10] MEDS ORDERED: Phytonadione Oral Solution* 5 MG/25 ML UDC PO ONE (18:00)
[2017-12-10] MEDS ORDERED: Acetaminophen TAB* 325 MG ONE (18:14)
[2017-12-10] MEDS ORDERED: Metoprolol Tartrate TAB* 50 mg ONE (18:14)
[2017-12-10] MEDS: Metoprolol Tartrate TAB* 50 mg PO SCH (18:17)
[2017-12-10] MEDS: Acetaminophen TAB* 325 MG PO SCH ×2 (18:17→20:18)
[2017-12-10] MEDS ORDERED: Dextrose 50% Syringe 50 ML* 25 GM/50 ML SYRINGE IV PUSH PRN (18:17)
--- NOTE | 2017-12-10 19:03 | HP ---
ADMISSION HISTORY AND PHYSICAL: DATE OF ADMISSION: 12/10/17 HISTORY OF PRESENT ILLNESS: This 87-year-old man was discharged from the hospital the day before he was admitted with a sore throat on 12/02/17. He became dehydrated and/or hypoxic and was in the ICU for a few days. He was treated for an infiltrate in his left lung with intravenous antibiotics and t hen transitioned to amoxicillin/clavulanate. He was steadily improving. He says his cough has still improved compared to yesterday. The reason he came back today is that his left hip hurts and it is hard or impossible for him to now transfer from his wheelchair as he normally does. Evaluation in e emergency room showed early left psoas hematoma. Of note the patient is on warfarin. His INR was 1.65 two days ago. PAST MEDICAL HISTORY: Atrial fibrillation, diabetes, chronic kidney disease, systolic heart failure, hypertension, coronary artery disease, BPH. PAST SURGICAL HISTORY: Includes bladder cancer, pacemaker implantation, and appendectomy. CURRENT MEDICATIONS: 1. Acetaminophen 650 mg every 6 hours p.r.n. 2. Allopurinol 100 mg daily. 3. Amlodipine 5 mg daily. 4. Amoxicillin/clavulanate 500 mg b.i.d. 5. Cholecalciferol 1000 units daily. 6. Vitamin B12 1000 mcg daily. 7. Doxazosin 4 mg h.s. 8. Ferrous sulfate 325 mg daily. 9. Furosemide 40 mg b.i.d. 10. Gabapentin 100 mg in the morning and 300 mg at bedtime. 11. Glipizide XL 10 mg b.i.d. 12. Metoprolol tartrate 50 mg in the p.m. and 100 mg in the a.m. 13. Ondansetron ODT 8 mg every 6 hours p.r.n. 14. Pantoprazole 40 mg daily. 15. Pioglitazone 15 mg daily. 16. Potassium 10 mEq daily. 17. Simvastatin 20 mg h.s. 18. Spironolactone 25 mg daily. 19. Warfarin 2.5 mg daily. ALLERGIES: None known. FAMILY HISTORY: His father has a history of COPD. SOCIAL HISTORY: He lives with his son. The patient quit smoking 60 years ago. He does not abuse al cohol. His son, Miguel Angel Davison, is his surrogate decision maker. REVIEW OF SYSTEMS: A 14-point review of systems was performed. All the pertinent negative and posit rao findings are in the HPI. PHYSICAL EXAMINATION GENERAL: He is a pleasant elderly man, lying supine on the ED stretcher. He has a neutral affect. He appears comfortable at rest. VITAL SIGNS: Temperature 98, heart rate 82, respirations 16, O2 saturation 99% on 2 L, blood pressur e 148/75. I note the patient uses O2 at home. HEENT: No signs of head trauma. Head is normocephalic. Pupils equal, round, and reactive to light. Face is symmetric. Mouth and pharynx are clear. NECK: There is no axillary or supraclavicular adenopathy. HEART AND LUNGS: Clear to auscultation and percussion anteriorly. ABDOMEN: Soft. No organomegaly, mass, or tenderness. EXTREMITIES: There was 1+ pedal edema bilaterally. No calf tenderness. There was no particular ten derness about the left hip, some pain with moving the left leg. NEUROLOGIC: He was oriented, although with some memory loss. There was no tremor. He was rather pas sive. SKIN: Warm, dry, and intact. No significant lesions. IMPRESSION AND PLAN: The patient will be given vitamin K 5 mg p.o. in the emergency room to reverse his warfarin and to allow for faster healing of his psoas hematoma. The warfarin can probably be re sumed in a couple of weeks. I am going to lower his amlodipine and gabapentin doses. We will monitor his blood sugars. He will get his other usual medications. We will have a PT and OT eval. [id number]/[facility] #: [id number]
[2017-12-10] MEDS: Gabapentin CAP(*) 300 MG PO SCH (20:17)
[2017-12-10] MEDS: Doxazosin TAB* 2 MG PO SCH (20:18)
[2017-12-10] MEDS: Atorvastatin* 10 MG TAB PO SCH (20:19)
[2017-12-10] MEDS: Amoxicillin/Clavulanate TAB* 500 MG PO SCH (20:19)
[2017-12-10] MEDS: glipiZIDE TAB.XL* 5 MG PO SCH (20:19)
[2017-12-10] MEDS: Furosemide TAB* 40 MG PO SCH (20:19)
[2017-12-10] MEDS: guaiFENesin LIQ* 100 MG/5 ML UDC PO SCH (20:20)
[2017-12-10] MEDS: Insulin LISPRO* 1 UNITS UNIT SUBCUT SCH (20:21)
[2017-12-11] MEDS: Acetaminophen TAB* 325 MG PO PRN (02:00)
[2017-12-11 05:26] LABS: Hematocrit 20 % (42-52); Hemoglobin 6.8 g/dl (14.0-18.0); Mean Corpuscular HGB Conc 34 g/dl (31-36); Mean Corpuscular Hemoglobin 34 pg (27-31); Mean Corpuscular Volume 102 fL (80-94); Mean Platelet Volume 7.1 um3 (7.4-10.4); Platelet Count 179 10^3/ul (150-450); Red Cell Distribution Width 17 % (10.5-15); White Blood Count 4.6 10^3/ul (3.5-10.8)
[2017-12-11 05:43] LABS: INR 1.55 (0.77-1.02)
[2017-12-11 05:52] LABS: EGFR Non-African American 23.2 (>60)
[2017-12-11 06:54] LABS: ABS Basophils 0 10^3/ul (0-0.2); ABS Eosinophils 0.1 10^3/ul (0-0.6); ABS Lymphocytes 0.4 10^3/ul (1.0-4.8); ABS Monocytes 0.5 10^3/ul (0-0.8); ABS Neutrophils 3.6 10^3/ul (1.5-7.7); ABS Nucleated RBC 0 10^3/ul; Eosinophil % 1.6 % (0-6); Lymphocyte % 9.3 % (25-47); Nucleated Red Blood Cells % 0
[2017-12-11] MEDS: Insulin LISPRO* 1 UNITS UNIT SUBCUT SCH ×4 (07:52→21:32)
[2017-12-11] MEDS: amLODIPine TAB* 5 MG PO SCH (08:15)
[2017-12-11] MEDS: guaiFENesin LIQ* 100 MG/5 ML UDC PO SCH ×4 (08:16→21:33)
[2017-12-11] MEDS: Amoxicillin/Clavulanate TAB* 500 MG PO SCH ×2 (08:17→21:33)
[2017-12-11] MEDS: glipiZIDE TAB.XL* 5 MG PO SCH ×2 (08:17→21:33)
[2017-12-11] MEDS: Potassium Chlor TAB* 10 MEQ TAB.ER PO SCH (08:18)
[2017-12-11] MEDS: Allopurinol TAB* 100 MG PO SCH (08:18)
[2017-12-11] MEDS: Acetaminophen TAB* 325 MG PO SCH ×3 (08:18→21:33)
[2017-12-11] MEDS: Metoprolol Tartrate TAB* 50 mg PO SCH ×2 (08:19→17:12)
[2017-12-11] MEDS: Spironolactone TAB* 25 MG PO SCH (08:19)
[2017-12-11] MEDS: Omeprazole CAP* 20 MG PO SCH (08:19)
[2017-12-11] MEDS: Cholecalciferol TAB* 1000 UNITS PO SCH (08:19)
[2017-12-11] MEDS: Cyanocobalamin TAB* 500 MCG PO SCH (08:20)
[2017-12-11] MEDS: Furosemide TAB* 40 MG PO SCH ×2 (08:20→21:34)
[2017-12-11] MEDS: Ferrous Sulfate TAB* 325 MG PO SCH (08:20)
[2017-12-11] MEDS: Pioglitazone TAB* 15 MG PO SCH (08:20)
--- NOTE | 2017-12-11 14:55 | PN ---
Subjective Date of Service: 12/11/17 Interval History: L hip pain better today. No new c/o. Objective Active Medications: Acetaminophen (Tylenol Tab*) 650 mg PO TID [facility] Last Admin: 12/11/17 13:46 Dose: 650 mg Acetaminophen (Tylenol Tab*) 650 mg PO Q6H PRN PRN Reason: FEVER/PAIN Last Admin: 12/11/17 02:00 Dose: 650 mg Allopurinol (Zyloprim Tab*) 100 mg PO DAILY [facility] Last Admin: 12/11/17 08:18 Dose: 100 mg Amlodipine Besylate (Norvasc Tab*) 2.5 mg PO DAILY [facility] Last Admin: 12/11/17 08:15 Dose: 2.5 mg Amoxicillin/Clavulanate Potassium (Augmentin Tab*) 500 mg PO BID [facility] Last Admin: 12/11/17 08:17 Dose: 500 mg Atorvastatin Calcium (Lipitor*) 10 mg PO BEDTIME [facility] Last Admin: 12/10/17 20:19 Dose: 10 mg Cholecalciferol (Vitamin D Tab*) 1,000 units PO DAILY [facility] Last Admin: 12/11/17 08:19 Dose: 1,000 units Cyanocobalamin (Vitamin B12 Tab*) 1,000 mcg PO DAILY [facility] Last Admin: 12/11/17 08:20 Dose: 1,000 mcg Dextrose (D50w Syringe 50 Ml*) 12.5 gm IV PUSH .FOR FS < 60 - SS PRN PRN Reason: FS < 60 Doxazosin Mesylate (Cardura Tab*) 4 mg PO BEDTIME [facility] Last Admin: 12/10/17 20:18 Dose: 4 mg Ferrous Sulfate (Ferrous Sulfate Tab*) 325 mg PO DAILY [facility] Last Admin: 12/11/17 08:20 Dose: 325 mg Furosemide (Lasix Tab*) 40 mg PO BID [facility] Last Admin: 12/11/17 08:20 Dose: 40 mg Gabapentin (Neurontin Cap(*)) 300 mg PO BEDTIME [facility] Last Admin: 12/10/17 20:17 Dose: 300 mg Glipizide (Glucotrol Xl*) 10 mg PO BID [facility] Last Admin: 12/11/17 08:17 Dose: 10 mg Guaifenesin (Robitussin*) 10 ml PO QID [facility] Last Admin: 12/11/17 11:59 Dose: Not Given Insulin Human Lispro (Humalog*) 0 units SUBCUT ACHS [facility] PRN Reason: Protocol Last Admin: 12/11/17 11:58 Dose: 2 units Metoprolol Tartrate (Lopressor Tab*) 50 mg PO QPM [facility] Last Admin: 12/10/17 18:17 Dose: 50 mg Metoprolol Tartrate (Lopressor Tab*) 100 mg PO QAM [facility] Last Admin: 12/11/17 08:19 Dose: 100 mg Omeprazole (Prilosec Cap*) 20 mg PO DAILY [facility] Last Admin: 12/11/17 08:19 Dose: 20 mg Ondansetron HCl (Zofran Odt Tab*) 4 mg PO Q6H PRN PRN Reason: NAUSEA/VOMITING Pioglitazone HCl (Actos Tab*) 15 mg PO DAILY [facility] Last Admin: 12/11/17 08:20 Dose: 15 mg Potassium Chloride (Klor Con Er Tab*) 10 meq PO DAILY [facility] Last Admin: 12/11/17 08:18 Dose: 10 meq Spironolactone (Aldactone Tab*) 25 mg PO DAILY [facility] Last Admin: 12/11/17 08:19 Dose: 25 mg Vital Signs - 8 hr 12/11/17 12/11/17 07:22 11:06 Temperature 98.0 F 98.0 F Pulse Rate 81 65 Respiratory 26 26 Rate Blood Pressure 134/64 115/44 (mmHg) O2 Sat by Pulse 96 95 Oximetry Oxygen Devices in Use Now: Nasal Cannula Appearance: Alert, supine in bed. Neutral affect. Looks comfortable. Eyes: No Scleral Icterus Respiratory: Symmetrical Chest Expansion and Respiratory Effort, Clear to Auscultation, Clear to Percussion Cardiovascular: NL Sounds; No Murmurs; No JVD, RRR, No Edema, - Extremities: No Edema, No Clubbing, Cyanosis, - Skin: No Nodules or Sclerosis, - - Ecchymosis L axillary area and L chest. Neurological: Alert and Oriented x 3, NL Sensation - Some memory impairment. Result Diagrams: 12/11/17 05:13 12/11/17 05:13 Assess/Plan/Problems-Billing Assessment: - Patient Problems (1) Psoas hematoma, left, secondary to anticoagulant therapy Current Visit: Yes Status: Acute Code(s): S30.1XXA - CONTUSION OF ABDOMINAL WALL, INITIAL ENCOUNTER SNOMED Code(s): 236031103 Comment: INR 1.55 5/28/18 after vitamin K 12/10/17. Hgb down to 6.8 12/10. Repeat CBC 1800 hrs 12/11. Repeat CBC and INR 12/12. (2) CKD (chronic kidney disease) stage 4, GFR 15-29 ml/min Current Visit: No Status: Acute Code(s): N18.4 - CHRONIC KIDNEY DISEASE, STAGE 4 (SEVERE) SNOMED Code(s): 985561986 Comment: Est GFR 23.2 12/11. (3) Diabetes Current Visit: No Status: Chronic Code(s): E11.9 - TYPE 2 DIABETES MELLITUS WITHOUT COMPLICATIONS SNOMED Code(s): 19873936 Comment: Continue hme doses of pioglitazone and glipizide XL. Lispro by SS. (4) Afib Current Visit: No Status: Chronic Code(s): I48.91 - UNSPECIFIED ATRIAL FIBRILLATION SNOMED Code(s): 80578158 Comment: Rate controlled. Continue home metoprolol. held coumadin with anemia Warfarin on hold for 1-2 weeks after psoas hematoma. Check INR tomorrow (5) Pancytopenia Current Visit: No Status: Acute Code(s): D61.818 - OTHER PANCYTOPENIA SNOMED Code(s): 377496483 Comment: Resolved other than blood-loss anemia.
[2017-12-11] MEDS ORDERED: Warfarin TAB(*) 2.5 MG PO SCH (17:00)
[2017-12-11 17:43] LABS: Hematocrit 23 % (42-52); Hemoglobin 7.5 g/dl (14.0-18.0); Mean Corpuscular HGB Conc 33 g/dl (31-36); Mean Corpuscular Hemoglobin 34 pg (27-31); Mean Corpuscular Volume 103 fL (80-94); Mean Platelet Volume 7.7 um3 (7.4-10.4); Platelet Count 206 10^3/ul (150-450); Red Blood Count 2.21 10^6/ul (4.0-5.4); Red Cell Distribution Width 18 % (10.5-15); White Blood Count 5.6 10^3/ul (3.5-10.8)
[2017-12-11 18:22] LABS: ABS Basophils 0 10^3/ul (0-0.2); ABS Eosinophils 0.1 10^3/ul (0-0.6); ABS Lymphocytes 0.4 10^3/ul (1.0-4.8); ABS Monocytes 0.5 10^3/ul (0-0.8); ABS Neutrophils 4.6 10^3/ul (1.5-7.7); ABS Nucleated RBC 0 10^3/ul; Lymphocyte % 6.9 % (25-47); Nucleated Red Blood Cells % 0.1
[2017-12-11] MEDS: Doxazosin TAB* 2 MG PO SCH (21:33)
[2017-12-11] MEDS: Atorvastatin* 10 MG TAB PO SCH (21:34)
[2017-12-11] MEDS: Gabapentin CAP(*) 300 MG PO SCH (21:34)
[2017-12-12] MEDS: guaiFENesin LIQ* 100 MG/5 ML UDC PO SCH ×5 (03:45→20:04)
[2017-12-12] MEDS: Acetaminophen TAB* 325 MG PO PRN (04:30)
[2017-12-12 06:36] LABS: Hematocrit 20 % (42-52); Hemoglobin 6.5 g/dl (14.0-18.0); Mean Corpuscular HGB Conc 33 g/dl (31-36); Mean Corpuscular Hemoglobin 34 pg (27-31); Mean Corpuscular Volume 102 fL (80-94); Mean Platelet Volume 7.8 um3 (7.4-10.4); Platelet Count 202 10^3/ul (150-450); Red Blood Count 1.95 10^6/ul (4.0-5.4); Red Cell Distribution Width 18 % (10.5-15); White Blood Count 4.7 10^3/ul (3.5-10.8)
[2017-12-12 06:43] LABS: INR 1.16 (0.77-1.02)
[2017-12-12 07:01] LABS: ABS Basophils 0 10^3/ul (0-0.2); ABS Eosinophils 0.1 10^3/ul (0-0.6); ABS Lymphocytes 0.4 10^3/ul (1.0-4.8); ABS Monocytes 0.5 10^3/ul (0-0.8); ABS Neutrophils 3.7 10^3/ul (1.5-7.7); ABS Nucleated RBC 0 10^3/ul; Eosinophil % 1.1 % (0-6); Lymphocyte % 9.3 % (25-47); Nucleated Red Blood Cells % 0.1
[2017-12-12] MEDS: Insulin LISPRO* 1 UNITS UNIT SUBCUT SCH ×4 (07:37→21:03)
[2017-12-12] MEDS: Ferrous Sulfate TAB* 325 MG PO SCH (09:45)
[2017-12-12] MEDS: Omeprazole CAP* 20 MG PO SCH (09:45)
[2017-12-12] MEDS: Cholecalciferol TAB* 1000 UNITS PO SCH (09:45)
[2017-12-12] MEDS: Pioglitazone TAB* 15 MG PO SCH (09:45)
[2017-12-12] MEDS: Amoxicillin/Clavulanate TAB* 500 MG PO SCH ×2 (09:45→20:00)
[2017-12-12] MEDS: Acetaminophen TAB* 325 MG PO SCH ×3 (09:45→20:01)
[2017-12-12] MEDS: Cyanocobalamin TAB* 500 MCG PO SCH (09:46)
[2017-12-12] MEDS: Potassium Chlor TAB* 10 MEQ TAB.ER PO SCH (09:46)
[2017-12-12] MEDS: amLODIPine TAB* 5 MG PO SCH (09:46)
[2017-12-12] MEDS: Furosemide TAB* 40 MG PO SCH ×2 (09:46→20:02)
[2017-12-12] MEDS: glipiZIDE TAB.XL* 5 MG PO SCH ×2 (09:46→20:02)
[2017-12-12] MEDS: Metoprolol Tartrate TAB* 50 mg PO SCH ×2 (09:46→17:42)
[2017-12-12] MEDS: Spironolactone TAB* 25 MG PO SCH (09:46)
[2017-12-12] MEDS: Allopurinol TAB* 100 MG PO SCH (09:46)
--- NOTE | 2017-12-12 12:57 | PN ---
Subjective Date of Service: 12/12/17 Interval History: Pt is feeling well. He states that he continues to have left sided pain. He otherwise denies any issues. Objective Active Medications: Acetaminophen (Tylenol Tab*) 650 mg PO TID [facility] Last Admin: 12/12/17 09:45 Dose: 650 mg Acetaminophen (Tylenol Tab*) 650 mg PO Q6H PRN PRN Reason: FEVER/PAIN Last Admin: 12/12/17 04:30 Dose: 650 mg Allopurinol (Zyloprim Tab*) 100 mg PO DAILY [facility] Last Admin: 12/12/17 09:46 Dose: 100 mg Amlodipine Besylate (Norvasc Tab*) 2.5 mg PO DAILY [facility] Last Admin: 12/12/17 09:46 Dose: 2.5 mg Amoxicillin/Clavulanate Potassium (Augmentin Tab*) 500 mg PO BID [facility] Last Admin: 12/12/17 09:45 Dose: 500 mg Atorvastatin Calcium (Lipitor*) 10 mg PO BEDTIME [facility] Last Admin: 12/11/17 21:34 Dose: 10 mg Cholecalciferol (Vitamin D Tab*) 1,000 units PO DAILY [facility] Last Admin: 12/12/17 09:45 Dose: 1,000 units Cyanocobalamin (Vitamin B12 Tab*) 1,000 mcg PO DAILY [facility] Last Admin: 12/12/17 09:46 Dose: 1,000 mcg Dextrose (D50w Syringe 50 Ml*) 12.5 gm IV PUSH .FOR FS < 60 - SS PRN PRN Reason: FS < 60 Doxazosin Mesylate (Cardura Tab*) 4 mg PO BEDTIME [facility] Last Admin: 12/11/17 21:33 Dose: 4 mg Ferrous Sulfate (Ferrous Sulfate Tab*) 325 mg PO DAILY [facility] Last Admin: 12/12/17 09:45 Dose: 325 mg Furosemide (Lasix Tab*) 40 mg PO BID [facility] Last Admin: 12/12/17 09:46 Dose: 40 mg Gabapentin (Neurontin Cap(*)) 300 mg PO BEDTIME [facility] Last Admin: 12/11/17 21:34 Dose: 300 mg Glipizide (Glucotrol Xl*) 10 mg PO BID [facility] Last Admin: 12/12/17 09:46 Dose: 10 mg Guaifenesin (Robitussin*) 10 ml PO QID [facility] Last Admin: 12/12/17 12:31 Dose: 10 ml Insulin Human Lispro (Humalog*) 0 units SUBCUT ACHS [facility] PRN Reason: Protocol Last Admin: 12/12/17 12:31 Dose: 3 units Metoprolol Tartrate (Lopressor Tab*) 50 mg PO QPM [facility] Last Admin: 12/11/17 17:12 Dose: 50 mg Metoprolol Tartrate (Lopressor Tab*) 100 mg PO QAM [facility] Last Admin: 12/12/17 09:46 Dose: 100 mg Omeprazole (Prilosec Cap*) 20 mg PO DAILY [facility] Last Admin: 12/12/17 09:45 Dose: 20 mg Ondansetron HCl (Zofran Odt Tab*) 4 mg PO Q6H PRN PRN Reason: NAUSEA/VOMITING Pioglitazone HCl (Actos Tab*) 15 mg PO DAILY [facility] Last Admin: 12/12/17 09:45 Dose: 15 mg Potassium Chloride (Klor Con Er Tab*) 10 meq PO DAILY [facility] Last Admin: 12/12/17 09:46 Dose: 10 meq Spironolactone (Aldactone Tab*) 25 mg PO DAILY [facility] Last Admin: 12/12/17 09:46 Dose: 25 mg Vital Signs - 8 hr 12/12/17 12/12/17 07:34 07:38 Temperature 98.0 F Pulse Rate 78 Respiratory 23 22 Rate Blood Pressure 126/60 (mmHg) O2 Sat by Pulse 99 Oximetry Oxygen Devices in Use Now: Nasal Cannula Appearance: Elderly male sitting up in bed eating lunch, NAD Eyes: No Scleral Icterus Ears/Nose/Mouth/Throat: Mucous Membranes Moist Respiratory: Symmetrical Chest Expansion and Respiratory Effort, Clear to Auscultation Cardiovascular: NL Sounds; No Murmurs; No JVD, RRR, No Edema Abdominal: NL Sounds; No Tenderness; No Distention Extremities: No Clubbing, Cyanosis Skin: No Nodules or Sclerosis Neurological: Alert and Oriented x 3 Result Diagrams: 12/12/17 06:12 12/11/17 05:13 Assess/Plan/Problems-Billing Mr Davison is an 87 yo M who has a h/o recent pneumonia, afib, type II DM, HTN, systolic CHF, CAD and BPH who presented to the ER with c/o left hip pain and inability to transfer from wheelchair and was found to have an early left psoas hematoma. - Patient Problems (1) Psoas hematoma, left, secondary to anticoagulant therapy Current Visit: Yes Status: Acute Code(s): S30.1XXA - CONTUSION OF ABDOMINAL WALL, INITIAL ENCOUNTER SNOMED Code(s): 546442619 Comment: INR 1.16. Hold coumadin for the next 2 weeks. Hb dropped to 6.5 today. Will transfuse 1 unit PRBC today. He will likely need STR. (2) CKD (chronic kidney disease) stage 4, GFR 15-29 ml/min Current Visit: Yes Status: Acute Code(s): N18.4 - CHRONIC KIDNEY DISEASE, STAGE 4 (SEVERE) SNOMED Code(s): 384275774 Comment: Creatinine at baseline. GFR ~23 as of 12/11/17. Avoid nephrotoxic medications. (3) Diabetes Current Visit: Yes Status: Chronic Code(s): E11.9 - TYPE 2 DIABETES MELLITUS WITHOUT COMPLICATIONS SNOMED Code(s): 06874829 Comment: Type II DM. Sugars under fair control. Continue home medications/ doses. Continue lispro sliding scale. (4) Afib Current Visit: Yes Status: Chronic Code(s): I48.91 - UNSPECIFIED ATRIAL FIBRILLATION SNOMED Code(s): 99837764 Comment: Sounded regular on exam. Continue metoprolol. Coumadin on hold for next ~2weeks. (5) HTN (hypertension) Current Visit: Yes Status: Acute Code(s): I10 - ESSENTIAL (PRIMARY) HYPERTENSION SNOMED Code(s): 91122899 Comment: BP is under good control. Continue home medication regimen. (6) Hyperlipidemia Current Visit: No Status: Chronic Code(s): E78.5 - HYPERLIPIDEMIA, UNSPECIFIED SNOMED Code(s): 50968498 Comment: Continue atorvastatin. (7) DVT prophylaxis Current Visit: Yes Status: Acute Code(s): UOM5792 - SNOMED Code(s): 289283889 Comment: SCDs (8) DNR (do not resuscitate) Current Visit: Yes Status: Acute
[2017-12-12] MEDS: Gabapentin CAP(*) 300 MG PO SCH (20:01)
[2017-12-12] MEDS: Doxazosin TAB* 2 MG PO SCH (20:03)
[2017-12-12] MEDS: Atorvastatin* 10 MG TAB PO SCH (20:03)
[2017-12-13 05:47] LABS: Hematocrit 21 % (42-52); Hemoglobin 7.2 g/dl (14.0-18.0); Mean Corpuscular HGB Conc 34 g/dl (31-36); Mean Corpuscular Hemoglobin 34 pg (27-31); Mean Corpuscular Volume 101 fL (80-94); Mean Platelet Volume 7.4 um3 (7.4-10.4); Platelet Count 199 10^3/ul (150-450); Red Cell Distribution Width 18 % (10.5-15)
[2017-12-13 06:03] LABS: EGFR Non-African American 22.8 (>60)
[2017-12-13] MEDS: Insulin LISPRO* 1 UNITS UNIT SUBCUT SCH ×4 (07:48→21:35)
[2017-12-13] MEDS: Pioglitazone TAB* 15 MG PO SCH (09:47)
[2017-12-13] MEDS: guaiFENesin LIQ* 100 MG/5 ML UDC PO SCH ×4 (09:47→21:33)
[2017-12-13] MEDS: Acetaminophen TAB* 325 MG PO SCH ×3 (09:48→21:27)
[2017-12-13] MEDS: glipiZIDE TAB.XL* 5 MG PO SCH ×2 (09:48→21:28)
[2017-12-13] MEDS: Amoxicillin/Clavulanate TAB* 500 MG PO SCH ×2 (09:48→21:27)
[2017-12-13] MEDS: Furosemide TAB* 40 MG PO SCH ×2 (09:48→21:29)
[2017-12-13] MEDS: Omeprazole CAP* 20 MG PO SCH (09:48)
[2017-12-13] MEDS: Cholecalciferol TAB* 1000 UNITS PO SCH (09:48)
[2017-12-13] MEDS: Metoprolol Tartrate TAB* 50 mg PO SCH ×2 (09:49→17:56)
[2017-12-13] MEDS: Potassium Chlor TAB* 10 MEQ TAB.ER PO SCH (09:49)
[2017-12-13] MEDS: Allopurinol TAB* 100 MG PO SCH (09:49)
[2017-12-13] MEDS: Spironolactone TAB* 25 MG PO SCH (09:49)
[2017-12-13] MEDS: Cyanocobalamin TAB* 500 MCG PO SCH (09:49)
[2017-12-13] MEDS: amLODIPine TAB* 5 MG PO SCH (09:49)
[2017-12-13] MEDS: Ferrous Sulfate TAB* 325 MG PO SCH (09:53)
[2017-12-13] MEDS ORDERED: Potassium Chlor TAB* 20 MEQ TAB.ER PO ONE (10:19)
--- NOTE | 2017-12-13 14:39 | PN ---
Subjective Date of Service: 12/13/17 Interval History: HOSPITALIST PROGRESS NOTE Patient seen and examined at bedside. Care reviewed and d/w Rand Mistry RN. He feels well today. C/o intermittent left hip pain, but otherwise no other complaints. Family History: Unchanged from Admission Social History: Unchanged from Admission Past Medical History: Unchanged from Admission Objective Active Medications: Acetaminophen (Tylenol Tab*) 650 mg PO TID [facility] Last Admin: 12/13/17 09:48 Dose: 650 mg Acetaminophen (Tylenol Tab*) 650 mg PO Q6H PRN PRN Reason: FEVER/PAIN Last Admin: 12/12/17 04:30 Dose: 650 mg Allopurinol (Zyloprim Tab*) 100 mg PO DAILY [facility] Last Admin: 12/13/17 09:49 Dose: 100 mg Amlodipine Besylate (Norvasc Tab*) 2.5 mg PO DAILY [facility] Last Admin: 12/13/17 09:49 Dose: 2.5 mg Amoxicillin/Clavulanate Potassium (Augmentin Tab*) 500 mg PO BID [facility] Last Admin: 12/13/17 09:48 Dose: 500 mg Atorvastatin Calcium (Lipitor*) 10 mg PO BEDTIME [facility] Last Admin: 12/12/17 20:03 Dose: 10 mg Cholecalciferol (Vitamin D Tab*) 1,000 units PO DAILY [facility] Last Admin: 12/13/17 09:48 Dose: 1,000 units Cyanocobalamin (Vitamin B12 Tab*) 1,000 mcg PO DAILY [facility] Last Admin: 12/13/17 09:49 Dose: 1,000 mcg Dextrose (D50w Syringe 50 Ml*) 12.5 gm IV PUSH .FOR FS < 60 - SS PRN PRN Reason: FS < 60 Doxazosin Mesylate (Cardura Tab*) 4 mg PO BEDTIME [facility] Last Admin: 12/12/17 20:03 Dose: 4 mg Ferrous Sulfate (Ferrous Sulfate Tab*) 325 mg PO DAILY [facility] Last Admin: 12/13/17 09:53 Dose: 325 mg Furosemide (Lasix Tab*) 40 mg PO BID [facility] Last Admin: 12/13/17 09:48 Dose: 40 mg Gabapentin (Neurontin Cap(*)) 300 mg PO BEDTIME [facility] Last Admin: 12/12/17 20:01 Dose: 300 mg Glipizide (Glucotrol Xl*) 10 mg PO BID [facility] Last Admin: 12/13/17 09:48 Dose: 10 mg Guaifenesin (Robitussin*) 10 ml PO QID [facility] Last Admin: 12/13/17 14:16 Dose: Not Given Insulin Human Lispro (Humalog*) 0 units SUBCUT ACHS [facility] PRN Reason: Protocol Last Admin: 12/13/17 12:15 Dose: 2 units Metoprolol Tartrate (Lopressor Tab*) 50 mg PO QPM [facility] Last Admin: 12/12/17 17:42 Dose: 50 mg Metoprolol Tartrate (Lopressor Tab*) 100 mg PO QAM [facility] Last Admin: 12/13/17 09:49 Dose: 100 mg Omeprazole (Prilosec Cap*) 20 mg PO DAILY [facility] Last Admin: 12/13/17 09:48 Dose: 20 mg Ondansetron HCl (Zofran Odt Tab*) 4 mg PO Q6H PRN PRN Reason: NAUSEA/VOMITING Pioglitazone HCl (Actos Tab*) 15 mg PO DAILY [facility] Last Admin: 12/13/17 09:47 Dose: 15 mg Potassium Chloride (Klor Con Er Tab*) 10 meq PO DAILY [facility] Last Admin: 12/13/17 09:49 Dose: 10 meq Spironolactone (Aldactone Tab*) 25 mg PO DAILY [facility] Last Admin: 12/13/17 09:49 Dose: 25 mg Vital Signs - 8 hr 12/13/17 12/13/17 12/13/17 07:20 08:00 11:17 Temperature 98.2 F 98.2 F Pulse Rate 78 89 Respiratory 18 18 22 Rate Blood Pressure 125/58 133/55 (mmHg) O2 Sat by Pulse 98 100 Oximetry Oxygen Devices in Use Now: None Appearance: Elderly gentleman sitting up in a chair in [facility]. Eyes: No Scleral Icterus Ears/Nose/Mouth/Throat: Mucous Membranes Moist Neck: Trachea Midline Respiratory: Symmetrical Chest Expansion and Respiratory Effort, Clear to Auscultation Cardiovascular: RRR - Normal S1 and S2 Neurological: Alert and Oriented x 3 Result Diagrams: 12/13/17 05:30 12/13/17 05:30 Assess/Plan/Problems-Billing Assessment: Mr Davison is an 87 yo M who has a h/o recent pneumonia, afib, type II DM, HTN, systolic CHF, CAD and BPH who presented to the ER with c/o left hip pain and inability to transfer from wheelchair and was found to have an early left psoas hematoma. - Patient Problems (1) Psoas hematoma, left, secondary to anticoagulant therapy Comment: - No h/o of fall or trauma. - INR 1.16. - Warfarin on hold for 2 weeks. - Hb 7.2 today. (2) Blood loss anemia Comment: - S/p 1 PRBC. (3) CKD (chronic kidney disease) stage 4, GFR 15-29 ml/min Comment: - Creatinine at baseline. (4) Diabetes Comment: - Controlled. - Continue Actos, Glipizide, Lispro SS. (5) Afib Comment: - Rate controlled. - Continue metoprolol. - Warfarin on hold for 2 weeks. (6) HTN (hypertension) Comment: - BP is under good control. - Continue amlodipine and metoprolol. (7) DVT prophylaxis Comment: - SCDs. (8) DNR (do not resuscitate) Status and Disposition: Inpatient. Anticipate d/c to SNF in AM if H/H remains stable.
[2017-12-13] MEDS: Atorvastatin* 10 MG TAB PO SCH (21:27)
[2017-12-13] MEDS: Gabapentin CAP(*) 300 MG PO SCH (21:28)
[2017-12-13] MEDS: Doxazosin TAB* 2 MG PO SCH (21:30)
[2017-12-14 06:06] LABS: Hematocrit 21 % (42-52); Hemoglobin 7.2 g/dl (14.0-18.0)
[2017-12-14 06:30] LABS: EGFR Non-African American 21.2 (>60)
[2017-12-14] MEDS: Insulin LISPRO* 1 UNITS UNIT SUBCUT SCH (07:27)
[2017-12-14 07:28] VITALS: BP 119/58
[2017-12-14] MEDS: guaiFENesin LIQ* 100 MG/5 ML UDC PO SCH (08:09)
[2017-12-14] MEDS: Cholecalciferol TAB* 1000 UNITS PO SCH (08:11)
[2017-12-14] MEDS: Furosemide TAB* 40 MG PO SCH (08:11)
[2017-12-14] MEDS: Amoxicillin/Clavulanate TAB* 500 MG PO SCH (08:11)
[2017-12-14] MEDS: Spironolactone TAB* 25 MG PO SCH (08:11)
[2017-12-14] MEDS: Potassium Chlor TAB* 10 MEQ TAB.ER PO SCH (08:11)
[2017-12-14] MEDS: Metoprolol Tartrate TAB* 50 mg PO SCH (08:11)
[2017-12-14] MEDS: Ferrous Sulfate TAB* 325 MG PO SCH (08:11)
[2017-12-14] MEDS: glipiZIDE TAB.XL* 5 MG PO SCH (08:11)
[2017-12-14] MEDS: Allopurinol TAB* 100 MG PO SCH (08:11)
[2017-12-14] MEDS: Pioglitazone TAB* 15 MG PO SCH (08:11)
[2017-12-14] MEDS: Omeprazole CAP* 20 MG PO SCH (08:11)
[2017-12-14] MEDS: Cyanocobalamin TAB* 500 MCG PO SCH (08:12)
[2017-12-14] MEDS: Acetaminophen TAB* 325 MG PO SCH (08:12)
[2017-12-14] MEDS: amLODIPine TAB* 5 MG PO SCH (08:12)
--- NOTE | 2017-12-14 20:39 | DS ---
CC: Dr. Sherman; [facility] in [place]. DISCHARGE SUMMARY: DATE OF ADMISSION: 12/10/17 DATE OF DISCHARGE: 12/14/17 PRIMARY CARE PROVIDER: Dr. Sherman. DISCHARGE DIAGNOSES: 1. Left psoas hematoma. 2. Blood loss anemia secondary to the above. SECONDARY DIAGNOSES: 1. Recent admission for pneumonia. 2. Atrial fibrillation. 3. Type 2 diabetes. 4. Hypertension. 5. Systolic congestive heart failure. 6. Coronary artery disease. 7. Benign prostatic hyperplasia. MEDICATION LIST: 1. Acetaminophen 650 mg p.o. q.6 hours p.r.n. pain or fever. 2. Allopurinol 100 mg p.o. daily. 3. Amlodipine 2.5 mg p.o. daily. 4. Cholecalciferol 1000 units p.o. daily. 5. Cyanocobalamin 1000 mcg p.o. daily. 6. Doxazosin 4 mg p.o. at bedtime. 7. Ferrous sulfate 325 mg p.o. daily. 8. Furosemide 40 mg p.o. b.i.d. 9. Gabapentin 300 mg p.o. at bedtime. 10. Glipizide 10 mg p.o. b.i.d. 11. Lispro sliding scale as follows: Fingerstick 131 to 150, 0 units; 151 to 200, 1 unit; 201 to 250, 2 units; 251 to 300, 3 units; 301 to 350, 4 units; 351 to 400, 5 units; greater than 400, call MD. 12. Metoprolol tartrate 100 mg p.o. q.a.m., 50 mg p.o. q.p.m. 13. Zofran ODT 8 mg p.o. q.6 hours p.r.n. nausea, vomiting. 14. Pantoprazole 40 mg p.o. daily. 15. Pioglitazone 15 mg p.o. daily. 16. Potassium chloride 10 mEq p.o. daily. 17. Simvastatin 20 mg p.o. at bedtime. 18. Spironolactone 25 mg p.o. daily. HOSPITAL COURSE: Mr. Davison is an 87-year-old male with a past medical history stated above who was admitted on 12/02/17 with a sore throat, dehydration and was later on found to have pneumonia. The patient was discharged home with improvement of his cough, but he returned to the emergency room on 12/10/17 complaining of left hip pain and it was very difficult for him to stand up and transfer from his wheelchair as he was able to do before. His workup in the emergency room included a hip and pelvis x-ray, that was a mildly limited examination, but with no evidence of hip fracture. A CT of the pelvis showed no evidence of acute hip or pelvic fracture, but interval development of left psoas enlargement and adjacent stranding with free fluid. The patient denies any fall or trauma, but I suspect this hematoma could be secondary to his cough associated with pneumonia in a patient who is on warfarin. His warfarin was discontinued. His last INR prior to discharge is 1.16. His hemoglobin was 6.8 on admission and the patient received 1 PRBC so far and now his hemoglobin is 7.2 with no significant symptoms. The patient still unable to bear weight on his left lower extremity and he was felt to require rehabilitation and he was offered a bed at [facility]. PHYSICAL EXAMINATION: Vital Signs: Temperature 97.9, heart rate is 70, respiratory rate is 18, oxygen saturation is 100% on 2 L via nasal cannula, blood pressure is 133/55. General: The patient is a pleasant elderly male, lying in bed, in no acute distress. CVS: Normal S1 and S2. Irregularly irregular. Chest: Breath sounds present bilaterally with no added sounds. Abdomen: Soft, bowel sounds present. Neuro: He is alert and oriented x3. Able to move all 4 extremities. DIET: Heart healthy, consistent carb diet. ACTIVITY: Weightbearing as tolerated. DISPOSITION: To [facility]. The patient should have an H and H repeated on 12/18/17 and hopefully if remains stable, his warfarin could be resumed in 2 weeks, but with close monitoring of his H and H and INR. Please keep in mind, this is a summarized version of this patient's hospital stay. If you need more information, please feel free to call me at [phone] or please obtain the full medical records. TIME SPENT: Approximately 45 minutes was spent on this discharge. [id number]/[facility] #: [id number]
== END 2017-12-14 09:10 | DRG 555 ==
LOC: ED 13:32 → MED 17:37 → OBSVTOIN 12-11 09:00
PROVIDERS: ADMIT Internal Medicine; ATTEND Internal Medicine
PROC: 30233N1 Transfusion of Nonautologous Red Blood Cells into Peripheral Vein, Percutaneous Approach (ICD-10-PCS; principal; 2017-12-12)
DX: M79.81 Nontraumatic hematoma of soft tissue (principal); J18.9 Pneumonia, unspecified organism; I13.0 Hypertensive heart and chronic kidney disease with heart failure and stage 1 through stage 4 chronic kidney disease, or unspecified chronic kidney disease; I50.22 Chronic systolic (congestive) heart failure; N18.4 Chronic kidney disease, stage 4 (severe); D61.818 Other pancytopenia; M17.12 Unilateral primary osteoarthritis, left knee; N40.0 Benign prostatic hyperplasia without lower urinary tract symptoms; E11.22 Type 2 diabetes mellitus with diabetic chronic kidney disease; I25.10 Atherosclerotic heart disease of native coronary artery without angina pectoris; T45.515A Adverse effect of anticoagulants, initial encounter; I48.91 Unspecified atrial fibrillation; E78.5 Hyperlipidemia, unspecified; D50.0 Iron deficiency anemia secondary to blood loss (chronic); Z66 Do not resuscitate; Z95.810 Presence of automatic (implantable) cardiac defibrillator; Z85.51 Personal history of malignant neoplasm of bladder; Z82.49 Family history of ischemic heart disease and other diseases of the circulatory system; Z87.891 Personal history of nicotine dependence; Z80.52 Family history of malignant neoplasm of bladder; Z79.01 Long term (current) use of anticoagulants; Z99.81 Dependence on supplemental oxygen; Z83.6 Family history of other diseases of the respiratory system; Z79.4 Long term (current) use of insulin
CPT/HCPCS: 36415; 72192; 80048; 85014; 85018; 85025; 85027; 85610; 86850; 86900; 86901; 86922; 99283; A9270-GY; G0378; G8978-GP-CL; G8979-GP-CJ; G8987-GO-CK; G8988-GO-CI; G8989-GO-CI; P9040

== ENCOUNTER 2018-08-31 22:14 | Emergency (ER) | payer MEDICARE, OTHER ==
--- NOTE | 2018-09-01 | ED ---
Shortness of Breath - HPI Summary HPI Summary: Pt is 88 y/o M brought by ambulance to [facility] c/o SOB while lying down. He is not sure when it first started, and says it has been an ongoing problem. Notes abdominal pain and cough with white sputum. Denies chest pain. PMHx of CHF and COPD. Denies Hx of smoking. - History of Current Complaint Chief Complaint: EDShortnessOfBreath Time Seen by Provider: 08/31/18 23:12 Hx Obtained From: Patient Onset/Duration: Gradual Onset, Lasting Weeks Dyspnea At: Rest Aggrevating Factors: Other - lying on his back Alleviating Factors: Upright Position Associated Signs & Symptoms: Cough (Productive), Chest Pain Unrelated to Cough - negatiev - Allergy/Home Medications Allergies/Adverse Reactions: Allergies Allergy/AdvReac Type Severity Reaction Status Date / Time No Known Allergies Allergy Verified 09/01/18 03:15 Home Medications: Home Medications Ferrous Sulfate TAB* 325 mg PO DAILY 09/01/18 [History Confirmed 09/01/18] PMH/Surg Hx/FS Hx/Imm Hx Endocrine/Hematology History: Reports: Hx Anticoagulant Therapy - coumadin, Hx Diabetes Cardiovascular History: Reports: Hx Atrial Fibrillation, Hx Congestive Heart Failure, Hx Hypertension, Hx Pacemaker/ICD, Other Cardiovascular Problems/ Disorders - PACEMAKER Denies: Hx Peripheral Vascular Disease History: Reports: Other Problems/Disorders - CKD Musculoskeletal History: Reports: Hx Arthritis - Lt knee - injections have helped temporarily in the past, Hx Gout Denies: Hx Osteoporosis Sensory History: Reports: Hx Contacts or Glasses Denies: Hx Hearing Aid Opthamlomology History: Reports: Hx Contacts or Glasses Neurological History: Denies: Hx Headaches, Hx Seizures, Hx Transient Ischemic Attacks (TIA) Psychiatric History: Denies: Hx Anxiety, Hx Depression - Cancer History Cancer Type, Location and Year: bladder ca - Surgical History Surgery Procedure, Year, and Place: PACEMAKER - Immunization History Date of Tetanus Vaccine: unk Date of Influenza Vaccine: fall 2016 Infectious Disease History: No Infectious Disease History: Denies: Hx of Known/Suspected MRSA, Traveled Outside the [place] in Last 30 Days - Family History Known Family History: Positive: Cardiac Disease Negative: Hypertension, Diabetes - Social History Alcohol Use: None Hx Substance Use: No Substance Use Type: Reports: None Hx Tobacco Use: Yes Smoking Status (MU): Former Smoker Review of Systems Negative: Chest Pain Positive: Shortness Of Breath, Cough Positive: Abdominal Pain All Other Systems Reviewed And Are Negative: Yes Physical Exam - Summary Physical Exam Summary: Appearance: Well-appearing, Well-nourished, elderly man lying in bed comfortably at 30 degrees Skin: Warm, dry, no obvious rash Eyes: sclera anicteric, no conjunctival pallor ENT: mucous membranes moist, pharynx appears normal Neck: Supple, nontender Respiratory: No crackles, faint expiratory wheezing Cardiovascular: Normal S1, S2. No murmurs. Normal distal pulses in tibial and radial bilaterally. Abdomen: Soft, nontender, normal active bowel sounds present Musculoskeletal: Normal, Strength/ROM Intact Neurological: A&Ox3, awake and alert, mentation is normal, speech is fluent and appropriate Psychiatric: affect is normal, does not appear anxious or depressed Triage Information Reviewed: Yes Vital Signs On Initial Exam: Initial Vitals Temp Pulse Resp BP Pulse Ox 97.9 F 65 20 142/84 95 08/31/18 22:43 08/31/18 22:43 08/31/18 22:43 08/31/18 22:43 08/31/18 22:43 Vital Signs Reviewed: Yes Diagnostics - Vital Signs Vital Signs Temp Pulse Resp BP Pulse Ox 08/31/18 22:43 97.9 F 65 20 142/84 95 - Laboratory Result Diagrams: 09/01/18 01:10 09/01/18 01:10 Lab Statement: Any lab studies that have been ordered have been reviewed, and results considered in the medical decision making process. - Radiology CXR Radiology Interpretation Completed By: ED Physician Summary of Radiographic Findings: CXR revealed small left pleural effusion which is unchanged from November of 2017 and no pulmonary vascular congestion. Pending official report. - EKG 2305 Cardiac Rate: NL - 71 bpm EKG Rhythm: Atrial Fibrillation Summary of EKG Findings: EKG shows 71 bpm with atrial fibrillation and LVH with secondary repolarization abnormality. Re-Evaluation - Re-Evaluation First Eval Re-Evaluation Time: 03:50 Change: Improved Course/Dx - Course Course Of Treatment: Pt is 88 y/o M brought by ambulance to [facility] c/o SOB while lying down. Notes abdominal pain and cough with white sputum. Denies chest pain. PMHx of CHF and COPD. Physical exam revealed faint expiratory wheezing and no crackles. EKG taken at 23:05 revealed 71 bpm with atrial fibrillation and LVH with secondary repolarization abnormality. CXR revealed small left pleural effusion which is unchanged from November of 2017 and no pulmonary vascular congestion. Labs showed minimally elevated troponin, glucose, and anemia which is stable. Pt discharged home with diagnosis of dyspnea. He was told to follow up with his doctor about other chronic abnormalities and pt is agreeble with this plan. - Diagnoses Provider Diagnoses: Dyspnea Discharge - Sign-Out/Discharge Documenting (check all that apply): Patient Departure - Discharge Patient Received Moderate/Deep Sedation with Procedure: No - Discharge Plan Condition: Good Disposition: HOME Patient Education Materials: Dyspnea (ED) Referrals: Hayder Sherman MD [Primary Care Provider] - 3 Days (if continuing to have any breathing problems) Additional Instructions: The tests we ran tonight show you have anemia which is stable, and there are some other chronic abnormalities that I do not think enter into what is going on with you tonight. Your doctor can followup on those issues, as well as your breathing problems. I am not recommending any changes in your medications for now. - Billing Disposition and Condition Condition: GOOD Disposition: Home - Attestation Statements Document Initiated by Alethaibe: Yes Documenting Scribe: Sirisha Butt Provider For Whom Alethaibe is Documenting (Include Credential): Dr. Nj Clement MD Scribe Attestation: I, Sirisha Butt, scribed for Dr. Nj Clement MD on 09/04/18 at 1428. Scribe Documentation Reviewed: Yes Provider Attestation: The documentation as recorded by the scribe, Sirisha Butt accurately reflects the service I personally performed and the decisions made by me, Dr. Nj Clement MD Status of Scribe Document: Viewed
[2018-09-01] MEDS ORDERED: Albuterol 2.5 MG/3 ML NEB.SOL* (0.083%) INH ONE (00:28)
[2018-09-01 01:28] LABS: ABS Basophils 0 10^3/ul (0-0.2); ABS Eosinophils 0.1 10^3/ul (0-0.6); ABS Lymphocytes 0.4 10^3/ul (1.0-4.8); ABS Monocytes 0.3 10^3/ul (0-0.8); ABS Neutrophils 1.4 10^3/ul (1.5-7.7); ABS Nucleated RBC 0 10^3/ul; Eosinophil % 3.4 %; Hematocrit 24 % (42-52); Lymphocyte % 20.3 %; Mean Corpuscular HGB Conc 33 g/dl (31-36); Mean Corpuscular Hemoglobin 33 pg (27-31); Mean Corpuscular Volume 100 fL (80-94); Mean Platelet Volume 8.1 fL (7.4-10.4); Nucleated Red Blood Cells % 0.1; Platelet Count 127 10^3/ul (150-450); Red Blood Count 2.42 10^6/ul (4.00-5.40); Red Cell Distribution Width 19 % (10.5-15); White Blood Count 2.2 10^3/ul (3.5-10.8)
[2018-09-01 01:44] LABS: Albumin 3.7 g/dL (3.2-5.2); Albumin/Globulin Ratio 1.1 (1-3); BUN/Creatinine Ratio 20.9 (8-20); Calcium 9.4 mg/dL (8.6-10.3); EGFR African American 22.3 (>60); EGFR Non-African American 18.4 (>60); Globulin 3.3 g/dL (2-4); Potassium 3.4 mmol/L (3.5-5.0); Total Bilirubin 0.7 mg/dL (0.2-1.0)
[2018-09-01 01:56] LABS: Troponin I 0.04 ng/mL (<0.04)
[2018-09-01 08:21] VITALS: BP 140/81
== END 2018-09-01 08:15 | disposition home or self-care (01) ==
LOC: ED 22:14
DX: R06.00 Dyspnea, unspecified (principal); J18.0 Bronchopneumonia, unspecified organism; J90 Pleural effusion, not elsewhere classified; R05 Cough; R07.89 Other chest pain; I48.91 Unspecified atrial fibrillation; Z79.01 Long term (current) use of anticoagulants; Z95.810 Presence of automatic (implantable) cardiac defibrillator; Z87.891 Personal history of nicotine dependence
CPT/HCPCS: 36415; 71046; 80053; 83605; 83880; 84484; 85025; 87040; 93005; 99282